=== PATIENT | male | born 1960 | race Caucasian/White ===

== ENCOUNTER 2018-05-29 14:36 | Emergency (ER) | payer OTHER, SELFPAY ==
[2018-05-29 14:37] VITALS: BP 138/87; PULSE 73; RESP 16; TEMP 36.9; O2SAT 95; BMI 26.6
--- NOTE | 2018-05-29 14:58 | CT_ITS ---
STUDY: CT BRAIN WITHOUT CONTRAST REASON FOR EXAM: Male, 57 years old. History of fall. RADIATION DOSAGE (If Supplied By Facility): CTDIvol = ( 60.81 ) mGy, DLP = ( 1089.89 ) mGycm TECHNIQUE: Transaxial CT imaging of the brain was performed without administration of intravenous contrast material. Individualized dose optimization techniques were used for this CT. COMPARISON: No relevant priors. FINDINGS: Normal soft tissue structures. Normal calvarium. Normal size ventricles and extra-axial spaces for the patient's age. Normal white matter tracts of the cerebral hemispheres. Normal basal ganglia and thalami. Normal brainstem. Normal cerebellum. There is no intracranial hemorrhage. There are no findings of an acute ischemic infarction. Mucosal thickening of the ethmoid sinuses and maxillary sinuses bilaterally. CT/Brain/Head without Contrast IMPRESSION: Mucosal thickening of the ethmoid sinuses and maxillary sinuses. Electronically Signed: Ari English, at 15:52 EDT , Service support ,
--- NOTE | 2018-05-29 14:59 | CT_ITS ---
STUDY: CT CERVICAL SPINE WITHOUT CONTRAST REASON FOR EXAM: Male, 57 years old. Fall down the steps. RADIATION DOSAGE (If Supplied By Facility): CTDIvol = ( 28.36 ) mGy, DLP = ( 1460.6 ) mGycm TECHNIQUE: High resolution transaxial imaging was performed without contrast material. Sagittal and coronal images were reconstructed. Individualized dose optimization techniques were used for this CT. COMPARISON: None FINDINGS: Normal craniovertebral junction. Normal anterior atlantoaxial articulation. Normal odontoid process. There is straightening of the normal cervical lordosis. Normal vertebral bodies and posterior osseous elements. C2-3: Normal endplates. Normal disc height and morphology. Normal central canal and intervertebral neuroforamina. C3-4: Normal endplates. Normal disc height and morphology. Normal central canal and intervertebral neuroforamina. C4-5: Normal endplates. Normal disc height and morphology. Normal central canal and intervertebral neuroforamina. C5-6: Mild degree of disc space narrowing. C6-7: Normal endplates. Normal disc height and morphology. Normal central canal and intervertebral neuroforamina. C7-T1: Normal endplates. Normal disc height and morphology. Normal central canal and intervertebral neuroforamina. Normal visualized soft tissue structures. CT/Spine Cervical without Contras IMPRESSION: Degenerative changes, as described above. Electronically Signed: Ari English, at 15:53 EDT , Service support ,
--- NOTE | 2018-05-29 15:01 | ED.VIS.INJ ---
History of Present Illness Chief Complaint: Upper Extremity Injury Informant: Patient, Significant Other Onset: Today Mechanism/Context: Fall - Reportedly patient fell down 12 steps. Quality of Pain: Dull, Aching, - - Right frontal headache Current Severity: Mild Maximum Severity: Moderate Worsened by: Unknown Relieved by: Nothing Associated Symptoms: Loss of consciousness Length of loss of consciousness: Unknown Narrative: Patient is a middle-aged male who drinks minimum pint a day presents after a fall down 12 steps. He complains of head pain. Loss of conscious. He is not a good informant. He is a smoker. He complains of right-sided headache, photophobia. Denies neck pain. Denies paresthesia, anesthesia motors. Denies chest pain or shortness of breath. Does report nausea without vomiting diarrhea. He denies bruising easily. Past Medical History - Allergies and Home Meds Allergies/Adverse Reactions: Allergies No Known Allergies Allergy (Verified 05/29/18 14:41) Primary Care Physician: Care Physician,No Primary [Primary Care Provider] - Prior records reviewed: Yes Surgical History: noncontributory Lives: Spouse/ Significant Other Smoking Status: Current every day smoker Alcohol: Heavy Drugs: None Review of Systems General: Denies: Chills, Fever, Sweats Eyes: Reports: Visual changes - bilaterally. Denies: Visual changes - left, Visual changes - right, Blurred vision - left, Blurred vision - right, Blurred Vision - bilaterally, Diplopia, -, - ENT: Denies: Rhinorrhea, Sore throat Cardiovascular: Denies: Chest pain, Palpitations Respiratory: Denies: Dyspnea, Cough, Dyspnea on exertion Gastrointestinal: Reports: Nausea. Denies: Abdominal pain, Vomiting, Diarrhea, Constipation, Melena, Hematochezia, -, - Genitourinary: Denies: Dysuria, Hematuria, Frequency Musculoskeletal: Denies: Myalgias, Arthralgias, Neck pain, Back pain, Swelling, Extremity Pain, -, - Skin: Denies: Rash, Wounds Neurological: Reports: Headache. Denies: Weakness, Parasthesia, Numbness, -, - Hematologic: Denies: Easy bruising, Easy bleeding Allergy: Denies: Uticaria Physical Exam Vital Signs/Narrative: Vital Signs Temp Pulse Resp BP Pulse Ox 05/29/18 14:37 98.5 F 73 16 138/87 H 95 Inital Vital Signs reviewed: Yes General: Well nourished, Well developed Head: Normocephalic, Trauma, Tenderness, - - Abrasion and tenderness right forehead. Eyes: Perrl, EOMI, - - There is no subconjunctival hemorrhage noted.. Negative for: Pale conjunctiva, Scleral icterus ENT: TM's clear, No hemotympanum or drainage. Negative for: No trauma, Hemotympanum, Otorrhea, Nasal trauma, Nasal septal hematoma, - - No clinical findings of basilar skull fracture Neck: Nontender, - - Patient was placed in a collar.. Negative for: Spinal Tenderness, Paraspinal Tenderness Cardiovascular: Regular rate, Regular rhythm, No murmurs, Normal S1, Normal S2 Respiratory: No distress, CTA bilaterally, Chest nontender Abdomen: Soft, Nontender, Nondistended, Normal bowel sounds, No masses. Negative for: Hepatomegaly, Splenomegaly, Mass, Pulsatile mass Back: Nontender. Negative for: CVA Tenderness - Right, CVA Tenderness - Left, Spinal Tenderness, Paraspinal Tenderness Extremeties: There is pain to palpation and abrasion over the right shoulder. The pain abrasion over the clavicle. There appears to be deformity. Skin: Normal color, Trauma. Negative for: Cyanosis, Jaundice Neurological: Alert, Oriented x3, Cranial nerves II-XII grossly intact, Normal Strength, Normal Sensation, Normal DTR - There is no clonus or Babinski sign noted. Diagnostic/Tx/Re-eval Chest X-Ray - ED: Read by ED Physician 2 view x-ray of the right clavicle 1/3 degree AC separation and mid third displaced clavicle fracture. CT of the head and neck were reviewed by me and interpreted radiologist as negative for acute pathology. The time of this addendum/note blood has not been drawn and awaiting blood draw. Impressions Brain CT 05/29/18 14:58 IMPRESSION: Mucosal thickening of the ethmoid sinuses and maxillary sinuses. Electronically Signed: Ari English, at 15:52 EDT , Service support , Cervical Spine CT 05/29/18 14:59 IMPRESSION: Degenerative changes, as described above. Electronically Signed: Ari English, at 15:53 EDT , Service support , 05/29/18 14:58 Brain/Head without Contrast [CT] Stat 05/29/18 14:59 Spine Cervical without Contras [CT] Stat 05/29/18 15:30 Xray Clavicle [Clavicle] [RAD] Stat Laboratory Results 05/29/18 05/29/18 05/29/18 16:02 16:02 16:02 WBC 6.9 RBC 4.82 Hgb 15.7 Hct 46.9 MCV 97.3 H MCH 32.6 H MCHC 33.5 RDW 12.9 RDW Differential 45.5 H Plt Count 120 L MPV 9.8 PT 12.7 INR 1.0 Sodium 143 Potassium 3.7 Chloride 108 H Carbon Dioxide 25.0 Anion Gap 10 BUN 14 Creatinine 0.76 Estim Creat Clear Calc 109.82 Est GFR (MDRD) Af Amer 136 Est GFR (MDRD) Non-Af 113 BUN/Creatinine Ratio 18.4 Glucose 57 L Calcium 8.2 L - Medical Decision Making Clinically patient is intoxicated. He admits to drinking. Will obtain alcohol level. As there was a fall with head trauma loss of conscious will obtain CT of the head. Per Nexus criteria C-spine cannot be cleared and reason for CT of the neck. PT/INR was obtained to assess for liver function and coagulopathy. CBC was obtained to assess platelet count since he drinks daily. CBC to rule out hypoglycemia electrode abnormality etc. If blood work is unremarkable he can be discharged with his fianc?e. He will be placed in a sling and swath and referred to orthopedics for follow-up Dr. Gonzales Patient was reassessed at 1640. His only complaint is shoulder pain. He was informed of his CAT scan results. He was informed awaiting alcohol level. Disposition: Home ED Disposition - Plan for ED Patient: Disposition: Home or Assisted Living Diagnosis: Concussion with loss of consciousness, Displaced fracture of shaft of right clavicle, initial encounter for closed fracture, Grade 3 separation of right shoulder, Alcohol intoxication Instructions: ED Concussion, ED Fx Clavicle, ED Sprain AC Joint, ED Alcohol Intoxication Prescriptions: Hydrocodone Bitart/Apap 5-325 [[place] 5MG-325MG] 1 tab PO Q6H PRN PRN 3 Days #10 tab PRN Reason: Pain Referrals: Care Physician,No Primary [Primary Care Provider] - Dillan Gonzales DO [STAFF PHYSICIAN] - 3-5 Days
--- NOTE | 2018-05-29 15:05 | ED.DCSUM_ITS ---
History of Present Illness Chief Complaint: Upper Extremity Injury Informant: Patient, Significant Other Onset: Today Mechanism/Context: Fall - Reportedly patient fell down 12 steps. Quality of Pain: Dull, Aching, - - Right frontal headache Current Severity: Mild Maximum Severity: Moderate Worsened by: Unknown Relieved by: Nothing Associated Symptoms: Loss of consciousness Length of loss of consciousness: Unknown Narrative: Patient is a middle-aged male who drinks minimum pint a day presents after a fall down 12 steps. He complains of head pain. Loss of conscious. He is not a good informant. He is a smoker. He complains of right-sided headache, photophobia. Denies neck pain. Denies paresthesia, anesthesia motors. Denies chest pain or shortness of breath. Does report nausea without vomiting diarrhea. He denies bruising easily. Past Medical History - Allergies and Home Meds Allergies/Adverse Reactions: Allergies No Known Allergies Allergy (Verified 05/29/18 14:41) Primary Care Physician: Care Physician,No Primary [Primary Care Provider] - Prior records reviewed: Yes Surgical History: noncontributory Lives: Spouse/ Significant Other Smoking Status: Current every day smoker Alcohol: Heavy Drugs: None Review of Systems General: Denies: Chills, Fever, Sweats Eyes: Reports: Visual changes - bilaterally. Denies: Visual changes - left, Visual changes - right, Blurred vision - left, Blurred vision - right, Blurred Vision - bilaterally, Diplopia, -, - ENT: Denies: Rhinorrhea, Sore throat Cardiovascular: Denies: Chest pain, Palpitations Respiratory: Denies: Dyspnea, Cough, Dyspnea on exertion Gastrointestinal: Reports: Nausea. Denies: Abdominal pain, Vomiting, Diarrhea, Constipation, Melena, Hematochezia, -, - Genitourinary: Denies: Dysuria, Hematuria, Frequency Musculoskeletal: Denies: Myalgias, Arthralgias, Neck pain, Back pain, Swelling, Extremity Pain, -, - Skin: Denies: Rash, Wounds Neurological: Reports: Headache. Denies: Weakness, Parasthesia, Numbness, -, - Hematologic: Denies: Easy bruising, Easy bleeding Allergy: Denies: Uticaria Physical Exam Vital Signs/Narrative: Vital Signs Temp Pulse Resp BP Pulse Ox 05/29/18 14:37 98.5 F 73 16 138/87 H 95 Inital Vital Signs reviewed: Yes General: Well nourished, Well developed Head: Normocephalic, Trauma, Tenderness, - - Abrasion and tenderness right forehead. Eyes: Perrl, EOMI, - - There is no subconjunctival hemorrhage noted.. Negative for: Pale conjunctiva, Scleral icterus ENT: TM's clear, No hemotympanum or drainage. Negative for: No trauma, Hemotympanum, Otorrhea, Nasal trauma, Nasal septal hematoma, - - No clinical findings of basilar skull fracture Neck: Nontender, - - Patient was placed in a collar.. Negative for: Spinal Tenderness, Paraspinal Tenderness Cardiovascular: Regular rate, Regular rhythm, No murmurs, Normal S1, Normal S2 Respiratory: No distress, CTA bilaterally, Chest nontender Abdomen: Soft, Nontender, Nondistended, Normal bowel sounds, No masses. Negative for: Hepatomegaly, Splenomegaly, Mass, Pulsatile mass Back: Nontender. Negative for: CVA Tenderness - Right, CVA Tenderness - Left, Spinal Tenderness, Paraspinal Tenderness Extremeties: There is pain to palpation and abrasion over the right shoulder. The pain abrasion over the clavicle. There appears to be deformity. Skin: Normal color, Trauma. Negative for: Cyanosis, Jaundice Neurological: Alert, Oriented x3, Cranial nerves II-XII grossly intact, Normal Strength, Normal Sensation, Normal DTR - There is no clonus or Babinski sign noted. Diagnostic/Tx/Re-eval Chest X-Ray - ED: Read by ED Physician 2 view x-ray of the right clavicle 1/3 degree AC separation and mid third d isplaced clavicle fracture. CT of the head and neck were reviewed by me and interpreted radiologist as negative for acute pathology. The time of this addendum/note blood has not been drawn and awaiting blood draw. Impressions Brain CT 05/29/18 14:58 IMPRESSION: Mucosal thickening of the ethmoid sinuses and maxillary sinuses. Electronically Signed: Ari English, at 15:52 EDT , Service support , Cervical Spine CT 05/29/18 14:59 IMPRESSION: Degenerative changes, as described above. Electronically Signed: Ari English, at 15:53 EDT , Service support , 05/29/18 14:58 Brain/Head without Contrast [CT] Stat 05/29/18 14:59 Spine Cervical without Contras [CT] Stat 05/29/18 15:30 Xray Clavicle [Clavicle] [RAD] Stat Laboratory Results 05/29/18 05/29/18 05/29/18 16:02 16:02 16:02 WBC 6.9 RBC 4.82 Hgb 15.7 Hct 46.9 MCV 97.3 H MCH 32.6 H MCHC 33.5 RDW 12.9 RDW Differential 45.5 H Plt Count 120 L MPV 9.8 PT 12.7 INR 1.0 Sodium 143 Potassium 3.7 Chloride 108 H Carbon Dioxide 25.0 Anion Gap 10 BUN 14 Creatinine 0.76 Estim Creat Clear Calc 109.82 Est GFR (MDRD) Af Amer 136 Est GFR (MDRD) Non-Af 113 BUN/Creatinine Ratio 18.4 Glucose 57 L Calcium 8.2 L - Medical Decision Making Clinically patient is intoxicated. He admits to drinking. Will obtain alcohol level. As there was a fall with head trauma loss of conscious will obtain CT of the head. Per Nexus criteria C-spine cannot be cleared and reason for CT of the neck. PT/INR was obtained to assess for liver function and coagulopathy. CBC was obtained to assess platelet count since he drinks daily. CBC to rule out hypoglycemia electrode abnormality etc. If blood work is unremarkable he can be discharged with his fianc?e. He will be placed in a sling and swath and referred to orthopedics for follow-up Dr. Gonzales Patient was reassessed at 1640. His only complaint is shoulder pain. He was informed of his CAT scan results. He was informed awaiting alcohol level. Disposition: Home ED Disposition - Plan for ED Patient: Disposition: Home or Assisted Living Diagnosis: Concussion with loss of consciousness, Displaced fracture of shaft of right clavicle, initial encounter for closed fracture, Grade 3 separation of right shoulder, Alcohol intoxication Instructions: ED Concussion, ED Fx Clavicle, ED Sprain AC Joint, ED Alcohol Intoxication Prescriptions: Hydrocodone Bitart/Apap 5-325 [[place] 5MG-325MG] 1 tab PO Q6H PRN PRN 3 Days #10 tab PRN Reason: Pain Referrals: Care Physician,No Primary [Primary Care Provider] - Dillan Gonzales DO [STAFF PHYSICIAN] - 3-5 Days
--- NOTE | 2018-05-29 15:30 | RAD_ITS ---
STUDY: X-RAY - RIGHT CLAVICLE REASON FOR EXAM: Male, 57 years old. Pain following a fall. TECHNIQUE: 2 view(s) of the clavicle. COMPARISON: None. FINDINGS: Fracture involving the mid portion of the right clavicle with overriding of the fracture fragments. There is evidence of a resection of the distal aspect of the clavicle. Normal visualized sternoclavicular articulation. Normal visualized pulmonary apex. RAD/Clavicle IMPRESSION: Fracture through the midshaft portion of the right clavicle with overriding of the fracture fragments. There has been partial resection of the distal portion of the clavicle. Electronically Signed: Ari English, at 15:50 EDT , Service support ,
[2018-05-29 16:22] LABS: Hematocrit 46.9 % (40-54); Hemoglobin 15.7 g/dl (13.0-16.5); Mean Corp Hgb Conc 33.5 g/gl (32-36); Mean Corpuscular Hgb 32.6 pg (27.0-32.0); Mean Corpuscular Volume 97.3 fL (80-94); Mean Platelet Vol. 9.8 fl (6.2-12.0); Platelet Count 120 K/mm3 (150-450); RBC Distribution Width CV 12.9 % (11.6-14.6); RBC Distribution Width SD 45.5 fl (35.1-43.9); Red Blood Count 4.82 M/mm3 (4.6-6.2); Scan Indicated on CBC? Y/N NO; White Blood Count 6.9 K/mm3 (4.4-11.0)
[2018-05-29 16:28] LABS: Anion Gap 10 (5-15); BUN 14 mg/dL (7-18); BUN/Creat Ratio 18.4 RATIO (10-20); Calcium,Total 8.2 mg/dL (8.5-10.1); Chloride 108 mmol/L (98-107); Creatinine, Serum 0.76 mg/dL (0.70-1.30); EST Glomerular Filtration Rate 113 mL/min (>60); Est Glom Filt Rate - Afr Amer 136 mL/min (>60); Estimated Creatinine Clearance 109.82 ml/min; Glucose 57 mg/dL (74-106); Potassium 3.7 mmol/L (3.5-5.1); Sodium Level 143 mmol/L (136-145)
[2018-05-29 16:44] VITALS: BP 142/97; PULSE 79; RESP 16; O2SAT 98
[2018-05-29 16:45] LABS: Prothrombin Time (Protime)PT. 12.7 SECONDS (11.7-14.9)
[2018-05-29 18:13] VITALS: BP 144/92; PULSE 87; RESP 18; O2SAT 97
--- NOTE | 2018-05-29 19:55 | ED.RN ---
PT REQUESTING TO GO HOME. ANDI WITH THE PT. PT AND ANDI INFORMED THAT THE PT WILL BE LEAVING AMA AND THE [facility] MUST TAKE RESPONSIBILITY TO THE PT SINCE HE IS CURRENTLY INTOXICATED. PT AND ANDI DISCUSSED THIS INFORMATION. ANDI SIGNED THE AMA PAPERWORK. DR JOLLEY AWARE. IV D/C BY CARLITOS DAMON. PT LEFT WITHOUT PRESCRIPTIONS OR D/C PAPERWORK. PT DECLINED COPY OF AMA PAPERWORK
== END 2018-05-29 19:56 | disposition left against medical advice (07) ==
PROVIDERS: Emergency Provider Emergency Medicine
DX: S06.0X9A Concussion with loss of consciousness of unspecified duration, initial encounter (principal); S42.021A Displaced fracture of shaft of right clavicle, initial encounter for closed fracture; S43.004A Unspecified dislocation of right shoulder joint, initial encounter; F10.129 Alcohol abuse with intoxication, unspecified; Y90.8 Blood alcohol level of 240 mg/100 ml or more; F17.200 Nicotine dependence, unspecified, uncomplicated; W10.9XXA Fall (on) (from) unspecified stairs and steps, initial encounter; Y93.89 Activity, other specified; Y92.89 Other specified places as the place of occurrence of the external cause; Y99.8 Other external cause status
CPT/HCPCS: 70450; 72125; 73000; 80048; 80320; 85027; 85610; 99285; G0480

== ENCOUNTER 2018-07-13 10:00 | Emergency (ER) | payer OTHER, SELFPAY ==
[2018-07-13 10:01] VITALS: BP 175/107; PULSE 89; RESP 18; TEMP 36.4; O2SAT 95; BMI 25.0
--- NOTE | 2018-07-13 10:32 | ED.DCSUM_ITS ---
History of Present Illness Chief Complaint: Suicidal Detail of Chief Complaint: Need detox not suicidal Informant: Patient Onset: Month(s) Timing: Continuous Quality: Feels uneasiness Location: Inside Current Severity: - - Not able to quantitate Maximum Severity: Severe Worsened by: Abstinence Relieved by: Resume drinking Associated Symptoms: Quivery sensation Narrative: Patient is a middle-age male with history of alcoholism. He was sober for 3 years. He resumed drinking 1 year ago. He stated reason he began to drink was because of pressure at work. He does smoke. He denies illicit drug use. He is . He denies future intent or intent to harm himself. He stated the question asked in triage was have you ever thought of harming yourself. He acknowledges that he has. Presently he has no intent to harm himself. He has no history of depression. He is never been hospitalized. More importantly, he acknowledges no future intent. When asked if he were allowed to go home what he would do he replied I would begin drinking again. Patient complains of vague head discomfort. He also reports blurred vision yesterday. He denies double vision or loss of vision. No trouble with speech or swallowing. Denies paresthesia, anesthesia motor weakness upper lower extremity. He denies GI symptoms. He denies urologic symptoms. Denies bruising easily. Patient reports consuming 1/5 of tequila a day x1 year. Last drink 1900 last evening. Patient states he has an appointment with [facility] this coming Sunday, July 17. Prior similar symptoms: Yes Recent Illness/Hospitalization: No - Past Medical History (1) History of pancreatitis Status: Acute Past Medical History - Allergies and Home Meds Allergies/Adverse Reactions: Allergies No Known Allergies Allergy (Verified 07/13/18 10:04) Primary Care Physician: Care Physician,No Primary [Primary Care Provider] - Prior records reviewed: Yes Surgical History: noncontributory Lives: Spouse/ Significant Other Smoking Status: Current every day smoker Alcohol: Heavy Drugs: None Review of Systems General: Denies: Chills, Fever, Sweats Eyes: Reports: Blurred Vision - bilaterally ENT: Denies: Bilateral ear pain, Rhinorrhea, Sore throat Cardiovascular: Denies: Chest pain, Palpitations Respiratory: Denies: Dyspnea, Cough, Dyspnea on exertion Gastrointestinal: Denies: Abdominal pain, Nausea, Vomiting, Diarrhea, Melena, Hematochezia Genitourinary: Denies: Dysuria, Hematuria, Frequency Musculoskeletal: Denies: Back pain, Extremity Pain Skin: Denies: Rash, Wounds Neurological: Denies: Headache, Weakness, Numbness Psych: Reports: Depression - Patient states he does feel sad. Reports he had suicidal thoughts. Presently he does not., Anxiety. Denies: Suicidal ideations Hematologic: Denies: Easy bruising Allergy: Denies: Uticaria Physical Exam Vital Signs/Narrative: Vital Signs Temp Pulse Resp BP Pulse Ox 07/13/18 10:01 97.6 F L 89 18 175/107 H 95 Inital Vital Signs reviewed: Yes General: Well nourished, Well developed, No Acute Distress Head: Normocephalic, Atraumatic Eyes: Perrl, EOMI ENT: Moist mucous membranes, No rhinorrhea Neck: Supple, Nontender Cardiovascular: Regular rate, Regular rhythm, No murmurs, Normal S1, Normal S2 Respiratory: No distress, CTA bilaterally, Chest nontender Abdomen: Soft, Nontender, Nondistended, Normal bowel sounds, No masses Back: Nontender, Normal Inspection Extremities: Nontender, No edema Skin: Normal color, No rash. Negative for: Cyanosis, Jaundice Neurological: Alert, Oriented x3, Cranial nerves II-XII grossly intact, Normal S trength, Normal Sensation, Normal DTR, Normal Gait, - - There is no clonus or Babinski sign. Psychological: Normal Mood, Depressed Diagnostic/Tx/Re-eval Laboratory Results 07/13/18 10:35 Ethyl Alcohol 377.0 H* - Medical Decision Making Presently patient does not have symptoms of withdrawal. Presently in my professional medical opinion patient is not at risk to harm himself. Modified sad person score is 3. Will obtain alcohol level. Patient stated there is alcohol in my system. I feel it. Patient was informed of his alcohol level. He and his significant other apparently were talking prior to me informing him of his alcohol level. He probably has had more to drink that he admits to. He apparently has been diluting the tequila. Since patient has no symptoms of withdrawal is functioning well with an alcohol at 377, he will be discharged to home with significant other. ED Disposition - Plan for ED Patient: Disposition: Home or Assisted Living Diagnosis: Alcohol intoxication in active alcoholic, Alcohol intoxication in alcoholism with blood level over 0.3 Instructions: ED Alcohol Intoxication, ED Overdose Alcohol Referrals: Care Physician,No Primary [Primary Care Provider] - Additional Instructions: If you develop symptoms of withdrawal return to the emergency department, Otherwise, keep appointment at [facility] this coming July 17
[2018-07-13 12:03] VITALS: BP 161/108; PULSE 91; RESP 20
== END 2018-07-13 12:04 | disposition home or self-care (01) ==
PROVIDERS: Emergency Provider Emergency Medicine
DX: F10.229 Alcohol dependence with intoxication, unspecified (principal); Y90.9 Presence of alcohol in blood, level not specified; F32.9 Major depressive disorder, single episode, unspecified; Z87.19 Personal history of other diseases of the digestive system; F17.200 Nicotine dependence, unspecified, uncomplicated
CPT/HCPCS: 80320; 99284; A4216; G0480

== ENCOUNTER 2018-07-30 16:35 | Emergency (ER) | payer OTHER, SELFPAY ==
[2018-07-30 16:35] VITALS: BP 181/110; PULSE 74; RESP 16; TEMP 37.1; O2SAT 98; BMI 22.1
[2018-07-30 16:41] VITALS: BP 181/110; PULSE 72; RESP 16; TEMP 37.1; O2SAT 98; BMI 22.1
--- NOTE | 2018-07-30 16:54 | ED.VISSUMM ---
- ER Visit Summary Date of Service: 07/30/18 Chief Complaint: Alcohol intoxication found between the screen door in the home door. History of Present Illness: The patient is a 57 M no history of alcoholism. Has gone to detox for more than a year. Currently has no local physician he moved here from [place]. Patient was try to get in his home is believe that he was intoxicated and he fell between the screen door and home door and paramedics were called. He denies any injuries. He denies any headache, chest pain, neck pain or other acute injuries. Physical Examination: Well-appearing middle-age male. Vital signs are stable. Initial blood pressure is 181/110. He does not look septic or toxic. He is in no acute distress. H EENT exam atraumatic. Pupils round react light. Neck nontender. Trachea midline. No lymphadenopathy. Lungs clear to auscultation bilaterally. Heart regular rate and rhythm no murmur. Chest wall nontender. Abdomen is soft and nontender normal bowel sounds no peritoneal signs. Patient moving all 4 extremities. Neurovascular intact. The nontender. Normal corporate specialist strength. Normal dorsi plantar flexion. Fingertip to nose within normal limits. Neurologically he is awake alert with no focal motor deficits while sitting in bed. Test Results: CBC normal white count of 6 hemoglobin 15. Chemistries normal normal creatinine gap. Alcohol level 469. This patient is a chronic alcoholic is actually tolerating that level quite well. He is awake alert. He is acting appropriately. Emergency Department Course and Treatment: Intoxicated patient found down. Exam is basically unremarkable. He is debating if he wants to be brought in for detox. Treatment Plan: Due to the patient not being in withdrawal I am unable to get him into detox today. I told him if he can go home and not drink for a day he could come back in withdrawal and we will try to get him admitted. Disposition: Discharge Impression: Acute alcohol intoxication History of alcohol abuse This note was generated with [employer] dictation software. It may contain incorrect words, spelling, and punctuation that were not noted in review of the chart prior to signing ED Disposition - Plan for ED Patient: Referrals: Care Physician,No Primary [Primary Care Provider] -
--- NOTE | 2018-07-30 16:57 | ED.DCSUM_ITS ---
- ER Visit Summary Date of Service: 07/30/18 Chief Complaint: Alcohol intoxication found between the screen door in the home door. History of Present Illness: The patient is a 57 M no history of alcoholism. Has gone to detox for more than a year. Currently has no local physician he moved here from [place]. Patient was try to get in his home is believe that he was intoxicated and he fell between the screen door and home door and paramedics were called. He denies any injuries. He denies any headache, chest pain, neck pain or other acute injuries. Physical Examination: Well-appearing middle-age male. Vital signs are stable. Initial blood pressure is 181/110. He does not look septic or toxic. He is in no acute distress. H EENT exam atraumatic. Pupils round react light. Neck nontender. Trachea midline. No lymphadenopathy. Lungs clear to auscultation bilaterally. Heart regular rate and rhythm no murmur. Chest wall nontender. Abdomen is soft and nontender normal bowel sounds no peritoneal signs. Patient moving all 4 extremities. Neurovascular intact. The nontender. 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 Normal dorsi plantar flexion. Fingertip to nose within normal limits. Neurologically he is awake alert with no focal motor deficits while sitting in bed. Test Results: CBC normal white count of 6 hemoglobin 15. Chemistries normal normal creatinine gap. Alcohol level 469. This patient is a chronic alcoholic is actually tolerating that level quite well. He is awake alert. He is acting appropriately. Emergency Department Course and Treatment: Intoxicated patient found down. Exam is basically unremarkable. He is debating if he wants to be brought in for detox. Treatment Plan: Due to the patient not being in withdrawal I am unable to get him into detox today. I told him if he can go home and not drink for a day he could come back in withdrawal and we will try to get him admitted. Disposition: Discharge Impression: Acute alcohol intoxication History of alcohol abuse This note was generated with [employer] dictation software. It may contain incorrect words, spelling, and punctuation that were not noted in review of the chart prior to signing ED Disposition - Plan for ED Patient: Referrals: Care Physician,No Primary [Primary Care Provider] -
[2018-07-30 17:25] LABS: Absolute Lymphocyte Count 2.13 X10^3/ul (0.83-4.51); Absolute Neutrophil Count 3.6 X10^3/uL (2.0-7.7); Basophil# 0.09 X10^3/uL; Basophil% 1.4 % (0-1); Eosinophil# 0.13 X10^3/uL; Hematocrit 44.6 % (40-54); Hemoglobin 15.6 g/dl (13.0-16.5); Lymphocyte # 2.13 X10^3/ul (4.0); Lymphocyte % 32.1 % (19-41); Mean Corpuscular Hgb 32.4 pg (27.0-32.0); Mean Corpuscular Volume 92.5 fL (80-94); Mean Platelet Vol. 9.5 fl (6.2-12.0); Monocyte# 0.64 X10^3/uL; Monocyte% 9.6 % (0-10); Neutrophil # 3.64 X10^3/uL (2.7-7.7); Neutrophil % 54.7 % (47-70); Platelet Count 200 K/mm3 (150-450); RBC Distribution Width CV 12.6 % (11.6-14.6); RBC Distribution Width SD 42.2 fl (35.1-43.9); Red Blood Count 4.82 M/mm3 (4.6-6.2); White Blood Count 6.6 K/mm3 (4.4-11.0)
[2018-07-30 17:30] LABS: POSITIVE COUNT NO; POSITIVE DIFFERENTIAL NO; POSITIVE MORPHOLOGY NO
[2018-07-30 17:45] LABS: Anion Gap 9 (5-15); BUN 18 mg/dL (7-18); BUN/Creat Ratio 22.1 RATIO (10-20); Chloride 107 mmol/L (98-107); Creatinine, Serum 0.82 mg/dL (0.70-1.30); EST Glomerular Filtration Rate 104 mL/min (>60); Est Glom Filt Rate - Afr Amer 126 mL/min (>60); Estimated Creatinine Clearance 97.76 ml/min; Glucose 95 mg/dL (74-106); Potassium 3.6 mmol/L (3.5-5.1); Sodium Level 140 mmol/L (136-145)
[2018-07-30 18:51] VITALS: BP 155/95; PULSE 69; RESP 14; O2SAT 97
--- NOTE | 2018-07-30 18:59 | ED.DEP ---
ED Disposition - Plan for ED Patient: Disposition: Home or Assisted Living Instructions: ED Alcohol Intoxication Referrals: Ricci Balderas [[facility]] - As Needed Additional Instructions: Stop drinking for a day and if you are in early withdrawal we can get you admitted for detox.
[2018-07-30 19:49] VITALS: BP 160/70; PULSE 75; RESP 14; TEMP 36.1; O2SAT 98
[2018-07-30 20:33] VITALS: BP 152/80; PULSE 70; RESP 14; O2SAT 98
== END 2018-07-30 21:01 | disposition home or self-care (01) ==
PROVIDERS: Emergency Provider Emergency Medicine
DX: F10.129 Alcohol abuse with intoxication, unspecified (principal); Y90.8 Blood alcohol level of 240 mg/100 ml or more; E11.9 Type 2 diabetes mellitus without complications; Z72.0 Tobacco use
CPT/HCPCS: 80048; 80320; 85025; 99285; G0480

== ENCOUNTER 2018-11-14 12:13 | Emergency (ER) | payer OTHER, SELFPAY ==
[2018-11-14 12:14] VITALS: BP 162/102; PULSE 109; RESP 18; TEMP 36.9; O2SAT 93; BMI 25.1
--- NOTE | 2018-11-14 12:49 | ED.DCSUM_ITS ---
History of Present Illness Chief Complaint: Eye Problem Informant: Patient Onset: Weeks - 1 Narrative: Worsening eye redness and crusting for the past week. Foreign body sensation. Blurry vision left eye. Last eye exam a year ago does not wear glasses or contacts. 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 Denies any daily medications. No allergies. Prior similar symptoms: No Past Medical History - Allergies and Home Meds Allergies/Adverse Reactions: Allergies No Known Allergies Allergy (Verified 11/14/18 12:14) Primary Care Physician: Care Physician,No Primary [Primary Care Provider] - Surgical History: noncontributory Smoking Status: Current every day smoker Review of Systems General: Denies: Chills, Fever, Sweats Eyes: Reports: Blurred vision - left. Denies: Visual changes - bilaterally, Diplopia ENT: Denies: Rhinorrhea, Sore throat Cardiovascular: Denies: Chest pain, Palpitations Respiratory: Denies: Dyspnea, Cough, Dyspnea on exertion Gastrointestinal: Denies: Abdominal pain, Nausea, Vomiting, Diarrhea, Melena, Hematochezia Genitourinary: Denies: Dysuria, Hematuria, Frequency Musculoskeletal: Denies: Back pain, Extremity Pain Skin: Denies: Rash, Wounds Neurological: Denies: Headache, Weakness, Numbness Physical Exam Vital Signs/Narrative: Vital Signs Temp Pulse Resp BP Pulse Ox 11/14/18 12:14 98.4 F 109 H 18 162/102 H 93 Inital Vital Signs reviewed: Yes General: Well nourished, Well developed, No Acute Distress Head: Normocephalic, Atraumatic Eyes: Perrl, EOMI, - - Left eye: Erythema of the whole sclera, there is crusting and slight swelling of the eyelid. There is no pain with eye movement. ENT: Moist mucous membranes, No rhinorrhea Neck: Supple, Nontender Cardiovascular: Regular rate, Regular rhythm, No murmurs Respiratory: No distress, CTA bilaterally, Chest nontender Abdomen: Soft, Nontender, Nondistended, Normal bowel sounds Back: Nontender, Normal Inspection Extremities: Nontender, No edema Skin: Normal color, No rash Neurological: Alert, Oriented x3, Cranial nerves II-XII grossly intact, Normal Strength, Normal Sensation Psychological: Normal affect, Normal Mood Diagnostic/Tx/Re-eval - Medical Decision Making Patient with noted conjunctivitis on exam. However he had foreign body sensations. Is waiting for visual acuity and fluorescein strip for further evaluation. With busy visit department, there is delay, reported to me patient left without full evaluation and final disposition. ED Disposition - Plan for ED Patient: Disposition: Home or Assisted Living Diagnosis: Conjunctivitis, left eye Referrals: Care Physician,No Primary [Primary Care Provider] -
--- NOTE | 2018-11-14 13:46 | ED.RN ---
PT LT WITHOUT BEING SEEN. IT WAS EXPLAINED TO THE PT THAT THE ER WAS BUSY.
== END 2018-11-14 14:01 | disposition left against medical advice (07) ==
PROVIDERS: Emergency Provider Emergency Medicine
DX: H10.9 Unspecified conjunctivitis (principal); F17.200 Nicotine dependence, unspecified, uncomplicated
CPT/HCPCS: 99281

== ENCOUNTER 2018-11-22 05:48 | Inpatient (IN) | payer OTHER, SELFPAY ==
[2018-11-22] VITALS (11 sets, daily range): BP systolic 110–152; BP diastolic 62–112; PULSE 77–107; RESP 16–18; TEMP 36.8–37.4; O2SAT 92–96; BMI 24.2; BMI 22.8
--- NOTE | 2018-11-22 05:53 | ED.RN ---
NO OLD EKGS IN MUSE
--- NOTE | 2018-11-22 06:23 | EKG12_ITS ---
Test Reason : CHEST PAIN Blood Pressure : / mmHG Vent. Rate : 094 BPM Atrial Rate : 094 BPM P-R Int : 160 ms QRS Dur : 092 ms QT Int : 370 ms P-R-T Axes : 061 065 068 degrees QTc Int : 462 ms Normal sinus rhythm Normal ECG Confirmed by ODILON BARNES, CASPER ([id number]), editor magazine ELIEL DEGROOT ([id number]) on 11/25/2018 8:55:48 AM Referred By: Vania Rojas Confirmed By:CASPER DONALD MD
--- NOTE | 2018-11-22 06:23 | RAD_ITS ---
STUDY: X-RAY CHEST REASON FOR EXAM: Male, 58 years old. Chest pain TECHNIQUE: Single frontal view of the chest. COMPARISON: None. FINDINGS: The lungs are clear and expanded. There is no demonstrated pleural abnormality. Normal size heart. Normal mediastinum and elizabeth. Normal visualized pulmonary arteries. Normal visualized aortic arch and descending thoracic aorta. Normal visualized thoracic spine. Remote right clavicle deformity. There is no demonstrated abnormality of the visualized soft tissue structures of the upper abdomen. RAD/Chest 1 View (Portable) IMPRESSION: No acute pulmonary findings. Electronically Signed: Ricci Pelayo MD at 6:40 EDT Tel , Service support ,
--- NOTE | 2018-11-22 06:25 | ED.VISSUMM ---
- ER Visit Summary Date of Service: 11/22/18 Chief Complaint: Chest pain History of Present Illness: The patient is a 58 M presenting with chest pain. Patient states this started around 2:30 AM. He complains of mid sternal and left-sided chest pain that radiates to the right side of his chest. He states it is 6 out of 10. He denies shortness of breath. He has had nausea and vomiting. He is also concerned that he is going into alcohol withdrawal. He states he quit drinking 4 months ago and started drinking again heavily on Sunday. He states he weaned his alcohol down yesterday and his last drink was at 12:30 AM. He states he has history of alcohol withdrawal in the past and feels similar. No history of alcohol withdrawal seizures. No PE/DVT risk factors. He has a history of hypertension, smoking, family history of early heart disease. Physical Examination: Vitals are stable. Patient is afebrile. Alert no acute distress. HEENT exam is unremarkable. Neck is supple. Lungs are clear and equal bilaterally. Heart is regular and tachycardic Abdomen is soft nontender nondistended. Extremities are unremarkable. Skin is warm and dry. No focal neurologic deficit. Remainder of exam is unremarkable. Emergency Department Course and Treatment: EKG is sinus rhythm rate of 94 with no acute ischemic changes. Patient was given aspirin, IV fluids, Zofran. CBC shows platelet 107. Chemistries normal except for sodium 133, creatinine 0.59. Troponin is negative. Chest x-ray shows no acute process. CIWA score 20. Alcohol 338. On reevaluation, patient is chest pain-free. Discussed with the hospitalist for admission. Disposition: Observation Impression: Chest pain, alcohol intoxication This note was generated with [employer] dictation software. It may contain incorrect words, spelling, and punctuation that were not noted in review of the chart prior to signing ED Disposition - Plan for ED Patient:
[2018-11-22] MEDS: Ondansetron 4 MG/2 ML Vial IV (06:36)
[2018-11-22] MEDS: 0.9% Normal Saline 1,000 ML 999 ML IV (06:36)
--- NOTE | 2018-11-22 06:38 | ED.RN ---
4 BABY ASPIRIN GIVEN PER EMS
[2018-11-22 06:47] LABS: Absolute Lymphocyte Count 1.48 X10^3/uL (0.83-4.51); Absolute Neutrophil Count 6.7 X10^3/uL (2.0-7.7); Basophil# 0.03 X10^3/uL; Basophil% 0.3 % (0-1); Eosinophil# 0.14 X10^3/uL; Eosinophils% 1.5 % (0-5); Hematocrit 37.2 % (40-54); Lymphocyte # 1.48 X10^3/ul (4.0); Lymphocyte % 16.3 % (19-41); Mean Corp Hgb Conc 34.9 g/dL (32-36); Mean Corpuscular Hgb 30.4 pg (27.0-32.0); Mean Corpuscular Volume 86.9 fL (80-94); Mean Platelet Vol. 10.2 fl (6.2-12.0); Monocyte% 7.7 % (0-10); NRBC Flagged by Analyzer 0 % (0-5); Neutrophil % 73.9 % (47-70); Platelet Count 107 K/mm3 (150-450); RBC Distribution Width CV 11.7 % (11.6-14.6); RBC Distribution Width SD 37.3 fl (35.1-43.9); Red Blood Count 4.28 M/mm3 (4.6-6.2); White Blood Count 9.1 K/mm3 (4.4-11.0)
[2018-11-22 07:10] LABS: Anion Gap 11 (5-15); BUN 12 mg/dL (7-18); BUN/Creat Ratio 20.2 RATIO (10-20); Calcium,Total 8.4 mg/dL (8.5-10.1); Chloride 95 mmol/L (98-107); Creatinine, Serum 0.59 mg/dL (0.70-1.30); EST Glomerular Filtration Rate 150 mL/min (>60); Est Glom Filt Rate - Afr Amer 181 mL/min (>60); Estimated Creatinine Clearance 135.25 ml/min; Glucose 80 mg/dL (74-106); Potassium 3.8 mmol/L (3.5-5.1); Sodium Level 133 mmol/L (136-145)
[2018-11-22 07:50] LABS: Amphetamine Urine VISTA NEGATIVE (<1000 ng/mL); Barbiturate Urine VISTA NEGATIVE (< 200 ng/mL); Benzodiazepine Urine VISTA NEGATIVE (< 200 ng/mL); Cocaine Urine VISTA NEGATIVE (< 300 ng/mL); Ecstacy Urine VISTA NEGATIVE (< 500 ng/mL); Methadone Urine VISTA NEGATIVE (< 300 ng/mL); PCP Urine VISTA NEGATIVE (< 25 ng/mL); THC Urine VISTA NEGATIVE (< 50 ng/mL)
[2018-11-22 08:07] LABS: Vista UDS pH Range 6
--- NOTE | 2018-11-22 08:34 | EKG12_ITS ---
Test Reason : AM EKG Blood Pressure : / mmHG Vent. Rate : 067 BPM Atrial Rate : 067 BPM P-R Int : 144 ms QRS Dur : 092 ms QT Int : 414 ms P-R-T Axes : 047 062 064 degrees QTc Int : 437 ms Normal sinus rhythm Normal ECG Confirmed by VERONIKA BARNES, MARIVEL ([id number]), graphic editor ELIEL DEGROOT ([id number]) on 11/27/2018 11:00:58 AM Referred By: Vania Rojas Confirmed By:MARIVEL BANDA MD
[2018-11-22 08:56] LABS: AST(SGOT) 132 U/L (15-37); Alanine Aminotransfer ALT/SGPT 100 U/L (16-61); Albumin, Serum 3.4 g/dL (3.2-5.0); Alkaline Phosphatase 56 U/L (45-117); Bilirubin, Direct < 0.05 mg/dL (0.00-0.30); Globulin 3.7 g/dL (2.2-4.2); Protein, Total 7.1 g/dL (6.4-8.2)
[2018-11-22] MEDS: Dextrose 5%/0.9% NaCl 1,000 ML 75 ML IV (09:03)
--- NOTE | 2018-11-22 09:13 | HP.PCM_ITS ---
Problem List (1) Acute alcohol withdrawal Status: Acute (2) Chest pain Status: Acute (3) Alcohol abuse Status: Chronic History of Present Illness Date of Admission: 11/22/18 Chief Complaint: Chest pain, trying to quit drinking alcohol. The patient is a 58 year old M with past medical history as mentioned above presented to the emergency room because of chest pain and also requested admission for alcohol detoxification. His main presenting complaint was chest pain that started around 2 AM this morning, woke him up from sleep, left-sided chest pain, dull aching pain, 6 constant severity, radiates to the right side of his chest, constant pain, associated with mild dizziness and nausea without aggravating or relieving factors. He denied shortness of breath, palpitation, sweating, vomiting. He did mention that his pain improved after he received aspirin in the ED. Patient requested to be admitted for alcohol withdrawal for medical stabilization and he has been trying to quit drinking. He does have a history of alcohol abuse, was sober for several months but he relapsed this past Sunday when he start drinking again he has been continuous drinking since until yesterday. He reported anxiety, restlessness and shakiness because of withdrawal. He denied abdominal pain, vomiting, constipation or diarrhea. Initially in the emergency department, patient was tachycardic, blood pressure slightly elevated. In the floor, heart rate stabilized, blood pressure improved, other vital signs are stable. Routine blood work was remarkable for platelet count of 107,000, sodium of 133, otherwise normal. LFT revealed slightly elevated liver transaminases. Blood alcohol level was 338. Urine drug screen was negative. EKG revealed normal sinus rhythm, normal ME interval, normal QRS, no acute ischemic changes. Troponin was negative. Chest x-ray showed no acute findings. He is being admitted for chest pain for evaluation as well as acute alcohol intoxication/withdrawal for medical stabilization. Past Medical History Past Medical History (Chronic Problems): Chronic Problems Alcohol abuse (Chronic) Allergies No Known Allergies Allergy (Verified 11/14/18 12:14) Home Medications: Ambulatory Orders Medication Instructions Recorded Multivitamin with Minerals 1 tab PO DAILY 11/22/18 [Multiple Vitamin] Surgical History: appendectomy, herniorrhaphy Psychiatric History: No pertinent psych hx Lives: Spouse/ Significant Other Smoking Status: Current every day smoker Tobacco Use: Cigarettes Alcohol: Heavy Drugs: None - *Family History Maternal History Items: Hypertension Paternal History Items: Heart Disease - Father because of heart attack at age of 50. Sibling History Items: Heart Disease, - - He has 3 brothers who had heart attacks at younger age. One brother had a heart attack at 39 years old, second brother had heart attack at age of 41 and another brother who had heart attack at age 46. Review of Systems Constitutional: Denies: Anorexia, Chills, Fever, Weakness Eyes: Denies: Blurred vision, Double vision, Drainage, Redness HEENT: Denies: Difficulty Hearing, Ear Pain, Eye Pain, Nasal Congestion, Sore Throat Cardiovascular: Reports: Chest Pain, Light Headedness. Denies: Edema, Heaviness, Orthopnea, Paroxysmal Noc. Dyspnea, Syncope Respiratory: Denies: Cough, Hemoptysis, Pleuritic Pain, Shortness of Breath, Sputum production, Wheezing Gastrointestinal: Reports: Nausea. Denies: Abdominal Pain, Constipation, Diarrhea, Vomiting Genitourinary: Denies: Dysuria, Frequency, Hematuria Musculoskeletal: Denies: Arm Pain, Back Pain, Foot Pain Skin: Denies: Dryness, Rash Neurological: Denies: Balance problems, Double vision, Change in Speech, Confu marino, Headaches, Incoordination, Numbness, Tingling Psychiatric: Denies: Anxiety, Depression Endocrine: Denies: Change in Body Habitus, Polydipsia, Polyuria VTE Information - Inpt Only VTE Present on Admission: No VTE Mechan Device Prophylaxis: SCD's VTE Pharm Prophylaxis ordered?: No Patient Problems: Active and Suspected Problems Acute alcohol withdrawal (Acute) Chest pain (Acute) - Physical Exam General: Alert, Oriented x3, Cooperative, No apparent distress HEENT: Atraumatic, PERRLA, EOMI, Normocephalic Oral: Moist Mucosa, No Gingival or Mucosal Lesions/ Ulcerations Neck: Supple, No JVD, Negative Carotid Bruits, Trachea Midline, Thyroid Normal Size and Texture Lungs: Clear to auscultation, Normal air movement, No rhonchi, No wheeze, No rales Cardiovascular: Regular rate, Regular Rhythm, Normal S1, Normal S2, No murmurs, Tachycardic Abdomen: Bowel Sounds Present, Soft, Non Tender, Non-Distended, No Hepato- splenomegaly Extremities: No clubbing, No cyanosis, No edema Skin: No rashes, No breakdown Lymphatic: No Cervical, Supraclavicular, or Inguinal Adenopathy Neurological: Cranial nerves II-XII grossly intact, Motor Exam 5/5 strength throughout Psych/Mental Status: Normal Affect, Appropriate, Restless, Alert and oriented to time, place, person, mood and affect Vital Signs Temp Pulse Resp BP Pulse Ox 98.2 F 79 16 143/82 H 94 11/22/18 08:38 11/22/18 08:38 11/22/18 08:38 11/22/18 08:38 11/22/18 08:45 Oxygen Delivery Method Room Air Weight: 150 lb 2.157 oz Body Mass Index (BMI) 22.8 Intake and Output for Last 24 Hours 11/20/18 11/21/18 11/22/18 23:59 23:59 23:59 Intake Total 1000 / 1000 Balance 1000 / 1000 Laboratory Tests Past 24 Hrs 11/22/18 11/22/18 11/22/18 06:20 06:20 06:20 WBC 9.1 RBC 4.28 L Hgb 13.0 Hct 37.2 L MCV 86.9 MCH 30.4 MCHC 34.9 RDW Std Deviation 37.3 RDW Coeff of Reece 11.7 Plt Count 107 L MPV 10.2 Immature Gran % (Auto) 0.300 Neut % (Auto) 73.9 H Lymph % (Auto) 16.3 L [place] % (Auto) 7.7 Eos % (Auto) 1.5 Baso % (Auto) 0.3 Absolute Neuts (auto) 6.7 Absolute Lymphs (auto) 1.48 Nucleated RBC % 0 PT INR Sodium 133 L Potassium 3.8 Chloride 95 L Carbon Dioxide 27.0 Anion Gap 11 BUN 12 Creatinine 0.59 L Estim Creat Clear Calc 135.25 Est GFR (MDRD) Af Amer 181 Est GFR (MDRD) Non-Af 150 BUN/Creatinine Ratio 20.2 H Glucose 80 Calcium 8.4 L Total Bilirubin Direct Bilirubin AST ALT Alkaline Phosphatase Troponin I < 0.015 Total Protein Albumin Globulin Urine Opiates Screen Urine Methadone Screen Ur Barbiturates Screen Ur Phencyclidine Scrn Ur Amphetamines Screen U Methamphetamin-MDMA U Benzodiazepines Scrn Urine Cocaine Screen U Cannabinoids Screen Ur Drug Screen Comment Ethyl Alcohol 338.0 H* 11/22/18 11/22/18 11/22/18 06:20 07:30 08:52 WBC RBC Hgb Hct MCV MCH MCHC RDW Std Deviation RDW Coeff of Reece Plt Count MPV Immature Gran % (Auto) Neut % (Auto) Lymph % (Auto) [place] % (Auto) Eos % (Auto) Baso % (Auto) Absolute Neuts (auto) Absolute Lymphs (auto) Nucleated RBC % PT Pending INR Pending Sodium Potassium Chloride Carbon Dioxide Anion Gap BUN Creatinine Estim Creat Clear Calc Est GFR (MDRD) Af Amer Est GFR (MDRD) Non-Af BUN/Creatinine Ratio Glucose Calcium Total Bilirubin 0.30 Direct Bilirubin < 0.05 AST 132 H ALT 100 H Alkaline Phosphatase 56 Troponin I Total Protein 7.1 Albumin 3.4 Globulin 3.7 Urine Opiates Screen NEGATIVE Urine Methadone Screen NEGATIVE Ur Barbiturates Screen NEGATIVE Ur Phencyclidine Scrn NEGATIVE Ur Amphetamines Screen NEGATIVE U Methamphetamin-MDMA NEGATIVE U Benzodiazepines Scrn NEGATIVE Urine Cocaine Screen NEGATIVE U Cannabinoids Screen NEGATIVE Ur Drug Screen Comment Ethyl Alcohol Clinical Impression(s) from Imaging Studies Chest X-Ray 11/22/18 06:23 IMPRESSION: No acute pulmonary findings. Electronically Signed: Ricci Pelayo MD at 6:40 EDT Tel , Service support , Assessment/Plan All Active Problems Acute alcohol withdrawal (Acute) Chest pain (Acute) This is a 58 years old male patient presented to the emergency room because of chest pain and he is being admitted for evaluation and also requested admission for acute alcohol withdrawal for medical stabilization. #1 chest pain: Risk factors are age, smoking, alcohol abuse and significant family history of premature CAD. Patient's father as well as 3 brothers had heart attacks at younger age. Father at age of 50 because of heart attack. A brother who had heart attack at 39, another brother who had heart attack at 41 and another brother who had heart attack at 46. EKG revealed no acute ischemic changes. Troponin is negative. Chest x-ray showed no acute findings. Plan: Admit to PCU, cardiac monitoring, serial cardiac enzymes, repeat EKG tomorrow morning, nuclear stress test tomorrow morning if cardiac enzymes are negative, start baby aspirin, fasting lipid profile, sublingual recognition PRN, IV fluids, Tylenol PRN. #2 acute alcohol intoxication/withdrawal: Blood alcohol level is 338. Urine drug screen was negative. Patient was sober for several months but he relapsed. At this time, patient is restless, was tachycardic in the ED but improved. Plan: LFT, initiate alcohol detox program with tapering course of Ativan, start multivitamins, folic acid, thiamine, CIWA every 4 hours, PRN Bentyl, Vistaril, methocarbamol. #3 thrombocytopenia/mild hyponatremia/elevated liver transaminases: All these findings can be explained by alcohol abuse. Platelet count is 107,000. Time and INR is pending. No active bleeding. Sodium was 133, will start IV fluids with D5 normal saline. #4 alcohol abuse: Patient was sober for several months but relapsed. Plan as above. #5 DVT prophylaxis: SCDs. This note was generated with [employer] dictation software. It may contain incorrect words, spelling, and punctuation that were not noted in checking the note before signing. Code Visit Inpatient E&M: 82723 Init Hosp L3
[2018-11-22] MEDS: Folic Acid 1 MG Tablet PO (09:16)
[2018-11-22] MEDS: Thiamine Hydrochloride 100 MG Tablet PO (09:16)
[2018-11-22] MEDS: Acetaminophen 325 MG Tablet 650 MG PO ×2 (09:16→21:17)
[2018-11-22] MEDS: Multivitamins,Therapeutic Tablet 1 TABLET PO (09:16)
[2018-11-22] MEDS: Aspirin E.C. 81 MG Tablet PO (09:16)
[2018-11-22 09:18] LABS: Prothrombin Time (Protime)PT. 13.2 SECONDS (11.7-14.9)
[2018-11-22 09:59] LABS: Cholesterol 153 mg/dL (200); High Density Lipoprotein 96 mg/dL; Triglycerides 32 mg/dL; Very Low Density Lipoprotein 6 mg/dL (5-40)
[2018-11-22] MEDS: Nitroglycerin (INPATIENT USE) 0.4 MG TAB.SUBL SUBLINGUAL (11:40)
[2018-11-22] MEDS: LORazepam 1 MG Tablet PO ×3 (11:42→21:11)
[2018-11-22] MEDS: Methocarbamol 750 MG Tablet PO (12:22)
--- NOTE | 2018-11-22 15:01 | CHAPLAIN ---
Type of Pastoral Visit _x__ Initial Visit ___ Follow-up Visit ___ On-call Visit ___ General Patient Visit ___ Spiritual Assessment ___ Family Conference ___ Bereavement ___ Rapid Response ___ Code Blue ___ Other (describe below) Pastoral Care Referral From _x__ Patient ___ Family ___ Nurse ___ Physician ___ Logistic Manager ___ Preformer [employer] ___ Other (describe below) Sacrament/Intervention ___ Active listening ___ Anointing ___ Baptist ___ Bereavement ___ Communion ___ April exploration ___ ___ Life review ___ Prayer ___ Reconciliation ___ Sacrament of Sick _x__ Supportive presence ___ Wedding ___ Other (describe below) Pastoral Comments
--- NOTE | 2018-11-22 15:40 | CASEMGMT ---
Social Work Met with patient for alcohol withdrawal. Discussed with pt his stressors - working long hours and ending a relationship. Pt stated he was 50 days sober prior, but had a bad night and drank 2 gallons of tequila. Pts AA sponsor was present and just had a prior conversation about staying sober and moving on from the relationship. Pt receives services from [facility] and gave SW permission to contact [facility]. Pt did not have any other needs. Contacted [facility] to confirm appts. Standing appts start 11/26 at 3 pm through with independent counselor. Pt will follow up upon DC. CINDY AndersenW
[2018-11-22] MEDS: 0.9% NaCl Peripheral Flush Adult/Peds IV (22:35)
[2018-11-23 01:00] VITALS: BP 146/79; PULSE 78; RESP 16; TEMP 36.6; O2SAT 94
[2018-11-23] MEDS: LORazepam 1 MG Tablet PO ×2 (01:08→05:46)
[2018-11-23 03:00] VITALS: PULSE 71
[2018-11-23 05:30] VITALS: BP 160/97; PULSE 68; RESP 16; TEMP 37.1; O2SAT 96
[2018-11-23] MEDS: Aspirin E.C. 81 MG Tablet PO (05:47)
--- NOTE | 2018-11-23 05:55 | EKG12_ITS ---
Test Reason : CP ADMISSION Blood Pressure : / mmHG Vent. Rate : 073 BPM Atrial Rate : 073 BPM P-R Int : 166 ms QRS Dur : 098 ms QT Int : 414 ms P-R-T Axes : 071 072 070 degrees QTc Int : 456 ms Normal sinus rhythm Normal ECG Confirmed by VERONIKA BARNES, MARIVEL ([id number]), editor [employer] ELIEL DEGROOT ([id number]) on 11/27/2018 11:01:55 AM Referred By: Vania Rojas Confirmed By:MARIVEL BANDA MD
[2018-11-23 07:00] VITALS: PULSE 69
--- NOTE | 2018-11-23 08:24 | PCM.PROGNOTE ---
Patient Problems: Active and Suspected Problems Acute alcohol withdrawal (Acute) Chest pain (Acute) Subjective: Chief complaint: Follow-up after admission for chest pain and acute alcohol intoxication/withdrawal. Patient seen and examined. No acute events overnight. He mentioned that last night he could not sleep because of withdrawal symptoms. Is having significant anxiety and restlessness. Chest pain improved, but is down to 2 out of 10 in severity. Blood pressure slightly elevated, other vital signs are stable, not tachycardic.. - Physical Exam General: Alert, Oriented x3, Cooperative, No apparent distress HEENT: Atraumatic, PERRLA, EOMI, Normocephalic Oral: Moist Mucosa, No Gingival or Mucosal Lesions/ Ulcerations Neck: Supple, No JVD, Negative Carotid Bruits, Trachea Midline, Thyroid Normal Size and Texture Lungs: Clear to auscultation, Normal air movement, No rhonchi, No wheeze, No rales Cardiovascular: Regular rate, Regular Rhythm, Normal S1, Normal S2 Abdomen: Bowel Sounds Present, Soft, Non Tender, Non-Distended, No Hepato-splenomegaly Extremities: No clubbing, No cyanosis, No edema Skin: No rashes, No breakdown Lymphatic: No Cervical, Supraclavicular, or Inguinal Adenopathy Neurological: Cranial nerves II-XII grossly intact, Motor Exam 5/5 strength throughout Psych/Mental Status: Normal Affect, Appropriate, Restless, Alert and oriented to time, place, person, mood and affect Vital Signs Temp Pulse Resp BP Pulse Ox 98.7 F 69 16 160/97 H 96 11/23/18 05:30 11/23/18 07:00 11/23/18 05:30 11/23/18 05:30 11/23/18 05:30 Oxygen Delivery Method Room Air Weight: 150 lb 2.157 oz Body Mass Index (BMI) 22.8 Intake and Output for Last 24 Hours 11/21/18 11/22/18 11/23/18 23:59 23:59 23:59 Intake Total 3060 / 3180 120 / 120 Balance 3060 / 3180 120 / 120 Laboratory Tests Past 24 Hrs 11/22/18 11/22/18 11/22/18 06:20 08:52 09:20 PT 13.2 INR 1.0 Total Bilirubin 0.30 Direct Bilirubin < 0.05 AST 132 H ALT 100 H Alkaline Phosphatase 56 Troponin I < 0.015 Total Protein 7.1 Albumin 3.4 Globulin 3.7 Triglycerides 32 Cholesterol 153 LDL Cholesterol 51 VLDL Cholesterol 6 HDL Cholesterol 96 11/22/18 12:31 PT INR Total Bilirubin Direct Bilirubin AST ALT Alkaline Phosphatase Troponin I < 0.015 Total Protein Albumin Globulin Triglycerides Cholesterol LDL Cholesterol VLDL Cholesterol HDL Cholesterol Medical Necessity - Tobacco Use Smoking Status: Current every day smoker Tobacco Use: Cigarettes Assessment/Plan All Active Problems Acute alcohol withdrawal (Acute) Chest pain (Acute) This is a 58 years old male patient presented to the emergency room because of chest pain and he is being admitted for evaluation and also requested admission for acute alcohol withdrawal for medical stabilization. #1 chest pain: He is still having chest pain with localized tenderness but improved. Troponin is negative x3. Repeat EKG showed no acute ischemic changes. Risk factors are age, smoking, alcohol abuse and significant family history of premature CAD. Plan for nuclear stress test this morning. #2 acute alcohol intoxication/withdrawal: He is on Ativan taper, multivitamins, folic acid, thiamine, methocarbamol, Bentyl and Vistaril. He did mention that he has significant withdrawal symptoms last night and he was able to sleep only for couple of hours. Blood pressure slightly elevated, other vital signs are stable. Blood alcohol level is 338. Urine drug screen was negative. Plan to continue same treatment. #3 thrombocytopenia/mild hyponatremia/elevated liver transaminases: All these findings can be explained by alcohol abuse. Platelet count is 107,000. Pro time and INR were normal. #4 alcohol abuse: Patient was sober for several months but relapsed. Plan as above. #5 DVT prophylaxis: SCDs. This note was generated with [employer] dictation software. It may contain incorrect words, spelling, and punctuation that were not noted in checking the note before signing. Code Visit Inpatient E&M: 57956 Subs Hosp L2
[2018-11-23 09:00] VITALS: BP 156/88; PULSE 68; RESP 16; TEMP 36.6; TEMP 36.7; O2SAT 94
[2018-11-23 11:00] VITALS: PULSE 71
--- NOTE | 2018-11-23 12:15 | STRESSREP ---
Stress Test Report Pharmacologic myocardial perfusion stress test. 58-year-old man with a history of chest pain and alcohol abuse. Stress protocol: Resting EKG demonstrates normal sinus rhythm with a rate of 71 bpm normal intervals are noted resting blood pressure 144/84 mmHg. 0.4 mg of regadenoson was infused per usual protocol followed by rapid intravenous and flush injection continuous environmental monitoring technician was performed. The maximum heart rate attained was 108 bpm which was 65% of maximum predicted heart rate and maximum workload was 1 metabolic equivalent. At rest there were no ST or T wave changes noted suggest abnormal flow reserve at peak infusion nonspecific ST-T wave changes were noted. The resting blood pressure was 144/84 with a final blood pressure 144/78. Myocardial perfusion protocol. 12.0 mCi of technetium 99m sestamibi was injected at rest. 0.4 mg of regadenoson was infused per usual protocol peak infusion 36.0 mCi of technetium 99m sestamibi was injected stress images were obtained stress and rest images were reconstructed and compared in the short axis vertical long horizontal long axis. Gated images were also obtained Perfusion SPECT analysis: Perfusion SPECT analysis demonstrated perfusion in all areas of the myocardium on the stress and rest images to a similar extent no evidence of redistribution is noted to suggest ischemia. Gated SPECT analysis: The gated ejection fraction is 54%. Conclusion: Normal myocardial perfusion stress test. Preserved ejection fraction.
[2018-11-23] MEDS: Folic Acid 1 MG Tablet PO (12:20)
[2018-11-23] MEDS: Multivitamins,Therapeutic Tablet 1 TABLET PO (12:20)
[2018-11-23] MEDS: Thiamine Hydrochloride 100 MG Tablet PO (12:20)
--- NOTE | 2018-11-23 13:19 | NURSING ---
Patient returned from stress asking if and when he could leave due to the fact that when patient was done with stress, they had informed him that his test was negative and he was likely going home. Explained to patient in detail that he was required to stay still, because he was admitted for detox as well. Patient had declined his AM dose of ativan. Stated he felt calm and appeared calm. CIWA was a 0. Patient refused to let me do vitals. Patient was allowed to be Independent in the room. Patient was walking the halls. Patient attempted to leave the unit to go smoke a cigarette. Expressed to patient he was not allowed to go off of the unit. Patient stated he would leave AMA at this time at 1300. Paged [place] and informed of negative stress test. stated patient still would not be discharged at this time due to detox and that he would come talk to the patient. Patient began taking off heart monitor and began pulling off tape for his IV. This nurse removed the IV and again explained the need for the patient to try and stay. Patient wanted AMA papers. AMA papers discussed and patient declined his copy of the paperwork and all papers given on this admission. Patient then left despite asking him to wait and speak with MD. MD did arrive to floor as patient left.
--- NOTE | 2018-11-23 13:26 | PCM.DC.SUM ---
Discharge Date and Diagnosis Date of Admission: 11/22/18 Date of Discharge: 11/23/18 - Primary Discharge Diagnosis #1 chest pain, ACS ruled out, attributed to musculoskeletal pain. #2 acute alcohol intoxication/withdrawal, patient requested admission for medical stabilization. #3 thrombocytopenia/mild hyponatremia/elevated liver transaminases, attributed to chronic alcohol abuse. - Secondary Discharge Diagnosis Chronic Problems Alcohol abuse (Chronic) Hospital Course and Treatment Imaging Results: 11/23/18 05:55 Nuclear Stress Test - Chemical [NM] AM (NON MEDS) Clinical Impression(s) from Imaging Studies Chest X-Ray 11/22/18 06:23 IMPRESSION: No acute pulmonary findings. Electronically Signed: Ricci Pelayo MD at 6:40 EDT Tel , Service support , Operations: None Procedures: EKG, Stress test Summary of Care Provided: The patient is a 58 year old M presented to the emergency room because of chest pain and also requested admission for acute alcohol withdrawal for medical stabilization. Patient was admitted and he was informed that he will go under stress test for evaluation for CAD and he will be treated for acute alcohol intoxication/withdrawal according to the medical stabilization protocol. His EKG revealed no acute ischemic changes. Troponin was negative x3. His routine blood work was remarkable for thrombocytopenia, mild hyponatremia which are probably due to chronic alcohol abuse. His liver transaminases were slightly elevated and also attributed to chronic liver disease secondary to alcohol abuse. Bilirubin and alkaline phosphatase were normal. On admission, his blood alcohol level was 338. Urine drug screen was negative. During this hospital stay, blood pressure was slightly elevated, other vital signs were stable. Patient underwent nuclear stress test that was normal without evidence of stress-induced myocardial ischemia and with preserved ejection fraction. ACS ruled out. Patient was treated with tapering course of Ativan, folic acid, thiamine, multivitamins as well as PRN methocarbamol, Vistaril and Bentyl. After patient had the stress test done and he was informed that it was negative, he requested to be discharged home. The nurse spoke with the patient and informed him that he is here for acute alcohol withdrawal as well which he has been ongoing treatment for it. I went to the floor to speak with the patient and he was already signed the AMA paper and he left the hospital. Patient left the hospital AGAINST MEDICAL ADVICE. - Physical Exam Vital Signs Temp Pulse Resp BP Pulse Ox 98.0 F 71 16 156/88 H 94 11/23/18 09:00 11/23/18 11:00 11/23/18 09:00 11/23/18 09:00 11/23/18 09:00 Oxygen Delivery Method Room Air Weight: 150 lb 2.157 oz Body Mass Index (BMI) 22.8 Intake and Output for Last 24 Hours 11/21/18 11/22/18 11/23/18 23:59 23:59 23:59 Intake Total 3060 / 3180 220 / 220 Output Total 300 / 300 Balance 3060 / 3180 -80 / -80 Laboratory Tests Past 24 Hrs 11/22/18 12:31 Troponin I < 0.015 Home Medications: Medications to take at Discharge Multivitamin with Minerals [Multiple Vitamin] 1 tab PO DAILY 11/22/18 Primary Care Physician: Care Physician,No Primary [Primary Care Provider] - Disposition: Against Medical Advice Minutes spent on discharge:: 26 Patient Condition:: Stable Medical Necessity - Tobacco Use Smoking Status: Current every day smoker Tobacco Use: Cigarettes Meaningful Use Info Meaningful Use Diagnoses (Choose all that apply): None applicable Code Visit Inpatient E&M: 37815 Disch Hosp
== END 2018-11-23 13:13 | disposition left against medical advice (07) | DRG 313 ==
LOC: ED 06:25 → PCU 09:56
PROVIDERS: Admitting Provider Hospitalist; Emergency Provider Emergency Medicine; Referring Provider Hospitalist; Visit Provider Hospitalist
DX: R07.89 Other chest pain (principal); F10.239 Alcohol dependence with withdrawal, unspecified; E87.1 Hypo-osmolality and hyponatremia; F10.229 Alcohol dependence with intoxication, unspecified; K70.9 Alcoholic liver disease, unspecified; D69.6 Thrombocytopenia, unspecified; I10 Essential (primary) hypertension; Y90.8 Blood alcohol level of 240 mg/100 ml or more; F17.210 Nicotine dependence, cigarettes, uncomplicated; Z82.49 Family history of ischemic heart disease and other diseases of the circulatory system
CPT/HCPCS: 36415; 71045; 78452; 80048; 80061; 80076; 80307; 80320; 84484; 85025; 85610; 93005; 93017; 97802; 99285; 99406; A9500; J7030; A4216; G0480; J2405; J2785

== ENCOUNTER 2018-12-01 01:41 | Inpatient (IN) | payer OTHER, SELFPAY ==
[2018-11-22 08:41] VITALS: BMI 22.8
[2018-12-01] VITALS (9 sets, daily range): BP systolic 135–170; BP diastolic 81–117; PULSE 84–115; RESP 15–20; TEMP 36.6–36.9; O2SAT 92–99; BMI 24.3; BMI 21.6
--- NOTE | 2018-12-01 02:20 | EKG12_ITS ---
Test Reason : CP Blood Pressure : / mmHG Vent. Rate : 089 BPM Atrial Rate : 089 BPM P-R Int : 168 ms QRS Dur : 098 ms QT Int : 382 ms P-R-T Axes : 072 076 072 degrees QTc Int : 464 ms Normal sinus rhythm Normal ECG Confirmed by VERONIKA BARNES, MARIVEL ([id number]), greeting card editor MANDY FERREIRA ([id number]) on 12/04/2018 12:12:10 PM Referred By: HENRIQUE Confirmed By:MARIVEL BANDA MD
--- NOTE | 2018-12-01 02:20 | RAD_ITS ---
STUDY: X-RAY CHEST REASON FOR EXAM: Male, 58 years old. Chest pain TECHNIQUE: AP portable COMPARISON: 11/22/2018 FINDINGS: The lungs are clear and expanded. There is no demonstrated pleural abnormality. Normal size heart. Normal mediastinum and elizabeth. Normal visualized pulmonary arteries. Normal visualized aortic arch and descending thoracic aorta. Normal visualized thoracic spine. There is old right clavicle deformity. There is no demonstrated abnormality of the visualized soft tissue structures of the upper abdomen. RAD/Chest 1 View (Portable) IMPRESSION: Negative x-ray examination of the chest. No significant radiographic change. Electronically Signed: Gaetano Barrera, at 2:39 EDT Tel , Service support ,
[2018-12-01 03:30] LABS: Absolute Lymphocyte Count 1.21 X10^3/uL (0.83-4.51); Absolute Neutrophil Count 2.2 X10^3/uL (2.0-7.7); Basophil# 0.03 X10^3/uL; Basophil% 0.8 % (0-1); Eosinophil# 0.02 X10^3/uL; Eosinophils% 0.5 % (0-5); Hematocrit 44.2 % (40-54); Hemoglobin 15.2 g/dL (13.0-16.5); Lymphocyte # 1.21 X10^3/ul (4.0); Lymphocyte % 32.4 % (19-41); Mean Corp Hgb Conc 34.4 g/dL (32-36); Mean Corpuscular Hgb 30.4 pg (27.0-32.0); Mean Corpuscular Volume 88.4 fL (80-94); Mean Platelet Vol. 10.4 fl (6.2-12.0); Monocyte# 0.27 X10^3/uL; Monocyte% 7.2 % (0-10); NRBC Flagged by Analyzer 0 % (0-5); Neutrophil # 2.17 X10^3/uL (2.7-7.7); Platelet Count 88 K/mm3 (150-450); RBC Distribution Width CV 12.2 % (11.6-14.6); RBC Distribution Width SD 39.4 fl (35.1-43.9); White Blood Count 3.7 K/mm3 (4.4-11.0)
[2018-12-01] MEDS: LORazepam 2 MG/ML Syringe 1 MG IV (03:32)
[2018-12-01] MEDS: 0.9% Normal Saline 1,000 ML 150 ML IV ×3 (03:37→18:08)
[2018-12-01 03:43] LABS: AST(SGOT) 281 U/L (15-37); Alanine Aminotransfer ALT/SGPT 204 U/L (16-61); Albumin, Serum 3.7 g/dL (3.2-5.0); Alkaline Phosphatase 70 U/L (45-117); Anion Gap 19 (5-15); BUN 17 mg/dL (7-18); BUN/Creat Ratio 20.4 RATIO (10-20); Bilirubin, Direct 0.22 mg/dL (0.00-0.30); Calcium,Total 8.4 mg/dL (8.5-10.1); Chloride 95 mmol/L (98-107); Creatinine, Serum 0.84 mg/dL (0.70-1.30); EST Glomerular Filtration Rate 101 mL/min (>60); Est Glom Filt Rate - Afr Amer 122 mL/min (>60); Globulin 4.5 g/dL (2.2-4.2); Glucose 134 mg/dL (74-106); Lipase 156 U/L (73-393); Potassium 3.8 mmol/L (3.5-5.1); Protein, Total 8.2 g/dL (6.4-8.2); Sodium Level 136 mmol/L (136-145)
--- NOTE | 2018-12-01 04:05 | ED.VIS.GEN ---
History of Present Illness Chief Complaint: ETOH Intox Detail of Chief Complaint: Chest pain and requesting alcohol detox Informant: Patient Onset: Yesterday Current Severity: Mild Maximum Severity: Mild Narrative: Patient has history of alcoholism. He presents stating that he feels like he is going through withdrawal and needs help with detox. Dates he typically drinks a liter of tequila a day. His last drink was at 8 PM, approximately 6 hours prior to my evaluation. He states that he feels very weak and has difficulty walking. He feels shaky. He had some nausea and vomited yesterday. Patient is also complaining of left upper chest pain. It is been present for some time. Patient was admitted to this hospital November 22- for alcohol withdrawal and detox as well as chest pain. He had a negative stress test at that time and he was diagnosed with musculoskeletal chest wall pain. He signed out AGAINST MEDICAL ADVICE on the from his detox program. Patient states he began drinking as soon as he left here. Past Medical History - Allergies and Home Meds Allergies/Adverse Reactions: Allergies No Known Allergies Allergy (Verified 12/01/18 01:48) Primary Care Physician: Care Physician,No Primary [Primary Care Provider] - Prior records reviewed: Yes Past Medical History: - - Reviewed Surgical History: appendectomy, herniorrhaphy Smoking Status: Current every day smoker Alcohol: Heavy - Family History Maternal Family History: Reports: Hypertension Paternal Family History: Reports: Heart Disease - Father because of heart attack at age of 50. Sibling Family History: Reports: Heart Disease, - - He has 3 brothers who had heart attacks at younger age. One brother had a heart attack at 39 years old, second brother had heart attack at age of 41 and another brother who had heart attack at age 46. Review of Systems General: Denies: Chills, Fever Eyes: Denies: Visual changes - bilaterally ENT: Denies: Bilateral ear pain Cardiovascular: Reports: Chest pain Respiratory: Denies: Dyspnea, Cough Gastrointestinal: Reports: Nausea, Vomiting. Denies: Abdominal pain Genitourinary: Denies: Dysuria Musculoskeletal: Denies: Neck pain, Back pain Skin: Denies: Rash Neurological: Denies: Headache Hematologic: Denies: Easy bruising Allergy: Denies: Uticaria Physical Exam Vital Signs/Narrative: Vital Signs Temp Pulse Resp BP Pulse Ox 12/01/18 01:42 98.0 F 104 H 18 137/117 H 99 Inital Vital Signs reviewed: Yes General: Well nourished, Well developed Head: Normocephalic ENT: Moist mucous membranes Neck: Supple Cardiovascular: Regular rhythm, Tachycardia - Mildly tachycardic Respiratory: No distress, CTA bilaterally, Chest tenderness - Reproducible tenderness to the left upper chest wall. Abdomen: Soft, Nontender Back: Nontender Extremities: Nontender, No edema Skin: Normal color, No rash Neurological: Alert, Oriented x3 Psychological: Normal affect Diagnostic/Tx/Re-eval Impressions Chest X-Ray 12/01/18 02:20 IMPRESSION: Negative x-ray examination of the chest. No significant radiographic change. Electronically Signed: Gaetano Reaassen, at 2:39 EDT Tel , Service support , 12/01/18 02:20 Chest 1 View (Portable) [RAD] Stat Laboratory Results 12/01/18 12/01/18 12/01/18 03:15 03:15 03:15 WBC 3.7 L RBC 5.00 Hgb 15.2 Hct 44.2 MCV 88.4 MCH 30.4 MCHC 34.4 RDW Std Deviation 39.4 RDW Coeff of Reece 12.2 Plt Count 88 L MPV 10.4 Immature Gran % (Auto) 1.100 H Neut % (Auto) 58.0 Lymph % (Auto) 32.4 [place] % (Auto) 7.2 Eos % (Auto) 0.5 Baso % (Auto) 0.8 Absolute Neuts (auto) 2.2 Absolute Lymphs (auto) 1.21 Nucleated RBC % 0 Sodium 136 Potassium 3.8 Chloride 95 L Carbon Dioxide 22.0 Anion Gap 19 H BUN 17 Creatinine 0.84 Estim Creat Clear Calc 95.00 Est GFR (MDRD) Af Amer 122 Est GFR (MDRD) Non-Af 101 BUN/Creatinine Ratio 20.4 H Glucose 134 H Calcium 8.4 L Total Bilirubin 0.50 Direct Bilirubin 0.22 AST 281 H ALT 204 H Alkaline Phosphatase 70 Troponin I < 0.015 Total Protein 8.2 Albumin 3.7 Globulin 4.5 H Lipase 156 Ethyl Alcohol 333.0 H* - EKG Initial EKG Interpretation: Sinus Rhythm - Sinus 89 with no acute ischemia. - Medical Decision Making CIWA score on arrival was 19. Patient was given 1 mg of IV Ativan. Lab work was obtained. LFTs do appear to be climbing when compared to his prior admission. EtOH level is elevated at 333. Patient is asking for help with detox. I will speak with hospitalist to see if they are amenable to admission and treatment. ED Disposition - Plan for ED Patient: Disposition: Acute Care Hospital [facility] Diagnosis: Alcohol withdrawal Referrals: Care Physician,No Primary [Primary Care Provider] -
--- NOTE | 2018-12-01 04:43 | ED.RN ---
LAD CALLS W/SERUM ETOH OF 333. DR CRENSHAW AWARE.
--- NOTE | 2018-12-01 05:11 | PCM.HP.STD ---
Problem List (1) Alcohol abuse Status: Chronic (2) Alcohol withdrawal Status: Acute History of Present Illness Date of Admission: 12/01/18 Chief Complaint: requesting alcohol withdrawal support The patient is a 58 year old male patient with a past medical history of alcoholism for the last 30 years presents to the emergency room requesting alcohol withdrawal support. Patient's last known alcohol intake was 8:00 PM yesterday. For the past 2 weeks she has been binging for more than a liter of hard alcohol daily and he is a routine of drinking for over 30 years. The patient denies chest pain shortness of breath nausea vomiting or diarrhea at this present time he did have the opportunity to go through withdrawal over a week ago and failed to comply with the program by leaving early. 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 He will be admitted to medical surgical floor for alcohol withdrawal program and protocol, compliance with the program was emphasized strongly. Past Medical History Past Medical History (Chronic Problems): Chronic Problems Alcohol abuse (Chronic) Allergies No Known Allergies Allergy (Verified 12/01/18 01:48) Home Medications: Ambulatory Orders Medication Instructions Recorded NK 12/01/18 Surgical History: appendectomy, herniorrhaphy Psychiatric History: No pertinent psych hx Smoking Status: Current every day smoker Alcohol: Heavy - *Family History Maternal History Items: Hypertension Paternal History Items: Heart Disease - Father because of heart attack at age of 50. Sibling History Items: Heart Disease, - - He has 3 brothers who had heart attacks at younger age. One brother had a heart attack at 39 years old, second brother had heart attack at age of 41 and another brother who had heart attack at age 46. Review of Systems Constitutional: Denies: Chills, Fever, Weight Change HEENT: Denies: Head Aches, Sinus Congestion, Sinus Drainage Cardiovascular: Denies: Chest Pain, Palpitations Respiratory: Denies: Cough, Shortness of breath at rest, Sputum production Gastrointestinal: Denies: Abdominal Pain, Nausea, Vomiting Genitourinary: Denies: Dysuria Musculoskeletal: Denies: Joint Pain, Joint Tenderness Skin: Denies: Rash, Wounds Neurological: Denies: Numbness, Tingling, Focal weakness Psychiatric: Reports: Anxiety. Denies: Depression, Homicidal Ideations, Suicidal Ideations Hematologic/ Lymphatic: Denies: Easy Bruising, Easy Bleeding VTE Information - Inpt Only VTE Present on Admission: No VTE Mechan Device Prophylaxis: None VTE Pharm Prophylaxis ordered?: Yes Patient Problems: Active and Suspected Problems Alcohol withdrawal (Acute) - Physical Exam General: Alert, Oriented x3, Cooperative HEENT: Atraumatic, Normocephalic Neck: Supple, Negative Carotid Bruits Lungs: Clear to auscultation, Normal air movement Cardiovascular: Regular rate, No murmurs Abdomen: Bowel Sounds Present, Soft, Non Tender Extremities: No edema Skin: No rashes Musculoskeletal: No Tenderness to Palpation of Joints or Extremities Neurological: Neuro grossly intact Psych/Mental Status: Normal Affect, Appropriate Vital Signs Temp Pulse Resp BP Pulse Ox 98.0 F 101 H 15 135/90 H 96 12/01/18 01:42 12/01/18 03:41 12/01/18 03:41 12/01/18 03:41 12/01/18 03:41 Oxygen Delivery Method Room Air Weight: 160 lb Body Mass Index (BMI) 24.3 Laboratory Tests Past 24 Hrs 12/01/18 12/01/18 12/01/18 03:15 03:15 03:15 WBC 3.7 L RBC 5.00 Hgb 15.2 Hct 44.2 MCV 88.4 MCH 30.4 MCHC 34.4 RDW Std Deviation 39.4 RDW Coeff of Reece 12.2 Plt Count 88 L MPV 10.4 Immature Gran % (Auto) 1.100 H Neut % (Auto) 58.0 Lymph % (Auto) 32.4 Person % (Auto) 7.2 Eos % (Auto) 0.5 Baso % (Auto) 0.8 Absolute Neuts (auto) 2.2 Absolute Lymphs (auto) 1.21 Nucleated RBC % 0 Sodium 136 Potassium 3.8 Chloride 95 L Carbon Dioxide 22.0 Anion Gap 19 H BUN 17 Creatinine 0.84 Estim Creat Clear Calc 95.00 Est GFR (MDRD) Af Amer 122 Est GFR (MDRD) Non-Af 101 BUN/Creatinine Ratio 20.4 H Glucose 134 H Calcium 8.4 L Total Bilirubin 0.50 Direct Bilirubin 0.22 AST 281 H ALT 204 H Alkaline Phosphatase 70 Troponin I < 0.015 Total Protein 8.2 Albumin 3.7 Globulin 4.5 H Lipase 156 Ethyl Alcohol 333.0 H* Assessment/Plan All Active Problems Alcohol withdrawal (Acute) Acute alcohol withdrawal (Acute) Chest pain (Acute) Chronic Problems Alcohol abuse (Chronic) Andi 1. Alcohol abuse\chronic?requesting support for withdrawal symptoms detoxification?Place patient on medical surgical floor, initiate CIWA protocol. Consult case management for support resources following discharge 2. Smoking?cessation encouraged does not want a patch at this time Code Visit Inpatient E&M: 99577 Init Hosp L3
[2018-12-01] MEDS: LORazepam 1 MG Tablet 2 MG PO ×4 (07:29→21:12)
[2018-12-01] MEDS: Folic Acid 1 MG Tablet PO (07:29)
[2018-12-01] MEDS: Thiamine Hydrochloride 100 MG Tablet PO (07:29)
[2018-12-01] MEDS: Multivitamins,Therapeutic Tablet 1 TABLET PO (07:29)
[2018-12-01] MEDS: Ondansetron 8 MG Tablet PO (08:28)
[2018-12-02] VITALS (7 sets, daily range): BP systolic 130–155; BP diastolic 91–102; PULSE 68–103; RESP 16–22; TEMP 36.7–37.3; O2SAT 96–99
[2018-12-02] MEDS: 0.9% Normal Saline 1,000 ML 150 ML IV ×2 (00:36→07:41)
[2018-12-02 02:36] LABS: Alcohol, Blood (Medical)-Serum < 3.0 mg/dL
[2018-12-02] MEDS: LORazepam 1 MG Tablet 2 MG PO (04:55)
[2018-12-02] MEDS: Acetaminophen 325 MG Tablet 650 MG PO (07:41)
[2018-12-02] MEDS: Thiamine Hydrochloride 100 MG Tablet PO (07:42)
[2018-12-02] MEDS: Multivitamins,Therapeutic Tablet 1 TABLET PO (07:42)
[2018-12-02] MEDS: Folic Acid 1 MG Tablet PO (07:42)
--- NOTE | 2018-12-02 08:11 | PN_ITS ---
Patient Problems: Active and Suspected Problems Alcohol withdrawal (Acute) Subjective: Doing well, denies any anxiety or tremors at the moment. No issues overnight Vitals/I&O's: Vital Signs Temp Pulse Resp BP Pulse Ox 98.1 F 68 18 137/97 H 97 12/02/18 07:46 12/02/18 07:46 12/02/18 07:46 12/02/18 07:46 12/02/18 07:46 Oxygen Delivery Method Room Air Weight: 141 lb 15.643 oz Body Mass Index (BMI) 21.6 Intake and Output for Last 24 Hours 11/30/18 12/01/18 12/02/18 23:59 23:59 23:59 Intake Total 2750.0 / 2850.0 227 / 2270 Balance 2750.0 / 2850.0 2269 / 2270 General: Alert, Oriented x3, Cooperative, No apparent distress HEENT: Atraumatic, PERRLA, EOMI, Normocephalic Oral: Moist Mucosa Neck: Supple, No JVD Lungs: Clear to auscultation, Normal air movement, No rhonchi, No wheeze, No rales Cardiovascular: Regular rate, Regular Rhythm, Normal S1, Normal S2, No murmurs Abdomen: Soft, Non Tender, Non-Distended, No Hepato-splenomegaly Extremities: No edema, Capillary Refill Less than 3 Seconds Skin: No rashes, No breakdown Neurological: Neuro grossly intact, Sensory exam intact to light touch and pain Psych/Mental Status: Normal Affect, Appropriate Laboratory Results 12/02/18 01:34: Ethyl Alcohol < 3.0 Current Medications Acetaminophen (Tylenol) 650 mg PO Q6H PRN PRN PRN Reason: Non-cardiac pain (mod-severe) Last Admin: 12/02/18 07:41 Dose: 650 mg Documented by: Dicyclomine HCl (Bentyl) 20 mg PO Q6H PRN PRN PRN Reason: abdominal discomfort Folic Acid (Folic Acid) 1 mg PO DAILYCM [facility] Stop: 12/03/18 08:01 Last Admin: 12/02/18 07:42 Dose: 1 mg Documented by: Hydroxyzine Pamoate (Vistaril Pamoate Capsule) 50 mg PO Q6H PRN PRN PRN Reason: Mild Anxiety (score 1/3) Sodium Chloride () 1,000 mls @ 150 mls/hr IV .Q6H40M [facility] Last Admin: 12/02/18 07:41 Dose: 150 mls/hr Documented by: Lorazepam (Ativan) 2 mg PO Q2H PRN PRN; Protocol PRN Reason: CIWA score > 8 but <15 Last Admin: 12/02/18 04:55 Dose: 2 mg Documented by: Lorazepam (Ativan) 2 mg PO UD PRN; Protocol PRN Reason: CIWA score >/=15. Lorazepam (Ativan) 2 mg IV Q2H PRN PRN; Protocol PRN Reason: CIWA score > 8 but <15 Lorazepam (Ativan) 2 mg IV UD PRN; Protocol PRN Reason: CIWA score >/=15. [facility]it[facility] ([facility]) [facility] Last Admin: 12/02/18 07:42 Dose: 1 tablet Documented by: Ondansetron HCl (Zofran) 8 mg PO Q8H PRN PRN PRN Reason: NAUSEA/VOMITING Last Admin: 12/01/18 08:28 Dose: 8 mg Documented by: Sodium Chloride () 10 - 40 ml IV UD PRN PRN Reason: SALINE FLUSH Thiamine HCl (Vitamin B1) [facility] Stop: 12/03/18 08:01 Last Admin: 12/02/18 07:42 Dose: 100 mg Documented by: Medical Necessity - Tobacco Use Smoking Status: Current every day smoker Tobacco Use: Cigarettes, Chew Assessment/Plan All Active Problems Alcohol withdrawal (Acute) Acute alcohol withdrawal (Acute) Chest pain (Acute) 1. Alcohol withdrawal -Continue with alcohol withdrawal protocol -Monitor CIWA -Discussed with social work outpatient rehab options 2. Tobacco abuse -Discussed smoking cessation DVT: Ambulation Code Visit Inpatient E&M: 20033 Subs Hosp L2
--- NOTE | 2018-12-02 10:34 | CASEMGMT ---
Social Work Note KIKO met with pt to discuss discharge plans as pt is at [facility] for alcohol detox. SW introduced self and role at [facility]. Pt is alert and orientated x3. Pt states that he is active with [facility] and his counselor's name is Durga. Pt states that he has been going to [facility] since May 2018. Pt states that he see's Durga once a week and states his schedule his at home and will look at his schedule once he gets home to confirm next appointment. Pt states that going to counseling as been helpful. Pt states that he also attends AA meetings and he was going to AA meetings about 4x a week. Pt states that he has a sponsor. Pt states that he has supportive friends and family. Pt states that he plans on resuming his counseling at [facility] and resume going to AA meetings at discharge. Pt did ask about other outpatient options. SW provided pt with lists of outpatient and inpatient detox/counseling resources. KIKO also provided pt with list of PCP as no PCP is listed for pt. Pt denied additional needs or concerns at this time. Plan: Pt plans on resuming his counseling services at [facility] and continue attending AA meetings Kathryn Holland MSW, KNURLING MACHINE OPERATOR
--- NOTE | 2018-12-02 13:57 | CHAPLAIN ---
Type of Pastoral Visit _x__ Initial Visit ___ Follow-up Visit ___ On-call Visit ___ General Patient Visit ___ Spiritual Assessment ___ Family Conference ___ Bereavement ___ Rapid Response ___ Code Blue ___ Other (describe below) Pastoral Care Referral From _x__ Patient ___ Family ___ Nurse ___ Physician ___ Loans Consultant ___ Chief Meteorologist ___ Other (describe below) Sacrament/Intervention _x__ Active listening ___ Anointing ___ Confucianism ___ Bereavement ___ Communion _x__ April exploration ___ _x__ Life review _x__ Prayer ___ Reconciliation ___ Sacrament of Sick _x__ Supportive presence ___ Wedding ___ Other (describe below) Pastoral Comments patient is looking through a hand full of papers that have options for treatment and states I don't know what to do
[2018-12-03 02:20] VITALS: BP 152/95; PULSE 99; RESP 18; TEMP 36.9; O2SAT 99
--- NOTE | 2018-12-03 08:02 | DCINST_ITS ---
- Discharge Diagnoses Current Active Problems: Current Active and Chronic Problems Alcohol withdrawal (Acute) You will use the following diet at home:: Regular Your food should be the consistency of: Regular Your liquids should be the consistency of: Regular/Thin Discharge Activity: Return to Normal Activity Call your doctor if you observe: Fever of 101 or Higher, Shortness of breath, Dizziness, Fainting spells, Swelling in the ankles, Chest pain, Increased palpitations (irregular heartbeat) Allergies/Adverse Reactions: Allergies No Known Allergies Allergy (Verified 12/01/18 01:48) Medications to take at Discharge Multivitamin with Minerals [Multiple Vitamin] 1 tab PO DAILY 12/01/18 Primary Care Physician: Care Physician,No Primary [Primary Care Provider] - Please follow up with your Primary Care Physician in: 3-5 days Test Results: Test results from this visit will be discussed in further detail at your follow- up appointment, if applicable. Please Follow Up With: 180 When: Today
[2018-12-03 08:15] VITALS: BP 157/102; PULSE 105; RESP 18; TEMP 37; O2SAT 99
--- NOTE | 2018-12-03 08:36 | DS.PCM_ITS ---
Discharge Date and Diagnosis Date of Admission: 12/01/18 Date of Discharge: 12/03/18 - Secondary Discharge Diagnosis Chronic Problems Alcohol abuse (Chronic) Hospital Course and Treatment Imaging Results: CXR: IMPRESSION: Negative x-ray examination of the chest. No significant radiographic change. Consults: None Operations: None Procedures: None Summary of Care Provided: Per HPI: The patient is a 58 year old male patient with a past medical history of alcoholism for the last 30 years presents to the emergency room requesting alcohol withdrawal support. Patient's last known alcohol intake was 8:00 PM yesterday. For the past 2 weeks she has been binging for more than a liter of hard alcohol daily and he is a routine of drinking for over 30 years. The patient denies chest pain shortness of breath nausea vomiting or diarrhea at this present time he did have the opportunity to go through withdrawal over a week ago and failed to comply with the program by leaving early. 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 He will be admitted to medical surgical floor for alcohol withdrawal program and protocol, compliance with the program was emphasized strongly. Hospital Course: 1. Alcohol withdrawal -Last dose of ativan was at 4 am yesterday -Has an appointment with 180 today for outpatient rehab and would like to to be discharged today so he can make that meeting since they can be backed up for a while - I discussed with him the risks of going home and that he would benefit from being monitored 1 more day which he refused. Will discharge with the understanding that he will go to 180 today and if he has worsening withdrawal symptoms, he is to return to the hospital 2. Tobacco abuse -Discussed smoking cessation Objective: General: Alert, Oriented x3, Cooperative, No apparent distress HEENT: Atraumatic, PERRLA, EOMI, Normocephalic Oral: Moist Mucosa Neck: Supple, No JVD Lungs: Clear to auscultation, Normal air movement, No rhonchi, No wheeze, No rales Cardiovascular: Regular rate, Regular Rhythm, Normal S1, Normal S2, No murmurs Abdomen: Soft, Non Tender, Non-Distended, No Hepato-splenomegaly Extremities: No edema, Capillary Refill Less than 3 Seconds Skin: No rashes, No breakdown Neurological: Neuro grossly intact, Sensory exam intact to light touch and pain Psych/Mental Status: Normal Affect, Appropriate - Physical Exam Vital Signs Temp Pulse Resp BP Pulse Ox 98.6 F 105 H 18 157/102 H 99 12/03/18 08:15 12/03/18 08:15 12/03/18 08:15 12/03/18 08:15 12/03/18 08:15 Oxygen Delivery Method Room Air Weight: 141 lb 15.643 oz Body Mass Index (BMI) 21.6 Intake and Output for Last 24 Hours 12/01/18 12/02/18 12/03/18 23:59 23:59 23:59 Intake Total 2750.0 / 2850.0 3160 / 3160 1500 / 1500 Balance 2750.0 / 2850.0 3160 / 3160 1500 / 1500 Discharge Activity: Return to Normal Activity Call your doctor if you observe: Fever of 101 or Higher, Shortness of breath, Dizziness, Fainting spells, Swelling in the ankles, Chest pain, Increased palpitations (irregular heartbeat) Home Medications: Medications to take at Discharge Multivitamin with Minerals [Multiple Vitamin] 1 tab PO DAILY 12/01/18 Primary Care Physician: Care Physician,No Primary [Primary Care Provider] - Please follow up with your Primary Care Physician in: 3-5 days Please Follow Up With: 180 When: Today Disposition: Home Minutes spent on discharge:: 20 Patient Condition:: Good Medical Necessity - Tobacco Use Smoking Status: Current every day smoker Tobacco Use: Cigarettes, Chew Meaningful Use Info Meaningful Use Diagnoses (Choose all that apply): None applicable Code Visit Inpatient E&M: 96742 Disch Hosp
== END 2018-12-03 08:15 | disposition home or self-care (01) | DRG 897 ==
LOC: ED 05:02 → MS3 06:03
PROVIDERS: Admitting Provider Family Medicine; Emergency Provider Emergency Medicine; Visit Provider Family Medicine
DX: F10.239 Alcohol dependence with withdrawal, unspecified (principal); Y90.8 Blood alcohol level of 240 mg/100 ml or more; F17.210 Nicotine dependence, cigarettes, uncomplicated
CPT/HCPCS: 36415; 71045; 80048; 80076; 80320; 83690; 84484; 85025; 93005; 97161; 97166; 97802; 99285; 99406; J7030; A4216; G0480

== ENCOUNTER 2019-01-19 19:26 | Inpatient (IN) | payer MEDICAID, SELFPAY ==
[2018-12-01 06:09] VITALS: BMI 21.6
[2019-01-19 19:29] VITALS: BP 141/99; PULSE 110; PULSE 116; RESP 30; RESP 32; TEMP 36.4; O2SAT 97; O2SAT 99; BMI 21.2
--- NOTE | 2019-01-19 21:06 | EKG12_ITS ---
Test Reason : SUBSTANCE ABUSE Blood Pressure : / mmHG Vent. Rate : 100 BPM Atrial Rate : 100 BPM P-R Int : 134 ms QRS Dur : 086 ms QT Int : 352 ms P-R-T Axes : 013 060 079 degrees QTc Int : 454 ms Normal sinus rhythm Normal ECG Confirmed by CASPER DONALD MD ([id number]), editorial assistant SIMIN CALDERÓN ([id number]) on 01/21/2019 11:46:00 AM Referred By: BB Confirmed By:CASPER DONALD MD
--- NOTE | 2019-01-19 21:06 | RAD_ITS ---
STUDY: X-RAY CHEST REASON FOR EXAM: Male, 58 years old. Weakness, hallucinations TECHNIQUE: PA and 2 lateral views of the chest. COMPARISON: 12/01/2018 FINDINGS: EKG leads overlie the chest The lungs are hyperexpanded with chronic interstitial changes, particularly in the lung bases. No organized infiltrate or effusion. There is no demonstrated pleural abnormality. Normal size heart. Normal mediastinum and elizabeth. Normal visualized pulmonary arteries. Normal visualized aortic arch and descending thoracic aorta. There are diffuse degenerative changes of the visualized thoracic spine. Normal visualized ribs, clavicles, and shoulders. There is no demonstrated abnormality of the visualized soft tissue structures of the upper abdomen. RAD/Chest PA and Lateral IMPRESSION: Hyperexpanded lungs with chronic interstitial changes, no superimposed acute pulmonary process Electronically Signed: Edgar Pena MD at 22:34 EST , Service support ,
[2019-01-19 21:07] VITALS: O2SAT 100
--- NOTE | 2019-01-19 21:07 | CT_ITS ---
STUDY: CT BRAIN WITHOUT CONTRAST REASON FOR EXAM: Male, 58 years old. Hallucinations, possible withdrawal RADIATION DOSAGE (If Supplied By Facility): CTDIvol = ( 44.99 ) mGy, DLP = ( 812.98 ) mGycm TECHNIQUE: Transaxial CT imaging of the brain was performed without administration of intravenous contrast material. Individualized dose optimization techniques were used for this CT. COMPARISON: 05/29/2018 FINDINGS: Normal soft tissue structures. Normal calvarium. Normal size ventricles and extra-axial spaces for the patient's age. Normal white matter tracts of the cerebral hemispheres. Normal basal ganglia and thalami. Normal brainstem. Normal cerebellum. There is no intracranial hemorrhage. There are no findings of an acute ischemic infarction. Normal visualized paranasal sinuses. CT/Brain/Head without Contrast IMPRESSION: Chronic involutional changes of the brain. No acute hemorrhage Electronically Signed: Edgar Pena MD at 22:28 EST , Service support ,
--- NOTE | 2019-01-19 21:08 | ED.DCSUM_ITS ---
History of Present Illness Chief Complaint: Substance Abuse Detail of Chief Complaint: Hallucinations Onset: Weeks - Several Context: Gradual Onset Timing: Intermittent Quality: See below Current Severity: Severe Maximum Severity: Severe Associated Symptoms: Fatigue Narrative: Patient states he has been having hallucinations for weeks. He is an alcoholic and stopped drinking the hard stuff 4 or 5 weeks ago. He immediately had withdrawal symptoms, that lasted for days to a week, he states he stopped cold turkey and got through the withdrawal symptoms by himself. He did go to a detox unit at one point during this, and was referred to a different hospital than this 1 because of very low potassium and magnesium levels, he was admitted and those were replaced. States he has been seeing things on occasion. Today, he states he had a particularly bad hallucination; he then describes them as dreams. His neighbor brought him out of concern for him, and he states he sold his neighbor a car recently. He recently saw the car leaving his driveway although it was at his neighbors house. He states then he went to bed and states that he had a dream about the police coming and looking for him, but states that was a dream and not a hallucination or necessarily a paranoia. Neighbor states that he has not been himself lately, and has been sleeping a significant amount in the last 2 days. The patient appears very jittery but he denies feeling jittery. He states he had a single can of an alcoholic beverage today that is low in alcohol, less than a beer. Every other day he has been doing this thinking he is having withdrawal symptoms and that it would help but it has not had a major affect. He has had no hard liquor since he stopped 4 or 5 weeks ago. He states last week, he had the flu when he had vomiting, diarrhea, cough, shortness of breath but that is all resolved now. - Past Medical History (1) Alcoholism Status: Chronic (2) Hypomagnesemia Status: Chronic (3) Hypokalemia Status: Chronic Past Medical History - Allergies and Home Meds Allergies/Adverse Reactions: Allergies No Known Allergies Allergy (Verified 01/19/19 19:28) Primary Care Physician: Care Physician,No Primary [Primary Care Provider] - Surgical History: appendectomy, herniorrhaphy Lives: Alone Smoking Status: Current every day smoker Alcohol: Heavy, Sober Drugs: None - Family History Maternal Family History: Reports: Hypertension Paternal Family History: Reports: Heart Disease - Father because of heart attack at age of 50. Sibling Family History: Reports: Heart Disease, - - He has 3 brothers who had heart at tacks at younger age. One brother had a heart attack at 39 years old, second brother had heart attack at age of 41 and another brother who had heart attack at age 46. Review of Systems General: Reports: Malaise. Denies: Chills, Fever, Sweats Eyes: Denies: Visual changes - bilaterally, Diplopia ENT: Denies: Rhinorrhea, Sore throat Cardiovascular: Denies: Chest pain, Palpitations Respiratory: Denies: Dyspnea, Cough, Dyspnea on exertion Gastrointestinal: Denies: Abdominal pain, Nausea, Vomiting, Diarrhea, Melena, Hematochezia Genitourinary: Denies: Dysuria, Hematuria, Frequency Musculoskeletal: Denies: Back pain, Swelling, Extremity Pain Skin: Denies: Rash, Wounds Neurological: Denies: Headache, Weakness, Numbness Psych: Reports: Anxiety - Little today, - - Visual hallucinations. No auditory hallucinations or delusions. See HPI.. Denies: Depression, Suicidal thoughts, Suicidal ideations Endocrine: Denies: Polyuria, Polydipsia, Heat intolerance, Cold intolerance Hematologic: Denies: Easy bruising, Easy bleeding Physical Exam Vital Signs/Narrative: Vital Signs Temp Pulse Resp BP Pulse Ox 01/19/19 19:29 97.5 F L 110 H 32 H 141/99 H 99 Inital Vital Signs reviewed: Yes General: Well nourished, Well developed, No Acute Distress, - - Diffusely tremulous; no worse with rest versus intention Head: Normocephalic, Atraumatic Eyes: Perrl, EOMI ENT: Moist mucous membranes, No rhinorrhea, TM's clear, - - Posterior oropharynx clear. Negative for: Nasal congestion, Sinus tenderness Neck: Supple, Nontender, No lymphadenopathy Cardiovascular: Regular rate, Regular rhythm, No murmurs, Tachycardia Respiratory: No distress, CTA bilaterally, Chest nontender Abdomen: Soft, Nontender, Nondistended, Normal bowel sounds. Negative for: Pulsatile mass Back: Nontender, Normal Inspection. Negative for: CVA tenderness Extremities: Nontender, No edema. Negative for: Calf Tenderness Skin: Normal color, No rash, No Trauma Neurological: Alert, Oriented x3, Cranial nerves II-XII grossly intact, Normal Strength, Normal Sensation, - - Normal [id number] and gnby-cu-ojrs bilaterally. Very tremulous bilateral lower and upper extremities but can perform the motions normally. Psychological: Normal affect, Normal Mood Diagnostic/Tx/Re-eval Impressions Chest X-Ray 01/19/19 21:06 IMPRESSION: Hyperexpanded lungs with chronic interstitial changes, no superimposed acute pulmonary process Electronically Signed: Edgar Pena MD at 22:34 EST , Service support , Brain CT 01/19/19 21:07 IMPRESSION: Chronic involutional changes of the brain. No acute hemorrhage Electronically Signed: Edgar Pena MD at 22:28 EST , Service support , 01/19/19 21:06 Chest PA and Lateral [RAD] Stat 01/19/19 21:07 CT Brain [Brain/Head without Contrast] [CT] Stat Laboratory Tests 01/20/19 01/19/19 01/19/19 Range/Units 00:40 21:55 21:25 WBC (4.4-11.0) K/mm3 RBC (4.6-6.2) M/mm3 Hgb (13.0-16.5) g/dL Hct (40-54) % MCV (80-94) fL MCH (27.0-32.0) pg MCHC (32-36) g/dL RDW Std Deviation (35.1-43.9) fl RDW Coeff of Reece (11.6-14.6) % Plt Count (150-450) K/mm3 MPV (6.2-12.0) fl Immature Gran % (Auto) (0.0-0.9) % Neut % (Auto) (47-70) % Lymph % (Auto) (19-41) % [place] % (Auto) (0-10) % Eos % (Auto) (0-5) % Baso % (Auto) (0-1) % Absolute Neuts (auto) (2.0-7.7) X10^3/uL Absolute Lymphs (auto) (0.83-4.51) X10^3/uL Nucleated RBC % (0-5) % Differential Comment Diff Path Review Platelet Estimate (ADEQ) Anisocytosis PT (11.7-14.9) SECONDS INR APTT (24.1-36.2) Seconds Sodium (136-145) mmol/L Potassium (3.5-5.1) mmol/L Chloride (98-107) mmol/L Carbon Dioxide (21.0-32.0) mmol/L Anion Gap (5-15) BUN (7-18) mg/dL Creatinine (0.70-1.30) mg/dL Estim Creat Clear Calc ml/min Est GFR (MDRD) Af Amer (>60) mL/min Est GFR (MDRD) Non-Af (>60) mL/min BUN/Creatinine Ratio (10-20) RATIO Glucose (74-106) mg/dL Lactic Acid 1.3 (0.4-2.0) mmol/L Calcium (8.5-10.1) mg/dL Magnesium (1.6-2.6) mg/dL Total Bilirubin (0.20-1.00) mg/dL AST (15-37) U/L ALT (16-61) U/L Alkaline Phosphatase (45-117) U/L Ammonia 28.0 (11-32) umol/L Troponin I (<0.045) ng/mL Total Protein (6.4-8.2) g/dL Albumin (3.2-5.0) g/dL Globulin (2.2-4.2) g/dL Albumin/Globulin Ratio (0.9-2.4) RATIO Urine Color Yellow (Yellow) Urine Clarity Sl. Cloudy (Clear) Urine pH 6.0 (5.0 - 8.0) Ur Specific [place] 1.020 (1.002-1.030) Urine Protein 30 H (Negative) mg/dl Urine Glucose (UA) Normal (Normal) mg/dl Urine Ketones 150 H (Negative) mg/dl Urine Occult Blood 25 H (Negative) /ul Urine Nitrite Negative (Negative) Urine Bilirubin 1 H (Negative) mg/dL Urine Urobilinogen 1 H (Normal) mg/dl Ur Leukocyte Esterase Negative (Negative) /ul Urine RBC 0 SEEN (0-5) /hpf Urine WBC 0-5 SEEN (0-5) /hpf Ur Squamous Epith Cells 0-5 SEEN (0-5) /hpf Amorphous Sediment 1+ URATE Urine Bacteria 0 SEEN (None Seen) /hpf Urine Mucus 0 SEEN (<or=2+) /hpf 01/19/19 01/19/19 01/19/19 Range/Units 21:25 21:25 21:25 WBC 6.0 (4.4-11.0) K/mm3 RBC 4.30 L (4.6-6.2) M/mm3 Hgb 13.1 (13.0-16.5) g/dL Hct 38.7 L (40-54) % MCV 90.0 (80-94) fL MCH 30.5 (27.0-32.0) pg MCHC 33.9 (32-36) g/dL RDW Std Deviation 56.6 H (35.1-43.9) fl RDW Coeff of Reece 17.2 H (11.6-14.6) % Plt Count 35 L* (150-450) K/mm3 MPV 11.2 (6.2-12.0) fl Immature Gran % (Auto) 0.800 (0.0-0.9) % Neut % (Auto) 84.3 H (47-70) % Lymph % (Auto) 7.8 L (19-41) % [place] % (Auto) 4.3 (0-10) % Eos % (Auto) 2.5 (0-5) % Baso % (Auto) 0.3 (0-1) % Absolute Neuts (auto) 5.1 (2.0-7.7) X10^3/uL Absolute Lymphs (auto) 0.47 L (0.83-4.51) X10^3/uL Nucleated RBC % 0.3 (0-5) % Differential Comment SCANNED Diff Path Review May foll Platelet Estimate MKD DEC (ADEQ) Anisocytosis 1+ PT 21.6 H (11.7-14.9) SECONDS INR 1.9 APTT 38.8 H (24.1-36.2) Seconds Sodium 133 L (136-145) mmol/L Potassium 3.8 (3.5-5.1) mmol/L Chloride 102 (98-107) mmol/L Carbon Dioxide 12.0 L (21.0-32.0) mmol/L Anion Gap 19 H (5-15) BUN 31 H (7-18) mg/dL Creatinine 1.10 (0.70-1.30) mg/dL Estim Creat Clear Calc 67.35 ml/min Est GFR (MDRD) Af Amer 89 (>60) mL/min Est GFR (MDRD) Non-Af 74 (>60) mL/min BUN/Creatinine Ratio 28.2 H (10-20) RATIO Glucose 79 (74-106) mg/dL Lactic Acid (0.4-2.0) mmol/L Calcium 7.7 L (8.5-10.1) mg/dL Magnesium 1.0 L (1.6-2.6) mg/dL Total Bilirubin 0.60 (0.20-1.00) mg/dL AST 131 H (15-37) U/L ALT 65 H (16-61) U/L Alkaline Phosphatase 62 (45-117) U/L Ammonia (11-32) umol/L Troponin I 0.027 (<0.045) ng/mL Total Protein 7.8 (6.4-8.2) g/dL Albumin 3.6 (3.2-5.0) g/dL Globulin 4.2 (2.2-4.2) g/dL Albumin/Globulin Ratio 0.9 (0.9-2.4) RATIO Urine Color (Yellow) Urine Clarity (Clear) Urine pH (5.0 - 8.0) Ur Specific [place] (1.002-1.030) Urine Protein (Negative) mg/dl Urine Glucose (UA) (Normal) mg/dl Urine Ketones (Negative) mg/dl Urine Occult Blood (Negative) /ul Urine Nitrite (Negative) Urine Bilirubin (Negative) mg/dL Urine Urobilinogen (Normal) mg/dl Ur Leukocyte Esterase (Negative) /ul Urine RBC (0-5) /hpf Urine WBC (0-5) /hpf Ur Squamous Epith Cells (0-5) /hpf Amorphous Sediment Urine Bacteria (None Seen) /hpf Urine Mucus (<or=2+) /hpf - Rhythm Strip Rhythm Strip: Sinus Tach Rate: 100 Ectopy: None - EKG Initial EKG Interpretation: No Acute Injury Pattern, Sinus Tachycardia Prior: No Prior - Medical Decision Making Patient was treated with IV fluids and magnesium, his work-up was fairly unremarkable with the exception of thrombocytopenia and significant hypomagnesemia. His potassium is within normal limits. Imaging as above is unremarkable. However, he has a metabolic acidosis with a bicarb of 12, anion gap of 19. I questioned the patient further. He has had no methanol or ethylene glycol recently, he does have ketones in his urine. He is also been taking quite a bit of aspirin for a variety of symptoms that are no longer there; his last dose was less than 24 hours ago, this past morning. He has been taking for tablets per day of 325 mg aspirin for the last 4 weeks or so. He has not been feeling short of breath but he has had other people tell him that he looks like he is having labored breathing. However, more likely here is alcoholic ketoacidosis. I ran an ammonia to make sure he was not encephalopathic although he really is not disoriented for me, and it was within normal limits. His INR is elevated signifying that he could have early cirrhosis, he states he had a CAT scan within the past year showing fatty liver no obvious signs of cirrhosis radiographically. He has never had a liver biopsy. With IV fluids and magnesium infusion here, the patient is feeling better but he still looks to be tachypnea. I suspect he is compensating from his metabolic acidosis. We will add a blood gas as well to measure his pH. Pending at this time are ketones in the serum, which were positive in the urine, as well as a salicylate level which will probably not be helpful at this point. However if his ketones are negative, I would be more apt to treat him for subacute/chronic salicylate toxicity, which is a different treatment than AKA. Plan is for admission. Ketones returned positive, and salicylate level is actually abnormally elevated. Discussed with hospitalist will admit to telemetry and give him thiamine, followed by D5 half-normal drip. Given the abnormal salicylate level, will add bicarb to the D5 half-normal drip. ED Disposition - Plan for ED Patient: Disposition: Acute Care Hospital [facility] Diagnosis: Visual hallucinations, Hypomagnesemia, Alcoholic ketoacidosis, Unintentional poisoning by salicylate Referrals: Care Physician,No Primary [Primary Care Provider] -
[2019-01-19 21:37] VITALS: BP 120/83; PULSE 108; RESP 26; O2SAT 100
[2019-01-19 21:44] LABS: Absolute Lymphocyte Count 0.47 X10^3/uL (0.83-4.51); Absolute Neutrophil Count 5.1 X10^3/uL (2.0-7.7); Basophil# 0.02 X10^3/uL; Basophil% 0.3 % (0-1); Eosinophil# 0.15 X10^3/uL; Eosinophils% 2.5 % (0-5); Hematocrit 38.7 % (40-54); Hemoglobin 13.1 g/dL (13.0-16.5); Lymphocyte # 0.47 X10^3/ul (4.0); Lymphocyte % 7.8 % (19-41); Mean Corp Hgb Conc 33.9 g/dL (32-36); Mean Corpuscular Hgb 30.5 pg (27.0-32.0); Mean Platelet Vol. 11.2 fl (6.2-12.0); Monocyte# 0.26 X10^3/uL; Monocyte% 4.3 % (0-10); NRBC Flagged by Analyzer 0.3 % (0-5); Neutrophil # 5.07 X10^3/uL (2.7-7.7); Neutrophil % 84.3 % (47-70); POSITIVE COUNT YES; POSITIVE DIFFERENTIAL YES; POSITIVE MORPHOLOGY YES; RBC Distribution Width CV 17.2 % (11.6-14.6); RBC Distribution Width SD 56.6 fl (35.1-43.9)
[2019-01-19] MEDS: 0.9% Normal Saline 1,000 ML 999 ML IV ×2 (21:50→21:52)
[2019-01-19 21:52] VITALS: TEMP 37
[2019-01-19 21:57] LABS: Differential Indicated SCAN CRITERIA MET; International Normalized Ratio 1.9; Platelet Count 35 K/mm3 (150-450); Prothrombin Time (Protime)PT. 21.6 SECONDS (11.7-14.9)
[2019-01-19 21:58] LABS: Partial Thromboplast Time 38.8 Seconds (24.1-36.2)
[2019-01-19 22:03] LABS: Lactic Acid 1.3 mmol/L (0.4-2.0)
[2019-01-19 22:08] LABS: ALB/GLOB Ratio 0.9 RATIO (0.9-2.4); AST(SGOT) 131 U/L (15-37); Alanine Aminotransfer ALT/SGPT 65 U/L (16-61); Albumin, Serum 3.6 g/dL (3.2-5.0); Alkaline Phosphatase 62 U/L (45-117); Anion Gap 19 (5-15); BUN 31 mg/dL (7-18); BUN/Creat Ratio 28.2 RATIO (10-20); Calcium,Total 7.7 mg/dL (8.5-10.1); Chloride 102 mmol/L (98-107); EST Glomerular Filtration Rate 74 mL/min (>60); Est Glom Filt Rate - Afr Amer 89 mL/min (>60); Estimated Creatinine Clearance 67.35 ml/min; Globulin 4.2 g/dL (2.2-4.2); Glucose 79 mg/dL (74-106); Potassium 3.8 mmol/L (3.5-5.1); Protein, Total 7.8 g/dL (6.4-8.2); Sodium Level 133 mmol/L (136-145)
[2019-01-19 22:12] LABS: Bacteria 0 SEEN /hpf (None Seen); Mucous, Urine 0 SEEN /hpf (<or=2+); Red Blood Cells-Urine 0 SEEN /hpf (0-5)
[2019-01-19 22:27] LABS: Color, Urine Yellow (Yellow); Glucose, Dipstick Normal (Normal); Leukocyte Esterase-Dipstick Negative /ul (Negative); Nitrite-Dipstick Negative (Negative); Occult Blood-Urine 25 /ul (Negative); Protein-Dipstick 30 mg/dl (Negative); Urine Clarity Sl. Cloudy (Clear); Urine Urobilinogen 1 mg/dl (Normal)
[2019-01-19 22:30] VITALS: BP 135/86; PULSE 101; RESP 16; O2SAT 97
[2019-01-19 22:34] LABS: Urine Bilirubin Dipstick 1 mg/dL (Negative)
[2019-01-19 22:37] LABS: Ketone-Dipstick 150 mg/dl (Negative)
[2019-01-19 22:47] LABS: Amorphous Sediment 1+ URATE; Squamous Epithelial Cells - UA 0-5 SEEN /hpf (0-5); White Blood Cells 0-5 SEEN /hpf (0-5)
[2019-01-19 22:48] LABS: Anisocytosis 1+; Differential Comment SCANNED; Platelet Estimate MKD DEC (ADEQ)
[2019-01-19 23:04] VITALS: BP 138/88; PULSE 109; RESP 22; TEMP 37.2; O2SAT 99
[2019-01-20] VITALS (22 sets, daily range): BP systolic 119–156; BP diastolic 63–103; PULSE 74–97; RESP 16–26; TEMP 36.8–37.5; O2SAT 94–99; BMI 20.9; BMI 21.3
[2019-01-20 01:48] LABS: Salicylate 48.7 mg/dL (2.8-20.0)
--- NOTE | 2019-01-20 01:49 | ED.RN ---
salicylate level of 48 reported to
[2019-01-20 02:16] LABS: Blood Gas Specimen Type VEN; O2 Delivery Device Room Air; SITE OTHER; VBG BASE EXCESS -12 mmol/L (-1.0-3.5); VBG Bicarbonate 13 mmol/L (22-26); VBG Oxygen Content 14 mmol/L (23-33); VBG PO2 30 mmHg (25-40); VBG SO2 59 % (50-70); VBG pCO2 21.5 mmHg (41-51)
[2019-01-20] MEDS: Sodium Bicarbonate 8.4% 50 ML Syringe 50 MEQ IV (02:20)
--- NOTE | 2019-01-20 02:23 | HP.PCM_ITS ---
Problem List (1) Salicylate intoxication Status: Acute Qualifiers: Encounter type: initial encounter Injury intent: accidental or unintentional Qualified Code(s): T39.091A - Poisoning by salicylates, accidental (unintentional), initial encounter History of Present Illness Date of Admission: 01/20/19 Chief Complaint: agitation. vivid dreams The patient is a 58 year old M resents with just increase agitation and having very vivid dreams. Denies any overt hallucinations though. Approximately week ago, patient was sick for 5days with diarrhea. Was just having myalgias and was taking large quantities of aspirin during this time. Patient is an alcoholic and was a heavy drinker up until several weeks ago where he quit cold turkey. Was enrolled in an alcohol withdrawal program after he went through cold turkey at home. States that he had hospitalization when he was transferred from the alcohol facility to hospital because of low electrolytes with his magnesium. Patient is states that he is drinking a hard cider 1 every day or so. Patient just has these vivid dreams, such that he recently saw his car to his neighbor and then was having a very vivid conversation with his neighbor most recently but that did not occur. Patient recognize that that did not occur but stated that this occurred while he was sleeping. Patient is never had anything like th is occur before. Patient presented to the emergency room and was noted to be acidotic with positive anion gap. Is unclear what was going on concern was for alcoholic ketoacidosis but salicylate level was checked and it was noted to be elevated. Patient was prescribed a bicarb drip by the emergency room physician. I advised patient given amp of bicarb prior to going up to the floor which she has received. [] Past Medical History Past Medical History (Chronic Problems): Chronic Problems Alcoholism (Chronic) Hypomagnesemia (Chronic) Hypokalemia (Chronic) Alcohol abuse (Chronic) Allergies No Known Allergies Allergy (Verified 01/19/19 19:28) Home Medications: Ambulatory Orders Medication Instructions Recorded Clonidine HCl [Catapres] 0.1 mg PO DAILY 01/19/19 Surgical History: appendectomy, herniorrhaphy Psychiatric History: No pertinent psych hx Lives: Alone Smoking Status: Current every day smoker Alcohol: Heavy, Sober Drugs: None - *Family History Maternal History Items: Hypertension Paternal History Items: Heart Disease - Father because of heart attack at age of 50. Sibling History Items: Heart Disease, - - He has 3 brothers who had heart attacks at younger age. One brother had a heart attack at 39 years old, second brother had heart attack at age of 41 and another brother who had heart attack at age 46. Review of Systems Constitutional: Reports: Malaise. Denies: Anorexia, Chills, Fever Eyes: Denies: Blurred vision, Double vision HEENT: Denies: Head Aches, Sinus Congestion, Sinus Drainage Cardiovascular: Denies: Chest Pain, Palpitations Respiratory: Denies: Cough, Shortness of breath at rest, Sputum production Gastrointestinal: Reports: Diarrhea. Denies: Nausea, Vomiting Genitourinary: Denies: Dysuria Musculoskeletal: Denies: Joint Pain, Joint Tenderness Skin: Denies: Dryness, Jaundice Neurological: Denies: Numbness, Tingling, Focal weakness Psychiatric: Denies: Anxiety, Depression Endocrine: Denies: Change in Body Habitus, Heat/ Cold Intolerance Hematologic/ Lymphatic: Reports: Easy Bruising. Denies: Easy Bleeding, Hx of blood clot Comment: Agitation, tremulousness. Otherwise all review of systems are otherwise negative except for as mentioned above and in HPI. VTE Information - Inpt Only VTE Present on Admission: No VTE Mechan Device Prophylaxis: SCD's VTE Pharm Prophylaxis ordered?: No Reason prophylaxis not ordered:: Medical Contraindication Patient Problems: Active and Suspected Problems Visual hallucinations (Acute) Alcoholic ketoacidosis (Acute) Unintentional poisoning by salicylate (Acute) Salicylate intoxication (Acute) - Physical Exam Vitals/I&O's: Vital Signs Temp Pulse Resp BP Pulse Ox 37.1 C 97 20 H 138/88 H 96 01/20/19 01:25 01/20/19 02:12 01/20/19 02:12 01/20/19 02:12 01/20/19 02:12 Oxygen Delivery Method Room Air Weight: 63.503 kg Body Mass Index (BMI) 21.2 Intake and Output for Last 24 Hours 01/18/19 01/19/19 01/20/19 23:59 23:59 23:59 Intake Total 33.3 / 33.3 104 / 104 Balance 33.3 / 33.3 104 / 104 General: Alert, Oriented x3, Cooperative, - - Tachypneic HEENT: Atraumatic, Normocephalic, - - No icterus Oral: Moist Mucosa, No Gingival or Mucosal Lesions/ Ulcerations Neck: No Nodes, Trachea Midline Lungs: Clear to auscultation, Normal air movement, No rhonchi, No wheeze, No rales Cardiovascular: Regular rate, Regular Rhythm, Normal S1, Normal S2 Abdomen: Bowel Sounds Present, Soft, Non Tender, Non-Distended, No Hepato- splenomegaly Extremities: No edema, No Calf Tenderness Skin: No rashes, No breakdown Musculoskeletal: No Tenderness to Palpation of Joints or Extremities, No Muscle Wasting Neurological: Muscle tone normal, - - Tremulousness Psych/Mental Status: Normal Affect, Appropriate Laboratory Results 01/19/19 21:25: WBC 6.0, RBC 4.30 L, Hgb 13.1, Hct 38.7 L, MCV 90.0, MCH 30.5, MCHC 33.9, RDW Std Deviation 56.6 H, RDW Coeff of Reece 17.2 H, Plt Count 35 L*, MPV 11.2, Immature Gran % (Auto) 0.800, Neut % (Auto) 84.3 H, Lymph % (Auto) 7.8 L, Yates % (Auto) 4.3, Eos % (Auto) 2.5, Baso % (Auto) 0.3, Absolute Neuts (auto) 5.1, Absolute Lymphs (auto) 0.47 L, Nucleated RBC % 0.3, Differential Comment SCANNED, Diff Path Review July, Platelet Estimate MKD DEC, Anisocytosis 1+ 01/19/19 21:25: PT 21.6 H, INR 1.9, APTT 38.8 H 01/19/19 21:25: Sodium 133 L, Potassium 3.8, Chloride 102, Carbon Dioxide 12.0 L , Anion Gap 19 H, BUN 31 H, Creatinine 1.10, Estim Creat Clear Calc 67.35, Est GFR (MDRD) Af Amer 89, Est GFR (MDRD) Non-Af 74, BUN/Creatinine Ratio 28.2 H, Glucose 79, Calcium 7.7 L, Magnesium 1.0 L, Total Bilirubin 0.60, AST 131 H, ALT 65 H, Alkaline Phosphatase 62, Troponin I 0.027, Total Protein 7.8, Albumin 3.6, Globulin 4.2, Albumin/Globulin Ratio 0.9 01/19/19 21:25: Lactic Acid 1.3 11/17/19 21:25: Salicylates 48.7 H* 01/19/19 21:25: Acetone Level SMALL H 01/19/19 21:55: Urine Color Yellow, Urine Clarity Sl. Cloudy, Urine pH 6.0, Ur Specific [place] 1.020, Urine Protein 30 H, Urine Glucose (UA) Normal, Urine Ketones 150 H, Urine Occult Blood 25 H, Urine Nitrite Negative, Urine Bilirubin 1 H, Urine Urobilinogen 1 H, Ur Leukocyte Esterase Negative, Urine RBC 0 SEEN, U rine WBC 0-5 SEEN, Ur Squamous Epith Cells 0-5 SEEN, Amorphous Sediment 1+ URATE, Urine Bacteria 0 SEEN, Urine Mucus 0 SEEN 01/20/19 00:40: Ammonia 28.0 01/20/19 02:04: Specimen Type LATOYA, Sample Site OTHER, VBG pH 7.40, VBG pO2 30, VBG O2 Sat (Calc) 59, VBG O2 Content 14 L, VBG Base Excess -12 L, POC Mix VBG pCO2 Pt Tmp 21.5 L, O2 Delivery Device Room Air, Blood Gas Notified Whom ED MD Current Medications Sodium Bicarbonate 150 meq/ (Dextrose) 1,150 mls @ 200 mls/hr IV [id number] [facility] Last Admin: 01/20/19 02:15 Dose: 200 mls/hr Documented by: Assessment/Plan All Active Problems Alcohol withdrawal (Acute) Visual hallucinations (Acute) Alcoholic ketoacidosis (Acute) Unintentional poisoning by salicylate (Acute) Salicylate intoxication (Acute) Acute alcohol withdrawal (Acute) Chest pain (Acute) 1. Acute salicylate toxicity * Patient states that he was taking large quantities of aspirin at home given his recent illness. * Patient received sodium bicarb bolus in the emergency room and will be started on a bicarbonate drip. * We will monitor the patient in the progressive care unit * Had venous blood gas that showed a pH of 7.4. Patient is anion gap was elevated at 19. Patient is currently compensated due to his concomitant respiratory alkalosis given his tachypnea. * This was an unintentional toxicity of salicylates. 2. Hypomagnesemia * Patient received 2 g of magnesium sulfate in the emergency room. Patient's magnesium level is 1 so I will give him an additional 2 g * Monitor 3. Thrombocytopenia * This is lower than it has been in the past. * Could be exacerbated due to the salicylate toxicity * But given the patient's extensive alcohol history is be concerned about cirrhosis. Patient states that he has had a CT of his abdomen pelvis elsewhere that did not show cirrhosis * We will check an ultrasound here 4. History of alcohol abuse * Patient is completely or alert and oriented x3. He is tachypneic but as mentioned above, I feel that the respiratory compensation for the metabolic acidosis * Patient will be on thiamine and folate and patient was to receive thiamine before he received the D5 bicarbonate drip * Patient will be on lorazepam but not for alcohol withdrawal, as I feel that he is not going through alcohol withdrawal but forward agitation if necessary. 5. VTE prophylaxis: Moderate risk. SCDs as chemical prophylaxis contraindicated with the thrombocytopenia 6. Advanced care planning: Discussed with the patient. Patient wishes to be full CODE STATUS at this time. Code Visit Inpatient E&M: 67471 Init Hosp L3
[2019-01-20] MEDS: 0.9% Saline Lock 10 ML Syringe IV ×5 (03:00→23:00)
--- NOTE | 2019-01-20 03:11 | US_ITS ---
STUDY: ABDOMINAL ULTRASOUND - RIGHT UPPER QUADRANT REASON FOR VISIT: Male, 58 years old thrombocytopenia. TECHNIQUE: Ultrasound evaluation of the right upper quadrant was performed with real-time and static becerra-scale imaging. TECHNICAL QUALITY: Limited. Examination limited due to the patient?s condition. COMPARISON: None. FINDINGS: Liver: The liver is enlarged and measures 19.8 cm. There is increased echogenicity consistent with fatty infiltration. The bile ducts are within normal limits. There is hepatic color flow. The direction of portal flow is hepatopetal. There is no demonstrated mass lesion. Gallbladder: Normal distended gallbladder. The gallbladder wall measures 2.2 mm. There is a negative sonographic Esqueda's sign. There is no pericholecystic fluid. There are multiple echogenic structures within the gallbladder, consistent with multiple gallstones. Sludge is also seen within the gallbladder lumen. Common Bile Duct (C.B.D.): The common bile duct measures 4.1 mm. Pancreas: Normal size of the head, body and tail of the pancreas. There is normal echogenicity of the pancreas. There is no demonstrated pancreatic mass or cyst. Right Kidney: Normal size of the right kidney. The right kidney measures 11.2 cm x 6.4 cm x 4.9 cm. Normal renal cortex. The right cortex measures 1.5 cm. There is no demonstrated renal mass or cyst. There is no right hydronephrosis. US/Abdomen Limited IMPRESSION: Multiple gallstones. Sludge is seen in the gallbladder lumen. Mild hepatomegaly and fatty infiltration of the liver. Electronically Signed: Ari English, at 13:28 EST , Service support ,
[2019-01-20 05:01] LABS: Absolute Neutrophil Count 3.2 X10^3/uL (2.0-7.7); Basophil# 0.02 X10^3/uL; Basophil% 0.5 % (0-1); Eosinophil# 0.02 X10^3/uL; Eosinophils% 0.5 % (0-5); Hematocrit 31.2 % (40-54); Hemoglobin 10.8 g/dL (13.0-16.5); Lymphocyte % 14.5 % (19-41); Mean Corp Hgb Conc 34.6 g/dL (32-36); Mean Corpuscular Hgb 30.2 pg (27.0-32.0); Mean Corpuscular Volume 87.2 fL (80-94); Mean Platelet Vol. 11.4 fl (6.2-12.0); Monocyte# 0.26 X10^3/uL; Monocyte% 6.3 % (0-10); NRBC Flagged by Analyzer 0 % (0-5); Neutrophil # 3.22 X10^3/uL (2.7-7.7); Neutrophil % 77.7 % (47-70); POSITIVE COUNT YES; POSITIVE DIFFERENTIAL YES; RBC Distribution Width CV 16.7 % (11.6-14.6); RBC Distribution Width SD 53.1 fl (35.1-43.9); Red Blood Count 3.58 M/mm3 (4.6-6.2); White Blood Count 4.1 K/mm3 (4.4-11.0)
[2019-01-20 05:05] LABS: International Normalized Ratio 1.8; Prothrombin Time (Protime)PT. 20.4 SECONDS (11.7-14.9)
[2019-01-20 05:10] LABS: Differential Indicated SCAN CRITERIA MET; Platelet Count 25 K/mm3 (150-450)
[2019-01-20 05:26] LABS: Platelet Estimate MKD DEC (ADEQ)
[2019-01-20 05:47] LABS: ALB/GLOB Ratio 0.9 RATIO (0.9-2.4); AST(SGOT) 100 U/L (15-37); Alanine Aminotransfer ALT/SGPT 50 U/L (16-61); Alkaline Phosphatase 54 U/L (45-117); Anion Gap 16 (5-15); BUN 25 mg/dL (7-18); BUN/Creat Ratio 29.6 RATIO (10-20); Calcium,Total 6.8 mg/dL (8.5-10.1); Chloride 106 mmol/L (98-107); Creatinine, Serum 0.84 mg/dL (0.70-1.30); EST Glomerular Filtration Rate 100 mL/min (>60); Est Glom Filt Rate - Afr Amer 121 mL/min (>60); Estimated Creatinine Clearance 86.94 ml/min; Globulin 3.5 g/dL (2.2-4.2); Glucose 86 mg/dL (74-106); Magnesium 1.7 mg/dL (1.6-2.6); Potassium 3.1 mmol/L (3.5-5.1); Protein, Total 6.5 g/dL (6.4-8.2); Sodium Level 139 mmol/L (136-145)
--- NOTE | 2019-01-20 06:58 | NURSING ---
Pt states that his family is calling him bad things for moving to [place].
[2019-01-20 09:14] LABS: Salicylate 29.6 mg/dL (2.8-20.0)
[2019-01-20] MEDS: Na Biphos/Potassium Phosphate PACKET 1 PACKET PO ×4 (10:49→21:01)
[2019-01-20] MEDS: LORazepam 2 MG/ML Syringe IV ×5 (11:27→23:55)
--- NOTE | 2019-01-20 11:59 | PN_ITS ---
Patient Problems: Active and Suspected Problems Visual hallucinations (Acute) Alcoholic ketoacidosis (Acute) Unintentional poisoning by salicylate (Acute) Salicylate intoxication (Acute) Subjective: Patient seen and examined. He was admitted with complaint of agitation and having very vivid dreams and is being managed for salicylate toxicity. Patient admitted to taking a lot of aspirin also at home. Admission was found to be acidotic with positive anion gap and there was concern for alcoholic ketoacidosis. Salicylate level however was elevated at 48. He was started on bicarb drip. Patient complains of lethargy this morning at time of review. He denies any hallucinations or having the vivid dreams. Patient says he has not been drinking much of late and claims that his last drink was 7 weeks ago. He denies any tremors, headache or dizziness, blurred vision, chest pain, abdominal pain, diarrhea vomiting. Review of systems otherwise negative. Labs and vitals reviewed. Vitals/I&O's: Vital Signs Temp Pulse Resp BP Pulse Ox 98.3 F 85 24 H 131/79 H 97 01/20/19 10:42 01/20/19 10:42 01/20/19 10:42 01/20/19 10:42 01/20/19 10:42 Oxygen Delivery Method Room Air Weight: 138 lb 0.15 oz Body Mass Index (BMI) 20.9 Intake and Output for Last 24 Hours 01/18/19 01/19/19 01/20/19 23:59 23:59 23:59 Intake Total 33.3 / 33.3 2419 / 2419 Output Total 0 / 0 Balance 33.3 / 33.3 241 / 2419 General: Alert, Disoriented, Lethargic HEENT: Atraumatic, PERRLA, EOMI, Normocephalic Oral: Dry Mucosa Neck: Supple, No JVD, Negative Carotid Bruits Lungs: Clear to auscultation, Normal air movement, No rhonchi, No wheeze, No rales Cardiovascular: Regular rate, Regular Rhythm, Normal S1, Normal S2, No murmurs Abdomen: Bowel Sounds Present, Soft, Non Tender, Non-Distended, No Hepato- splenomegaly Extremities: No clubbing, No cyanosis, No edema, Capillary Refill Less than 3 Seconds Skin: No rashes, No breakdown Musculoskeletal: No Tenderness to Palpation of Joints or Extremities Lymphatic: No Cervical, Supraclavicular, or Inguinal Adenopathy Neurological: Cranial nerves II-XII grossly intact, - - tremors of UEs Psych/Mental Status: Agitated Laboratory Results 01/19/19 21:25: WBC 6.0, RBC 4.30 L, Hgb 13.1, Hct 38.7 L, MCV 90.0, MCH 30.5, MCHC 33.9, RDW Std Deviation 56.6 H, RDW Coeff of Reece 17.2 H, Plt Count 35 L*, MPV 11.2, Immature Gran % (Auto) 0.800, Neut % (Auto) 84.3 H, Lymph % (Auto) 7.8 L, [place] % (Auto) 4.3, Eos % (Auto) 2.5, Baso % (Auto) 0.3, Absolute Neuts (auto) 5.1, Absolute Lymphs (auto) 0.47 L, Nucleated RBC % 0.3, Differential Comment SCANNED, Diff Path Review July, Platelet Estimate MKD DEC, Anisocytosis 1+ 01/19/19 21:25: PT 21.6 H, INR 1.9, APTT 38.8 H 01/19/19 21:25: Sodium 133 L, Potassium 3.8, Chloride 102, Carbon Dioxide 12.0 L , Anion Gap 19 H, BUN 31 H, Creatinine 1.10, Estim Creat Clear Calc 67.35, Est GFR (MDRD) Af Amer 89, Est GFR (MDRD) Non-Af 74, BUN/Creatinine Ratio 28.2 H, Glucose 79, Calcium 7.7 L, Magnesium 1.0 L, Total Bilirubin 0.60, AST 131 H, ALT 65 H, Alkaline Phosphatase 62, Troponin I 0.027, Total Protein 7.8, Albumin 3.6, Globulin 4.2, Albumin/Globulin Ratio 0.9 01/19/19 21:25: Lactic Acid 1.3 01/19/19 21:25: Salicylates 48.7 H* 01/19/19 21:25: Acetone Level SMALL H 01/19/19 21:55: Urine Color Yellow, Urine Clarity Sl. Cloudy, Urine pH 6.0, Ur Specific [place] 1.020, Urine Protein 30 H, Urine Glucose (UA) Normal, Urine Ke tones 150 H, Urine Occult Blood 25 H, Urine Nitrite Negative, Urine Bilirubin 1 H, Urine Urobilinogen 1 H, Ur Leukocyte Esterase Negative, Urine RBC 0 SEEN, Urine WBC 0-5 SEEN, Ur Squamous Epith Cells 0-5 SEEN, Amorphous Sediment 1+ URATE, Urine Bacteria 0 SEEN, Urine Mucus 0 SEEN 01/20/19 00:40: Ammonia 28.0 01/20/19 02:04: Specimen Type LATOYA, Sample Site OTHER, VBG pH 7.40, VBG pO2 30, VBG O2 Sat (Calc) 59, VBG O2 Content 14 L, VBG Base Excess -12 L, POC Mix VBG pCO2 Pt Tmp 21.5 L, O2 Delivery Device Room Air, Blood Gas Notified Whom ED 01/20/19 04:38: WBC 4.1 L, RBC 3.58 L, Hgb 10.8 L, Hct 31.2 L, MCV 87.2, MCH 30.2, MCHC 34.6, RDW Std Deviation 53.1 H, RDW Coeff of Reece 16.7 H, Plt Count 25 L*, MPV 11.4, Immature Gran % (Auto) 0.500, Neut % (Auto) 77.7 H, Lymph % (Auto) 14.5 L, [place] % (Auto) 6.3, Eos % (Auto) 0.5, Baso % (Auto) 0.5, Absolute Neuts (auto) 3.2, Absolute Lymphs (auto) 0.60 L, Nucleated RBC % 0, Differential Comment , Diff Path Review July, Platelet Estimate MKD 01/20/19 04:38: Sodium 139, Potassium 3.1 L, Chloride 106, Carbon Dioxide 17.0 L , Anion Gap 16 H, BUN 25 H, Creatinine 0.84, Estim Creat Clear Calc 86.94, Est GFR (MDRD) Af Amer 121, Est GFR (MDRD) Non-Af 100, BUN/Creatinine Ratio 29.6 H, Glucose 86, Calcium 6.8 L, Phosphorus 1.0 L*, Magnesium 1.7, Total Bilirubin 0.50, AST 100 H, ALT 50, Alkaline Phosphatase 54, Total Protein 6.5, Albumin 3.0 L, Globulin 3.5, Albumin/Globulin Ratio 0.9 01/20/19 04:38: PT 20.4 H, INR 1.8 01/20/19 08:30: Salicylates 29.6 H Diagnostic Data Chest X-Ray 01/19/19 21:06 IMPRESSION: Hyperexpanded lungs with chronic interstitial changes, no superimposed acute pulmonary process Electronically Signed: Edgar Pena MD at 22:34 EST , Service support , Brain CT 01/19/19 21:07 IMPRESSION: Chronic involutional changes of the brain. No acute hemorrhage Electronically Signed: Edgar Pena MD at 22:28 EST , Service support , Current Medications Acetaminophen (Tylenol) 650 mg PO Q6H PRN PRN PRN Reason: Pain Score 1-10/Temp > 100.7 F Chlordiazepoxide (Librium) 50 mg PO UD [facility]; Taper Stop: 01/23/19 13:59 Dextrose (D50w Syringe) 0 gm IV X1 PRN; Protocol PRN Reason: Hypoglycemia Folic Acid (Folic Acid) 1 mg PO DAILY@0800 [facility] Stop: 01/23/19 08:01 Glucagon () 1 mg IM .X1 PRN PRN Reason: Hypoglycemia Sodium Bicarbonate 150 meq/ (Dextrose) 1,150 mls @ 200 mls/hr IV .[id number] [facility] Last Admin: 01/20/19 08:51 Dose: 200 mls/hr Documented by: Sodium Chloride () 250 mls @ 15 mls/hr IV .[id number] PRN PRN Reason: Saline Flush Lorazepam (Ativan) 2 mg PO Q2H PRN PRN; Protocol PRN Reason: CIWA score > 8 but <15 Lorazepam (Ativan) 2 mg PO UD PRN; Protocol PRN Reason: CIWA score >/=15. Lorazepam (Ativan) 2 mg IV Q2H PRN PRN; Protocol PRN Reason: CIWA score > 8 but <15 Last Admin: 01/20/19 11:27 Dose: 2 mg Documented by: Lorazepam (Ativan) 2 mg IV UD PRN; Protocol PRN Reason: CIWA score >/=15. Multivitamins/Minerals ([facility]ivitamin With Minerals) [facility] Nutritional Formula (Lactose Free) (Ensure Enlive) 120 ml PO 4X/DAY [facility] Last Admin: 01/20/19 10:52 Dose: 120 ml Documented by: Ondansetron HCl (Zofran) 4 mg IV Q8H PRN PRN PRN Reason: NAUSEA/VOMITING Potassium Phos/Sodium Phos (Neutra-Phos Packet) 1 packet PO 4X/DAY [facility] Stop: 01/20/19 22:01 Last Admin: 01/20/19 10:49 Dose: 1 packet Documented by: Sodium Chloride () 10 - 40 ml IV UD PRN PRN Reason: SALINE FLUSH Last Admin: 01/20/19 06:59 Dose: 10 ml Documented by: Thiamine HCl (Vitamin B1) 100 mg PO BIDCM [facility] Stop: 01/23/19 08:01 STROKE Vital Signs/Narrative: Vital Signs Temp Pulse Resp BP Pulse Ox 01/20/19 10:42 98.3 F 85 24 H 131/79 H 97 Medical Necessity - Tobacco Use Smoking Status: Current every day smoker Assessment/Plan All Active Problems Alcohol withdrawal (Acute) Visual hallucinations (Acute) Alcoholic ketoacidosis (Acute) Unintentional poisoning by salicylate (Acute) Salicylate intoxication (Acute) Acute alcohol withdrawal (Acute) Chest pain (Acute) 1. Acute salicylate toxicity * this was an accidental toxicity, as patient had been taking lots of aspirin at home o.a of pain * salicylate level was 48 on admission. Had elevated anion gap of 19 with bicarb of 12 on admission and venous blood gas done showed pH of 7.4. * Started on bicarb drip. Salicylate level has come down to 26.7. * Bicarb is now 17 and anion gap is down to 16. * We will therefore discontinue bicarb drip and monitor. 2. Hypomagnesemia: Magnesium was 1 on admission but is now 1.7 with replacement. 3. Hypokalemia: Potassium is 3.1. Replace and monitor. 4. Hypophosphatemia and hypocalcemia: Phosphorus is 1. Calcium is 6.8; corrected for albumin, it is 7.6. Will replace and monitor. 5. Thrombocytopenia: * Platelets were 35 on admission and is now down to 25. * Baseline is around 80. * Patient has a history of chronic alcohol abuse so he is at risk for cirrhosis. * Liver ultrasound pending. * 6. History of alcohol abuse * Patient has a history of severe alcohol abuse and states he has been through detox cold turkey. He claims that his last drink was several weeks ago. However patient is now appearing to go to withdrawal as he is having tremors and is agitated. He was having hallucinations at time of admission 2. * Well started on alcohol withdrawal protocol with Librium and monitor CIWA score. * On multivitamin, folic acid and thiamine. * * DVT prophylaxis: SCDs. *
[2019-01-20] MEDS: chlordiazePOXIDE 25 MG Capsule PO ×3 (12:01→23:00)
[2019-01-20 12:47] LABS: Pathologist Review Reviewed
[2019-01-20 12:48] LABS: Pathologist Review Reviewed
--- NOTE | 2019-01-20 14:29 | CHAPLAIN ---
patient has a sitter; pt is not coherent at this time and needing to be calm; visit will be attempted at another time
[2019-01-20] MEDS: Thiamine Hydrochloride 100 MG Tablet PO (18:09)
--- NOTE | 2019-01-20 21:52 | NURSING ---
pt remains restless and pulling off heart monitor and pulled iv out. new iv in lh 22 x1. sitter at bedside
[2019-01-21] VITALS (8 sets, daily range): BP systolic 128–152; BP diastolic 82–94; PULSE 66–87; RESP 18; TEMP 36.7–37.7; O2SAT 94–95
--- NOTE | 2019-01-21 | NURSING ---
Pt continues to be restless all over the bed. Confused hallucinating about being in [place]. pt reaching in air for things. ativan ivp given
[2019-01-21] MEDS: LORazepam 2 MG/ML Syringe IV ×2 (00:58→03:42)
[2019-01-21] MEDS: 0.9% Saline Lock 10 ML Syringe IV (03:51)
[2019-01-21 05:43] LABS: Absolute Lymphocyte Count 0.59 X10^3/uL (0.83-4.51); Basophil# 0.02 X10^3/uL; Basophil% 0.7 % (0-1); Eosinophil# 0.08 X10^3/uL; Eosinophils% 2.8 % (0-5); Hematocrit 28.2 % (40-54); Hemoglobin 9.7 g/dL (13.0-16.5); Lymphocyte # 0.59 X10^3/ul (4.0); Lymphocyte % 20.7 % (19-41); Mean Corp Hgb Conc 34.4 g/dL (32-36); Mean Corpuscular Hgb 29.8 pg (27.0-32.0); Mean Corpuscular Volume 86.8 fL (80-94); Mean Platelet Vol. 10.5 fl (6.2-12.0); Monocyte# 0.16 X10^3/uL; Monocyte% 5.6 % (0-10); NRBC Flagged by Analyzer 0 % (0-5); Neutrophil # 1.95 X10^3/uL (2.7-7.7); Neutrophil % 68.4 % (47-70); POSITIVE COUNT YES; POSITIVE DIFFERENTIAL YES; RBC Distribution Width CV 15.9 % (11.6-14.6); RBC Distribution Width SD 50.4 fl (35.1-43.9); Red Blood Count 3.25 M/mm3 (4.6-6.2); White Blood Count 2.9 K/mm3 (4.4-11.0)
[2019-01-21] MEDS: chlordiazePOXIDE 25 MG Capsule PO ×2 (05:53→21:54)
[2019-01-21 06:35] LABS: ALB/GLOB Ratio 0.9 RATIO (0.9-2.4); AST(SGOT) 72 U/L (15-37); Alanine Aminotransfer ALT/SGPT 36 U/L (16-61); Albumin, Serum 2.8 g/dL (3.2-5.0); Alkaline Phosphatase 50 U/L (45-117); Anion Gap 4 (5-15); BUN 8 mg/dL (7-18); BUN/Creat Ratio 15.7 RATIO (10-20); Chloride 97 mmol/L (98-107); Creatinine, Serum 0.51 mg/dL (0.70-1.30); EST Glomerular Filtration Rate 178 mL/min (>60); Est Glom Filt Rate - Afr Amer 215 mL/min (>60); Glucose 117 mg/dL (74-106); Phosphorus 1.2 mg/dL (2.5-4.9); Potassium 2.1 mmol/L (3.5-5.1); Protein, Total 5.8 g/dL (6.4-8.2); Sodium Level 135 mmol/L (136-145)
[2019-01-21 06:42] LABS: Differential Indicated SCAN CRITERIA MET
[2019-01-21 07:15] LABS: Platelet Count 20 K/mm3 (150-450); Platelet Estimate MKD DEC (ADEQ)
[2019-01-21] MEDS: Potassium Chloride 10mEq/100mL 10 MEQ/100 ML IV.SOLN. 100 MEQ IV BOLUS ×6 (08:31→23:19)
[2019-01-21 11:48] LABS: Pathologist Review Reviewed
--- NOTE | 2019-01-21 11:59 | PCM.PN.HOSP ---
Patient Problems: Active and Suspected Problems Visual hallucinations (Acute) Alcoholic ketoacidosis (Acute) Unintentional poisoning by salicylate (Acute) Salicylate intoxication (Acute) Subjective: Patient seen and examined. He required a sitter overnight due to agitation. He is more confused this morning and would not really answer questions. He just repeated whatever questions he was asked. Unable to do review of systems on account of patient's confusion. Labs and vitals reviewed. Platelets have dropped further to 20 today. Patient does appear to be pancytopenic. CIWA score this morning was 15. Vitals/I&O's: Vital Signs Temp Pulse Resp BP Pulse Ox 98.8 F 77 18 143/85 H 94 01/21/19 08:40 01/21/19 08:40 01/21/19 08:40 01/21/19 08:40 01/21/19 08:40 Oxygen Delivery Method Room Air Weight: 138 lb 0.15 oz Body Mass Index (BMI) 20.9 Intake and Output for Last 24 Hours 01/19/19 01/20/19 01/21/19 23:59 23:59 23:59 Intake Total 33.3 / 33.3 5098.1667 / 5098.1667 2966.6667 / 2966.6667 Output Total 400 / 400 675 / 675 Balance 33.3 / 33.3 4698.1667 / 4698.1667 2291.6667 / 2291.6667 General: Alert, Disoriented, agitated, required a sitter HEENT: Atraumatic, PERRLA, EOMI, Normocephalic Oral: Dry Mucosa Neck: Supple, No JVD, Negative Carotid Bruits Lungs: Clear to auscultation, Normal air movement, No rhonchi, No wheeze, No rales Cardiovascular: Regular rate, Regular Rhythm, Normal S1, Normal S2, No murmurs Abdomen: Bowel Sounds Present, Soft, Non Tender, Non-Distended, No Hepato-splenomegaly Extremities: No clubbing, No cyanosis, No edema, Capillary Refill Less than 3 Seconds Skin: No rashes, No breakdown Musculoskeletal: No Tenderness to Palpation of Joints or Extremities Lymphatic: No Cervical, Supraclavicular, or Inguinal Adenopathy Neurological: Cranial nerves II-XII grossly intact, - -confused and agitated Psych/Mental Status: Agitated Microbiology Past 72 Hours 11/17/19 21:55 Urine, Clean Catch Urine Culture - Final Culture exhibits no growth. Laboratory Results 01/19/19 21:25: Diff Path Review Reviewed 01/20/19 04:38: Diff Path Review Reviewed 01/20/19 12:30: Salicylates 25.0 H 01/21/19 05:12: WBC 2.9 L, RBC 3.25 L, Hgb 9.7 L, Hct 28.2 L, MCV 86.8, MCH 29.8, MCHC 34.4, RDW Std Deviation 50.4 H, RDW Coeff of Reece 15.9 H, Plt Count 20 L*, MPV 10.5, Immature Gran % (Auto) 1.800 H, Neut % (Auto) 68.4, Lymph % (Auto) 20.7, [place] % (Auto) 5.6, Eos % (Auto) 2.8, Baso % (Auto) 0.7, Absolute Neuts (auto) 2.0, Absolute Lymphs (auto) 0.59 L, Nucleated RBC % 0, Differential Comment , Diff Path Review Reviewed, Platelet Estimate MKD 01/21/19 05:12: Sodium 135 L, Potassium 2.1 L*, Chloride 97 L, Carbon Dioxide 34.0 H, Anion Gap 4 L, BUN 8, Creatinine 0.51 L, Estim Creat Clear Calc 143.20, Est GFR (MDRD) Af Amer 215, Est GFR (MDRD) Non-Af 178, BUN/Creatinine Ratio 15.7, Glucose 117 H, Calcium 7.0 L, Phosphorus 1.2 L, Total Bilirubin 0.60, AST 72 H, ALT 36, Alkaline Phosphatase 50, Total Protein 5.8 L, Albumin 2.8 L, Globulin 3.0, Albumin/Globulin Ratio 0.9 Current Medications Acetaminophen (Tylenol) 650 mg PO Q6H PRN PRN PRN Reason: Pain Score 1-10/Temp > 100.7 F Chlordiazepoxide (Librium) 50 mg PO Q8H [facility]; Taper Stop: 01/23/19 13:59 Last Admin: 01/21/19 05:53 Dose: 50 mg Documented by: Dextrose (D50w Syringe) 0 gm IV X1 PRN; Protocol PRN Reason: Hypoglycemia Folic Acid (Folic Acid) 1 mg PO DAILY@0800 [facility] Stop: 01/23/19 08:01 Last Admin: 01/21/19 08:48 Dose: Not Given Documented by: Glucagon () 1 mg IM .X1 PRN PRN Reason: Hypoglycemia Sodium Chloride () 250 mls @ 15 mls/hr IV .[id number] PRN PRN Reason: Saline Flush Last Infusion: 01/20/19 19:56 Dose: 0 mls/hr Documented by: Sodium Bicarbonate 150 meq/ (Dextrose) 1,150 mls @ 200 mls/hr IV .Q5H45M [facility] Last Admin: 01/21/19 10:46 Dose: 200 mls/hr Documented by: Potassium Chloride () 10 meq in 100 mls @ 100 mls/hr IV BOLUS Q1H [facility] Stop: 01/21/19 12:29 Last Admin: 01/21/19 11:35 Dose: 100 mls/hr Documented by: Lisinopril (Zestril) 5 mg PO DAILY [facility] Last Admin: 01/21/19 09:33 Dose: Not Given Documented by: Lorazepam (Ativan) 2 mg PO Q2H PRN PRN; Protocol PRN Reason: CIWA score > 8 but <15 Lorazepam (Ativan) 2 mg PO UD PRN; Protocol PRN Reason: CIWA score >/=15. Lorazepam (Ativan) 2 mg IV Q2H PRN PRN; Protocol PRN Reason: CIWA score > 8 but <15 Last Admin: 01/20/19 21:01 Dose: 2 mg Documented by: Lorazepam (Ativan) 2 mg IV UD PRN; Protocol PRN Reason: CIWA score >/=15. Last Admin: 01/21/19 03:42 Dose: 2 mg Documented by: Magnesium Oxide (Mag-Ox 400) 400 mg PO DAILY [facility] Last Admin: 01/21/19 09:33 Dose: Not Given Documented by: Multivitamins/Minerals (Multivitamin With Minerals) 1 tablet PO DAILYCM [facility] Last Admin: 01/21/19 08:48 Dose: Not Given Documented by: Nicotine (Nicoderm Cq (Pbkc)) 21 mg TRANSDERM. DAILY [facility] Last Admin: 01/21/19 09:33 Dose: 21 mg Documented by: Nutritional Formula (Lactose Free) (Ensure Enlive) 120 ml PO 4X/DAY [facility] Last Admin: 01/21/19 09:31 Dose: Not Given Documented by: Ondansetron HCl (Zofran) 4 mg IV Q8H PRN PRN PRN Reason: NAUSEA/VOMITING Potassium Phos/Sodium Phos (Neutra-Phos Packet) 1 packet PO 4X/DAYCM [facility] Last Admin: 01/21/19 11:42 Dose: Not Given Documented by: Sodium Chloride () 10 - 40 ml IV UD PRN PRN Reason: SALINE FLUSH Last Admin: 01/21/19 03:51 Dose: 10 ml Documented by: Thiamine HCl (Vitamin B1) 100 mg PO BIDCM [facility] Stop: 01/23/19 08:01 Last Admin: 01/21/19 08:49 Dose: Not Given Documented by: STROKE Vital Signs/Narrative: Vital Signs Temp Pulse Resp BP Pulse Ox 01/21/19 08:40 98.8 F 77 18 143/85 H 94 Medical Necessity - Tobacco Use Smoking Status: Current every day smoker Assessment/Plan All Active Problems Alcohol withdrawal (Acute) Visual hallucinations (Acute) Alcoholic ketoacidosis (Acute) Unintentional poisoning by salicylate (Acute) Salicylate intoxication (Acute) Acute alcohol withdrawal (Acute) Chest pain (Acute) 1. Acute salicylate toxicity resolved. salicylate level trended down to 26.7 anion gap closed. Will monitor 2.`Acute metabolic encephalopathy due to acute alcohol withdrawal patient became more agitated overnight, requiring a sitter currently on alcohol withdrawal protocol with librium CIWA score today is 15 continue alcohol withdrawal protocol, and monitor CIWA. will need behavioral therapy assessment when more stable on folic acid, thiamine and multivites 3. Hypokalemia, hypomagnesemia and hypophosphatemia: Potassium is 2.1 ; phosphorous is 1.2. Will replace aggressively and monitor 4. pancytopenia Platelets are down to 20 today. wbc is also 2.9, and Hemoglobin is 9.7; wbc and Hb wre WNL on admission this is all likely due to his alcohol abuse liver USG showed multiple gallstones and sludge in gallbladder lumen, as well as mild hepatomegaly and fatty infiltration of the liver- patient is however currently asymptomatic, and has no fever. to follow up with general surgery upon discharge. WIll consider consulting general surgery if he becomes symptomatic or liver enzymes trend up. DVT prophylaxis: SCDs. Code Visit Inpatient E&M: 52497 Subs Hosp L3
[2019-01-21 13:46] LABS: Magnesium 1.1 mg/dL (1.6-2.6)
[2019-01-21 14:02] LABS: Vitamin B12 674 pg/mL (211-911)
--- NOTE | 2019-01-21 14:45 | NURSING ---
Dr. Rosa at bedside. CTA ordered. BP recheck 163/65. Pt states pain has decreased to a 6 and that SOB is resolving.
--- NOTE | 2019-01-21 15:50 | ONC.CONS.INP ---
Subjective Date of Service:: 01/21/19 Chief Complaint: Thrombocytopenia History of Present Illness: Mr. Llanos is a 58 year old man with a PMH positive for ETOH abuse who presented to [facility] ED on 01/19/19 with acute complaints of hallucinations. Found to be acidotic with a positive anion gap and thrombocytopenic, platelets 35,000. The patient reported taking large quantities of ASA prior to this episode for chronic low back pain. He was subsequently admitted for medical management of salicylate overdose and electrolyte aberrancies associated with alcoholism and withdraw. Anion gap has since resolved with bicarb gttt and he has received supportive care with electrolyte supplementation during this admission. Underwent US liver on 01/20/19 which demonstrated mild hepatomegaly and fatty infiltration, as well as multiple gallstones and sludge in the gallbladder lumen. Upon entering the room, patient is sleeping supine. He is drowsy and only able to answer a limited number of directed questions. Past Medical History: Chronic Problems Alcoholism (Chronic) Hypomagnesemia (Chronic) Hypokalemia (Chronic) Alcohol abuse (Chronic) Past Medical/Surgical History: Past Medical History - Most Recent Inpatient Visit Past Medical History Start: 01/20/19 02:58 Text: Status: Complete Freq: ONCE Protocol: Document 01/20/19 02:58 HE (Rec: 01/20/19 03:06 HE [id number]) BMI Required to complete PMH What is Patient's BMI 21.3 Past Medical History Unable History Recalled Yes Query Text:Pt Unable/Family Not Present Neurologic Medical History Hx Stroke/TIA Yes: 2013 Hx Dementia/Alzheimer's No Hx Parkinson's Disease No Hx Seizures No Hx Multiple Sclerosis No Hx Migraines No Cardiac Medical History VTE Present on Admission No Hx of Deep Vein Thrombosis/VTE/PE No Hx Hypertension Yes Hx Chest Pain/Angina Yes Hx Heart Attack No Hx Cardiac Surgery/Stents/Etc. No Hx Heart Failure Yes: 2009 Hx Pacemaker/AICD No Hx Irregular Heartbeat and/or Afib No Hx Anticoagulant Therapy No Query Text:(Coumadin, Aspirin, Plavix, Xarelto, etc.) Hx Pain in Legs when Walking/Leg Cramps No Respiratory Medical History Hx COPD No Hx Emphysema No Hx Smoking Yes Smoking Status Current every day smoker Hx Tobacco Use in last 12 months Yes Sent to [facility] Yes Hx of Pipe Smoking No Hx of Cigar Smoking No Hx Sleep Apnea No Do you snore loudly (louder than talking No or can be heard through closed doors)? Do you often feel tired/ fatigued/ No sleepy during daytime? Has anyone observed you stop breathing No during sleep? STOP Results Negative GI Medical History Hx Ulcer Yes Hx Hepatitis No Hx Cirrhosis No Hx GI Bleed Yes Hx Unplanned Weight Loss Yes Genitourinary Medical History Indwelling Catheter in Place on Arrival/ No Admission Hx Renal Disease No Hx Dialysis No Musculoskeletal History Hx Arthritis No Hx Rheumatoid Arthritis No Endocrine Medical History Hx Diabetes No Hx Thyroid Disease No Hematologic Medical History Hx of Blood Transfusion No Hx of Transfusion in last 3 Months No Ever experience any problems with No transfusion(s)? Hx of Preganancy in last 3 Months N/A Nurse Filling Out Transfusion & HEVANS Questions: Date: 01/20/19 Time: 03:03 Psycho/Social Medical History Hx Depression Yes Hx Anxiety Yes Hx Behavior Disorder No Hx Alcohol Use Yes: 1/2 galon a day,quit drinking 2wks ago, tequila:0. 5ltr/daily Hx Substance Use No Other Medical History Hx Blood Disorders No Hx Anemia No Hx Cancer No Hx Drug Resistant Organism No Wound/Pressure Injury Present on Arrival No /Admission Query Text:If yes, chart assessment in Shift/Clinical Findings Central Line/PICC/VAD Present on Arrival No /Admission Antibiotics within last 7 days? No Methicillin Resistant Staphylococcus aureus Screening Active MRSA No Risk for Readmission Number of Risk Factors 6 At Risk for Readmission Patient is At Risk For Readmission Patient is eligible for Call Back Y Maternal Family History: Hypertension Paternal Family History: Heart Disease - Father because of heart attack at age of 50. Sibling Family History: Heart Disease, - - He has 3 brothers who had heart attacks at younger age. One brother had a heart attack at 39 years old, second brother had heart attack at age of 41 and another brother who had heart attack at age 46. - Social History Lives: Alone Smoking Status: Current every day smoker Alcohol: Heavy, Sober Drugs: None Allergies/Adverse Reactions: Allergy/AdvReac Type Severity Reaction Status Date / Time seasonal Allergy Other Uncoded 01/20/19 03:16 Review of Systems Respiratory: Denies: Hemoptysis Skin: Denies: Wounds Unable to obtain accurate/complete ROS d/t: X Comment: Answers to directed questions are difficult to discern, drowsy, eyes closed, patient not able to ennuciate. Vital Signs Height 5 ft 8 in Weight: 138 lb 0.15 oz Weight in Pounds 138.0 lbs Pulse Ox 95 Temperature 98.0 F Pulse Rate 66 Respiratory Rate 18 Blood Pressure [BP] 139/76 Blood Pressure 152/94 Blood Pressure Position [BP] Semi-Fowlers Blood Pressure Position Semi-Fowlers - Physical Exam General: No apparent distress. Negative for: Alert HEENT: Atraumatic, Normocephalic Oropharynx:: Negative for: Dry mucosa, Ulcerated lesions Neck:: Supple, Trachea midline. Negative for: JVD, bilateral Cardiac:: Regular rate, Regular rhythm, Normal S1, Normal S2. Negative for: Murmur Lungs: Clear to auscultation, Excusion symmetrical. Negative for: Rhonchi, Wheezes Abdomen:: Bowel sounds x 4, Soft, Non-tender, Non-distended. Negative for: Hepatosplenomegaly Extremities:: Clubbing. Negative for: Cyanosis, Edema Neurological: Neuro grossly intact Skin:: Ecchymosis - several small scattered BUE, large area of ecchymosis left upper arm. Negative for: Lesions, Rash, Petechiae Psychiatric:: Poor concentration Lymphatics:: Negative for: Cervical lymphadenopathy, Supraclavicular lymphadenopathy, Axillary lymphadenopathy Laboratory Data: Microbiology 01/19/19 21:55 Urine Culture - Final Urine, Clean Catch Culture exhibits no growth. Laboratory Tests 01/21/19 01/21/19 01/21/19 Range/Units 13:18 13:18 05:12 WBC (4.4-11.0) K/mm3 RBC (4.6-6.2) M/mm3 Hgb (13.0-16.5) g/dL Hct (40-54) % MCV (80-94) fL MCH (27.0-32.0) pg MCHC (32-36) g/dL RDW Std Deviation (35.1-43.9) fl RDW Coeff of Reece (11.6-14.6) % Plt Count (150-450) K/mm3 MPV (6.2-12.0) fl Immature Gran % (Auto) (0.0-0.9) % Neut % (Auto) (47-70) % Lymph % (Auto) (19-41) % Kenton % (Auto) (0-10) % Eos % (Auto) (0-5) % Baso % (Auto) (0-1) % Absolute Neuts (auto) (2.0-7.7) X10^3/uL Absolute Lymphs (auto) (0.83-4.51) X10^3/uL Nucleated RBC % (0-5) % Differential Comment Diff Path Review Platelet Estimate (ADEQ) Sodium 135 L (136-145) mmol/L Potassium 2.1 L* (3.5-5.1) mmol/L Chloride 97 L (98-107) mmol/L Carbon Dioxide 34.0 H (21.0-32.0) mmol/L Anion Gap 4 L (5-15) BUN 8 (7-18) mg/dL Creatinine 0.51 L (0.70-1.30) mg/dL Estim Creat Clear Calc 143.20 ml/min Est GFR (MDRD) Af Amer 215 (>60) mL/min Est GFR (MDRD) Non-Af 178 (>60) mL/min BUN/Creatinine Ratio 15.7 (10-20) RATIO Glucose 117 H (74-106) mg/dL Calcium 7.0 L (8.5-10.1) mg/dL Phosphorus 1.2 L (2.5-4.9) mg/dL Magnesium 1.1 L (1.6-2.6) mg/dL Total Bilirubin 0.60 (0.20-1.00) mg/dL AST 72 H (15-37) U/L ALT 36 (16-61) U/L Alkaline Phosphatase 50 (45-117) U/L Total Protein 5.8 L (6.4-8.2) g/dL Albumin 2.8 L (3.2-5.0) g/dL Globulin 3.0 (2.2-4.2) g/dL Albumin/Globulin Ratio 0.9 (0.9-2.4) RATIO Vitamin B12 674 (211-911) pg/mL 01/21/19 Range/Units 05:12 WBC 2.9 L (4.4-11.0) K/mm3 RBC 3.25 L (4.6-6.2) M/mm3 Hgb 9.7 L (13.0-16.5) g/dL Hct 28.2 L (40-54) % MCV 86.8 (80-94) fL MCH 29.8 (27.0-32.0) pg MCHC 34.4 (32-36) g/dL RDW Std Deviation 50.4 H (35.1-43.9) fl RDW Coeff of Reece 15.9 H (11.6-14.6) % Plt Count 20 L* (150-450) K/mm3 MPV 10.5 (6.2-12.0) fl Immature Gran % (Auto) 1.800 H (0.0-0.9) % Neut % (Auto) 68.4 (47-70) % Lymph % (Auto) 20.7 (19-41) % Kenton % (Auto) 5.6 (0-10) % Eos % (Auto) 2.8 (0-5) % Baso % (Auto) 0.7 (0-1) % Absolute Neuts (auto) 2.0 (2.0-7.7) X10^3/uL Absolute Lymphs (auto) 0.59 L (0.83-4.51) X10^3/uL Nucleated RBC % 0 (0-5) % Differential Comment Diff Path Review Reviewed Platelet Estimate MKD DEC (ADEQ) Sodium (136-145) mmol/L Potassium (3.5-5.1) mmol/L Chloride (98-107) mmol/L Carbon Dioxide (21.0-32.0) mmol/L Anion Gap (5-15) BUN (7-18) mg/dL Creatinine (0.70-1.30) mg/dL Estim Creat Clear Calc ml/min Est GFR (MDRD) Af Amer (>60) mL/min Est GFR (MDRD) Non-Af (>60) mL/min BUN/Creatinine Ratio (10-20) RATIO Glucose (74-106) mg/dL Calcium (8.5-10.1) mg/dL Phosphorus (2.5-4.9) mg/dL Magnesium (1.6-2.6) mg/dL Total Bilirubin (0.20-1.00) mg/dL AST (15-37) U/L ALT (16-61) U/L Alkaline Phosphatase (45-117) U/L Total Protein (6.4-8.2) g/dL Albumin (3.2-5.0) g/dL Globulin (2.2-4.2) g/dL Albumin/Globulin Ratio (0.9-2.4) RATIO Vitamin B12 (211-911) pg/mL Diagnostic Data: Diagnostic Data Chest X-Ray 01/19/19 21:06 IMPRESSION: Hyperexpanded lungs with chronic interstitial changes, no superimposed acute pulmonary process Electronically Signed: Edgar Pena MD at 22:34 EST , Service support , Brain CT 01/19/19 21:07 IMPRESSION: Chronic involutional changes of the brain. No acute hemorrhage Electronically Signed: Edgar Pena MD at 22:28 EST , Service support , Abdomen Ultrasound 01/20/19 03:11 IMPRESSION: Multiple gallstones. Sludge is seen in the gallbladder lumen. Mild hepatomegaly and fatty infiltration of the liver. Electronically Signed: rAi English, at 13:28 EST , Service support , Assessment and Plan 1. Pancytopenia- As evidenced by platelet count of 20,000 today, (35,000 upon admission on 01/19/19), WBC 2.9, (6 on admission) and Hgb 9.7 (13.1 on admission). Anemia normocytic. LFTs are WNL, with the exception of a mildly elevated AST. US liver obtained 01/20/19 demonstrates mild hepatomegaly and fatty infiltration of the liver with multiple gallstones/sludge. Pancytopenia presumed sequela of ETOH abuse, nutritional deficiencies. Primary treatment of ETOH induced cytopenias is cessation of alcohol intake. Will add orders for iron panel and copper level to B12 and folate already obtained. Patient has begun folic acid, thiamine and multivitamins. Advise platelet transfusion for value <20,000 or < 30,000 in the presence of bleeding. May anticipate rebound thrombocytosis if patient continues to abstain from alcohol consumption. Case discussed with Dr. Angulo is in agreement with the aforementioned plan. Thank you for allowing me to participate in the care of Mr. Llanos. [facility] will follow with more suggestions depending on CBC trend. Nathalia He, MSN, MECHANICAL INSULATOR-C, AOCNP Medications: Prescriptions This Visit Medication Instructions Recorded Clonidine HCl [Catapres] 0.1 mg PO DAILY PRN 01/19/19 Lisinopril 5 mg PO DAILY 01/20/19 Magnesium Oxide 400 mg PO DAILY 01/20/19 Medications Added to Medication List This Visit Category Date Time Status Folic Acid Med 01/21/19 08:00 Active 1 mg PO DAILY@0800 Lisinopril [Zestril] Med 01/21/19 10:00 Active 5 mg PO DAILY Magnesium Oxide [Mag-Ox 400] Med 01/21/19 10:00 Active 400 mg PO DAILY Magnesium Sulfate 4gm/100mL Med 01/21/19 15:15 Active 4 gm in 100 ml IV X1 Multivitamins,Ther W-Minerals [Multivitamin With Med 01/21/19 08:00 Active Minerals] 1 tablet PO DAILYCM Na Biphos/Potassium Phosphate [Neutra-Phos Packet] Med 01/21/19 08:00 Active 1 packet PO 4X/DAYCM Sodium Phosphate/Na Biphos [Sod. Phos] 40 mm Med 01/21/19 13:45 Active 0.9% Normal Saline 500 ml IV X1 Primary Care Provider: No Primary Care Phys Referring Provider: - Problem List (1) Pancytopenia Status: Acute
[2019-01-21] MEDS: Magnesium Sulfate 4gm/100mL 4 GM/100 ML IV.SOLN. IV (16:20)
[2019-01-21 18:49] LABS: Anion Gap 6 (5-15); BUN 6 mg/dL (7-18); BUN/Creat Ratio 12.8 RATIO (10-20); Calcium,Total 7.1 mg/dL (8.5-10.1); Chloride 94 mmol/L (98-107); Creatinine, Serum 0.47 mg/dL (0.70-1.30); EST Glomerular Filtration Rate 198 mL/min (>60); Est Glom Filt Rate - Afr Amer 239 mL/min (>60); Estimated Creatinine Clearance 155.39 ml/min; Glucose 110 mg/dL (74-106); Potassium 2.4 mmol/L (3.5-5.1); Sodium Level 135 mmol/L (136-145)
[2019-01-21] MEDS: Acetaminophen 325 MG Tablet 650 MG PO (21:51)
[2019-01-22] VITALS (10 sets, daily range): BP systolic 119–142; BP diastolic 76–94; PULSE 69–91; RESP 12–20; TEMP 36.7–37.4; O2SAT 92–96
[2019-01-22] MEDS: Potassium Chloride 10mEq/100mL 10 MEQ/100 ML IV.SOLN. 100 MEQ IV BOLUS ×6 (00:45→15:25)
[2019-01-22] MEDS: 0.9% Saline Lock 10 ML Syringe IV ×2 (03:33→12:09)
[2019-01-22] MEDS: chlordiazePOXIDE 25 MG Capsule PO ×2 (06:12→13:11)
[2019-01-22 06:46] LABS: Absolute Lymphocyte Count 0.62 X10^3/uL (0.83-4.51); Absolute Neutrophil Count 1.3 X10^3/uL (2.0-7.7); Basophil# 0.02 X10^3/uL; Basophil% 0.9 % (0-1); Eosinophils% 4.4 % (0-5); Hematocrit 29.3 % (40-54); Lymphocyte # 0.62 X10^3/ul (4.0); Lymphocyte % 27.1 % (19-41); Mean Corp Hgb Conc 34.1 g/dL (32-36); Mean Corpuscular Hgb 30.3 pg (27.0-32.0); Mean Corpuscular Volume 88.8 fL (80-94); Mean Platelet Vol. 11.4 fl (6.2-12.0); Monocyte# 0.21 X10^3/uL; Monocyte% 9.2 % (0-10); NRBC Flagged by Analyzer 0 % (0-5); Neutrophil # 1.32 X10^3/uL (2.7-7.7); Neutrophil % 57.5 % (47-70); POSITIVE COUNT YES; RBC Distribution Width CV 15.5 % (11.6-14.6); RBC Distribution Width SD 50.8 fl (35.1-43.9); White Blood Count 2.3 K/mm3 (4.4-11.0)
[2019-01-22 06:58] LABS: ALB/GLOB Ratio 0.8 RATIO (0.9-2.4); AST(SGOT) 51 U/L (15-37); Alanine Aminotransfer ALT/SGPT 31 U/L (16-61); Albumin, Serum 2.6 g/dL (3.2-5.0); Alkaline Phosphatase 55 U/L (45-117); Anion Gap 7 (5-15); BUN 6 mg/dL (7-18); BUN/Creat Ratio 10.9 RATIO (10-20); Calcium,Total 7.2 mg/dL (8.5-10.1); Chloride 99 mmol/L (98-107); Creatinine, Serum 0.55 mg/dL (0.70-1.30); EST Glomerular Filtration Rate 163 mL/min (>60); Est Glom Filt Rate - Afr Amer 198 mL/min (>60); Estimated Creatinine Clearance 132.79 ml/min; Globulin 3.2 g/dL (2.2-4.2); Glucose 95 mg/dL (74-106); Potassium 3.1 mmol/L (3.5-5.1); Protein, Total 5.8 g/dL (6.4-8.2); Sodium Level 137 mmol/L (136-145)
[2019-01-22 07:15] LABS: Differential Indicated SCAN CRITERIA MET; Platelet Count 31 K/mm3 (150-450)
[2019-01-22 07:42] LABS: Differential Comment SCANNED; Platelet Estimate MKD DEC (ADEQ)
[2019-01-22 08:01] LABS: Magnesium 2.1 mg/dL (1.6-2.6); Phosphorus 4.6 mg/dL (2.5-4.9)
[2019-01-22] MEDS: Magnesium Oxide 400 MG Tablet PO (08:24)
[2019-01-22] MEDS: Thiamine Hydrochloride 100 MG Tablet PO ×2 (08:24→15:25)
[2019-01-22] MEDS: Na Biphos/Potassium Phosphate PACKET 1 PACKET PO (08:24)
[2019-01-22] MEDS: Multivitamins,Ther W-Minerals Tablet 1 TABLET PO (08:24)
[2019-01-22] MEDS: Folic Acid 1 MG Tablet PO (08:24)
[2019-01-22] MEDS: Lisinopril 5 MG Tablet PO (08:25)
[2019-01-22 09:33] LABS: Ferritin 584 ng/mL (26-388); Iron 30 ug/dL (65-175); Iron Binding Capacity,Total 185 ug/dL (250-450); PERCENT IRON SATURATION 16.2 % (15.0-55.0)
--- NOTE | 2019-01-22 11:36 | PN_ITS ---
Patient Problems: Active and Suspected Problems Visual hallucinations (Acute) Alcoholic ketoacidosis (Acute) Unintentional poisoning by salicylate (Acute) Salicylate intoxication (Acute) Pancytopenia (Acute) Subjective: Patient seen and examined. He is much more alert and lucid today. He normally has a sitter. He has no complaints today though he remains lethargic. Review of systems otherwise negative. Labs and vitals reviewed. Platelets are up to 31 today. Vitals/I&O's: Vital Signs Temp Pulse Resp BP Pulse Ox 98.0 F 83 16 141/92 H 92 01/22/19 09:25 01/22/19 11:07 01/22/19 09:25 01/22/19 09:25 01/22/19 09:25 Oxygen Delivery Method Room Air Weight: 138 lb 0.15 oz Body Mass Index (BMI) 20.9 Intake and Output for Last 24 Hours 01/20/19 01/21/19 01/22/19 23:59 23:59 23:59 Intake Total 5098.1667 / 5098.1667 6072.5000 / 6072.5000 944.5833 / 944.5833 Output Total 400 / 400 2075 / 2075 Balance 4698.1667 / 4698.1667 3997.5000 / 3997.5000 944.5833 / 944.5833 General: Alert, oriented, lethargic HEENT: Atraumatic, PERRLA, EOMI, Normocephalic Oral: Dry Mucosa Neck: Supple, No JVD, Negative Carotid Bruits Lungs: Clear to auscultation, Normal air movement, No rhonchi, No wheeze, No rales Cardiovascular: Regular rate, Regular Rhythm, Normal S1, Normal S2, No murmurs Abdomen: Bowel Sounds Present, Soft, Non Tender, Non-Distended, No Hepato- splenomegaly Extremities: No clubbing, No cyanosis, No edema, Capillary Refill Less than 3 Seconds Skin: No rashes, No breakdown Musculoskeletal: No Tenderness to Palpation of Joints or Extremities Lymphatic: No Cervical, Supraclavicular, or Inguinal Adenopathy Neurological: Cranial nerves II-XII grossly intact, - Psych/Mental Status: normal affect Microbiology Past 72 Hours 01/19/19 21:30 Blood Culture (Wb) - Right Wrist Blood Culture - Preliminary No growth in 48 hours. 01/19/19 21:25 Blood Culture (Wb) - Right Wrist Blood Culture - Preliminary No growth in 48 hours. 01/19/19 21:55 Urine, Clean Catch Urine Culture - Final Culture exhibits no growth. Laboratory Results 01/21/19 05:12: Diff Path Review Reviewed 01/21/19 13:18: Magnesium 1.1 L 01/21/19 13:18: Vitamin B12 674 01/21/19 13:18: RBC Folate Hemolysate Pending, RBC Folate Pending, Hematocrit Pending 01/21/19 16:54: Sodium 135 L, Potassium 2.4 L*, Chloride 94 L, Carbon Dioxide 35.0 H, Anion Gap 6, BUN 6 L, Creatinine 0.47 L, Estim Creat Clear Calc 155.39, Est GFR (MDRD) Af Amer 239, Est GFR (MDRD) Non-Af 198, BUN/Creatinine Ratio 12.8, Glucose 110 H, Calcium 7.1 L 01/22/19 06:25: WBC 2.3 L, RBC 3.30 L, Hgb 10.0 L, Hct 29.3 L, MCV 88.8, MCH 30.3, MCHC 34.1, RDW Std Deviation 50.8 H, RDW Coeff of Reece 15.5 H, Plt Count 31 L*, MPV 11.4, Immature Gran % (Auto) 0.900, Neut % (Auto) 57.5, Lymph % (Auto) 27.1, Pike % (Auto) 9.2, Eos % (Auto) 4.4, Baso % (Auto) 0.9, Absolute Neuts (auto) 1.3 L, Absolute Lymphs (auto) 0.62 L, Nucleated RBC % 0, Differential Comment SCANNED, Diff Path Review May foll, Platelet Estimate MKD 01/22/19 06:25: Sodium 137, Potassium 3.1 L, Chloride 99, Carbon Dioxide 31.0, Anion Gap 7, BUN 6 L, Creatinine 0.55 L, Estim Creat Clear Calc 132.79, Est GFR (MDRD) Af Amer 198, Est GFR (MDRD) Non-Af 163, BUN/Creatinine Ratio 10.9, Glucose 95, Calcium 7.2 L, Total Bilirubin 0.50, AST 51 H, ALT 31, Alkaline Phosphatase 55, Total Protein 5.8 L, Albumin 2.6 L, Globulin 3.2, Albumin/Globulin Ratio 0.8 L 01/22/19 06:25: Phosphorus 4.6, Magnesium 2.1 01/22/19 06:25: Iron 30 L, TIBC 185 L, Iron Saturation 16.2, Ferritin 584 H 01/22/19 09:27: Serum Copper Pending Diagnostic Data Chest X-Ray 01/19/19 21:06 IMPRESSION: Hyperexpanded lungs with chronic interstitial changes, no superimposed acute pulmonary process Electronically Signed: Edgar Pena MD at 22:34 EST , Service support , Brain CT 01/19/19 21:07 IMPRESSION: Chronic involutional changes of the brain. No acute hemorrhage Electronically Signed: Edgar Pena MD at 22:28 EST , Service support , Abdomen Ultrasound 01/20/19 03:11 IMPRESSION: Multiple gallstones. Sludge is seen in the gallbladder lumen. Mild hepatomegaly and fatty infiltration of the liver. Electronically Signed: Ari English, at 13:28 EST , Service support , Current Medications Acetaminophen (Tylenol) 650 mg PO Q6H PRN PRN PRN Reason: Pain Score 1-10/Temp > 100.7 F Last Admin: 01/21/19 21:51 Dose: 650 mg Documented by: Chlordiazepoxide (Librium) 50 mg PO Q8H KATE; Taper Stop: 01/23/19 13:59 Last Admin: 01/22/19 06:12 Dose: 50 mg Documented by: Dextrose (D50w Syringe) 0 gm IV X1 PRN; Protocol PRN Reason: Hypoglycemia Folic Acid (Folic Acid) 1 mg PO DAILY@0800 KATE Stop: 01/23/19 08:01 Last Admin: 01/22/19 08:24 Dose: 1 mg Documented by: Glucagon () 1 mg IM .X1 PRN PRN Reason: Hypoglycemia Sodium Chloride () 250 mls @ 15 mls/hr IV .[id number] PRN PRN Reason: Saline Flush Last Infusion: 01/22/19 02:13 Dose: 0 mls/hr Documented by: Sodium Chloride () 500 mls @ 15 mls/hr IV PRN PRN PRN Reason: Blood Transfusion Last Infusion: 01/22/19 07:46 Dose: 15 mls/hr Documented by: Lisinopril (Zestril) 5 mg PO DAILY [facility] Last Admin: 01/22/19 08:25 Dose: 5 mg Documented by: Lorazepam (Ativan) 2 mg PO Q2H PRN PRN; Protocol PRN Reason: CIWA score > 8 but <15 Lorazepam (Ativan) 2 mg PO UD PRN; Protocol PRN Reason: CIWA score >/=15. Lorazepam (Ativan) 2 mg IV Q2H PRN PRN; Protocol PRN Reason: CIWA score > 8 but <15 Last Admin: 01/20/19 21:01 Dose: 2 mg Documented by: Lorazepam (Ativan) 2 mg IV UD PRN; Protocol PRN Reason: CIWA score >/=15. Last Admin: 01/21/19 03:42 Dose: 2 mg Documented by: Magnesium Oxide (Mag-Ox 400) 400 mg PO DAILY [facility] Last Admin: 01/22/19 08:24 Dose: 400 mg Documented by: Multivitamins/Minerals ([facility]amin [facility] Minerals) [facility] Last Admin: 01/22/19 08:24 Dose: 1 tablet Documented by: Nicotine (Nicoderm Cq (Pbkc)) 21 mg TRANSDERM. DAILY [facility] Last Admin: 01/22/19 08:24 Dose: 21 mg Documented by: Ondansetron HCl (Zofran) 4 mg IV Q8H PRN PRN PRN Reason: NAUSEA/VOMITING Sodium Chloride () 10 - 40 ml IV UD PRN PRN Reason: SALINE FLUSH Last Admin: 01/22/19 03:33 Dose: 10 ml Documented by: Thiamine HCl (Vitamin B1) [facility] Stop: 01/23/19 08:01 Last Admin: 01/22/19 08:24 Dose: 100 mg Documented by: STROKE Vital Signs/Narrative: Vital Signs Temp Pulse Resp BP Pulse Ox 01/22/19 11:07 83 01/22/19 09:25 98.0 F 88 16 141/92 H 92 Medical Necessity - Tobacco Use Smoking Status: Current every day smoker Assessment/Plan All Active Problems Alcohol withdrawal (Acute) Visual hallucinations (Acute) Alcoholic ketoacidosis (Acute) Unintentional poisoning by salicylate (Acute) Salicylate intoxication (Acute) Pancytopenia (Acute) Acute alcohol withdrawal (Acute) Chest pain (Acute) 1. Acute salicylate toxicity * resolved. 2.`Acute metabolic encephalopathy due to acute alcohol withdrawal * patient is calmer today, though still lethargic * not requiring a sitter * CIWA score this morning is 0 * on alcohol withdrawal protocol with librium * on folic acid, thiamine and multivites * 3. Hypokalemia, hypomagnesemia and hypophosphatemia: * Potassium is 3.1 today. phosphorous and magnesium are WNL. WIll replace potassium and monitor. 4. pancytopenia * Platelets up to 31 today; wbc is 2.3 and Hb is now 10. * hematology on board. * this is all likely due to his alcohol abuse * liver USG showed multiple gallstones and sludge in gallbladder lumen, as well as mild hepatomegaly and fatty infiltration of the liver- patient is however currently asymptomatic, and has no fever. to follow up with general surgery upon discharge. WIll consider consulting general surgery if he becomes symptomatic or liver enzymes trend up. * DVT prophylaxis: SCDs. * Code Visit Inpatient E&M: 84618 Subs Hosp L2
[2019-01-22 11:59] LABS: Pathologist Review Reviewed
--- NOTE | 2019-01-22 13:28 | CASEMGMT ---
SW went to patient's room to talk with him. He was holding the menu and dozing off to sleep. SW woke him up and he was ok to talk with SW. He plans on following up with [facility] as he is already active with them. He also has a sponsor. SW let him know therapy will see him to make sure he can get around okay as he has not been up out of bed for a few days. SW/RN will watch for therapy notes. Priya WOOD BUS OR TRUCK GARAGE MECHANIC
--- NOTE | 2019-01-22 15:15 | CHAPLAIN ---
Type of Pastoral Visit _x__ Initial Visit ___ Follow-up Visit ___ On-call Visit ___ General Patient Visit ___ Spiritual Assessment ___ Family Conference ___ Bereavement ___ Rapid Response ___ Code Blue ___ Other (describe below) Pastoral Care Referral From _x__ Patient ___ Family ___ Nurse ___ Physician ___ Mark Up Designer ___ Customer Relations Consultant ___ Other (describe below) Sacrament/Intervention _x__ Active listening ___ Anointing ___ Evangelical ___ Bereavement ___ Communion _x__ April exploration ___ ___ Life review _x__ Prayer ___ Reconciliation ___ Sacrament of Sick _x__ Supportive presence ___ Wedding ___ Other (describe below) Pastoral Comments patient reports good improvement but some anxiety about cause of illness and if anything more was found during the tests;
[2019-01-22] MEDS: Acetaminophen 325 MG Tablet 650 MG PO (15:25)
[2019-01-22 16:08] LABS: Folate, RBC (Hct) Test 28.7 % (37.5-51.0)
[2019-01-22 18:45] LABS: Folates, RBC Test 1125 ng/mL (>498)
[2019-01-23 03:00] VITALS: PULSE 74
[2019-01-23] MEDS: Acetaminophen 325 MG Tablet 650 MG PO ×2 (03:06→09:13)
[2019-01-23] MEDS: chlordiazePOXIDE 25 MG Capsule PO (03:06)
[2019-01-23 03:10] VITALS: BP 148/92; PULSE 82; RESP 16; TEMP 37.7; O2SAT 94
[2019-01-23 06:05] LABS: Absolute Lymphocyte Count 0.75 X10^3/uL (0.83-4.51); Absolute Neutrophil Count 1.7 X10^3/uL (2.0-7.7); Basophil# 0.02 X10^3/uL; Basophil% 0.7 % (0-1); Eosinophil# 0.14 X10^3/uL; Eosinophils% 4.6 % (0-5); Hematocrit 28.8 % (40-54); Hemoglobin 9.7 g/dL (13.0-16.5); Lymphocyte # 0.75 X10^3/ul (4.0); Lymphocyte % 24.4 % (19-41); Mean Corp Hgb Conc 33.7 g/dL (32-36); Mean Corpuscular Hgb 30.2 pg (27.0-32.0); Mean Corpuscular Volume 89.7 fL (80-94); Mean Platelet Vol. 11.6 fl (6.2-12.0); Monocyte# 0.48 X10^3/uL; Monocyte% 15.6 % (0-10); NRBC Flagged by Analyzer 0 % (0-5); Neutrophil # 1.67 X10^3/uL (2.7-7.7); Neutrophil % 54.4 % (47-70); POSITIVE COUNT YES; Platelet Count 51 K/mm3 (150-450); RBC Distribution Width CV 15.4 % (11.6-14.6); RBC Distribution Width SD 50.7 fl (35.1-43.9); Red Blood Count 3.21 M/mm3 (4.6-6.2); White Blood Count 3.1 K/mm3 (4.4-11.0)
[2019-01-23 06:30] LABS: ALB/GLOB Ratio 0.7 RATIO (0.9-2.4); AST(SGOT) 53 U/L (15-37); Alanine Aminotransfer ALT/SGPT 33 U/L (16-61); Albumin, Serum 2.6 g/dL (3.2-5.0); Alkaline Phosphatase 62 U/L (45-117); Anion Gap 7 (5-15); BUN 15 mg/dL (7-18); BUN/Creat Ratio 22.8 RATIO (10-20); Calcium,Total 8.6 mg/dL (8.5-10.1); Chloride 103 mmol/L (98-107); Creatinine, Serum 0.66 mg/dL (0.70-1.30); EST Glomerular Filtration Rate 133 mL/min (>60); Est Glom Filt Rate - Afr Amer 161 mL/min (>60); Estimated Creatinine Clearance 110.66 ml/min; Globulin 3.6 g/dL (2.2-4.2); Glucose 102 mg/dL (74-106); Potassium 3.4 mmol/L (3.5-5.1); Protein, Total 6.2 g/dL (6.4-8.2); Sodium Level 138 mmol/L (136-145)
[2019-01-23 07:00] VITALS: PULSE 66
[2019-01-23 09:00] VITALS: BP 129/89; PULSE 82; RESP 18; TEMP 36.9; O2SAT 94
[2019-01-23] MEDS: Lisinopril 5 MG Tablet PO (09:14)
[2019-01-23] MEDS: 0.9% Saline Lock 10 ML Syringe IV (09:14)
[2019-01-23] MEDS: Thiamine Hydrochloride 100 MG Tablet PO (09:14)
[2019-01-23] MEDS: Multivitamins,Ther W-Minerals Tablet 1 TABLET PO (09:14)
[2019-01-23] MEDS: Magnesium Oxide 400 MG Tablet PO (09:14)
[2019-01-23] MEDS: Folic Acid 1 MG Tablet PO (09:14)
--- NOTE | 2019-01-23 09:33 | CASEMGMT ---
SW spoke with patient again this am. He was more awake today. He told SW he has an appt at [facility] and will be starting outpatient therapy again. SW asked him about physical and occupational therapy if he felt he may need outpatient at discharge. He said he does not think he will need any PT/OT at discharge. KIKO/NELSON CM to follow for d/c planning. Priya WOOD MSW
[2019-01-23 11:00] VITALS: PULSE 67
--- NOTE | 2019-01-23 11:57 | DCINST_ITS ---
- Discharge Diagnoses Current Active Problems: Current Active and Chronic Problems Alcoholism (Chronic) Hypomagnesemia (Chronic) Hypokalemia (Chronic) Visual hallucinations (Acute) Alcoholic ketoacidosis (Acute) Unintentional poisoning by salicylate (Acute) Salicylate intoxication (Acute) Pancytopenia (Acute) You will use the following diet at home:: Cardiac Your food should be the consistency of: Regular Discharge Activity: Return to Normal Activity Weight Bearing Status: Weight bearing as tolerated Call your doctor if you observe: Shortness of breath, Dizziness, Fainting spells Instructions: Salicylate (Blood), Signs of Addiction: Becoming Addicted, Addiction: Getting Help, Addiction: Your Treatment Options, Thrombocytopenia Allergies/Adverse Reactions: Allergies seasonal Allergy (Uncoded 01/20/19 03:16) Other Medications to take at Discharge Clonidine HCl [Catapres] 0.1 mg PO DAILY PRN 01/19/19 Lisinopril 5 mg PO DAILY 01/20/19 Magnesium Oxide 400 mg PO DAILY 01/20/19 Potassium Chloride [K-Dur] 20 meq PO DAILY #30 tablet 01/23/19 The following prescriptions were given: Potassium Chloride [K-Dur] 20 meq PO DAILY #30 tablet Primary Care Physician: Care Physician,No Primary [Primary Care Provider] - Please follow up with your Primary Care Physician in: 1-2 weeks Test Results: Test results from this visit will be discussed in further detail at your follow- up appointment, if applicable. Please Follow Up With: Dillan Angulo MD When: 1-2 weeks for pancytopenia Please Follow Up With: Taylor Patel MD When: 1-2 weeks to establish PCP relationship Proposed Discharge Date: 01/23/19
--- NOTE | 2019-01-23 11:59 | PCM.DC.SUM ---
Discharge Date and Diagnosis Date of Admission: 01/20/19 Date of Discharge: 01/23/19 - Primary Discharge Diagnosis Active and Suspected Problems Visual hallucinations (Acute) Alcoholic ketoacidosis (Acute) Unintentional poisoning by salicylate (Acute) Salicylate intoxication (Acute) Pancytopenia (Acute) hypophosphatemia hypokalemia hypomagnesemia - Secondary Discharge Diagnosis Chronic Problems Alcoholism (Chronic) Hypomagnesemia (Chronic) Hypokalemia (Chronic) Alcohol abuse (Chronic) Hospital Course and Treatment Imaging Results: Diagnostic Data Chest X-Ray 01/19/19 21:06 IMPRESSION: Hyperexpanded lungs with chronic interstitial changes, no superimposed acute pulmonary process Electronically Signed: Edgar Pena MD at 22:34 EST , Service support , Brain CT 01/19/19 21:07 IMPRESSION: Chronic involutional changes of the brain. No acute hemorrhage Electronically Signed: Edgar Pena MD at 22:28 EST , Service support , Abdomen Ultrasound 01/20/19 03:11 IMPRESSION: Multiple gallstones. Sludge is seen in the gallbladder lumen. Mild hepatomegaly and fatty infiltration of the liver. Electronically Signed: Ari English, at 13:28 EST , Service support , Operations: None Procedures: None Summary of Care Provided: The patient is a 58 year old M with a past medical history which includes chronic alcohol abuse and hypertension. He was admitted through the ED on 01/20/2019 with a complaint of worsening agitation and very vivid dreams. Patient admitted to being sick about a week prior to admission with diarrhea and also had myalgias and had been taking a large quantity of aspirin during that time. He also had a history of chronic alcoholism and had been drinking very heavily until several weeks ago when he quit cold turkey. He had been hospitalized after being involved in an acute alcohol withdrawal program on account of doing electrolytes. With the vivid dreams he stated he remembered having a conversation with his neighbor which however did not do care. He was admitted into the ED on admission was found to be acidotic with a positive anion gap. Salicylate level was also checked and was elevated. He was admitted and managed for acute salicylate toxicity which is likely due to unintentional overdose from excessive use. He was started on bicarb for salicylate toxicity. Select level was 48. Was also managed for alcoholic ketoacidosis. Salicylate level decreased with administration of sodium bicarb. Of note, patient stay was further complicated by delirium which was thought to be due to acute alcohol withdrawal and was started on alcohol drawl protocol with Librium. Stay was also complicated by extensive electrolyte derangements such as hypomagnesemia, hypokalemia and hypophosphatemia which were corrected aggressively and gradually normalized. Patient's mentation gradually improved and he became lucid and well-oriented. Must be stated that on admission patient had thrombocytopenia with platelets of 35 with a baseline of around 88. This was also thought to be due to chronic alcohol abuse. Platelets further dropped to a layne of 20 at which point hematology was consulted. Was also noted to have pancytopenia which was all thought to be due to alcohol. Platelets gradually improved peaking at 51 as patient improved. Day of discharge hemoglobin was 9.7 and WBC was 3.1. He was discharged home on 01/23/2019 with a prescription for p.o. potassium supplementation. He is follow-up with his primary care doctor. Patient however said his primary care doctor was in [place] and so he was referred to Dr. Sarina Patel to establish PCP relationship. He is also to follow-up with hematology. Patient seen and examined prior to discharge. He felt much better and had no complaints. He was more alert well oriented. Review of systems otherwise negative. Labs and vitals reviewed. Home medication reviewed and reconciled. o/e: Vital Signs Height 5 ft 8 in Weight: 138 lb 0.15 oz Weight in Pounds 138.0 lbs Pulse Ox 94 Temperature 98.5 F Pulse Rate 67 Respiratory Rate 18 Blood Pressure [BP] 139/76 Blood Pressure 129/89 Blood Pressure Position [BP] Semi-Fowlers Blood Pressure Position Semi-Fowlers [] General: Alert, oriented HEENT: Atraumatic, PERRLA, EOMI, Normocephalic Oral: Dry Mucosa Neck: Supple, No JVD, Negative Carotid Bruits Lungs: Clear to auscultation, Normal air movement, No rhonchi, No wheeze, No rales Cardiovascular: Regular rate, Regular Rhythm, Normal S1, Normal S2, No murmurs Abdomen: Bowel Sounds Present, Soft, Non Tender, Non-Distended, No Hepato-splenomegaly Extremities: No clubbing, No cyanosis, No edema, Capillary Refill Less than 3 Seconds Skin: No rashes, No breakdown Musculoskeletal: No Tenderness to Palpation of Joints or Extremities Lymphatic: No Cervical, Supraclavicular, or Inguinal Adenopathy Neurological: Cranial nerves II-XII grossly intact, Psych/Mental Status: normal affect Plan as above. - Physical Exam Vitals/I&O's: Vital Signs Temp Pulse Resp BP Pulse Ox 98.5 F 67 18 129/89 H 94 01/23/19 09:00 01/23/19 11:00 01/23/19 09:00 01/23/19 09:00 01/23/19 09:00 Oxygen Delivery Method Room Air Weight: 138 lb 0.15 oz Body Mass Index (BMI) 20.9 Intake and Output for Last 24 Hours 01/21/19 01/22/19 01/23/19 23:59 23:59 23:59 Intake Total 6072.5000 / 6072.5000 2246.8333 / 2246.8333 400 / 400 Output Total 2075 / 2075 1275 / 1275 700 / 700 Balance 3997.5000 / 3997.5000 971.8333 / 971.8333 -300 / -300 Microbiology Past 72 Hours 01/19/19 21:30 Blood Culture (Wb) - Right Wrist Blood Culture - Preliminary No growth in 48 hours. 01/19/19 21:25 Blood Culture (Wb) - Right Wrist Blood Culture - Preliminary No growth in 48 hours. 01/19/19 21:55 Urine, Clean Catch Urine Culture - Final Culture exhibits no growth. Laboratory Results 01/21/19 13:18: RBC Folate Hemolysate 323.0, RBC Folate 1125, Hematocrit 28.7 L 01/22/19 06:25: Diff Path Review Reviewed 01/23/19 05:40: WBC 3.1 L, RBC 3.21 L, Hgb 9.7 L, Hct 28.8 L, MCV 89.7, MCH 30.2, MCHC 33.7, RDW Std Deviation 50.7 H, RDW Coeff of Reece 15.4 H, Plt Count 51 L, MPV 11.6, Immature Gran % (Auto) 0.300, Neut % (Auto) 54.4, Lymph % (Auto) 24.4, [place] % (Auto) 15.6 H, Eos % (Auto) 4.6, Baso % (Auto) 0.7, Absolute Neuts (auto) 1.7 L, Absolute Lymphs (auto) 0.75 L, Nucleated RBC % 0 01/23/19 05:40: Sodium 138, Potassium 3.4 L, Chloride 103, Carbon Dioxide 28.0, Anion Gap 7, BUN 15, Creatinine 0.66 L, Estim Creat Clear Calc 110.66, Est GFR (MDRD) Af Amer 161, Est GFR (MDRD) Non-Af 133, BUN/Creatinine Ratio 22.8 H, Glucose 102, Calcium 8.6, Total Bilirubin 0.40, AST 53 H, ALT 33, Alkaline Phosphatase 62, Total Protein 6.2 L, Albumin 2.6 L, Globulin 3.6, Albumin/Globulin Ratio 0.7 L Current Medications Acetaminophen (Tylenol) 650 mg PO Q6H PRN PRN PRN Reason: Pain Score 1-10/Temp > 100.7 F Last Admin: 01/23/19 09:13 Dose: 650 mg Documented by: Chlordiazepoxide (Librium) 25 mg PO Q12H [facility]; Taper Stop: 01/23/19 13:59 Last Admin: 01/23/19 03:06 Dose: 25 mg Documented by: Dextrose (D50w Syringe) 0 gm IV X1 PRN; Protocol PRN Reason: Hypoglycemia Glucagon () 1 mg IM .X1 PRN PRN Reason: Hypoglycemia Sodium Chloride () 250 mls @ 15 mls/hr IV .[id number] PRN PRN Reason: Saline Flush Last Infusion: 01/22/19 02:13 Dose: 0 mls/hr Documented by: Sodium Chloride () 500 mls @ 15 mls/hr IV PRN PRN PRN Reason: Blood Transfusion Last Infusion: 01/22/19 09:35 Dose: 0 mls/hr Documented by: Lisinopril (Zestril) 5 mg PO DAILY [facility] Last Admin: 01/23/19 09:14 Dose: 5 mg Documented by: Lorazepam (Ativan) 2 mg PO Q2H PRN PRN; Protocol PRN Reason: CIWA score > 8 but <15 Lorazepam (Ativan) 2 mg PO UD PRN; Protocol PRN Reason: CIWA score >/=15. Lorazepam (Ativan) 2 mg IV Q2H PRN PRN; Protocol PRN Reason: CIWA score > 8 but <15 Last Admin: 01/20/19 21:01 Dose: 2 mg Documented by: Lorazepam (Ativan) 2 mg IV UD PRN; Protocol PRN Reason: CIWA score >/=15. Last Admin: 01/21/19 03:42 Dose: 2 mg Documented by: Magnesium Oxide (Mag-Ox 400) 400 mg PO DAILY [facility] Last Admin: 01/23/19 09:14 Dose: 400 mg Documented by: Multivitamins/Minerals (Multivitamin With Minerals) 1 tablet PO DAILYCM [facility] Last Admin: 01/23/19 09:14 Dose: 1 tablet Documented by: Nicotine (Nicoderm Cq (Pbkc)) 21 mg TRANSDERM. DAILY [facility] Last Admin: 01/23/19 09:14 Dose: 21 mg Documented by: Ondansetron HCl (Zofran) 4 mg IV Q8H PRN PRN PRN Reason: NAUSEA/VOMITING Sodium Chloride () 10 - 40 ml IV UD PRN PRN Reason: SALINE FLUSH Last Admin: 01/23/19 09:14 Dose: 20 ml Documented by: Discharge Diet: Low fat/ Low Cholesterol Discharge Activity: Return to Normal Activity Weight Bearing Status: Weight bearing as tolerated Call your doctor if you observe: Shortness of breath, Dizziness, Fainting spells Home Medications: Medications to take at Discharge Clonidine HCl [Catapres] 0.1 mg PO DAILY PRN 01/19/19 Magnesium Oxide 400 mg PO DAILY 01/20/19 Lisinopril 5 mg PO DAILY #30 tab 01/23/19 Potassium Chloride [K-Dur] 20 meq PO DAILY #30 tab 01/23/19 Following Prescrptions Were Given to Patient: Potassium Chloride [K-Dur] 20 meq PO DAILY #30 tab Transmission Status: Received by ERNIE TRENT RD Lisinopril 5 mg PO DAILY #30 tab Transmission Status: Received by ERNIE TRENT RD Primary Care Physician: Care Physician,No Primary [Primary Care Provider] - Please follow up with your Primary Care Physician in: 1-2 weeks Please Follow Up With: Dillan Angulo MD When: 1-2 weeks for pancytopenia Please Follow Up With: Taylor Patel MD When: 1-2 weeks to establish PCP relationship Patient Instructions: Salicylate (Blood), Thrombocytopenia, Signs of Addiction: Becoming Addicted, Addiction: Getting Help, Addiction: Your Treatment Options Disposition: Home Minutes spent on discharge:: 50 Patient Condition:: Stable Medical Necessity - Tobacco Use Smoking Status: Current every day smoker Meaningful Use Info Meaningful Use Diagnoses (Choose all that apply): None applicable Code Visit Inpatient E&M: 87633 Disch Hosp
--- NOTE | 2019-01-23 15:25 | NURSING ---
ALL VITAL SIGNS AND ASSESSMENTS CHARTED BY STUDENT NURSES ON 01/23/19 WERE CHECKED AND VERIFIED BY Gutierrez GATICA, CLINICAL INSTRUCTOR.
[2019-01-24 11:42] LABS: Copper, Serum or Plasma 73 ug/dL (72-166)
== END 2019-01-23 13:55 | disposition home or self-care (01) | DRG 917 ==
LOC: ED 01-20 01:36 → PCU 01-20 02:13
PROVIDERS: Nurse Practitioner Family; Emergency Provider Emergency Medicine; Visit Provider Student in an Organized Health Care Education/Training Program
DX: T39.011A Poisoning by aspirin, accidental (unintentional), initial encounter (principal); G92 Toxic encephalopathy; G93.41 Metabolic encephalopathy; E87.2 Acidosis; D61.818 Other pancytopenia; F10.239 Alcohol dependence with withdrawal, unspecified; Z23 Encounter for immunization; E83.39 Other disorders of phosphorus metabolism; E87.6 Hypokalemia; E83.42 Hypomagnesemia; K80.20 Calculus of gallbladder without cholecystitis without obstruction
CPT/HCPCS: 36415; 70450; 71046; 76705; 80048; 80053; 80329; 81001; 82009; 82140; 82525; 82607; 82728; 82747; 82803; 83540; 83550; 83605; 83735; 84100; 84484; 85014; 85025; 85610; 85730; 87040; 87086; 93005; 97162; 97166; 97802; 99285; 99406; J7030; J7040; J7050; 90686; A4216; G0480; J3490; J7799

== ENCOUNTER 2019-02-11 10:03 | Inpatient (IN) | payer MEDICAID, SELFPAY ==
[2019-01-20 02:58] VITALS: BMI 20.9
[2019-02-11 10:03] VITALS: BP 134/97; PULSE 77; RESP 16; TEMP 36.6; O2SAT 97; BMI 21.2
--- NOTE | 2019-02-11 10:17 | ED.VISSUMM ---
- ER Visit Summary Date of Service: 02/11/19 Chief Complaint: Requesting detox History of Present Illness: The patient is a 58 M long history of alcoholism. Patient used to drink a liter a day of hard liquor. Now he drinks 5% beer. He states when he wakes up in the morning he needs 5-6 beers and success and just to prevent him from having tremors and going through withdrawal. He has been in detox about a month ago. Physical Examination: Middle-aged male vital signs are stable. He is afebrile he does not look septic or toxic. He is in no distress. H EENT exam unremarkable. Neck nontender. Lungs clear to auscultation bilaterally. Heart regular rhythm no murmur. Abdomen is soft and nontender. Normal bowel sounds no peritoneal signs. Patient moving all 4 extremities. Neurovascularly intact. Nontender no deformity. No edema. Neurologically is awake and alert with no focal motor deficits. Test Results: BC shows pancytopenia which is chronic white count of 2. Hemoglobin 11. Previously 9. Platelet count of 44,000 previously 50,000. Electrolytes show sodium 125 previously 138 otherwise BUN, creatinine and gap. Liver enzymes unremarkable. Emergency Department Course and Treatment: Screening labs. Repeat exam he is doing well. Patient started having anxiety and withdrawal symptoms and was given 1 p.o. Ativan. Currently is resting comfortably. I spoken to the hospitalist about admission. Treatment Plan: I will discuss with the hospitalist the possibility of inpatient detox Disposition: Admission Impression: Chronic history of alcoholism Requesting detox Acute hyponatremia Chronic pancytopenia This note was generated with [employer] dictation software. It may contain incorrect words, spelling, and punctuation that were not noted in review of the chart prior to signing ED Disposition - Plan for ED Patient: Referrals: Care Physician,No Primary [Primary Care Provider] -
[2019-02-11 10:45] LABS: Absolute Lymphocyte Count 0.85 X10^3/uL (0.83-4.51); Absolute Neutrophil Count 0.9 X10^3/uL (2.0-7.7); Basophil# 0.01 X10^3/uL; Basophil% 0.5 % (0-1); Eosinophil# 0.13 X10^3/uL; Eosinophils% 6.2 % (0-5); Hematocrit 31.9 % (40-54); Hemoglobin 11.2 g/dL (13.0-16.5); Lymphocyte # 0.85 X10^3/ul (4.0); Lymphocyte % 40.7 % (19-41); Mean Corp Hgb Conc 35.1 g/dL (32-36); Mean Corpuscular Hgb 31.4 pg (27.0-32.0); Mean Corpuscular Volume 89.4 fL (80-94); Mean Platelet Vol. 11.8 fl (6.2-12.0); Monocyte# 0.22 X10^3/uL; Monocyte% 10.5 % (0-10); NRBC Flagged by Analyzer 0 % (0-5); Neutrophil # 0.87 X10^3/uL (2.7-7.7); Neutrophil % 41.6 % (47-70); POSITIVE COUNT YES; POSITIVE DIFFERENTIAL YES; RBC Distribution Width CV 15.5 % (11.6-14.6); RBC Distribution Width SD 51.2 fl (35.1-43.9); Red Blood Count 3.57 M/mm3 (4.6-6.2); White Blood Count 2.1 K/mm3 (4.4-11.0)
[2019-02-11 10:49] LABS: Differential Indicated SCAN CRITERIA MET; Platelet Count 44 K/mm3 (150-450)
[2019-02-11 11:02] LABS: AST(SGOT) 88 U/L (15-37); Alanine Aminotransfer ALT/SGPT 48 U/L (16-61); Albumin, Serum 3.8 g/dL (3.2-5.0); Alkaline Phosphatase 62 U/L (45-117); Anion Gap 10 (5-15); BUN 4 mg/dL (7-18); BUN/Creat Ratio 5.7 RATIO (10-20); Bilirubin, Direct 0.12 mg/dL (0.00-0.30); Calcium,Total 8.3 mg/dL (8.5-10.1); Chloride 94 mmol/L (98-107); EST Glomerular Filtration Rate 124 mL/min (>60); Est Glom Filt Rate - Afr Amer 150 mL/min (>60); Estimated Creatinine Clearance 105.84 ml/min; Globulin 3.9 g/dL (2.2-4.2); Glucose 80 mg/dL (74-106); Potassium 4.3 mmol/L (3.5-5.1); Protein, Total 7.7 g/dL (6.4-8.2); Sodium Level 125 mmol/L (136-145)
[2019-02-11] MEDS: LORazepam 1 MG Tablet PO ×4 (12:16→22:22)
[2019-02-11 12:20] VITALS: BP 136/100; PULSE 74; RESP 16; O2SAT 96
[2019-02-11 12:40] VITALS: BMI 22.4; BMI 22.5
[2019-02-11 13:00] VITALS: BP 167/94; PULSE 57; RESP 18; TEMP 36.8; O2SAT 100
--- NOTE | 2019-02-11 13:40 | HP.PCM_ITS ---
Problem List (1) Alcohol withdrawal Status: Acute Qualifiers: Complication of substance-induced condition: with unspecified complication Qualified Code(s): F10.239 - Alcohol dependence with withdrawal, unspecified History of Present Illness Date of Admission: 02/11/19 Chief Complaint: tremulousness The patient is a 58 year old M presets with tremulousness. Last drink was 0930. Drinks 12 White Claws/day and had 6 today. Is tremulous, diaphoretic, N/V, headache. Presented to ED for detox. Received lorazepam. Quit drink hard liquor last month. Was hospitalized for salicylate tox and alcohol wd last month. Was sober for 1 week, then started drinking again. 1 week ago had hallucinations, none now.[] Past Medical History Past Medical History (Chronic Problems): Chronic Problems (Last Reviewed 02/04/19 @ 16:02 by Xochilt Pope) Alcoholism (Chronic) Hypomagnesemia (Chronic) Hypokalemia (Chronic) Alcohol abuse (Chronic) Medical History: Medical History (Last Reviewed 02/11/19 @ 13:45 by Pineda Albert DO) Pancreatitis K85.90 Vitamin deficiency E56.9 Back problem M53.9 High blood pressure I10 Allergies seasonal Allergy (Uncoded 02/11/19 10:03) Other Home Medications: Ambulatory Orders Medication Instructions Recorded Magnesium Oxide 400 mg PO DAILY 01/20/19 Folic Acid 1 mg PO DAILY@0800 02/11/19 Lisinopril [Zestril] 20 mg PO DAILY 02/11/19 Multivitamin [One-Daily 1 ea PO DAILY 02/11/19 Multi-Vitamin] Omeprazole 40 mg PO DAILY 02/11/19 Potassium Chloride [K-Dur] 20 meq PO DAILY 02/11/19 Thiamine Hydrochloride [Vitamin B1] 100 mg PO DAILY 02/11/19 Surgical History: Surgical History (Last Reviewed 02/11/19 @ 13:45 by Pineda Albert DO) History of appendectomy Z90.49 History of hernia surgery Z98.890, Z87.19 Surgical History: appendectomy, herniorrhaphy Psychiatric History: No pertinent psych hx Smoking Status: Current every day smoker - *Family History Maternal Family History: Family History (Last Reviewed 02/11/19 @ 13:45 by Pineda Albert DO) Other Alcoholism Anxiety Colon cancer Diabetes Hypertension Kidney disease Myocardial infarction Skin cancer ulcer disease History Items: Hypertension Paternal Family History: Family History (Last Reviewed 02/11/19 @ 13:45 by Pineda Albert DO) Other Alcoholism Anxiety Colon cancer Diabetes Hypertension Kidney disease Myocardial infarction Skin cancer ulcer disease History Items: Heart Disease - Father because of heart attack at age of 50. Sibling Family History: Family History (Last Reviewed 02/11/19 @ 13:45 by Pineda Albert DO) Other Alcoholism Anxiety Colon cancer Diabetes Hypertension Kidney disease Myocardial infarction Skin cancer ulcer disease History Items: Heart Disease, - - He has 3 brothers who had heart attacks at younger age. One brother had a heart attack at 39 years old, second brother had heart attack at age of 41 and another brother who had heart attack at age 46. Review of Systems Constitutional: Reports: Anorexia. Denies: Chills, Fever Eyes: Reports: Blurred vision. Denies: Double vision HEENT: Reports: - - left tooth pain. Denies: Head Aches, Sinus Congestion, Sinus Drainage Cardiovascular: Denies: Chest Pain, Palpitations Respiratory: Denies: Cough, Shortness of breath at rest, Sputum production Gastrointestinal: Reports: Nausea, Vomiting. Denies: Abdominal Pain Genitourinary: Denies: Dysuria Musculoskeletal: Denies: Joint Pain, Joint Tenderness Skin: Denies: Rash, Wounds Neurological: Reports: Balance problems Hematologic/ Lymphatic: Denies: Easy Bruising, Easy Bleeding, Hx of blood clot VTE Information - Inpt Only VTE Present on Admission: No VTE Mechan Device Prophylaxis: None VTE Pharm Prophylaxis ordered?: No Reason prophylaxis not ordered:: Procedure Not Indicated - Physical Exam Vitals/I&O's: Vital Signs Temp Pulse Resp BP Pulse Ox 36.6 C 74 16 136/100 H 96 02/11/19 10:03 02/11/19 12:20 02/11/19 12:20 02/11/19 12:20 02/11/19 12:20 Oxygen Delivery Method Room Air Weight: 67.041 kg Body Mass Index (BMI) 22.4 General: Alert, Cooperative, No apparent distress HEENT: Atraumatic, Normocephalic Oral: Moist Mucosa, No Gingival or Mucosal Lesions/ Ulcerations Neck: No Nodes, Trachea Midline Lungs: Clear to auscultation, Normal air movement, No rhonchi, No wheeze Cardiovascular: Regular rate, Regular Rhythm, Normal S1, Normal S2, No murmurs Abdomen: Bowel Sounds Present, Soft, Non Tender, Non-Distended, No Hepato- splenomegaly Extremities: No edema, No Calf Tenderness Skin: No rashes, No breakdown Psych/Mental Status: Appropriate, Flat Affect Laboratory Results 02/11/19 10:35: WBC 2.1 L, RBC 3.57 L, Hgb 11.2 L, Hct 31.9 L, MCV 89.4, MCH 31.4, MCHC 35.1, RDW Std Deviation 51.2 H, RDW Coeff of Reece 15.5 H, Plt Count 44 L*, MPV 11.8, Immature Gran % (Auto) 0.500, Neut % (Auto) 41.6 L, Lymph % (Auto) 40.7, [place] % (Auto) 10.5 H, Eos % (Auto) 6.2 H, Baso % (Auto) 0.5, Absolute Neuts (auto) 0.9 L, Absolute Lymphs (auto) 0.85, Nucleated RBC % 0, Differential Comment COMMENT, Diff Path Review May foll 02/11/19 10:35: Sodium 125 L, Potassium 4.3, Chloride 94 L, Carbon Dioxide 21.0, Anion Gap 10, BUN 4 L, Creatinine 0.70, Estim Creat Clear Calc 105.84, Est GFR (MDRD) Af Amer 150, Est GFR (MDRD) Non-Af 124, BUN/Creatinine Ratio 5.7 L, Glucose 80, Calcium 8.3 L, Total Bilirubin 0.40, Direct Bilirubin 0.12, AST 88 H , ALT 48, Alkaline Phosphatase 62, Total Protein 7.7, Albumin 3.8, Globulin 3.9 Current Medications Sodium Chloride () 250 mls @ 15 mls/hr IV .[id number] PRN PRN Reason: Saline Flush Influenza Virus Vaccine Quadrival (Flucelvax /Fluzone [id number]) 0.5 ml IM .ONCE ONE Stop: 02/12/19 10:01 Nutritional Formula (Lactose Free) (Ensure Enlive) 120 ml PO 4X/DAY [facility] Sodium Chloride () 10 - 40 ml IV UD PRN PRN Reason: SALINE FLUSH Assessment/Plan All Active Problems (Last Reviewed 02/04/19 @ 16:02 by Xochilt Pope) Alcohol withdrawal (Acute) Visual hallucinations (Acute) Alcoholic ketoacidosis (Acute) Unintentional poisoning by salicylate (Acute) Salicylate intoxication (Acute) Pancytopenia (Acute) Acute alcohol withdrawal (Acute) Chest pain (Acute) 1. acute alcohol wd * CIWA (after lorazepam) 13 * lorazepam taper * continue folic acid and thiamine * CM to assist with outpt programs. 2. Pancytopenia * stable * probably from alcohol * follow up with hematology 3. VTE proph: low risk and therefore not indicated. Code Visit Inpatient E&M: 51848 Init Hosp L2
[2019-02-11] MEDS: Ibuprofen 600 MG Tablet PO (14:29)
[2019-02-11 16:57] VITALS: BP 113/84; PULSE 86; RESP 18; TEMP 36.9; O2SAT 95
[2019-02-11 17:00] LABS: Bedside Glucose 101 mg/dL (70-110)
[2019-02-11] MEDS: LORazepam 2 MG/ML Syringe 1 MG IV (20:00)
[2019-02-11] MEDS: 0.9% Saline Lock 10 ML Syringe IV ×3 (20:11→22:29)
[2019-02-11 20:15] VITALS: BP 137/90; PULSE 82; RESP 18; TEMP 36.5; O2SAT 98
[2019-02-11] MEDS: traZODone 50 MG Tablet PO (22:22)
[2019-02-12 02:14] VITALS: BP 140/88; PULSE 90; RESP 18; TEMP 36.4; O2SAT 98
[2019-02-12] MEDS: LORazepam 1 MG Tablet PO ×5 (02:14→21:06)
[2019-02-12 06:50] VITALS: BP 136/96; PULSE 82; RESP 16; RESP 18; TEMP 36.6; O2SAT 97
--- NOTE | 2019-02-12 09:13 | PCM.PN.HOSP ---
Patient Problems: Active and Suspected Problems (Last Reviewed 02/11/19 @ 13:45 by Pineda Albert DO) Alcohol withdrawal (Acute) Reason for Visit: Increased tremulousness last night. Improved, but still ongoing today. +AWAN, Nausea, diaphoresis. No further vomiting. Vitals/I&O's: Vital Signs Temp Pulse Resp BP Pulse Ox 36.6 C 82 18 136/96 H 97 02/12/19 06:50 02/12/19 06:50 02/12/19 06:50 02/12/19 06:50 02/12/19 06:50 Oxygen Delivery Method Room Air Weight: 67.041 kg Body Mass Index (BMI) 22.4 Intake and Output for Last 24 Hours 02/10/19 02/11/19 02/12/19 23:59 23:59 23:59 Intake Total 360 / 360 Balance 360 / 360 General: Alert, No apparent distress HEENT: Atraumatic, Normocephalic Oral: Moist Mucosa, No Gingival or Mucosal Lesions/ Ulcerations Neck: No Nodes, Trachea Midline Lungs: Clear to auscultation, Normal air movement, No rhonchi, No wheeze, No rales Cardiovascular: Regular rate, Regular Rhythm, Normal S1, Normal S2, No murmurs Abdomen: Bowel Sounds Present, Soft, Non Tender, Non-Distended, No Hepato-splenomegaly Extremities: No edema, No Calf Tenderness Skin: No rashes, No breakdown Musculoskeletal: No Tenderness to Palpation of Joints or Extremities, No Muscle Wasting Psych/Mental Status: Normal Affect, Appropriate Laboratory Results 02/11/19 10:35: WBC 2.1 L, RBC 3.57 L, Hgb 11.2 L, Hct 31.9 L, MCV 89.4, MCH 31.4, MCHC 35.1, RDW Std Deviation 51.2 H, RDW Coeff of Reece 15.5 H, Plt Count 44 L*, MPV 11.8, Immature Gran % (Auto) 0.500, Neut % (Auto) 41.6 L, Lymph % (Auto) 40.7, [place] % (Auto) 10.5 H, Eos % (Auto) 6.2 H, Baso % (Auto) 0.5, Absolute Neuts (auto) 0.9 L, Absolute Lymphs (auto) 0.85, Nucleated RBC % 0, Differential Comment COMMENT, Diff Path Review May foll 02/11/19 10:35: Sodium 125 L, Potassium 4.3, Chloride 94 L, Carbon Dioxide 21.0, Anion Gap 10, BUN 4 L, Creatinine 0.70, Estim Creat Clear Calc 105.84, Est GFR (MDRD) Af Amer 150, Est GFR (MDRD) Non-Af 124, BUN/Creatinine Ratio 5.7 L, Glucose 80, Calcium 8.3 L, Total Bilirubin 0.40, Direct Bilirubin 0.12, AST 88 H, ALT 48, Alkaline Phosphatase 62, Total Protein 7.7, Albumin 3.8, Globulin 3.9 02/11/19 16:48: POC Glucose 101 Current Medications Acetaminophen (Tylenol) 500 mg PO Q4H PRN PRN PRN Reason: Temp > 100.4 F Folic Acid (Folic Acid) 1 mg PO DAILY@0800 [facility] Sodium Chloride () 250 mls @ 15 mls/hr IV .[id number] PRN PRN Reason: Saline Flush Ibuprofen (Motrin) 600 mg PO Q8H PRN PRN PRN Reason: Pain Score 1-5/10 Last Admin: 02/11/19 14:29 Dose: 600 mg Documented by: Influenza Virus Vaccine Quadrival (Flucelvax /Fluzone ) 0.5 ml IM .ONCE ONE Stop: 02/12/19 10:01 Lisinopril (Zestril) 20 mg PO DAILY [facility] Lorazepam (Ativan) 1 mg IV Q4H PRN PRN PRN Reason: Severe Anxiety Last Admin: 02/11/19 20:00 Dose: 1 mg Documented by: Lorazepam (Ativan) 2 mg IV X1 PRN PRN Reason: Seizure Lorazepam (Ativan) 1 mg PO Q4H [facility]; Taper Stop: 02/14/19 17:59 Last Admin: 02/12/19 06:45 Dose: 1 mg Documented by: [facility]Ox 400) [facility] Multivitamins (Multivitamin) 1 tablet PO DAILY@0800 [facility] Nicotine (Nicoderm Cq (Pbkc)) 21 mg TRANSDERM. DAILY [facility] Nutritional Formula (Lactose Free) (Ensure Enlive) 120 ml PO 4X/DAY [facility] Last Admin: 02/11/19 21:46 Dose: Not Given Documented by: Ondansetron HCl (Zofran Odt) 4 mg PO Q6H PRN PRN PRN Reason: NAUSEA Pantoprazole Sodium (Protonix) 40 mg PO DAILY [facility] Potassium Chloride (K-Dur) 20 meq PO DAILYCM [facility] Sodium Chloride () 10 - 40 ml IV UD PRN PRN Reason: SALINE FLUSH Last Admin: 02/11/19 22:29 Dose: 10 ml Documented by: Thiamine HCl (Vitamin B1) 100 mg PO DAILYCM [facility] Trazodone HCl (Desyrel) 50 mg PO QHS [facility] Last Admin: 02/11/19 22:22 Dose: 50 mg Documented by: STROKE Vital Signs/Narrative: Vital Signs Temp Pulse Resp BP Pulse Ox 02/12/19 06:50 36.6 C 82 18 136/96 H 97 Medical Necessity - Tobacco Use Smoking Status: Current every day smoker Assessment/Plan All Active Problems (Last Reviewed 02/11/19 @ 13:45 by Pineda Albert DO) Alcohol withdrawal (Acute) 1. acute alcohol wd CIWA 13 lorazepam taper continue folic acid and thiamine CM to assist with outpt programs. 2. Pancytopenia stable probably from alcohol follow up with hematology 3. VTE proph: low risk and therefore not indicated. Code Visit Inpatient E&M: 40741 Subs Hosp L2
[2019-02-12] MEDS: Pantoprazole Sodium 40 MG Tablet PO (10:11)
[2019-02-12] MEDS: Magnesium Oxide 400 MG Tablet PO (10:12)
[2019-02-12] MEDS: Lisinopril 20 MG Tablet PO (10:12)
[2019-02-12] MEDS: Multivitamins,Therapeutic Tablet 1 TABLET PO (10:12)
[2019-02-12] MEDS: Thiamine Hydrochloride 100 MG Tablet PO (10:12)
[2019-02-12] MEDS: Folic Acid 1 MG Tablet PO (10:12)
[2019-02-12] MEDS: Ibuprofen 600 MG Tablet PO ×2 (10:22→21:25)
[2019-02-12 10:25] VITALS: BP 139/86; PULSE 114; RESP 18; TEMP 36.8; O2SAT 98
--- NOTE | 2019-02-12 10:32 | CASEMGMT ---
KIKO spoke w/Savi in financial services. She states pt had [employer] insurance, a [employer] product, but it termed in November. KIKO met w/pt in room to speak about prior level of function, self pay status, alcohol use, and discharge plan. PCP: Pt does not have a PCP but states has an appt w/Gerald on the . Specialists: None Preferred Pharmacy: [facility] in [place] Insurance/Prescription coverage: At present, none. Pt states he should have [employer] coverage, it is an insurance he has through the exchange, he is paying for it. KIKO encouraged pt to call the insurance company to find out what is going on w/his insurance. KIKO also gave pt many resources, including [employer], Rosa Johnson, [facility] assist, [facility] Resources, prescription assistance programs, Food pantry information, 211, Medicaid application, and taxi voucher program. LNOK: Pt states family is all in [place]. Pt has a supportive neighbor, Peg, and AA members Living arrangements/prior level of function: Pt lives alone, independent w/ADL's. Pt does not drive, his neighbor Kathi assists w/transportation. DME: Pt has just started using a cane in the last week and a half, prior to this pt never needed DME. Substance Abuse: Pt reports to be drinking [place], stopped drinking hard liquor. Pt has not been through inpt treatment in the past, has been to outpt and attends AA, has a sponsor. Pt has not followed up w/[facility] recently, does want to follow up w/them after this hospitalization. KIKO explained that without insurance, choices are limited in regard to treatment options. KIKO explained that [facility] does have a sliding scale until his insurance is activated. Pt is fine with going to [facility]. Mental Health: Pt denies any history of mental health other than some anxiety. Pt did state that he had a relationship that recently ended and he lost his job. Pt thinks this led to his going back to drinking. Pt states he does want to get back to working. Plan: Pt anticipates returning home at discharge. Pt would like to follow up w/[facility], and agreeable to call to make an appt tomorrow. SW will meet again w/pt tomorrow to check in w/him, and make an appt with [facility] as able. HOSEA Lam
[2019-02-12 10:49] VITALS: PULSE 114
[2019-02-12 15:23] LABS: Pathologist Review Reviewed
[2019-02-12 17:18] VITALS: BP 160/108; PULSE 98; RESP 18; TEMP 36.7; O2SAT 98
[2019-02-12 20:55] VITALS: BP 137/85; PULSE 79; RESP 20; TEMP 37.1; O2SAT 97
[2019-02-12] MEDS: traZODone 50 MG Tablet PO (21:06)
[2019-02-12] MEDS: 0.9% Saline Lock 10 ML Syringe IV (21:06)
[2019-02-13 03:18] VITALS: BP 141/90; PULSE 76; RESP 18; TEMP 36.5; O2SAT 100
[2019-02-13] MEDS: LORazepam 1 MG Tablet PO ×3 (03:20→18:02)
[2019-02-13 09:06] VITALS: BP 144/93; PULSE 88; RESP 18; TEMP 36.5; O2SAT 99
[2019-02-13] MEDS: Lisinopril 20 MG Tablet PO (09:09)
[2019-02-13] MEDS: Pantoprazole Sodium 40 MG Tablet PO (09:09)
[2019-02-13] MEDS: Folic Acid 1 MG Tablet PO (09:09)
[2019-02-13] MEDS: Magnesium Oxide 400 MG Tablet PO (09:09)
[2019-02-13] MEDS: Multivitamins,Therapeutic Tablet 1 TABLET PO (09:09)
[2019-02-13] MEDS: Thiamine Hydrochloride 100 MG Tablet PO (09:10)
[2019-02-13] MEDS: Ibuprofen 600 MG Tablet PO ×2 (09:14→18:01)
--- NOTE | 2019-02-13 10:03 | CASEMGMT ---
SW met w/pt in room, discussed making an appointment at [facility]. Pt is agreeable to this, states he can set up transportation to get there. Pt signed a release for medical information. SW called [facility] and faxed release. SW set up appt w/Durga at [facility] on SundayFebruary 17 at 9:45am. SW gave pt the information, pt is agreeable to go. No further needs though SW remains available for any additional support. HOSEA Lam
[2019-02-13 14:00] VITALS: BP 133/93; PULSE 87; RESP 18; TEMP 36.9; O2SAT 100
--- NOTE | 2019-02-13 15:18 | PCM.PN.HOSP ---
Patient Problems: Active and Suspected Problems (Last Reviewed 02/11/19 @ 13:45 by Pineda Albert DO) Alcohol withdrawal (Acute) Reason for Visit: alcohol withdrawal Subjective: Feeling better. Still with tremors, diaphoresis and mild headache. Vitals/I&O's: Vital Signs Temp Pulse Resp BP Pulse Ox 36.9 C 87 18 133/93 H 100 02/13/19 14:00 02/13/19 14:00 02/13/19 14:00 02/13/19 14:00 02/13/19 14:00 Oxygen Delivery Method Room Air Weight: 67.041 kg Body Mass Index (BMI) 22.4 Intake and Output for Last 24 Hours 02/11/19 02/12/19 02/13/19 23:59 23:59 23:59 Intake Total 360 / 360 780 / 780 1740 / 1740 Balance 360 / 360 780 / 780 1740 / 1740 General: Alert, Cooperative, No apparent distress HEENT: Atraumatic, Normocephalic Oral: Moist Mucosa, No Gingival or Mucosal Lesions/ Ulcerations Neck: No Nodes, Trachea Midline Lungs: Clear to auscultation, Normal air movement, No rhonchi, No wheeze Cardiovascular: Regular rate, Regular Rhythm, Normal S1, Normal S2 Abdomen: Bowel Sounds Present, Soft, Non Tender, Non-Distended Extremities: No edema, No Calf Tenderness Skin: No rashes, No breakdown Psych/Mental Status: Normal Affect, Appropriate Laboratory Results 02/11/19 10:35: Diff Path Review Reviewed Current Medications Acetaminophen (Tylenol) 500 mg PO Q4H PRN PRN PRN Reason: Temp > 100.4 F Folic Acid (Folic Acid) 1 mg PO DAILY@0800 [facility] Last Admin: 02/13/19 09:09 Dose: 1 mg Documented by: Sodium Chloride () 250 mls @ 15 mls/hr IV .[id number] PRN PRN Reason: Saline Flush Ibuprofen (Motrin) 600 mg PO Q8H PRN PRN PRN Reason: Pain Score 1-5/10 Last Admin: 02/13/19 09:14 Dose: 600 mg Documented by: Lisinopril (Zestril) 20 mg PO DAILY [facility] Last Admin: 02/13/19 09:09 Dose: 20 mg Documented by: Lorazepam (Ativan) 1 mg IV Q4H PRN PRN PRN Reason: Severe Anxiety Last Admin: 02/11/19 20:00 Dose: 1 mg Documented by: Lorazepam (Ativan) 2 mg IV X1 PRN PRN Reason: Seizure Lorazepam (Ativan) 1 mg PO Q8H [facility]; Taper Stop: 02/14/19 17:59 Last Admin: 02/13/19 10:00 Dose: 1 mg Documented by: Magn[facility] ([facility]Ox 400) [facility] Last Admin: 02/13/19 09:09 Dose: 400 mg Documented by: Multivitamins (Multivitamin) 1 tablet PO DAILY@0800 [facility] Last Admin: 02/13/19 09:09 Dose: 1 tablet Documented by: Nicotine (Nicoderm Cq (Pbkc)) 21 mg TRANSDERM. DAILY [facility] Last Admin: 02/13/19 09:09 Dose: 21 mg Documented by: Ondansetron HCl (Zofran Odt) 4 mg PO Q6H PRN PRN PRN Reason: NAUSEA Pantoprazole Sodium (Protonix) 40 mg PO DAILY [facility] Last Admin: 02/13/19 09:09 Dose: 40 mg Documented by: Potassium Chloride (K-Dur) 20 meq [facility] Last Admin: 02/13/19 09:10 Dose: 20 meq Documented by: Sodium Chloride () 10 - 40 ml IV UD PRN PRN Reason: SALINE FLUSH Last Admin: 02/12/19 21:06 Dose: 10 ml Documented by: Thiamine HCl (Vitamin B1) [facility] Last Admin: 02/13/19 09:10 Dose: 100 mg Documented by: Trazodone HCl (Desyrel) 50 mg PO QHS [facility] Last Admin: 02/12/19 21:06 Dose: 50 mg Documented by: STROKE Vital Signs/Narrative: Vital Signs Temp Pulse Resp BP Pulse Ox 02/13/19 14:00 36.9 C 87 18 133/93 H 100 Medical Necessity - Tobacco Use Smoking Status: Current every day smoker Assessment/Plan All Active Problems (Last Reviewed 02/11/19 @ 13:45 by Pineda Albert DO) Alcohol withdrawal (Acute) 1. acute alcohol wd improving, but still ongoing lorazepam taper continue folic acid and thiamine CM to assist with outpt programs. Patient to followup with program on 02/17 2. Pancytopenia stable probably from alcohol follow up with hematology 3. VTE proph: low risk and therefore not indicated. Code Visit Inpatient E&M: 91835 Subs Hosp L2
[2019-02-13 18:00] VITALS: BP 148/95; PULSE 83; RESP 16; TEMP 37.3; O2SAT 100
[2019-02-13 21:20] VITALS: BP 151/85; PULSE 70; RESP 18; TEMP 37.1; O2SAT 99
[2019-02-13] MEDS: traZODone 50 MG Tablet PO (22:04)
[2019-02-14 02:05] VITALS: BP 136/75; PULSE 84; RESP 18; TEMP 37.2; O2SAT 94
[2019-02-14] MEDS: LORazepam 1 MG Tablet PO ×2 (02:07→09:04)
[2019-02-14] MEDS: Multivitamins,Therapeutic Tablet 1 TABLET PO (08:29)
[2019-02-14] MEDS: Lisinopril 20 MG Tablet PO (08:29)
[2019-02-14] MEDS: Thiamine Hydrochloride 100 MG Tablet PO (08:29)
[2019-02-14] MEDS: Pantoprazole Sodium 40 MG Tablet PO (08:29)
[2019-02-14] MEDS: Folic Acid 1 MG Tablet PO (08:29)
[2019-02-14 08:30] VITALS: BP 140/99; PULSE 85; RESP 16; TEMP 36.3; O2SAT 98
[2019-02-14] MEDS: Magnesium Oxide 400 MG Tablet PO (08:30)
--- NOTE | 2019-02-14 08:31 | DCINST_ITS ---
- Discharge Diagnoses Current Active Problems: Current Active and Chronic Problems (Last Reviewed 02/11/19 @ 13:45 by Pineda Albert DO) Alcohol withdrawal (Acute) You will use the following diet at home:: No restrictions Your food should be the consistency of: Regular Discharge Activity: Return to Normal Activity Allergies/Adverse Reactions: Allergies seasonal Allergy (Uncoded 02/11/19 10:03) Other Medications to take at Discharge Magnesium Oxide 400 mg PO DAILY 01/20/19 Folic Acid 1 mg PO DAILY@0800 02/11/19 Lisinopril [Zestril] 20 mg PO DAILY 02/11/19 Multivitamin [One-Daily Multi-Vitamin] 1 ea PO DAILY 02/11/19 Omeprazole 40 mg PO DAILY 02/11/19 Potassium Chloride [K-Dur] 20 meq PO DAILY 02/11/19 Thiamine Hydrochloride [Vitamin B1] 100 mg PO DAILY 02/11/19 Acetaminophen [Tylenol] 500 mg PO Q4H PRN PRN tablet 02/14/19 Ibuprofen [Motrin] 600 mg PO Q8H PRN PRN tablet 02/14/19 Primary Care Physician: Care Physician,No Primary [Primary Care Provider] - Test Results: Test results from this visit will be discussed in further detail at your follow- up appointment, if applicable. Please Follow Up With: Durga When: Sunday Please Follow Up With: Dillan Angulo MD When: 03/03/19 Please Follow Up With: Taylor Patel MD When: , 02/20/19 Proposed Discharge Date: 02/14/19
--- NOTE | 2019-02-14 08:33 | DS.PCM_ITS ---
Discharge Date and Diagnosis - Problem List Patient Problems: Active and Suspected Problems (Last Reviewed 02/11/19 @ 13:45 by Pineda Albert DO) Alcohol withdrawal (Acute) Date of Admission: 02/11/19 Date of Discharge: 02/14/19 - Primary Discharge Diagnosis Active and Suspected Problems (Last Reviewed 02/11/19 @ 13:45 by Pineda Albert DO) Alcohol withdrawal (Acute) - Secondary Discharge Diagnosis Chronic Problems (Last Reviewed 02/11/19 @ 13:45 by Pineda Albert DO) Alcoholism (Chronic) Hypomagnesemia (Chronic) Hypokalemia (Chronic) Pancytopenia (Chronic) Alcohol abuse (Chronic) Hospital Course and Treatment Operations: None Procedures: None Summary of Care Provided: The patient is a 58 year old M presents seeking treatment for alcohol withdrawal. Patient was started on lorazepam taper and did better overall. Patient did not develop any delirium tremens during the course of his admission. Patient will be discharged today. Patient is to follow-up with the [facility] on the . Patient has been in contact with his sponsor with [employer] and will be contacting him this evening. Patient advised long-term risk of addiction and that he is always at risk for falling back into excessive drinking again advised complete cessation. Made patient aware that there may be a step that he may look up on on the Internet that may give quick fixes and state that he may be able to drink again I told him to avoid alcohol completely permanently. Patient also has a pancytopenia. Likely related with alcohol but patient is to follow-up with Dr. Angulo of hematology on the . [] Patient Problems: Active and Suspected Problems (Last Reviewed 02/11/19 @ 13:45 by Pineda Albert DO) Alcohol withdrawal (Acute) - Physical Exam Vitals/I&O's: Vital Signs Temp Pulse Resp BP Pulse Ox 37.2 C 84 18 136/75 H 94 02/14/19 02:05 02/14/19 02:05 02/14/19 02:05 02/14/19 02:05 02/14/19 02:05 Oxygen Delivery Method Room Air Weight: 67.041 kg Body Mass Index (BMI) 22.4 Intake and Output for Last 24 Hours 02/12/19 02/13/19 02/14/19 23:59 23:59 23:59 Intake Total 780 / 780 2340 / 2340 Balance 780 / 780 2340 / 2340 General: Alert, Cooperative, No apparent distress HEENT: Atraumatic, Normocephalic Oral: Moist Mucosa, No Gingival or Mucosal Lesions/ Ulcerations Neurological: Coordination normal, Gait narrow based and stable Current Medications Acetaminophen (Tylenol) 500 mg PO Q4H PRN PRN PRN Reason: Temp > 100.4 F Folic Acid (Folic Acid) 1 mg PO DAILY@0800 [facility] Last Admin: 02/14/19 08:29 Dose: 1 mg Documented by: Sodium Chloride () 250 mls @ 15 mls/hr IV .[id number] PRN PRN Reason: Saline Flush Ibuprofen (Motrin) 600 mg PO Q8H PRN PRN PRN Reason: Pain Score 1-5/10 Last Admin: 02/13/19 18:01 Dose: 600 mg Documented by: Lisinopril (Zestril) 20 mg PO DAILY [facility] Last Admin: 02/14/19 08:29 Dose: 20 mg Documented by: Lorazepam (Ativan) 1 mg IV Q4H PRN PRN PRN Reason: Severe Anxiety Last Admin: 02/11/19 20:00 Dose: 1 mg Documented by: Lorazepam (Ativan) 2 mg IV X1 PRN PRN Reason: Seizure Lorazepam (Ativan) 1 mg PO Q8H [facility]; Taper Stop: 02/14/19 17:59 Last Admin: 02/14/19 02:07 Dose: 1 mg Documented by: Magnesium Oxide (Mag-Ox 400) [facility] Last Admin: 02/14/19 08:30 Dose: 400 mg Documented by: Multivitamins (Multivitamin) 1 tablet PO DAILY@0800 [facility] Last Admin: 02/14/19 08:29 Dose: 1 tablet Documented by: Nicotine (Nicoderm Cq (Pbkc)) 21 mg TRANSDERM. DAILY [facility] Last Admin: 02/14/19 08:29 Dose: 21 mg Documented by: Ondansetron HCl (Zofran Odt) 4 mg PO Q6H PRN PRN PRN Reason: NAUSEA Pantoprazole Sodium (Protonix) 40 mg PO DAILY [facility] Last Admin: 02/14/19 08:29 Dose: 40 mg Documented by: Potassium Chloride (K-Dur) [facility] Last Admin: 02/14/19 08:29 Dose: 20 meq Documented by: Sodium Chloride () 10 - 40 ml IV UD PRN PRN Reason: SALINE FLUSH Last Admin: 02/12/19 21:06 Dose: 10 ml Documented by: Thiamine HCl (Vitamin B1) [facility] Last Admin: 02/14/19 08:29 Dose: 100 mg Documented by: Trazodone HCl (Desyrel) 50 mg PO QHS [facility] Last Admin: 02/13/19 22:04 Dose: 50 mg Documented by: Discharge Diet: No Restrictions Discharge Activity: Return to Normal Activity Home Medications: Medications to take at Discharge Magnesium Oxide 400 mg PO DAILY 01/20/19 Folic Acid 1 mg PO DAILY@0800 02/11/19 Lisinopril [Zestril] 20 mg PO DAILY 02/11/19 Multivitamin [One-Daily Multi-Vitamin] 1 ea PO DAILY 02/11/19 Omeprazole 40 mg PO DAILY 02/11/19 Potassium Chloride [K-Dur] 20 meq PO DAILY 02/11/19 Thiamine Hydrochloride [Vitamin B1] 100 mg PO DAILY 02/11/19 Acetaminophen [Tylenol] 500 mg PO Q4H PRN PRN tablet 02/14/19 Ibuprofen [Motrin] 600 mg PO Q8H PRN PRN tablet 02/14/19 Primary Care Physician: Care Physician,No Primary [Primary Care Provider] - Please Follow Up With: Durga When: Sunday Please Follow Up With: Dillan Angulo MD When: 03/03/19 Please Follow Up With: Taylor Patel MD When: , 02/20/19 Disposition: Home Minutes spent on discharge:: 28 Patient Condition:: Good Medical Necessity - Tobacco Use Smoking Status: Current every day smoker Meaningful Use Info Meaningful Use Diagnoses (Choose all that apply): None applicable Code Visit Inpatient E&M: 01834 Disch Hosp
== END 2019-02-14 09:45 | disposition home or self-care (01) | DRG 897 ==
LOC: ED 12:06 → MS2 13:46 → MS3 02-13 14:26
PROVIDERS: Emergency Provider Emergency Medicine
DX: F10.239 Alcohol dependence with withdrawal, unspecified (principal); D61.818 Other pancytopenia; E87.1 Hypo-osmolality and hyponatremia; R03.0 Elevated blood-pressure reading, without diagnosis of hypertension; Z23 Encounter for immunization; F17.200 Nicotine dependence, unspecified, uncomplicated
CPT/HCPCS: 80048; 80076; 82962; 85025; 97161; 97166; 97530; 97802; 99284; 99406; 90686; A4216

== ENCOUNTER 2019-03-12 03:04 | Inpatient (IN) | payer MEDICAID, SELFPAY ==
[2019-02-11 12:40] VITALS: BMI 22.4
[2019-03-12] VITALS (11 sets, daily range): BP systolic 122–157; BP diastolic 61–112; PULSE 74–103; RESP 14–20; TEMP 36.4–37.1; O2SAT 98–100; BMI 20.1
--- NOTE | 2019-03-12 03:42 | RAD_ITS ---
STUDY: X-RAY CHEST REASON FOR EXAM: Male, 58 years old. TIGHTNESS IN CHEST TECHNIQUE: Frontal and lateral views of the chest. COMPARISON: 01/19/2019. FINDINGS: There is hyperinflation of the lungs consistent with chronic obstructive lung disease (COPD). There is no demonstrated pleural abnormality. Normal size heart. Normal mediastinum and elizaebth. Normal visualized pulmonary arteries. Normal visualized aortic arch and descending thoracic aorta. There are multilevel degenerative changes of the visualized thoracic spine. There is an old healed right clavicular fracture. There is no demonstrated abnormality of the visualized soft tissue structures of the upper abdomen. RAD/Chest PA and Lateral IMPRESSION: COPD. No evidence for acute cardiopulmonary pathology. Electronically Signed: Piter Mcknight MD at 4:22 EST , Service support ,
--- NOTE | 2019-03-12 04:30 | ED.RN ---
UNABLE TO OBTAIN IV. I TRIED TWICE. TODD DAMON TRIED TWICE. BLOOD SAMPLES OBTAINED AND SENT. DR. MORRIS AWARE. HE IS CHANGING ORDERS TO IM MEDS.
[2019-03-12] MEDS: Ondansetron ODT 4 MG Tablet PO (04:49)
[2019-03-12 04:54] LABS: Anion Gap 21 (5-15); BUN 23 mg/dL (7-18); BUN/Creat Ratio 18.9 RATIO (10-20); Calcium,Total 10.6 mg/dL (8.5-10.1); Chloride 86 mmol/L (98-107); Creatinine, Serum 1.22 mg/dL (0.70-1.30); EST Glomerular Filtration Rate 65 mL/min (>60); Est Glom Filt Rate - Afr Amer 79 mL/min (>60); Estimated Creatinine Clearance 57.19 ml/min; Glucose 116 mg/dL (74-106); Potassium 4.9 mmol/L (3.5-5.1); Sodium Level 119 mmol/L (136-145)
--- NOTE | 2019-03-12 04:59 | ED.DCSUM_ITS ---
History of Present Illness Chief Complaint: Cold Sx Narrative: Patient is presenting to the emergency department with literally a list of complaints. Patient states that over the course of the last couple of days he has been having issues with nausea, vomiting, diarrhea, cough, sore throat, difficulty with swallowing, headaches, fevers, and multiple other symptoms. Patient states that it has gotten to the point where he is having some difficulty with swallowing liquids or even his home medications. Patient denies that there is any exacerbating relieving factors. He denies any sick contacts. Patient does have a recent history of admission to the hospital for alcohol withdrawal, but reports that he has not been drinking. Past Medical History - Allergies and Home Meds Allergies/Adverse Reactions: Allergies seasonal Allergy (Uncoded 02/11/19 10:03) Other Past Medical History: - - Alcoholism, GERD Surgical History: appendectomy, herniorrhaphy Smoking Status: Current every day smoker - Family History Maternal Family History: Family History (Last Reviewed 02/11/19 @ 13:45 by Pineda Albert DO) Other Alcoholism Anxiety Colon cancer Diabetes Hypertension Kidney disease Myocardial infarction Skin cancer ulcer disease Family History: Reports: Hypertension Paternal Family History: Family History (Last Reviewed 02/11/19 @ 13:45 by Pineda Albert DO) Other Alcoholism Anxiety Colon cancer Diabetes Hypertension Kidney disease Myocardial infarction Skin cancer ulcer disease Family History: Reports: Heart Disease - Father because of heart attack at age of 50. Sibling Family History: Family History (Last Reviewed 02/11/19 @ 13:45 by Pineda Albert DO) Other Alcoholism Anxiety Colon cancer Diabetes Hypertension Kidney disease Myocardial infarction Skin cancer ulcer disease Family History: Reports: Heart Disease, - - He has 3 brothers who had heart attacks at younger age. One brother had a heart attack at 39 years old, second brother had heart attack at age of 41 and another brother who had heart attack at age 46. Review of Systems General: Reports: Chills, Fever, Malaise Eyes: Denies: Visual changes - bilaterally, Diplopia ENT: Reports: Rhinorrhea, Sore throat Cardiovascular: Denies: Chest pain, Palpitations Respiratory: Reports: Dyspnea, Cough, Sputum Gastrointestinal: Reports: Nausea, Vomiting, Diarrhea Genitourinary: Denies: Dysuria, Hematuria, Frequency Musculoskeletal: Reports: Myalgias Skin: Denies: Rash Neurological: Reports: Headache. Denies: Weakness, Parasthesia Physical Exam Vital Signs/Narrative: Vital Signs Temp Pulse Resp BP Pulse Ox 03/12/19 03:05 97.6 F L 103 H 20 H 157/112 H 100 Inital Vital Signs reviewed: Yes General: Well nourished, Well developed, No Acute Distress Head: Normocephalic, Atraumatic Eyes: Perrl, EOMI ENT: Moist mucous membranes, No rhinorrhea Neck: Supple, Nontender Cardiovascular: Regular rhythm, Tachycardia - Mild, - - 2+ radial pulses bilaterally symmetric. Negative for: Murmur Respiratory: No distress, CTA bilaterally, Chest nontender Abdomen: Soft, Nontender, Nondistended, Normal bowel sounds Back: Nontender, Normal Inspection Extremities: Nontender, No edema Skin: Normal color, No rash Neurological: Alert, Oriented x3, Cranial nerves II-XII grossly intact, Normal Strength, Normal Sensation Psychological: Normal affect, Normal Mood Diagnostic/Tx/Re-eval Chest X-Ray - ED: - - PA and lateral chest x-ray by my personal review as well as radiology shows hyperinflation no evidence of acute cardiopulmonary pathology - Medical Decision Making Patient presented for evaluation secondary to multiple symptoms. To rule out underlying etiology laboratory studies and chest x-ray were obtained. Patient was found to be profoundly hyponatremic at 119 with acidosis and an elevated anion gap. Chest x-ray is negative by my personal review as well as radiology. Patient was started on fluid rehydration. Ultrasound-guided IV line was placed as noted in the procedure note. Patient will be admitted under the hospitalist. Procedures Procedure(s): There is difficulty with obtaining IV access in this patient. He was verbally consented for an ultrasound-guided peripheral IV line. Patient's left arm was placed under a tourniquet, and suitable sites were evaluated. Patient has a good basilic vein, a total of 3 attempts via direct ultrasound guidance were utilized and ultimately a 20-gauge IV was placed in the basilic vein with good return and good flush. Patient tolerated this well. ED Disposition - Plan for ED Patient: Disposition: Acute Care [facility] Diagnosis: Hyponatremia
[2019-03-12] MEDS: Pantoprazole Sodium 40 MG Tablet PO (05:37)
[2019-03-12] MEDS: 0.9% Normal Saline 1,000 ML 150 ML IV (05:38)
[2019-03-12 05:56] LABS: Alcohol, Blood (Medical)-Serum < 3.0 mg/dL
--- NOTE | 2019-03-12 06:04 | CPS ---
Venous blood gas drawn by Dr. Bruner and ran by Lori, [facility].
[2019-03-12 06:06] LABS: Absolute Lymphocyte Count 0.41 X10^3/uL (0.83-4.51); Absolute Neutrophil Count 2.6 X10^3/uL (2.0-7.7); Basophil# 0.01 X10^3/uL; Basophil% 0.3 % (0-1); Eosinophil# 0.02 X10^3/uL; Eosinophils% 0.6 % (0-5); Hemoglobin 11.6 g/dL (13.0-16.5); Lymphocyte # 0.41 X10^3/ul (4.0); Lymphocyte % 11.8 % (19-41); Mean Corp Hgb Conc 36.3 g/dL (32-36); Mean Corpuscular Hgb 32.5 pg (27.0-32.0); Mean Corpuscular Volume 89.6 fL (80-94); Mean Platelet Vol. 12.2 fl (6.2-12.0); Monocyte# 0.38 X10^3/uL; NRBC Flagged by Analyzer 0 % (0-5); Neutrophil # 2.62 X10^3/uL (2.7-7.7); Neutrophil % 75.4 % (47-70); POSITIVE COUNT YES; POSITIVE DIFFERENTIAL YES; RBC Distribution Width CV 13.7 % (11.6-14.6); RBC Distribution Width SD 43.9 fl (35.1-43.9); Red Blood Count 3.57 M/mm3 (4.6-6.2); White Blood Count 3.5 K/mm3 (4.4-11.0)
[2019-03-12 06:06] LABS: Blood Gas Specimen Type VEN; O2 Delivery Device Room Air; SITE OTHER; Time Given 545; VBG BASE EXCESS -4 mmol/L (-1.0-3.5); VBG Bicarbonate 20 mmol/L (22-26); VBG Oxygen Content 21 mmol/L (23-33); VBG PO2 40 mmHg (25-40); VBG SO2 78 % (50-70); VBG pCO2 28.8 mmHg (41-51); VBG pH 7.45 (7.32-7.42)
[2019-03-12 06:29] LABS: Differential Indicated SCAN CRITERIA MET
[2019-03-12 06:30] LABS: Platelet Count 30 K/mm3 (150-450)
--- NOTE | 2019-03-12 06:41 | ED.RN ---
REPORT CALLED TO ICU.
[2019-03-12 07:06] LABS: Differential Comment SCANNED; Platelet Estimate MKD DEC (ADEQ)
[2019-03-12] MEDS: Folic Acid 1 MG Tablet PO (10:30)
--- NOTE | 2019-03-12 12:13 | PCM.CONS.R ---
Problem List (1) Hyponatremia Status: Acute Consultation - Renal 03/12/19 PCP/ Referring MD: Requesting physician: Dr Valenzuela Primary care physician: No Primary Care Phys Reason for Consultation:: Hyponatremia - History of Present Illness History of Present Illness: The patient is a 58 year old M presented to the hospital with complaints of generalized weakness for the last 1 week or so. No sick contacts, no travel. Some chills. No fever. No cough or cold GI symptoms. Currently does not have a primary care physician. Was supposed to see if [facility] physician soon. History of alcohol abuse but he says he quit 3 weeks ago and has not taken anything since then. Review of systems negative except above - Allergies Allergies: Allergies seasonal Allergy (Uncoded 02/11/19 10:03) Other - Current Medications Current Medications: Current Medications Acetaminophen (Tylenol) 650 mg PO Q6H PRN PRN PRN Reason: Pain Score 1-3/Temp > 100.7 F Folic Acid (Folic Acid) 1 mg PO DAILY@0800 [facility] Last Admin: 03/12/19 10:30 Dose: 1 mg Documented by: Glucagon () 1 mg IM .X1 PRN PRN Reason: Hypoglycemia Heparin Sodium (Porcine) (Heparin Na) 5,000 unit SC Q8 KATE Sodium Chloride () 1,000 mls @ 150 mls/hr IV .Q6H40M [facility] Last Infusion: 03/12/19 08:14 Dose: 0 mls/hr Documented by: Sodium Chloride () 250 mls @ 15 mls/hr IV .[id number] PRN PRN Reason: Saline Flush Sodium Chloride () 250 mls @ 15 mls/hr IV .[id number] PRN PRN Reason: Additional IVPB Infusion Dextrose (Dextrose 10%-Water) 250 mls @ 999 mls/hr IV .Q16M PRN; Protocol PRN Reason: HYPOGLYCEMIA Nutritional Formula (Lactose Free) (Ensure Enlive) 120 ml PO 4X/DAY [facility] Ondansetron HCl (Zofran) 4 mg IV Q8H PRN PRN PRN Reason: NAUSEA/VOMITING Sodium Chloride () 10 - 40 ml IV UD PRN PRN Reason: SALINE FLUSH - Past Medical History Past Medical History (Chronic Problems): Chronic Problems (Last Reviewed 02/11/19 @ 13:45 by Pineda Albert DO) Alcoholism (Chronic) Hypomagnesemia (Chronic) Hypokalemia (Chronic) Pancytopenia (Chronic) Alcohol abuse (Chronic) - Past Surgical History Surgical History: appendectomy, herniorrhaphy - Social History Smoking Status: Current every day smoker - Family History Maternal Family History: Family History (Last Reviewed 02/11/19 @ 13:45 by Pineda Albert DO) Other Alcoholism Anxiety Colon cancer Diabetes Hypertension Kidney disease Myocardial infarction Skin cancer ulcer disease History Items: Hypertension Paternal Family History: Family History (Last Reviewed 02/11/19 @ 13:45 by Pineda Albert DO) Other Alcoholism Anxiety Colon cancer Diabetes Hypertension Kidney disease Myocardial infarction Skin cancer ulcer disease History Items: Heart Disease - Father because of heart attack at age of 50. Sibling Family History: Family History (Last Reviewed 02/11/19 @ 13:45 by Pineda Albert DO) Other Alcoholism Anxiety Colon cancer Diabetes Hypertension Kidney disease Myocardial infarction Skin cancer ulcer disease History Items: Heart Disease, - - He has 3 brothers who had heart attacks at younger age. One brother had a heart attack at 39 years old, second brother had heart attack at age of 41 and another brother who had heart attack at age 46. Review of Systems Constitutional: Reports: Anorexia. Denies: Chills, Fever, Weight Change HEENT: Denies: Head Aches, Sinus Congestion, Sinus Drainage Cardiovascular: Denies: Chest Pain, Palpitations Respiratory: Denies: Cough, Shortness of breath at rest, Sputum production Gastrointestinal: Reports: Nausea, Vomiting. Denies: Abdominal Pain Genitourinary: Denies: Dysuria Musculoskeletal: Denies: Joint Pain, Joint Tenderness Skin: Denies: Rash, Wounds Neurological: Denies: Numbness, Tingling, Focal weakness Psychiatric: Denies: Anxiety, Depression, Homicidal Ideations, Suicidal Ideations Hematologic/ Lymphatic: Denies: Easy Bruising, Easy Bleeding Patient Problems: Active and Suspected Problems (Last Reviewed 02/11/19 @ 13:45 by Pineda Albert DO) Hyponatremia (Acute) - Physical Exam Vitals/I&O's: Vital Signs Temp Pulse Resp BP Pulse Ox 98.5 F 86 14 122/93 H 100 03/12/19 08:15 03/12/19 08:15 03/12/19 08:15 03/12/19 08:15 03/12/19 08:15 Oxygen Delivery Method Room Air Weight: 60.1 kg Body Mass Index (BMI) 20.1 Intake and Output for Last 24 Hours 03/10/19 03/11/19 03/12/19 23:59 23:59 23:59 Intake Total 390 / 390 Balance 390 / 390 General: Alert, Oriented x3, Cooperative HEENT: Atraumatic, PERRLA, EOMI, Normocephalic Neck: Supple, No JVD, Negative Carotid Bruits Lungs: Clear to auscultation, Normal air movement Cardiovascular: Regular rate, No murmurs Abdomen: Bowel Sounds Present, Soft, Non Tender Extremities: No edema, Capillary Refill Less than 3 Seconds Skin: No rashes, No breakdown Musculoskeletal: No Tenderness to Palpation of Joints or Extremities Neurological: Cranial nerves II-XII grossly intact Psych/Mental Status: Normal Affect, Appropriate Microbiology Past 72 Hours 03/12/19 05:15 Mucosa - Nasopharyngeal Influenza Types A,B Direct FA ([facility]) - Final Laboratory Results 03/12/19 04:25: WBC Cancelled, Corrected WBC Cancelled, RBC Cancelled, Hgb Cancelled, Hct Cancelled, MCV Cancelled, MCH Cancelled, MCHC Cancelled, RDW Std Deviation Cancelled, RDW Coeff of Reece Cancelled, Plt Count Cancelled, MPV Cancelled, Immature Gran % (Auto) Cancelled, Neut % (Auto) Cancelled, Lymph % (Auto) Cancelled, Emanuel % (Auto) Cancelled, Eos % (Auto) Cancelled, Baso % (Auto) Cancelled, Absolute Neuts (auto) Cancelled, Absolute Lymphs (auto) Cancelled, Total Counted Cancelled, Neutrophils % (Manual) Cancelled, Band Neutrophils % Cancelled, Lymphocytes % (Manual) Cancelled, Monocytes % (Manual) Cancelled, Eosinophils % (Manual) Cancelled, Basophils % (Manual) Cancelled, Metamyelocytes % Cancelled, Myelocytes % Cancelled, Promyelocytes % Cancelled, Blast Cells % Cancelled, Plasma Cell % (Manual) Cancelled, Other Cells % Cancelled, Nucleated RBC % Cancelled, Nucleated RBCs/100 WBC Cancelled, Differential Comment Cancelled, Diff Path Review Cancelled, Hypersegmented Neuts Cancelled, Atypical Lymphocytes Cancelled, Reactive Lymphocytes Cancelled, Smudge Cells Cancelled, Toxic Granulation Cancelled, Toxic Vacuolation Cancelled, Dohle Bodies Cancelled, Марина Rods Cancelled, Platelet Estimate Cancelled, Plt Morphology Comment Cancelled, RBC Morphology Cancelled, Polychromasia Cancelled, Hypochromasia Cancelled, Poikilocytosis Cancelled, Basophilic Stippling Cancelled, Anisocytosis Cancelled, Microcytosis Cancelled, Macrocytosis Cancelled, Spherocytes Cancelled, Sickle Cells Cancelled, Target Cells Cancelled, Tear Drop Cells Cancelled, Ovalocytes Cancelled, Stomatocytes Cancelled, Vasques-Garnet Bodies Cancelled, [place] Cells Cancelled, Bite Cells Cancelled, Crenated Cell Cancelled, Acanthocytes (Spur) Cancelled, Rouleaux Cancelled, Schistocytes Cancelled 03/12/19 04:25: Sodium 119 L*, Potassium 4.9, Chloride 86 L, Carbon Dioxide 12.0 L, Anion Gap 21 H, BUN 23 H, Creatinine 1.22, Estim Creat Clear Calc 57.19, Est GFR (MDRD) Af Amer 79, Est GFR (MDRD) Non-Af 65, BUN/Creatinine Ratio 18.9, Glucose 116 H, Calcium 10.6 H 03/12/19 05:30: Ethyl Alcohol < 3.0 03/12/19 05:30: WBC Cancelled, Corrected WBC Cancelled, RBC Cancelled, Hgb Cancelled, Hct Cancelled, MCV Cancelled, MCH Cancelled, MCHC Cancelled, RDW Std Deviation Cancelled, RDW Coeff of Reece Cancelled, Plt Count Cancelled, MPV Cancelled, Immature Gran % (Auto) Cancelled, Neut % (Auto) Cancelled, Lymph % (Auto) Cancelled, Emanuel % (Auto) Cancelled, Eos % (Auto) Cancelled, Baso % (Auto) Cancelled, Absolute Neuts (auto) Cancelled, Absolute Lymphs (auto) Cancelled, Total Counted Cancelled, Neutrophils % (Manual) Cancelled, Band Neutrophils % Cancelled, Lymphocytes % (Manual) Cancelled, Monocytes % (Manual) Cancelled, Eosinophils % (Manual) Cancelled, Basophils % (Manual) Cancelled, Metamyelocytes % Cancelled, Myelocytes % Cancelled, Promyelocytes % Cancelled, Blast Cells % Cancelled, Plasma Cell % (Manual) Cancelled, Other Cells % Cancelled, Nucleated RBC % Cancelled, Nucleated RBCs/100 WBC Cancelled, Differential Comment Cancelled, Diff Path Review Cancelled, Hypersegmented Neuts Cancelled, Atypical Lymphocytes Cancelled, Reactive Lymphocytes Cancelled, Smudge Cells Cancelled, Toxic Granulation Cancelled, Toxic Vacuolation Cancelled, Dohle Bodies Cancelled, Марина Rods Cancelled, Platelet Estimate Cancelled, Plt Morphology Comment Cancelled, RBC Morphology Cancelled, Polychromasia Cancelled, Hypochromasia Cancelled, Poikilocytosis Cancelled, Basophilic Stippling Cancelled, Anisocytosis Cancelled, Microcytosis Cancelled, Macrocytosis Cancelled, Spherocytes Cancelled, Sickle Cells Cancelled, Target Cells Cancelled, Tear Drop Cells Cancelled, Ovalocytes Cancelled, Stomatocytes Cancelled, Vasques-Garnet Bodies Cancelled, [place] Cells Cancelled, Bite Cells Cancelled, Crenated Cell Cancelled, Acanthocytes (Spur) Cancelled, Rouleaux Cancelled, Schistocytes Cancelled 03/12/19 05:47: WBC 3.5 L, RBC 3.57 L, Hgb 11.6 L, Hct 32.0 L, MCV 89.6, MCH 32.5 H, MCHC 36.3 H, RDW Std Deviation 43.9, RDW Coeff of Reece 13.7, Plt Count 30 L*, MPV 12.2 H, Immature Gran % (Auto) 0.900, Neut % (Auto) 75.4 H, Lymph % (Auto) 11.8 L, Emanuel % (Auto) 11.0 H, Eos % (Auto) 0.6, Baso % (Auto) 0.3, Absolute Neuts (auto) 2.6, Absolute Lymphs (auto) 0.41 L, Nucleated RBC % 0, Differential Comment SCANNED, Diff Path Review July foll, Platelet Estimate MKD 03/12/19 05:58: Specimen Type LATOYA, Sample Site OTHER, VBG pH 7.45 H, VBG pO2 40, VBG O2 Sat (Calc) 78 H, VBG O2 Content 21 L, VBG Base Excess -4 L, POC Mix VBG pCO2 Pt Tmp 28.8 L, O2 Delivery Device Room Air, Blood Gas Notified Whom ED MD, Blood Gas Notified Time 545 Current Medications Acetaminophen (Tylenol) 650 mg PO Q6H PRN PRN PRN Reason: Pain Score 1-3/Temp > 100.7 F Folic Acid (Folic Acid) 1 mg PO DAILY@0800 [facility] Last Admin: 03/12/19 10:30 Dose: 1 mg Documented by: Glucagon () 1 mg IM .X1 PRN PRN Reason: Hypoglycemia Heparin Sodium (Porcine) (Heparin Na) 5,000 unit SC Q8 KATE Sodium Chloride () 1,000 mls @ 150 mls/hr IV .Q6H40M [facility] Last Infusion: 03/12/19 08:14 Dose: 0 mls/hr Documented by: Sodium Chloride () 250 mls @ 15 mls/hr IV .[id number] PRN PRN Reason: Saline Flush Sodium Chloride () 250 mls @ 15 mls/hr IV .[id number] PRN PRN Reason: Additional IVPB Infusion Dextrose (Dextrose 10%-Water) 250 mls @ 999 mls/hr IV .Q16M PRN; Protocol PRN Reason: HYPOGLYCEMIA Nutritional Formula (Lactose Free) (Ensure Enlive) 120 ml PO 4X/DAY [facility] Ondansetron HCl (Zofran) 4 mg IV Q8H PRN PRN PRN Reason: NAUSEA/VOMITING Sodium Chloride () 10 - 40 ml IV UD PRN PRN Reason: SALINE FLUSH Assessment/Plan All Active Problems (Last Reviewed 02/11/19 @ 13:45 by Pineda Albert DO) Hyponatremia (Acute) Alcohol withdrawal (Acute) Hyponatremia. Known history of alcohol abuse. On review of his lab data he did have low sodium values before. Last sodium that I see in the system is 125. Today has a sodium of 119. Currently does not have any neurological symptoms. At least from history it seems he may have hypovolemic hyponatremia. Continue IV fluids for now. Repeat BMP right now to make sure the sodium is not increasing too fast. Acidosis. Patient has significantly elevated anion gap at 21 with a low albumin. Send serum osmolality, lactic acid level. Patient is adamant that he did not drink any alcohol within the last 3 weeks. Serum alcohol level is negative. Further management depending on above work-up.
[2019-03-12 13:32] LABS: Urine Sodium 8 mmol/L (Not Establ.)
[2019-03-12 13:38] LABS: Anion Gap 11 (5-15); BUN 23 mg/dL (7-18); Calcium,Total 10.3 mg/dL (8.5-10.1); Chloride 92 mmol/L (98-107); Creatinine, Serum 1.21 mg/dL (0.70-1.30); EST Glomerular Filtration Rate 66 mL/min (>60); Est Glom Filt Rate - Afr Amer 80 mL/min (>60); Estimated Creatinine Clearance 57.95 ml/min; Glucose 116 mg/dL (74-106); Potassium 3.1 mmol/L (3.5-5.1); Sodium Level 127 mmol/L (136-145)
[2019-03-12 13:43] LABS: Osmolality, Serum 277 mOsm/KG (275-295)
[2019-03-12 13:46] LABS: Osmolality, Urine 647 mOsm/KG
[2019-03-12 13:54] LABS: Pathologist Review Reviewed
[2019-03-12 13:59] LABS: Lactic Acid 1.3 mmol/L (0.4-1.9)
--- NOTE | 2019-03-12 14:26 | HP.PCM_ITS ---
History of Present Illness Date of Admission: 03/12/19 Chief Complaint: nausea and vomiting The patient is a 58 year old M with a past medical history of alcohol abuse and GERD. He was admitted through the ED on 03/22/19 with a complaint of nausea vomiting diarrhea for the past few days. Prior to that he had had some upper respiratory symptoms which he said had improved but he kept on having the nausea and vomiting as well as diarrhea. He says he remembers he ate passed on the day of the diarrhea started. He has vomiting and diarrhea about 7 times daily. Symptoms were persisting so he decided to come into the ED. He denies any fever or chills or abdominal pain. Patient does have a history of chronic alcohol abuse but states he has not drank for a few weeks now. Review of systems otherwise negative. On admission, vitals were essentially stable. Blood work showed sodium of 119 with bicarb of 12 and anion gap of 21. Creatinine was 1.22 and calcium was 10.6. CBC showed WBC of 3.5 and hemoglobin of 11.6 as well as a platelet count of 30. Chest x-ray showed no evidence of acute cardiopulmonary pathology and showed COPD. He has been admitted to be managed for acute on chronic hyponatremia and anion gap acidosis as well as gastroenteritis. [] Past Medical History Past Medical History (Chronic Problems): Chronic Problems (Last Reviewed 02/11/19 @ 13:45 by Pineda Albert DO) Alcoholism (Chronic) Hypomagnesemia (Chronic) Hypokalemia (Chronic) Pancytopenia (Chronic) Alcohol abuse (Chronic) Medical History: Medical History (Last Reviewed 02/11/19 @ 13:45 by Pineda Albert DO) Pancreatitis K85.90 Vitamin deficiency E56.9 Back problem M53.9 High blood pressure I10 Allergies seasonal Allergy (Uncoded 02/11/19 10:03) Other Home Medications: Ambulatory Orders Medication Instructions Recorded Magnesium Oxide 400 mg PO DAILY 01/20/19 Folic Acid 1 mg PO DAILY@0800 02/11/19 Lisinopril [Zestril] 5 mg PO DAILY 02/11/19 Multivitamin [One-Daily 1 ea PO DAILY 02/11/19 Multi-Vitamin] Potassium Chloride [K-Dur] 20 meq PO DAILY 02/11/19 Acetaminophen [Tylenol] 500 mg PO Q4H PRN PRN tab 02/14/19 Surgical History: Surgical History (Last Reviewed 02/11/19 @ 13:45 by Pineda Albert DO) History of appendectomy Z90.49 History of hernia surgery Z98.890, Z87.19 Surgical History: appendectomy, herniorrhaphy Psychiatric History: No pertinent psych hx Lives: Alone Smoking Status: Current every day smoker Tobacco Use: Cigarettes Alcohol: Heavy - He has not drank in about 2 weeks. - *Family History Maternal Family History: Family History (Last Reviewed 02/11/19 @ 13:45 by Pineda Albert DO) Other Alcoholism Anxiety Colon cancer Diabetes Hypertension Kidney disease Myocardial infarction Skin cancer ulcer disease History Items: Hypertension Paternal Family History: Family History (Last Reviewed 02/11/19 @ 13:45 by Pineda Albert DO) Other Alcoholism Anxiety Colon cancer Diabetes Hypertension Kidney disease Myocardial infarction Skin cancer ulcer disease History Items: Heart Disease - Father because of heart attack at age of 50. Sibling Family History: Family History (Last Reviewed 02/11/19 @ 13:45 by Pineda Albert DO) Other Alcoholism Anxiety Colon cancer Diabetes Hypertension Kidney disease Myocardial infarction Skin cancer ulcer disease History Items: Heart Disease, - - He has 3 brothers who had heart attacks at younger age. One brother had a heart attack at 39 years old, second brother had heart attack at age of 41 and another brother who had heart attack at age 46. Review of Systems Constitutional: Reports: Malaise, Weakness, Fatigue. Denies: Anorexia, Chills, Fever Eyes: Denies: Blurred vision HEENT: Denies: Head Aches, Sinus Congestion, Sinus Drainage Cardiovascular: Denies: Chest Pain, Palpitations Respiratory: Denies: Cough, Shortness of Breath, Shortness of breath at rest, Shortness of breath upon exertion, Sputum production Gastrointestinal: Reports: Diarrhea, Nausea, Vomiting. Denies: Abdominal Pain Genitourinary: Denies: Dysuria Musculoskeletal: Denies: Joint Pain, Joint Tenderness Skin: Denies: Rash, Wounds Neurological: Denies: Numbness, Tingling, Focal weakness Psychiatric: Denies: Anxiety, Depression, Homicidal Ideations, Suicidal Ideations Hematologic/ Lymphatic: Denies: Easy Bruising, Easy Bleeding VTE Information - Inpt Only VTE Present on Admission: No VTE Pharm Prophylaxis ordered?: Yes Patient Problems: Active and Suspected Problems (Last Reviewed 02/11/19 @ 13:45 by Pineda Albert DO) Hyponatremia (Acute) - Physical Exam Vitals/I&O's: Vital Signs Temp Pulse Resp BP Pulse Ox 98.7 F 82 18 141/77 H 100 03/12/19 13:53 03/12/19 13:53 03/12/19 13:53 03/12/19 13:53 03/12/19 13:53 Oxygen Delivery Method Room Air Weight: 132 lb 7.965 oz Body Mass Index (BMI) 20.1 Intake and Output for Last 24 Hours 03/10/19 03/11/19 03/12/19 23:59 23:59 23:59 Intake Total 510 / 510 Output Total 300 / 300 Balance 210 / 210 General: Alert, Oriented x3, Cooperative, No apparent distress HEENT: Atraumatic, PERRLA, EOMI, Normocephalic Oral: Dry Mucosa Neck: Supple, No JVD, Negative Carotid Bruits Lungs: Clear to auscultation, Normal air movement, No rhonchi, No wheeze, No rales Cardiovascular: Regular rate, Regular Rhythm, Normal S1, Normal S2, No murmurs Abdomen: Bowel Sounds Present, Soft, Non Tender, Non-Distended, No Hepato- splenomegaly Extremities: No clubbing, No cyanosis, No edema, Capillary Refill Less than 3 Seconds Skin: No rashes, No breakdown Musculoskeletal: No Tenderness to Palpation of Joints or Extremities Lymphatic: No Cervical, Supraclavicular, or Inguinal Adenopathy Neurological: Cranial nerves II-XII grossly intact, Neuro grossly intact, Motor Exam 5/5 strength throughout Psych/Mental Status: Normal Affect, Appropriate, Alert and oriented to time, place, person, mood and affect Microbiology Past 72 Hours 03/12/19 05:15 Mucosa - Nasopharyngeal Influenza Types A,B Direct FA (MATILDE) - Final Laboratory Results 03/12/19 04:25: WBC Cancelled, Corrected WBC Cancelled, RBC Cancelled, Hgb Cancelled, Hct Cancelled, MCV Cancelled, MCH Cancelled, MCHC Cancelled, RDW Std Deviation Cancelled, RDW Coeff of Reece Cancelled, Plt Count Cancelled, MPV Cancelled, Immature Gran % (Auto) Cancelled, Neut % (Auto) Cancelled, Lymph % (Auto) Cancelled, Waldo % (Auto) Cancelled, Eos % (Auto) Cancelled, Baso % (Auto) Cancelled, Absolute Neuts (auto) Cancelled, Absolute Lymphs (auto) Cancelled, Total Counted Cancelled, Neutrophils % (Manual) Cancelled, Band Neutrophils % Cancelled, Lymphocytes % (Manual) Cancelled, Monocytes % (Manual) Cancelled, Eosinophils % (Manual) Cancelled, Basophils % (Manual) Cancelled, Metamyelocytes % Cancelled, Myelocytes % Cancelled, Promyelocytes % Cancelled, Blast Cells % Cancelled, Plasma Cell % (Manual) Cancelled, Other Cells % Cancelled, Nucleated RBC % Cancelled, Nucleated RBCs/100 WBC Cancelled, Differential Comment Cancelled, Diff Path Review Cancelled, Hypersegmented Neuts Cancelled, Atypical Lymphocytes Cancelled, Reactive Lymphocytes Cancelled, Smudge Cells Cancelled, Toxic Granulation Cancelled, Toxic Vacuolation Cancelled, Dohle Bodies Cancelled, Марина Rods Cancelled, Platelet Estimate Cancelled, Plt Morphology Comment Cancelled, RBC Morphology Cancelled, Polychromasia Cancelled, Hypochromasia Cancelled, Poikilocytosis Cancelled, Basophilic Stippling Cancelled, Anisocytosis Cancelled, Microcytosis Cancelled, Macrocytosis Cancelled, Spherocytes Cancelled, Sickle Cells Cancelled, Target Cells Cancelled, Tear Drop Cells Cancelled, Ovalocytes Cancelled, Stomatocytes Cancelled, Vas[place] Bodies Cancelled, [place] Cells Cancelled, Bite Cells Cancelled, Crenated Cell Cancelled, Acanthocytes (Spur) Cancelled, Rouleaux Cancelled, Schistocytes Cancelled 03/12/19 04:25: Sodium 119 L*, Potassium 4.9, Chloride 86 L, Carbon Dioxide 12.0 L, Anion Gap 21 H, BUN 23 H, Creatinine 1.22, Estim Creat Clear Calc 57.19, Est GFR (MDRD) Af Amer 79, Est GFR (MDRD) Non-Af 65, BUN/Creatinine Ratio 18.9, Glucose 116 H, Calcium 10.6 H 03/12/19 05:30: Ethyl Alcohol < 3.0 03/12/19 05:30: WBC Cancelled, Corrected WBC Cancelled, RBC Cancelled, Hgb Cancelled, Hct Cancelled, MCV Cancelled, MCH Cancelled, MCHC Cancelled, RDW Std Deviation Cancelled, RDW Coeff of Reece Cancelled, Plt Count Cancelled, MPV Cancelled, Immature Gran % (Auto) Cancelled, Neut % (Auto) Cancelled, Lymph % (Auto) Cancelled, Waldo % (Auto) Cancelled, Eos % (Auto) Cancelled, Baso % (Auto) Cancelled, Absolute Neuts (auto) Cancelled, Absolute Lymphs (auto) Cancelled, Total Counted Cancelled, Neutrophils % (Manual) Cancelled, Band Neutrophils % Cancelled, Lymphocytes % (Manual) Cancelled, Monocytes % (Manual) Cancelled, Eosinophils % (Manual) Cancelled, Basophils % (Manual) Cancelled, Metamyelocytes % Cancelled, Myelocytes % Cancelled, Promyelocytes % Cancelled, Blast Cells % Cancelled, Plasma Cell % (Manual) Cancelled, Other Cells % Cancelled, Nucleated RBC % Cancelled, Nucleated RBCs/100 WBC Cancelled, Differential Comment Cancelled, Diff Path Review Cancelled, Hypersegmented Neuts Cancelled, Atypical Lymphocytes Cancelled, Reactive Lymphocytes Cancelled, Smudge Cells Cancelled, Toxic Granulation Cancelled, Toxic Vacuolation Cancelled, Dohle Bodies Cancelled, Марина Rods Cancelled, Platelet Estimate Cancelled, Plt Morphology Comment Cancelled, RBC Morphology Cancelled, Polychromasia Cancelled, Hypochromasia Cancelled, Poikilocytosis Cancelled, Basophilic Stippling Cancelled, Anisocytosis Cancelled, Microcytosis Cancelled, Macrocytosis Cancelled, Spherocytes Cancelled, Sickle Cells Cancelled, Target Cells Cancelled, Tear Drop Cells Cancelled, Ovalocytes Cancelled, Stomatocytes Cancelled, Vas[place] Bodies Cancelled, Sullivan Cells Cancelled, Bite Cells Cancelled, Crenated Cell Cancelled, Acanthocytes (Spur) Cancelled, Rouleaux Cancelled, Schistocytes Cancelled 03/12/19 05:47: WBC 3.5 L, RBC 3.57 L, Hgb 11.6 L, Hct 32.0 L, MCV 89.6, MCH 32.5 H, MCHC 36.3 H, RDW Std Deviation 43.9, RDW Coeff of Reece 13.7, Plt Count 30 L*, MPV 12.2 H, Immature Gran % (Auto) 0.900, Neut % (Auto) 75.4 H, Lymph % (Auto) 11.8 L, Waldo % (Auto) 11.0 H, Eos % (Auto) 0.6, Baso % (Auto) 0.3, Absolute Neuts (auto) 2.6, Absolute Lymphs (auto) 0.41 L, Nucleated RBC % 0, Differential Comment SCANNED, Diff Path Review Reviewed, Platelet Estimate MKD 03/12/19 05:58: Specimen Type LATOYA, Sample Site OTHER, VBG pH 7.45 H, VBG pO2 40, VBG O2 Sat (Calc) 78 H, VBG O2 Content 21 L, VBG Base Excess -4 L, POC Mix VBG pCO2 Pt Tmp 28.8 L, O2 Delivery Device Room Air, Blood Gas Notified Whom ED MD, Blood Gas Notified Time 545 03/12/19 13:05: Acetone Level SMALL H 03/12/19 13:05: Sodium 127 L, Potassium 3.1 L, Chloride 92 L, Carbon Dioxide 24.0, Anion Gap 11, BUN 23 H, Creatinine 1.21, Estim Creat Clear Calc 57.95, Est GFR (MDRD) Af Amer 80, Est GFR (MDRD) Non-Af 66, BUN/Creatinine Ratio 19.0, Glucose 116 H, Calcium 10.3 H 03/12/19 13:05: Serum Osmolality 277 03/12/19 13:05: Lactic Acid 1.3 03/12/19 13:15: Urine Osmolality 647 03/12/19 13:15: Ur Random Sodium 8 Diagnostic Data Chest X-Ray 03/12/19 03:42 IMPRESSION: COPD. No evidence for acute cardiopulmonary pathology. Electronically Signed: Piter Mcknight MD at 4:22 EST , Service support , Current Medications Acetaminophen (Tylenol) 650 mg PO Q6H PRN PRN PRN Reason: Pain Score 1-3/Temp > 100.7 F Folic Acid (Folic Acid) 1 mg PO DAILY@0800 KATE Last Admin: 03/12/19 10:30 Dose: 1 mg Documented by: Glucagon () 1 mg IM .X1 PRN PRN Reason: Hypoglycemia Sodium Chloride () 250 mls @ 15 mls/hr IV .[id number] PRN PRN Reason: Saline Flush Sodium Chloride () 250 mls @ 15 mls/hr IV .[id number] PRN PRN Reason: Additional IVPB Infusion Dextrose (Dextrose 10%-Water) 250 mls @ 999 mls/hr IV .Q16M PRN; Protocol PRN Reason: HYPOGLYCEMIA Nutritional Formula (Lactose Free) (Ensure Enlive) 120 ml PO 4X/DAY KATE Last Admin: 03/12/19 13:50 Dose: Not Given Documented by: Ondansetron HCl (Zofran) 4 mg IV Q8H PRN PRN PRN Reason: NAUSEA/VOMITING Potassium Chloride (K-Dur) 20 meq PO X1 ONE Stop: 03/12/19 14:24 Sodium Chloride () 10 - 40 ml IV UD PRN PRN Reason: SALINE FLUSH Assessment/Plan All Active Problems (Last Reviewed 02/11/19 @ 13:45 by Pineda Albert DO) Hyponatremia (Acute) Alcohol withdrawal (Acute) 58-year-old admitted with a complaint of nausea and vomiting as well as diarrhea. 1. Acute gastroenteritis * Patient states he has nausea and vomiting as well as diarrhea about 7 times daily. Diarrhea is nonbloody. * Is any recent travels and does not think is due to the food he ate. * Admit to PCU. Hydrate with IV fluid normal saline. * stool for enteric pathogen. * 2. Acute on chronic hyponatremia * sodium is 119; has chronic episodic hyponatremia * likely hypovolemic, hypotonic natremia due to dehydration from nausea and vomiting as well as diarrhea. * Hydrate with IV fluid normal saline at 150 cc/h. Check BMP q. 4 hourly. Check serum osmolality. * consult nephrology * 3. Anion gap metabolic acidosis * Bicarb on admission was 12 with anion gap of 21. * VBG done showed pH of 7.45. * Cause is unclear but it may be due to starvation ketosis and possible alcoholic ketosis. Will check serum acetone level. * 4. Hypercalcemia: Calcium is 10.3 on admission. This is likely due to dehydration. Will hydrate and monitor. 5. Pancytopenia * WBC is 3.5 with hemoglobin of 11.6. Platelets are 30. Patient does have a history of chronic thrombocytopenia with platelets going as low as 25. * This is likely due to his history of chronic alcohol abuse. * Will monitor. * DVT prophylaxis: SCDs. No Lovenox on account of thrombo-cytopenia * Code Visit Inpatient E&M: 88871 Init Hosp L3
--- NOTE | 2019-03-12 15:30 | CASEMGMT ---
RN CM CAR PORTER CM to room to meet with patient for initial transition planning/care coordination assessment. RN MJ introduced self and role at [facility]. Pt voices understanding and consents to assessment at this time. Pt resting in bed in no distress at this time. Pt is A/O at this time and answers all questions appropriately. Care providers, pharmacy, and demographics verified/updated at this time. PCP: No PCP listed on demographics. Pt states he has an appt @ [facility] on Sunday @ 1:30 but doesn't remember the name of the physician, other than It starts with an O. Call placed to [facility]. They state pt has not had an appt for scheduled with Dr Ochoa with them since August 27 and he did not show up for the appt. Pt made aware. He states, Oh, well it must be the one right around the corner from there. Call placed to [facility] and they do not have pt scheduled there. Pt made aware. When listed off a few names of doctors, pt thought it may be Dr Patel. Call placed to Dr Patel's office. They state PCU scheduled an appt with her Feb 20, but pt did not show up for that appt. Pt made aware unable to locate what physcian he is scheduled with on Sunday and provided a list of local PCP's. Preferred Pharmacy: [facility] Insurance: Demographics show pt does not have insurance. Pt states to this RN MJ that he has [employer] through his employer. Call placed to [facility] and spoke to Octavia. She states pre-cert dept says pt's [employer] 11-05-18. Pt made aware. He states he will try and contact [employer], as he thought he still had insurance through them. Call placed back to [facility] and they were made aware. They stated [employer] was removed from pt's file in January during his last admission and that [facility] met with him at that time to assist with completing [facility] application. [facility] states they will reach out to pt at this time. Prescription Benefit: Undetermined at this time, as insurance coverage not able to be confirmed. Pt may need [facility] Rx assist program at discharge. Living Will/HPOA: States does not have LW or HCPOA . Interested in more information and with talking with [facility] to complete paperwork. [facility] Jones, made aware. Pt states he would like his sister, Jazz, from [place] to be his POA. LNOK: Has 3 adult children and 8 siblings. Pt did not want any of them listed on demographics. He only wanted his friend, Kathi Hamilton, listed. He states Kathi would know how to reach his sister, Jazz, if needed. Living Arrangements: Lives alone. States is independent and states he still works full-time. Transportation: Pt states drives self and states no transportation concerns at this time. States his GF, Ana Cristina, could help with transportation if needed. DME: Denies using any DME and denies needs. HHC/SNF: No history of either. No needs identified. Pt wishes to return home and states has no concerns with going home at time of discharge. Discussed ETOH use with pt. He states he drank hard liquor for approx 20 yrs. He stated he gave that up in November and then I started drinking beer. Pt stated he was drinking about 4-5 beers a day and then quit drinking 3 weeks ago. Pt agreeable to meeting with [facility] for resources. [facility] Jones, made aware. CM to follow for any further discharge planning/needs. Pt voices no further concerns/needs at this time. Advised pt to ask for CM if any further questions/concerns/needs arise. Voices understanding. PLAN: Home SW to see for Self Pay, AD, and ETOH use. Follow for meds @ discharge--may need [facility] Rx assist program Deshaun FIGUEROA RN, CM
[2019-03-12] MEDS: Morphine 2 MG/ML Syringe IV (16:04)
[2019-03-12] MEDS: 0.9% Saline Lock 10 ML Syringe IV (16:05)
[2019-03-12] MEDS: Acetaminophen 325 MG Tablet 650 MG PO (17:23)
[2019-03-13] VITALS (9 sets, daily range): BP systolic 110–135; BP diastolic 76–87; PULSE 71–104; RESP 16–18; TEMP 36.7–37.1; O2SAT 98–100
[2019-03-13 06:50] LABS: Absolute Lymphocyte Count 0.46 X10^3/uL (0.83-4.51); Basophil# 0.02 X10^3/uL; Basophil% 0.7 % (0-1); Eosinophil# 0.06 X10^3/uL; Eosinophils% 2.1 % (0-5); Hematocrit 29.1 % (40-54); Hemoglobin 10.3 g/dL (13.0-16.5); Lymphocyte # 0.46 X10^3/ul (4.0); Lymphocyte % 15.9 % (19-41); Mean Corp Hgb Conc 35.4 g/dL (32-36); Mean Corpuscular Hgb 31.7 pg (27.0-32.0); Mean Corpuscular Volume 89.5 fL (80-94); Monocyte# 0.32 X10^3/uL; Monocyte% 11.1 % (0-10); NRBC Flagged by Analyzer 0 % (0-5); Neutrophil % 69.2 % (47-70); POSITIVE COUNT YES; POSITIVE DIFFERENTIAL YES; RBC Distribution Width SD 44.5 fl (35.1-43.9); Red Blood Count 3.25 M/mm3 (4.6-6.2); White Blood Count 2.9 K/mm3 (4.4-11.0)
[2019-03-13 06:55] LABS: Differential Indicated SCAN CRITERIA MET; Platelet Count 34 K/mm3 (150-450)
[2019-03-13 07:32] LABS: Platelet Estimate MKD DEC (ADEQ)
[2019-03-13 07:40] LABS: ALB/GLOB Ratio 1.1 RATIO (0.9-2.4); AST(SGOT) 81 U/L (15-37); Alanine Aminotransfer ALT/SGPT 54 U/L (16-61); Albumin, Serum 3.9 g/dL (3.2-5.0); Alkaline Phosphatase 51 U/L (45-117); Anion Gap 10 (5-15); BUN 23 mg/dL (7-18); Calcium,Total 10.2 mg/dL (8.5-10.1); Chloride 92 mmol/L (98-107); Creatinine, Serum 0.82 mg/dL (0.70-1.30); EST Glomerular Filtration Rate 103 mL/min (>60); Est Glom Filt Rate - Afr Amer 124 mL/min (>60); Estimated Creatinine Clearance 97.32 ml/min; Globulin 3.7 g/dL (2.2-4.2); Glucose 115 mg/dL (74-106); Potassium 3.2 mmol/L (3.5-5.1); Protein, Total 7.6 g/dL (6.4-8.2); Sodium Level 127 mmol/L (136-145)
[2019-03-13] MEDS: Folic Acid 1 MG Tablet PO (07:56)
--- NOTE | 2019-03-13 12:40 | CASEMGMT ---
Social Work SW met with pt in room and introduced self and role of SW. Reviewed living will and health care POA with pt. Pt stating he does not want to complete documents at this time but possibly at a later time. SW provided written and verbal information on contacting a SW at [facility] to complete documents. SW spoke with pt about alcohol abuse. Pt stating that he stopped drinking three weeks ago and has had no relapses since. SW inquired if he wanted help to continue with sobriety and pt confirmed that he did and that he was thinking of 180. With pt permission appointment made at [facility] for at 9:45. Pt states he does have transportation. Patient financial services has seen pt for insurance issues and assisted with completing medicaid application. SW will remain available should further needs arise. ANDRIY Noland
--- NOTE | 2019-03-13 13:48 | PN_ITS ---
Patient Problems: Active and Suspected Problems (Last Reviewed 02/11/19 @ 13:45 by Pineda Albert DO) Hyponatremia (Acute) Subjective: Patient seen and examined. He still complains of feeling tired and weak. Review of systems otherwise negative. Room is 127 today and potassium is 3.2. Calcium is 10.2. Platelets are 34 today hemoglobin is 10.3 with WBC of 2.9. He has remained hemodynamically stable. Vitals/I&O's: Vital Signs Temp Pulse Resp BP Pulse Ox 98.8 F 104 H 18 126/87 H 100 03/13/19 10:00 03/13/19 13:41 03/13/19 10:00 03/13/19 10:00 03/13/19 10:00 Oxygen Delivery Method Room Air Weight: 175 lb 11.335 oz Body Mass Index (BMI) 20.1 Intake and Output for Last 24 Hours 03/11/19 03/12/19 03/13/19 23:59 23:59 23:59 Intake Total 1250 / 1250 600 / 600 Output Total 300 / 300 Balance 950 / 950 600 / 600 General: Alert, Oriented x3, Cooperative, No apparent distress HEENT: Atraumatic, PERRLA, EOMI, Normocephalic Oral: Dry Mucosa Neck: Supple, No JVD, Negative Carotid Bruits Lungs: Clear to auscultation, Normal air movement, No rhonchi, No wheeze, No rales Cardiovascular: Regular rate, Regular Rhythm, Normal S1, Normal S2, No murmurs Abdomen: Bowel Sounds Present, Soft, Non Tender, Non-Distended, No Hepato- splenomegaly Extremities: No clubbing, No cyanosis, No edema, Capillary Refill Less than 3 Seconds Skin: No rashes, No breakdown Musculoskeletal: No Tenderness to Palpation of Joints or Extremities Lymphatic: No Cervical, Supraclavicular, or Inguinal Adenopathy Neurological: Cranial nerves II-XII grossly intact, Neuro grossly intact, Motor Exam 5/5 strength throughout Psych/Mental Status: Normal Affect, Appropriate, Alert and oriented to time, place, person, mood and affect Microbiology Past 72 Hours 03/12/19 05:15 Mucosa - Nasopharyngeal Influenza Types A,B Direct FA (MATILDE) - Final Laboratory Results 03/12/19 05:47: Diff Path Review Reviewed 03/12/19 13:05: Lactic Acid 1.3 03/13/19 05:55: Sodium 127 L, Potassium 3.2 L, Chloride 92 L, Carbon Dioxide 25.0, Anion Gap 10, BUN 23 H, Creatinine 0.82, Estim Creat Clear Calc 97.32, Est GFR (MDRD) Af Amer 124, Est GFR (MDRD) Non-Af 103, BUN/Creatinine Ratio 28.0 H, Glucose 115 H, Calcium 10.2 H, Total Bilirubin 0.80, AST 81 H, ALT 54, Alkaline Phosphatase 51, Total Protein 7.6, Albumin 3.9, Globulin 3.7, Albumin/Globulin Ratio 1.1 03/13/19 05:55: WBC 2.9 L, RBC 3.25 L, Hgb 10.3 L, Hct 29.1 L, MCV 89.5, MCH 31.7, MCHC 35.4, RDW Std Deviation 44.5 H, RDW Coeff of Reece 14.0, Plt Count 34 L*, MPV 11.0, Immature Gran % (Auto) 1.000 H, Neut % (Auto) 69.2, Lymph % (Auto) 15.9 L, [place] % (Auto) 11.1 H, Eos % (Auto) 2.1, Baso % (Auto) 0.7, Absolute Neuts (auto) 2.0, Absolute Lymphs (auto) 0.46 L, Nucleated RBC % 0, Differential Comment COMMENT, Diff Path Review May foll, Platelet Estimate MKD DEC Current Medications Acetaminophen (Tylenol) 650 mg PO Q6H PRN PRN PRN Reason: Pain Score 1-3/Temp > 100.7 F Last Admin: 03/12/19 17:23 Dose: 650 mg Documented by: Folic Acid (Folic Acid) 1 mg PO DAILY@0800 KATE Last Admin: 03/13/19 07:56 Dose: 1 mg Documented by: Glucagon () 1 mg IM .X1 PRN PRN Reason: Hypoglycemia Sodium Chloride () 250 mls @ 15 mls/hr IV .[id number] PRN PRN Reason: Saline Flush Sodium Chloride () 250 mls @ 15 mls/hr IV .[id number] PRN PRN Reason: Additional IVPB Infusion Ondansetron HCl (Zofran) 4 mg IV Q8H PRN PRN PRN Reason: NAUSEA/VOMITING Sodium Chloride () 10 - 40 ml IV UD PRN PRN Reason: SALINE FLUSH Last Admin: 03/12/19 16:05 Dose: 10 ml Documented by: STROKE Vital Signs/Narrative: Vital Signs Temp Pulse Resp BP Pulse Ox 03/13/19 13:41 104 H 03/13/19 10:00 98.8 F 91 18 126/87 H 100 Medical Necessity - Tobacco Use Smoking Status: Current every day smoker Tobacco Use: Cigarettes Assessment/Plan All Active Problems (Last Reviewed 02/11/19 @ 13:45 by Pineda Albert DO) Hyponatremia (Acute) Alcohol withdrawal (Acute) 58-year-old admitted with a complaint of nausea and vomiting as well as diarrhea. 1. Acute gastroenteritis * says diarrhea is improving, and stool is now semiformed * will monitor * 2. Acute on chronic hyponatremia * Sodium is now 127. Does have chronic hyponatremia. * Off IV fluids her sodium corrected from 1 1 9-1 27 yesterday and has remained at 127. * Serum Osmolality was 277. * Will monitor. Nephrology on board. * 3. Anion gap metabolic acidosis * Resolved. Bicarb was 12 on admission but went up to 24 subsequently. It was likely due to starvation ketosis. Will monitor. * Serum acetone level was small * 4. Hypercalcemia: * Calcium is 10.3 on admission. is 10.2 today. Likely due to dehydration, as he has a history of low calcium levels * Encourage liberal oral hydration. * In light of his chronic smoking history, if elevated calcium persists on outpatient basis, will benefit from high-resolution CT scan work-up to assess for any lung pathology. * 5. Hyokalemia: K is 3.2. Will replace and monitor. 6. Pancytopenia * WBC is 3.9 today, with Hb of 10.3 and platelets of 34. This is chronic * This is likely due to his history of chronic alcohol abuse. * Will monitor. * DVT prophylaxis: SCDs. * Code Visit Inpatient E&M: 20052 Subs Hosp L2
[2019-03-13 14:35] LABS: Pathologist Review Reviewed
[2019-03-13] MEDS: Acetaminophen 325 MG Tablet 650 MG PO ×2 (15:06→20:58)
--- NOTE | 2019-03-13 15:22 | PN.RENAL_ITS ---
Patient Problems: Active and Suspected Problems (Last Reviewed 02/11/19 @ 13:45 by Pineda Albert DO) Hyponatremia (Acute) Subjective: still has dizziness - Physical Exam Vitals/I&O's: Vital Signs Temp Pulse Resp BP Pulse Ox 98.0 F 86 18 135/85 H 100 03/13/19 15:10 03/13/19 15:10 03/13/19 15:10 03/13/19 15:10 03/13/19 15:10 Oxygen Delivery Method Room Air Weight: 79.7 kg Body Mass Index (BMI) 20.1 Intake and Output for Last 24 Hours 03/11/19 03/12/19 03/13/19 23:59 23:59 23:59 Intake Total 1250 / 1250 600 / 600 Output Total 300 / 300 Balance 950 / 950 600 / 600 General: Alert, Oriented x3, Cooperative HEENT: Atraumatic, PERRLA, EOMI, Normocephalic Neck: Supple, No JVD, Negative Carotid Bruits Lungs: Clear to auscultation, Normal air movement Cardiovascular: Regular rate, No murmurs Abdomen: Bowel Sounds Present, Soft, Non Tender Extremities: No edema, Capillary Refill Less than 3 Seconds Skin: No rashes, No breakdown Musculoskeletal: No Tenderness to Palpation of Joints or Extremities Neurological: Cranial nerves II-XII grossly intact Psych/Mental Status: Normal Affect, Appropriate Microbiology Past 72 Hours 03/12/19 05:15 Mucosa - Nasopharyngeal Influenza Types A,B Direct FA (MATILDE) - Final Laboratory Results 03/13/19 05:55: Sodium 127 L, Potassium 3.2 L, Chloride 92 L, Carbon Dioxide 25.0, Anion Gap 10, BUN 23 H, Creatinine 0.82, Estim Creat Clear Calc 97.32, Est GFR (MDRD) Af Amer 124, Est GFR (MDRD) Non-Af 103, BUN/Creatinine Ratio 28.0 H, Glucose 115 H, Calcium 10.2 H, Total Bilirubin 0.80, AST 81 H, ALT 54, Alkaline Phosphatase 51, Total Protein 7.6, Albumin 3.9, Globulin 3.7, Albumin/Globulin Ratio 1.1 03/13/19 05:55: WBC 2.9 L, RBC 3.25 L, Hgb 10.3 L, Hct 29.1 L, MCV 89.5, MCH 31.7, MCHC 35.4, RDW Std Deviation 44.5 H, RDW Coeff of Reece 14.0, Plt Count 34 L*, MPV 11.0, Immature Gran % (Auto) 1.000 H, Neut % (Auto) 69.2, Lymph % (Auto) 15.9 L, [place] % (Auto) 11.1 H, Eos % (Auto) 2.1, Baso % (Auto) 0.7, Absolute Neuts (auto) 2.0, Absolute Lymphs (auto) 0.46 L, Nucleated RBC % 0, Differential Comment COMMENT, Diff Path Review Reviewed, Platelet Estimate MKD DEC Current Medications Acetaminophen (Tylenol) 650 mg PO Q6H PRN PRN PRN Reason: Pain Score 1-3/Temp > 100.7 F Last Admin: 03/13/19 15:06 Dose: 650 mg Documented by: Folic Acid (Folic Acid) 1 mg PO DAILY@0800 KATE Last Admin: 03/13/19 07:56 Dose: 1 mg Documented by: Glucagon () 1 mg IM .X1 PRN PRN Reason: Hypoglycemia Sodium Chloride () 250 mls @ 15 mls/hr IV .[id number] PRN PRN Reason: Saline Flush Sodium Chloride () 250 mls @ 15 mls/hr IV .[id number] PRN PRN Reason: Additional IVPB Infusion Ondansetron HCl (Zofran) 4 mg IV Q8H PRN PRN PRN Reason: NAUSEA/VOMITING Sodium Chloride () 10 - 40 ml IV UD PRN PRN Reason: SALINE FLUSH Last Admin: 03/12/19 16:05 Dose: 10 ml Documented by: Medical Necessity - Tobacco Use Smoking Status: Current every day smoker Tobacco Use: Cigarettes Assessment/Plan All Active Problems (Last Reviewed 02/11/19 @ 13:45 by Pineda Albert DO) Hyponatremia (Acute) Alcohol withdrawal (Acute) Hyponatremia. Known history of alcohol abuse. On review of his lab data he did have low sodium values before. Last sodium that I see in the system is 125. admitted with sodium of 119. with fluids increased to 128 yesterday. held fluids. now sodium remains stable. still has dizziness. resume fluids again. Acidosis. likely starvation related. resolved. hypokalemia. repleted
[2019-03-13] MEDS: 0.9% Normal Saline 1,000 ML 100 ML IV (15:49)
[2019-03-14] VITALS (13 sets, daily range): BP systolic 136–176; BP diastolic 80–115; PULSE 73–106; RESP 16–18; TEMP 36.4–37.1; O2SAT 95–100
[2019-03-14] MEDS: 0.9% Normal Saline 1,000 ML 100 ML IV ×2 (01:00→11:49)
[2019-03-14 03:50] LABS: Absolute Lymphocyte Count 0.87 X10^3/uL (0.83-4.51); Absolute Neutrophil Count 1.7 X10^3/uL (2.0-7.7); Basophil# 0.03 X10^3/uL; Eosinophil# 0.08 X10^3/uL; Eosinophils% 2.7 % (0-5); Hematocrit 29.2 % (40-54); Hemoglobin 10.1 g/dL (13.0-16.5); Lymphocyte # 0.87 X10^3/ul (4.0); Mean Corp Hgb Conc 34.6 g/dL (32-36); Mean Corpuscular Volume 92.4 fL (80-94); Mean Platelet Vol. 10.9 fl (6.2-12.0); Monocyte# 0.36 X10^3/uL; NRBC Flagged by Analyzer 0 % (0-5); Neutrophil # 1.65 X10^3/uL (2.7-7.7); POSITIVE COUNT YES; Platelet Count 51 K/mm3 (150-450); RBC Distribution Width CV 14.6 % (11.6-14.6); RBC Distribution Width SD 48.7 fl (35.1-43.9); Red Blood Count 3.16 M/mm3 (4.6-6.2)
[2019-03-14 03:57] LABS: Anion Gap 5 (5-15); BUN 21 mg/dL (7-18); BUN/Creat Ratio 24.5 RATIO (10-20); Calcium,Total 9.8 mg/dL (8.5-10.1); Chloride 97 mmol/L (98-107); Creatinine, Serum 0.86 mg/dL (0.70-1.30); EST Glomerular Filtration Rate 98 mL/min (>60); Est Glom Filt Rate - Afr Amer 119 mL/min (>60); Estimated Creatinine Clearance 92.79 ml/min; Glucose 92 mg/dL (74-106); Potassium 3.7 mmol/L (3.5-5.1); Sodium Level 130 mmol/L (136-145)
[2019-03-14] MEDS: Acetaminophen 325 MG Tablet 650 MG PO (04:45)
[2019-03-14] MEDS: Folic Acid 1 MG Tablet PO (08:15)
--- NOTE | 2019-03-14 10:06 | DCINST_ITS ---
- Discharge Diagnoses Current Active Problems: Current Active and Chronic Problems (Last Reviewed 02/11/19 @ 13:45 by Pineda Albert DO) Hyponatremia (Acute) You will use the following diet at home:: Cardiac Your food should be the consistency of: Regular Your liquids should be the consistency of: Regular/Thin Discharge Activity: Return to Normal Activity Call your doctor if you observe: Fever of 101 or Higher, Shortness of breath Instructions: Hypokalemia, Hyponatremia Allergies/Adverse Reactions: Allergies seasonal Allergy (Uncoded 02/11/19 10:03) Other Medications to take at Discharge Magnesium Oxide 400 mg PO DAILY 01/20/19 Folic Acid 1 mg PO DAILY@0800 02/11/19 Lisinopril [Zestril] 5 mg PO DAILY 02/11/19 Multivitamin [One-Daily Multi-Vitamin] 1 ea PO DAILY 02/11/19 Potassium Chloride [K-Dur] 20 meq PO DAILY 02/11/19 Acetaminophen [Tylenol] 500 mg PO Q4H PRN PRN tab 02/14/19 Primary Care Physician: Care Physician,No Primary [Primary Care Provider] - Test Results: Test results from this visit will be discussed in further detail at your follow- up appointment, if applicable. Please Follow Up With: Taylor Patel MD When: 1-2weeks; call office to set up PCP appointment Proposed Discharge Date: 03/14/19
[2019-03-14] MEDS: 0.9% Normal Saline 1,000 ML 999 ML IV ×2 (10:43→14:03)
--- NOTE | 2019-03-14 10:49 | PHA.DC.MR ---
Pharmacy Service has performed discharge medication reconciliation for this patient. Home Medications Magnesium Oxide 400 mg PO DAILY 01/20/19 Folic Acid 1 mg PO DAILY@0800 02/11/19 Lisinopril [Zestril] 5 mg PO DAILY 02/11/19 Multivitamin [One-Daily Multi-Vitamin] 1 ea PO DAILY 02/11/19 Potassium Chloride [K-Dur] 20 meq PO DAILY 02/11/19 Acetaminophen [Tylenol] 500 mg PO Q4H PRN PRN tab 02/14/19 The patient's discharge medication list was reviewed for discrepancies and discrepancies were resolved.
--- NOTE | 2019-03-14 15:00 | PN_ITS ---
Patient Problems: Active and Suspected Problems (Last Reviewed 02/11/19 @ 13:45 by Pineda Albert DO) Hyponatremia (Acute) Subjective: Patient seen and examined this morning. He complained of some diarrhea and vomiting but said the diarrhea was scant and the vomiting was mainly water that he had drank. He complained of tremors in his upper extremities. Plan was for patient to be discharged today. However orthostatics were positive so decision was to give him a bolus of 1 L. After 1 L he was still slightly orthostatic positive so he was given a second bolus of fluid. However patient became more agitated and tremulous and I suspect that he is going into alcohol withdrawal. Per discussion with nurse, CIWA score this afternoon was 9 and patient was getting increasingly agitated. Given the patient stated that he wanted to go home, I do not think that he is fit to go home in his current state as he is going into alcohol withdrawal protocol. Discharge is therefore canceled and patient will be started on alcohol withdrawal protocol with Ativan. Labs and vitals reviewed. Sodium is up to 130 today. WBC is 3 and hemoglobin is 10.1. Platelets are 51 today. Vitals/I&O's: Vital Signs Temp Pulse Resp BP Pulse Ox 98.1 F 88 16 175/97 H 100 03/14/19 10:09 03/14/19 11:50 03/14/19 10:09 03/14/19 11:50 03/14/19 10:09 Oxygen Delivery Method Room Air Weight: 140 lb 14.006 oz Body Mass Index (BMI) 20.1 Orthostatic Vital Signs Start: 03/14/19 09:59 Freq: q24h Status: Active Protocol: Activity Type Activity Date Activity User E-Sign Co-Sign Detail Recorded Client Recorded Date Recorded By Document 03/14/19 11:50 [facility] [id number] 03/14/19 11:57 [facility] 03/14/19 11:50 Orthostatic Vitals Standing -Blood Pressure (90/60-120/80) 154/108 H -Extremity Use Right Arm -Pulse Rate (60-100) 106 H Sitting -Blood Pressure (90/60-120/80) 171/93 H -Extremity Use Right Arm -Pulse Rate (60-100) 90 Lying -Blood Pressure (90/60-120/80) 175/97 H -Extremity Use Right Arm -Pulse Rate (60-100) 88 Intake and Output for Last 24 Hours 03/12/19 03/13/19 03/14/19 23:59 23:59 23:59 Intake Total 1250 / 1250 1219 4488.33 / 4488.33 Output Total 300 / 300 Balance 950 / 950 1219 4488.33 / 4488.33 General: Alert, Oriented x3, Cooperative,agitated. HEENT: Atraumatic, PERRLA, EOMI, Normocephalic Oral: Dry Mucosa Neck: Supple, No JVD, Negative Carotid Bruits Lungs: Clear to auscultation, Normal air movement, No rhonchi, No wheeze, No rales Cardiovascular: Regular rate, Regular Rhythm, Normal S1, Normal S2, No murmurs Abdomen: Bowel Sounds Present, Soft, Non Tender, Non-Distended, No Hepato- splenomegaly Extremities: No clubbing, No cyanosis, No edema, Capillary Refill Less than 3 Seconds Skin: No rashes, No breakdown Musculoskeletal: No Tenderness to Palpation of Joints or Extremities Lymphatic: No Cervical, Supraclavicular, or Inguinal Adenopathy Neurological: Cranial nerves II-XII grossly intact, Neuro grossly intact, Motor Exam 5/5 strength throughout Psych/Mental Status: agitated. CIWA score is 9 Microbiology Past 72 Hours 03/12/19 05:15 Mucosa - Nasopharyngeal Influenza Types A,B Direct FA (MATILDE) - Final Laboratory Results 03/14/19 03:24: WBC 3.0 L, RBC 3.16 L, Hgb 10.1 L, Hct 29.2 L, MCV 92.4, MCH 32.0, MCHC 34.6, RDW Std Deviation 48.7 H, RDW Coeff of Reece 14.6, Plt Count 51 L , MPV 10.9, Immature Gran % (Auto) 0.300, Neut % (Auto) 55.0, Lymph % (Auto) 29.0, [place] % (Auto) 12.0 H, Eos % (Auto) 2.7, Baso % (Auto) 1.0, Absolute Neuts (auto) 1.7 L, Absolute Lymphs (auto) 0.87, Nucleated RBC % 0 03/14/19 03:24: Sodium 130 L, Potassium 3.7, Chloride 97 L, Carbon Dioxide 28.0, Anion Gap 5, BUN 21 H, Creatinine 0.86, Estim Creat Clear Calc 92.79, Est GFR (MDRD) Af Amer 119, Est GFR (MDRD) Non-Af 98, BUN/Creatinine Ratio 24.5 H, Glucose 92, Calcium 9.8 Current Medications Acetaminophen (Tylenol) 650 mg PO Q6H PRN PRN PRN Reason: Pain Score 1-3/Temp > 100.7 F Last Admin: 03/14/19 04:45 Dose: 650 mg Documented by: Dicyclomine HCl (Bentyl) 20 mg PO Q6H PRN PRN PRN Reason: abdominal discomfort Folic Acid (Folic Acid) 1 mg PO DAILY@0800 [facility] Last Admin: 03/14/19 08:15 Dose: 1 mg Documented by: Glucagon () 1 mg IM .X1 PRN PRN Reason: Hypoglycemia Hydroxyzine Pamoate (Vistaril Pamoate Capsule) 50 mg PO Q6H PRN PRN PRN Reason: Mild Anxiety (score 1/3) Sodium Chloride () 250 mls @ 15 mls/hr IV .[id number] PRN PRN Reason: Saline Flush Sodium Chloride () 250 mls @ 15 mls/hr IV .[id number] PRN PRN Reason: Additional IVPB Infusion Sodium Chloride () 1,000 mls @ 100 mls/hr IV .Q10H [facility] Last Admin: 03/14/19 11:49 Dose: 100 mls/hr Documented by: Sodium Chloride () 1,000 mls @ 999 mls/hr IV .Q1H1M ONE Stop: 03/14/19 15:03 Last Admin: 03/14/19 14:03 Dose: 999 mls/hr Documented by: Lorazepam (Ativan) 2 mg PO Q2H PRN PRN; Protocol PRN Reason: CIWA score > 8 but <15 Lorazepam (Ativan) 2 mg PO UD PRN; Protocol PRN Reason: CIWA score >/=15. Lorazepam (Ativan) 2 mg IV Q2H PRN PRN; Protocol PRN Reason: CIWA score > 8 but <15 Lorazepam (Ativan) 2 mg IV UD PRN; Protocol PRN Reason: CIWA score >/=15. Lorazepam (Ativan) 0 mg PO UD KATE; Taper Stop: 03/17/19 18:44 Methocarbamol (Methocarbamol) 750 mg PO Q6H PRN PRN PRN Reason: Muscle Aches Multivit[facility] ([facility]) [facility] Ondansetron [facility] (Zofran) 4 mg IV Q8H PRN PRN PRN Reason: NAUSEA/VOMITING Sodium Chloride () 10 - 40 ml IV UD PRN PRN Reason: SALINE FLUSH Last Admin: 03/12/19 16:05 Dose: 10 ml Documented by: Thiamine HCl (Vitamin B1) 100 mg PO DAILYCM [facility] Stop: 03/17/19 08:01 STROKE Vital Signs/Narrative: Vital Signs Pulse Pulse Pulse Pulse BP BP BP 03/14/19 11:50 88 90 106 H 175/97 H 171/93 H 154/108 H 03/14/19 11:01 74 Medical Necessity - Tobacco Use Smoking Status: Current every day smoker Tobacco Use: Cigarettes Assessment/Plan All Active Problems (Last Reviewed 02/11/19 @ 13:45 by Pineda Albert DO) Hyponatremia (Acute) Alcohol withdrawal (Acute) 58-year-old admitted with a complaint of nausea and vomiting as well as diarrhea. 1. Acute viral gastroenteritis * still complaining of vomiting and diarrhea, but is getting better. * hydrate with IVF and monitor * 2. Orthostatic hypotension * patient is orthostatic positive. likely due to dehydration, and diarrhea and vomiting. * will hydrate with IVF and monitor * 3. Alcohol withdrawal * patient became more agitated today, and CIWA score today is 9 * patient started on alcohol withdrawal protocol with ativan * will monitor CIWA 4. Acute on chronic hyponatremia * sodium is 130 * IVF continued o/a of orthostatic hypotension * Will monitor. Nephrology on board. * 5. Anion gap metabolic acidosis * Resolved. * 6. Hypercalcemia: calcium is 9.8 7. Hyokalemia: K is 3.7. 8. Pancytopenia * WBC is 3.0 today, with Hb of 10.1 and platelets of 51. This is chronic * This is likely due to his history of chronic alcohol abuse. * Will monitor. * DVT prophylaxis: SCDs. * Code Visit Inpatient E&M: 27020 Subs Hosp L2
--- NOTE | 2019-03-14 15:21 | PN.RENAL_ITS ---
Patient Problems: Active and Suspected Problems (Last Reviewed 02/11/19 @ 13:45 by Pineda Albert DO) Hyponatremia (Acute) Subjective: No new complaints - Physical Exam Vitals/I&O's: Vital Signs Temp Pulse Resp BP Pulse Ox 98.1 F 84 16 175/97 H 100 03/14/19 10:09 03/14/19 15:05 03/14/19 10:09 03/14/19 11:50 03/14/19 10:09 Oxygen Delivery Method Room Air Weight: 63.9 kg Body Mass Index (BMI) 20.1 Orthostatic Vital Signs Start: 03/14/19 09:59 Freq: q24h Status: Active Protocol: Activity Type Activity Date Activity User E-Sign Co-Sign Detail Recorded Client Recorded Date Recorded By Document 03/14/19 11:50 [facility] [id number] 03/14/19 11:57 [facility] 03/14/19 11:50 Orthostatic Vitals Standing -Blood Pressure (90/60-120/80) 154/108 H -Extremity Use Right Arm -Pulse Rate (60-100) 106 H Sitting -Blood Pressure (90/60-120/80) 171/93 H -Extremity Use Right Arm -Pulse Rate (60-100) 90 Lying -Blood Pressure (90/60-120/80) 175/97 H -Extremity Use Right Arm -Pulse Rate (60-100) 88 Intake and Output for Last 24 Hours 03/12/19 03/13/19 03/14/19 23:59 23:59 23:59 Intake Total 1250 / 1250 1219 4488.33 / 4488.33 Output Total 300 / 300 Balance 950 / 950 1219 4488.33 / 4488.33 General: Alert, Oriented x3, Cooperative HEENT: Atraumatic, PERRLA, EOMI, Normocephalic Neck: Supple, No JVD, Negative Carotid Bruits Lungs: Clear to auscultation, Normal air movement Cardiovascular: Regular rate, No murmurs Abdomen: Bowel Sounds Present, Soft, Non Tender Extremities: No edema, Capillary Refill Less than 3 Seconds Skin: No rashes, No breakdown Musculoskeletal: No Tenderness to Palpation of Joints or Extremities Neurological: Cranial nerves II-XII grossly intact Psych/Mental Status: Normal Affect, Appropriate Microbiology Past 72 Hours 03/12/19 05:15 Mucosa - Nasopharyngeal Influenza Types A,B Direct FA (MATILDE) - Final Laboratory Results 03/14/19 03:24: WBC 3.0 L, RBC 3.16 L, Hgb 10.1 L, Hct 29.2 L, MCV 92.4, MCH 32.0, MCHC 34.6, RDW Std Deviation 48.7 H, RDW Coeff of Reece 14.6, Plt Count 51 L , MPV 10.9, Immature Gran % (Auto) 0.300, Neut % (Auto) 55.0, Lymph % (Auto) 29.0, [place] % (Auto) 12.0 H, Eos % (Auto) 2.7, Baso % (Auto) 1.0, Absolute Neuts (auto) 1.7 L, Absolute Lymphs (auto) 0.87, Nucleated RBC % 0 03/14/19 03:24: Sodium 130 L, Potassium 3.7, Chloride 97 L, Carbon Dioxide 28.0, Anion Gap 5, BUN 21 H, Creatinine 0.86, Estim Creat Clear Calc 92.79, Est GFR (MDRD) Af Amer 119, Est GFR (MDRD) Non-Af 98, BUN/Creatinine Ratio 24.5 H, Glucose 92, Calcium 9.8 Current Medications Acetaminophen (Tylenol) 650 mg PO Q6H PRN PRN PRN Reason: Pain Score 1-3/Temp > 100.7 F Last Admin: 03/14/19 04:45 Dose: 650 mg Documented by: Dicyclomine HCl (Bentyl) 20 mg PO Q6H PRN PRN PRN Reason: abdominal discomfort Folic Acid (Folic Acid) 1 mg PO DAILY@0800 [facility] Last Admin: 03/14/19 08:15 Dose: 1 mg Documented by: Glucagon () 1 mg IM .X1 PRN PRN Reason: Hypoglycemia Hydroxyzine Pamoate (Vistaril Pamoate Capsule) 50 mg PO Q6H PRN PRN PRN Reason: Mild Anxiety (score 1/3) Sodium Chloride () 250 mls @ 15 mls/hr IV .[id number] PRN PRN Reason: Saline Flush Sodium Chloride () 250 mls @ 15 mls/hr IV .[id number] PRN PRN Reason: Additional IVPB Infusion Sodium Chloride () 1,000 mls @ 100 mls/hr IV .Q10H [facility] Last Admin: 03/14/19 11:49 Dose: 100 mls/hr Documented by: Lorazepam (Ativan) 2 mg PO Q2H PRN PRN; Protocol PRN Reason: CIWA score > 8 but <15 Lorazepam (Ativan) 2 mg PO UD PRN; Protocol PRN Reason: CIWA score >/=15. Lorazepam (Ativan) 2 mg IV Q2H PRN PRN; Protocol PRN Reason: CIWA score > 8 but <15 Lorazepam (Ativan) 2 mg IV UD PRN; Protocol PRN Reason: CIWA score >/=15. Lorazepam (Ativan) 0 mg PO UD [facility]; Taper Stop: 03/17/19 18:44 Methocarbamol (Methocarbamol) 750 mg PO Q6H PRN PRN PRN Reason: Muscle Aches Multivit[facility] ([facility]) [facility] Ondansetron HCl (Zofran) 4 mg IV Q8H PRN PRN PRN Reason: NAUSEA/VOMITING Sodium Chloride () 10 - 40 ml IV UD PRN PRN Reason: SALINE FLUSH Last Admin: 03/12/19 16:05 Dose: 10 ml Documented by: Thiamine HCl (Vitamin B1) 100 mg PO DAILYCM [facility] Stop: 03/17/19 08:01 Medical Necessity - Tobacco Use Smoking Status: Current every day smoker Tobacco Use: Cigarettes Assessment/Plan All Active Problems (Last Reviewed 02/11/19 @ 13:45 by Pineda Albert DO) Hyponatremia (Acute) Alcohol withdrawal (Acute) Hyponatremia. Known history of alcohol abuse. On review of his lab data he did have low sodium values before. Last sodium that I see in the system is 125. admitted with sodium of 119. urine sodium low, consistent with hypovolemia. improved with fluids Acidosis. likely starvation related. resolved. hypokalemia. repleted ok to dc
[2019-03-14] MEDS: Multivitamins,Therapeutic Tablet 1 TABLET PO (15:39)
[2019-03-14] MEDS: LORazepam 1 MG Tablet PO ×3 (15:39→22:49)
[2019-03-14] MEDS: Thiamine Hydrochloride 100 MG Tablet PO (17:17)
[2019-03-15] VITALS (17 sets, daily range): BP systolic 128–188; BP diastolic 81–112; PULSE 71–115; RESP 14–25; TEMP 36.4–37.2; O2SAT 95–100
[2019-03-15] MEDS: LORazepam 1 MG Tablet PO ×4 (02:14→16:19)
[2019-03-15 06:17] LABS: Absolute Lymphocyte Count 0.92 X10^3/uL (0.83-4.51); Absolute Neutrophil Count 2.1 X10^3/uL (2.0-7.7); Basophil# 0.05 X10^3/uL; Basophil% 1.3 % (0-1); Eosinophil# 0.06 X10^3/uL; Eosinophils% 1.6 % (0-5); Hematocrit 28.8 % (40-54); Hemoglobin 9.8 g/dL (13.0-16.5); Lymphocyte # 0.92 X10^3/ul (4.0); Lymphocyte % 24.5 % (19-41); Mean Corpuscular Hgb 32.1 pg (27.0-32.0); Mean Corpuscular Volume 94.4 fL (80-94); Mean Platelet Vol. 10.3 fl (6.2-12.0); Monocyte# 0.58 X10^3/uL; Monocyte% 15.4 % (0-10); NRBC Flagged by Analyzer 0 % (0-5); Neutrophil # 2.13 X10^3/uL (2.7-7.7); Neutrophil % 56.7 % (47-70); POSITIVE COUNT YES; Platelet Count 86 K/mm3 (150-450); RBC Distribution Width CV 14.8 % (11.6-14.6); RBC Distribution Width SD 50.5 fl (35.1-43.9); Red Blood Count 3.05 M/mm3 (4.6-6.2); White Blood Count 3.8 K/mm3 (4.4-11.0)
[2019-03-15 06:20] LABS: Differential Indicated SCAN CRITERIA MET
[2019-03-15 06:45] LABS: Anion Gap 7 (5-15); BUN 11 mg/dL (7-18); Calcium,Total 9.3 mg/dL (8.5-10.1); Chloride 99 mmol/L (98-107); Creatinine, Serum 0.84 mg/dL (0.70-1.30); EST Glomerular Filtration Rate 100 mL/min (>60); Est Glom Filt Rate - Afr Amer 121 mL/min (>60); Estimated Creatinine Clearance 86.81 ml/min; Glucose 97 mg/dL (74-106); Potassium 3.1 mmol/L (3.5-5.1); Sodium Level 135 mmol/L (136-145)
[2019-03-15 06:46] LABS: Anisocytosis RARE; Macrocytosis RARE; Platelet Estimate MOD DEC (ADEQ)
[2019-03-15] MEDS: Thiamine Hydrochloride 100 MG Tablet PO (09:20)
[2019-03-15] MEDS: Multivitamins,Therapeutic Tablet 1 TABLET PO (09:20)
[2019-03-15] MEDS: Folic Acid 1 MG Tablet PO (09:20)
[2019-03-15] MEDS: LORazepam 1 MG Tablet 2 MG PO (13:40)
--- NOTE | 2019-03-15 14:50 | PN_ITS ---
Patient Problems: Active and Suspected Problems (Last Reviewed 02/11/19 @ 13:45 by Pineda Albert DO) Hyponatremia (Acute) Subjective: Patient seen and examined this morning. He was quite agitated and insisted on being discharged. Patient was very tremulous and confused initially thought he was in [facility]. His CIWA score today is 24. Patient still denies that he is taking any alcohol for the past 5 weeks and states he wants to discharge because he is going to work tomorrow. Patient states his occupation as a [employer] and states he has work lined up tomorrow. When counseled that he was very tremulous and so may not be able to work well, he said he would be able to at this on the first time he has been tremulous. Patient required a sitter overnight as he was agitated and walking around walking into patient's bedrooms and hallucinating. Informed patient that I was not comfortable with him being discharged and thought he should complete the acute detox process as his CIWA score was 24 and he was at risk of going into DTs. Patient initially refused so his sister in [place] was called at [phone] convince him further. Patient still insisted on leaving. Mental health crisis team was called to evaluate patient and the team stated that they did not think there was any acute reason for patient to be admitted to a psych facility and [facility]. However they did not think he was medically stable to even be considered to go to an inpatient facility. Patient also expresses no interest in going to an inpatient facility. After his to start Depakote again from [place] at above-mentioned number, patient finally agreed to stay in the hospital to undergo the detox process. Vitals/I&O's: Vital Signs Temp Pulse Resp BP Pulse Ox 99.0 F 97 14 138/81 H 100 03/15/19 13:38 03/15/19 13:38 03/15/19 13:38 03/15/19 13:38 03/15/19 13:38 Oxygen Delivery Method Room Air Weight: 137 lb 12.623 oz Body Mass Index (BMI) 20.1 Orthostatic Vital Signs Start: 03/14/19 09:59 Freq: q24h Status: Active Protocol: Activity Type Activity Date Activity User E-Sign Co-Sign Detail Recorded Client Recorded Date Recorded By Document 03/14/19 15:29 [facility] [id number] 03/14/19 15:38 [facility] 03/14/19 15:29 Orthostatic Vitals Standing -Blood Pressure (90/60-120/80) 163/108 H -Extremity Use Right Arm -Pulse Rate (60-100) 106 H Sitting -Blood Pressure (90/60-120/80) 152/104 H -Extremity Use Right Arm -Pulse Rate (60-100) 99 Lying -Blood Pressure (90/60-120/80) 144/80 H -Extremity Use Right Arm -Pulse Rate (60-100) 90 Intake and Output for Last 24 Hours 03/13/19 03/14/19 03/15/19 23:59 23:59 23:59 Intake Total 1219 6636.66 / 7236.66 960 / 960 Balance 1219 6636.66 / 7236.66 960 / 960 General: Alert, No apparent distress, Confused, Disoriented HEENT: Atraumatic, PERRLA, EOMI, Normocephalic Oral: Moist Mucosa Neck: Supple, No JVD, Negative Carotid Bruits Lungs: Clear to auscultation, Normal air movement Cardiovascular: Regular rate, Regular Rhythm, Normal S1, Normal S2, No murmurs Abdomen: Bowel Sounds Present, Soft, Non Tender Extremities: No edema, Capillary Refill Less than 3 Seconds Skin: No rashes, No breakdown Musculoskeletal: No Tenderness to Palpation of Joints or Extremities Lymphatic: No Cervical, Supraclavicular, or Inguinal Adenopathy Neurological: Cranial nerves II-XII grossly intact, Neuro grossly intact, Motor Exam 5/5 strength throughout Psych/Mental Status: Agitated, Hallucinations, Irrational Behavior, Restless Laboratory Results 03/15/19 06:00: WBC 3.8 L, RBC 3.05 L, Hgb 9.8 L, Hct 28.8 L, MCV 94.4 H, MCH 32.1 H, MCHC 34.0, RDW Std Deviation 50.5 H, RDW Coeff of Reece 14.8 H, Plt Count 86 L, MPV 10.3, Immature Gran % (Auto) 0.500, Neut % (Auto) 56.7, Lymph % (Auto) 24.5, [place] % (Auto) 15.4 H, Eos % (Auto) 1.6, Baso % (Auto) 1.3 H, Absolute Neuts (auto) 2.1, Absolute Lymphs (auto) 0.92, Nucleated RBC % 0, Platelet Estimate MOD DEC, Anisocytosis RARE, Macrocytosis RARE 03/15/19 06:00: Sodium 135 L, Potassium 3.1 L, Chloride 99, Carbon Dioxide 29.0, Anion Gap 7, BUN 11, Creatinine 0.84, Estim Creat Clear Calc 86.81, Est GFR (MDRD) Af Amer 121, Est GFR (MDRD) Non-Af 100, BUN/Creatinine Ratio 13.0, Glucose 97, Calcium 9.3 Current Medications Acetaminophen (Tylenol) 650 mg PO Q6H PRN PRN PRN Reason: Pain Score 1-3/Temp > 100.7 F Last Admin: 03/14/19 04:45 Dose: 650 mg Documented by: Dicyclomine HCl (Bentyl) 20 mg PO Q6H PRN PRN PRN Reason: abdominal discomfort Folic Acid (Folic Acid) 1 mg PO DAILY@0800 [facility] Last Admin: 03/15/19 09:20 Dose: 1 mg Documented by: Glucagon () 1 mg IM .X1 PRN PRN Reason: Hypoglycemia Hydroxyzine Pamoate (Vistaril Pamoate Capsule) 50 mg PO Q6H PRN PRN PRN Reason: Mild Anxiety (score 1/3) Sodium Chloride () 250 mls @ 15 mls/hr IV .[id number] PRN PRN Reason: Saline Flush Sodium Chloride () 250 mls @ 15 mls/hr IV .[id number] PRN PRN Reason: Additional IVPB Infusion Lorazepam (Ativan) 2 mg PO Q2H PRN PRN; Protocol PRN Reason: CIWA score > 8 but <15 Last Admin: 03/15/19 13:40 Dose: 2 mg Documented by: Lorazepam (Ativan) 2 mg PO UD PRN; Protocol PRN Reason: CIWA score >/=15. Lorazepam (Ativan) 2 mg IV Q2H PRN PRN; Protocol PRN Reason: CIWA score > 8 but <15 Lorazepam (Ativan) 2 mg IV UD PRN; Protocol PRN Reason: CIWA score >/=15. Lorazepam (Ativan) 1 mg PO Q6H KATE; Taper Stop: 03/17/19 18:44 Last Admin: 03/15/19 09:27 Dose: 1 mg Documented by: Methocarbamol (Methocarbamol) 750 mg PO Q6H PRN PRN PRN Reason: Muscle Aches Multivitamins (Multivitamin) 1 tablet PO DAILY[facility] Last Admin: 03/15/19 09:20 Dose: 1 tablet Documented by: Nicotine (Nicoderm Cq ([facility])) 21 mg TRANSDERM. DAILY [facility] Last Admin: 03/15/19 09:21 Dose: 21 mg Documented by: Nicotine Polacrilex (Rugby Nicotine ([facility])) 4 mg PO Q2H PRN PRN PRN Reason: Nicotine Craving Last Admin: 03/14/19 22:06 Dose: 4 mg Documented by: Ondansetron HCl (Zofran) 4 mg IV Q8H PRN PRN PRN Reason: NAUSEA/VOMITING Sodium Chloride () 10 - 40 ml IV UD PRN PRN Reason: SALINE FLUSH Last Admin: 03/12/19 16:05 Dose: 10 ml Documented by: Thiamine HCl (Vitamin B1) 100 mg PO DAILY[facility] Stop: 03/16/19 08:01 Last Admin: 03/15/19 09:20 Dose: 100 mg Documented by: STROKE Vital Signs/Narrative: Vital Signs Temp Pulse Resp BP Pulse Ox 03/15/19 13:38 99.0 F 97 14 138/81 H 100 03/15/19 12:28 87 Medical Necessity - Tobacco Use Smoking Status: Current every day smoker Tobacco Use: Cigarettes Assessment/Plan All Active Problems (Last Reviewed 02/11/19 @ 13:45 by Pineda Albert DO) Hyponatremia (Acute) Alcohol withdrawal (Acute) 58-year-old admitted with a complaint of nausea and vomiting as well as diarrhea. 1. Acute viral gastroenteritis * resolved * 2. Orthostatic hypotension * resolved. * 3. Alcohol withdrawal * Patient very agitated and hallucinating today. CIWA score is 24. Patient was initially insistent on being discharged and I informed him that he would have to sign out AMA as I was not comfortable with him going. Patient finally agreed to stay after his sister Dean from [place]. According to her sister, patient has not quit drinking and drinks about 1/5 of tequila every day. * Continue alcohol withdrawal protocol with Ativan. * Will need case management on board to help with discharge planning. Patient does say he follows with [facility]. * * 4. Acute on chronic hyponatremia * sodium is 135 * stable. Nephrology on board. * * 6. Hypercalcemia: calcium is 9.8 7. Hyokalemia: K is 3.1. Will replace and monitor 8. Pancytopenia * WBC is 3.8 today, with Hb of 9.8 and platelets of 86. This is chronic * This is likely due to his history of chronic alcohol abuse. * Will monitor. * DVT prophylaxis: SCDs. * Code Visit Inpatient E&M: 33500 Subs Hosp L2
[2019-03-15] MEDS: LORazepam 2 MG/ML Syringe IV ×2 (17:47→20:13)
--- NOTE | 2019-03-15 19:30 | PCM.PN.REN ---
Patient Problems: Active and Suspected Problems (Last Reviewed 02/11/19 @ 13:45 by Pineda Albert DO) Hyponatremia (Acute) Subjective: Following fro hyponatremia, hypokalemia. Pt denies headache, nausea or confusion. - Physical Exam Vitals/I&O's: Vital Signs Temp Pulse Resp BP Pulse Ox 99.0 F 90 14 138/81 H 100 03/15/19 13:38 03/15/19 15:00 03/15/19 13:38 03/15/19 13:38 03/15/19 13:38 Oxygen Delivery Method Room Air Weight: 62.5 kg Body Mass Index (BMI) 20.1 Orthostatic Vital Signs Start: 03/14/19 09:59 Freq: q24h Status: Active Protocol: Activity Type Activity Date Activity User E-Sign Co-Sign Detail Recorded Client Recorded Date Recorded By Document 03/14/19 15:29 [facility] [id number] 03/14/19 15:38 [facility] 03/14/19 15:29 Orthostatic Vitals Standing -Blood Pressure (90/60-120/80) 163/108 H -Extremity Use Right Arm -Pulse Rate (60-100) 106 H Sitting -Blood Pressure (90/60-120/80) 152/104 H -Extremity Use Right Arm -Pulse Rate (60-100) 99 Lying -Blood Pressure (90/60-120/80) 144/80 H -Extremity Use Right Arm -Pulse Rate (60-100) 90 Intake and Output for Last 24 Hours 03/13/19 03/14/19 03/15/19 23:59 23:59 23:59 Intake Total 1219 6636.66 / 7236.66 960 / 960 Balance 1219 6636.66 / 7236.66 960 / 960 General: Alert, Oriented x3 HEENT: Atraumatic Oral: Moist Mucosa Neck: Supple Lungs: Clear to auscultation Cardiovascular: Normal S1, Normal S2, No murmurs Abdomen: Bowel Sounds Present, Soft, Non Tender Extremities: No edema Laboratory Results 03/15/19 06:00: WBC 3.8 L, RBC 3.05 L, Hgb 9.8 L, Hct 28.8 L, MCV 94.4 H, MCH 32.1 H, MCHC 34.0, RDW Std Deviation 50.5 H, RDW Coeff of Reece 14.8 H, Plt Count 86 L, MPV 10.3, Immature Gran % (Auto) 0.500, Neut % (Auto) 56.7, Lymph % (Auto) 24.5, [place] % (Auto) 15.4 H, Eos % (Auto) 1.6, Baso % (Auto) 1.3 H, Absolute Neuts (auto) 2.1, Absolute Lymphs (auto) 0.92, Nucleated RBC % 0, Platelet Estimate MOD DEC, Anisocytosis RARE, Macrocytosis RARE 03/15/19 06:00: Sodium 135 L, Potassium 3.1 L, Chloride 99, Carbon Dioxide 29.0, Anion Gap 7, BUN 11, Creatinine 0.84, Estim Creat Clear Calc 86.81, Est GFR (MDRD) Af Amer 121, Est GFR (MDRD) Non-Af 100, BUN/Creatinine Ratio 13.0, Glucose 97, Calcium 9.3 Current Medications Acetaminophen (Tylenol) 650 mg PO Q6H PRN PRN PRN Reason: Pain Score 1-3/Temp > 100.7 F Last Admin: 03/14/19 04:45 Dose: 650 mg Documented by: Dicyclomine HCl (Bentyl) 20 mg PO Q6H PRN PRN PRN Reason: abdominal discomfort Folic Acid (Folic Acid) 1 mg PO DAILY@0800 [facility] Last Admin: 03/15/19 09:20 Dose: 1 mg Documented by: Glucagon () 1 mg IM .X1 PRN PRN Reason: Hypoglycemia Hydroxyzine Pamoate (Vistaril Pamoate Capsule) 50 mg PO Q6H PRN PRN PRN Reason: Mild Anxiety (score 1/3) Sodium Chloride () 250 mls @ 15 mls/hr IV .[id number] PRN PRN Reason: Saline Flush Sodium Chloride () 250 mls @ 15 mls/hr IV .[id number] PRN PRN Reason: Additional IVPB Infusion Lorazepam (Ativan) 2 mg PO Q2H PRN PRN; Protocol PRN Reason: CIWA score > 8 but <15 Last Admin: 03/15/19 13:40 Dose: 2 mg Documented by: Lorazepam (Ativan) 2 mg PO UD PRN; Protocol PRN Reason: CIWA score >/=15. Lorazepam (Ativan) 2 mg IV Q2H PRN PRN; Protocol PRN Reason: CIWA score > 8 but <15 Last Admin: 03/15/19 17:47 Dose: 2 mg Documented by: Lorazepam (Ativan) 2 mg IV UD PRN; Protocol PRN Reason: CIWA score >/=15. Lorazepam (Ativan) 1 mg PO Q6H KATE; Taper Stop: 03/17/19 18:44 Last Admin: 03/15/19 16:19 Dose: 1 mg Documented by: Methocarbamol (Methocarbamol) 750 mg PO Q6H PRN PRN PRN Reason: Muscle Aches Multivit[facility] ([facility]) [facility] Last Admin: 03/15/19 09:20 Dose: 1 tablet Documented by: Nicotine (Nicoderm Cq ([facility])) 21 mg TRANSDERM. DAILY [facility] Last Admin: 03/15/19 09:21 Dose: 21 mg Documented by: Nicotine Polacrilex (Rugby Nicotine ([facility])) 4 mg PO Q2H PRN PRN PRN Reason: Nicotine Craving Last Admin: 03/14/19 22:06 Dose: 4 mg Documented by: Ondansetron HCl (Zofran) 4 mg IV Q8H PRN PRN PRN Reason: NAUSEA/VOMITING Sodium Chloride () 10 - 40 ml IV UD PRN PRN Reason: SALINE FLUSH Last Admin: 03/12/19 16:05 Dose: 10 ml Documented by: Thiamine HCl (Vitamin B1) [facility] Stop: 03/16/19 08:01 Last Admin: 03/15/19 09:20 Dose: 100 mg Documented by: Medical Necessity - Tobacco Use Smoking Status: Current every day smoker Tobacco Use: Cigarettes Assessment/Plan All Active Problems (Last Reviewed 02/11/19 @ 13:45 by Pineda Albert DO) Hyponatremia (Acute) Alcohol withdrawal (Acute) 1. Hyponatremia. Known history of alcohol abuse. On review of his lab data he did have low sodium values before. Last sodium that I see in the system is 125. Admitted with sodium of 119. Urine sodium was low, consistent with hypovolemic hyponatremia. Na has improved at a safe rate with volume repletion. Na is stable last 24 hrs. Encourage oral solute (protein) intake. Will monitor. 2. Acidosis. likely starvation related. resolved. 3. Hypokalemia. Received KCl. Check Mg to make sure it is not low. Recheck K in am.
--- NOTE | 2019-03-15 20:03 | NURSING ---
Patient found in room wandering aimlessly, having conversations with people who are not in the room. Patient has removed his clothing. Patient is able to give me the correct date but get the day of the week wrong. Patient is unable to recall my name immediately after introducing myself. Patient still ahumada snot know where he is even immediately after being reoriented. Patient is complaining of a mild headache but denies ay nausea. Patient has visible tremors at rest. Vital signs obtained and documented in [facility] flow record.
[2019-03-15] MEDS: 0.9% Saline Lock 10 ML Syringe IV (20:13)
--- NOTE | 2019-03-15 20:19 | PCM.HOSP.N ---
Hospitalist Note Notified by nursing that the patient has been very agitated with a CIWA score of 24. Is hallucinating and despite lorazepam. Went to see the patient and noted the patient is just very agitated. Presently alert and oriented x3 but is hallucinating talk about helping some people with some loading some wood and time with the person that is behind him he wants just toward his bathroom. So my calculated CIWA score was 29. Patient is going through delirium tremens. Patient is not combative at this point in time the plan is to with patient over to the intensive care unit for level care to start him on a Precedex drip and to continue with the lorazepam. Consult via coretext was placed to Dr. Hamilton.
--- NOTE | 2019-03-15 20:55 | NURSING ---
Report called to [facility] at this time. Patient ot be transported to ICU via wheelchair by this RN.
[2019-03-15] MEDS: TITRATION PARAMETER CHANGE 1 EACH IV (21:46)
[2019-03-16] VITALS (28 sets, daily range): BP systolic 94–152; BP diastolic 68–102; PULSE 58–121; RESP 11–26; TEMP 36.2–36.8; O2SAT 20–98
[2019-03-16 04:48] LABS: Absolute Lymphocyte Count 1.02 X10^3/uL (0.83-4.51); Absolute Neutrophil Count 1.2 X10^3/uL (2.0-7.7); Basophil# 0.04 X10^3/uL; Basophil% 1.4 % (0-1); Eosinophil# 0.08 X10^3/uL; Eosinophils% 2.9 % (0-5); Hematocrit 28.2 % (40-54); Hemoglobin 9.4 g/dL (13.0-16.5); Lymphocyte # 1.02 X10^3/ul (4.0); Lymphocyte % 36.4 % (19-41); Mean Corp Hgb Conc 33.3 g/dL (32-36); Mean Corpuscular Hgb 32.1 pg (27.0-32.0); Mean Corpuscular Volume 96.2 fL (80-94); Monocyte# 0.44 X10^3/uL; Monocyte% 15.7 % (0-10); NRBC Flagged by Analyzer 0 % (0-5); Neutrophil # 1.21 X10^3/uL (2.7-7.7); Neutrophil % 43.2 % (47-70); POSITIVE COUNT YES; Platelet Count 97 K/mm3 (150-450); RBC Distribution Width SD 51.1 fl (35.1-43.9); Red Blood Count 2.93 M/mm3 (4.6-6.2); White Blood Count 2.8 K/mm3 (4.4-11.0)
[2019-03-16 05:00] LABS: AST(SGOT) 89 U/L (15-37); Alanine Aminotransfer ALT/SGPT 82 U/L (16-61); Albumin, Serum 3.5 g/dL (3.2-5.0); Alkaline Phosphatase 46 U/L (45-117); Anion Gap 8 (5-15); BUN 17 mg/dL (7-18); Calcium,Total 9.5 mg/dL (8.5-10.1); Chloride 103 mmol/L (98-107); Creatinine, Serum 0.66 mg/dL (0.70-1.30); EST Glomerular Filtration Rate 134 mL/min (>60); Est Glom Filt Rate - Afr Amer 162 mL/min (>60); Estimated Creatinine Clearance 109.77 ml/min; Globulin 3.6 g/dL (2.2-4.2); Glucose 110 mg/dL (74-106); Phosphorus 4.3 mg/dL (2.5-4.9); Potassium 3.4 mmol/L (3.5-5.1); Protein, Total 7.1 g/dL (6.4-8.2); Sodium Level 138 mmol/L (136-145)
[2019-03-16] MEDS: Magnesium Sulfate 4gm/100mL 4 GM/100 ML IV.SOLN. IV (06:26)
[2019-03-16] MEDS: Potassium Chloride 10mEq/100mL 10 MEQ/100 ML IV.SOLN. 100 MEQ IV BOLUS ×4 (06:26→09:17)
--- NOTE | 2019-03-16 07:13 | PCM.CON.CC ---
Problem List (1) Hyponatremia Status: Acute (2) Alcohol withdrawal Status: Acute Qualifiers: Complication of substance-induced condition: with unspecified complication Qualified Code(s): F10.239 - Alcohol dependence with withdrawal, unspecified (3) Hypomagnesemia Status: Chronic (4) Hypokalemia Status: Chronic (5) Pancytopenia Status: Chronic (6) Alcohol abuse Status: Chronic Reason for Consult Date of Consultation: 03/16/19 Reason for Consultation: Precedex rescue History of Present Illness: The patient is a 58 year old M, with past medical history listed below, who presented to [facility] on 03/12/2019 secondary to multiple complaints of nausea, vomiting, diarrhea, cough, sore throat, dysphasia, headaches and fevers. Patient reportedly had had difficulty even swallowing liquids. Patient does have a history of alcohol withdrawal in the past, but stated that he had not been drinking. In the ER, patient had an extensive work-up obtained showing a chest x-ray that was unremarkable. Patient was given fluid resuscitation, but labs showed hyponatremia at 119. Patient did have difficult IV access, so peripheral IV had to be placed under ultrasound guidance. Patient was admitted to the floor for treatment of his hyponatremia and was seen by nephrology. Over the course of patient's hospitalization he started to develop signs and symptoms of alcohol withdrawal. Patient's CIWA score was 9 and he was getting increasingly agitated. Patient was initiated on the withdrawal protocol with an Ativan taper. No basal medications such as phenobarbital or Librium were ordered. Over the course of the evening, patient became more agitated with higher CIWA scores, so was transferred to the intensive care unit for Precedex drip. Since being in the intensive care unit, patient has been well controlled. Precedex was as high as 1, but is now down to 0.4. Patient has been hemodynamically stable on room air otherwise. Patient did have some hypokalemia and hypomagnesemia this morning that was repleted. Patient is not very cooperative with providing any review of systems or history otherwise. Patient does have some tremor associated with waking up. Past Medical History Past Medical History (Chronic Problems): Chronic Problems (Last Reviewed 02/11/19 @ 13:45 by Pineda Albert DO) Alcoholism (Chronic) Hypomagnesemia (Chronic) Hypokalemia (Chronic) Pancytopenia (Chronic) Alcohol abuse (Chronic) Medical History: Medical History (Last Reviewed 02/11/19 @ 13:45 by Pineda Albert DO) Pancreatitis K85.90 Vitamin deficiency E56.9 Back problem M53.9 High blood pressure I10 Allergies seasonal Allergy (Uncoded 02/11/19 10:03) Other Home Medications: Ambulatory Orders Medication Instructions Recorded Magnesium Oxide 400 mg PO DAILY 01/20/19 Folic Acid 1 mg PO DAILY@0800 02/11/19 Lisinopril [Zestril] 5 mg PO DAILY 02/11/19 Multivitamin [One-Daily 1 ea PO DAILY 02/11/19 Multi-Vitamin] Potassium Chloride [K-Dur] 20 meq PO DAILY 02/11/19 Acetaminophen [Tylenol] 500 mg PO Q4H PRN PRN tab 02/14/19 Surgical History: Surgical History (Last Reviewed 02/11/19 @ 13:45 by Pineda Albert DO) History of appendectomy Z90.49 History of hernia surgery Z98.890, Z87.19 Surgical History: appendectomy, herniorrhaphy Psychiatric History: No pertinent psych hx Lives: Alone Smoking Status: Current every day smoker Tobacco Use: Cigarettes Alcohol: Heavy - He has not drank in about 2 weeks. - *Family History Maternal Family History: Family History (Last Reviewed 02/11/19 @ 13:45 by Pineda Albert DO) Other Alcoholism Anxiety Colon cancer Diabetes Hypertension Kidney disease Myocardial infarction Skin cancer ulcer disease History Items: Hypertension Paternal Family History: Family History (Last Reviewed 02/11/19 @ 13:45 by Pineda Albert DO) Other Alcoholism Anxiety Colon cancer Diabetes Hypertension Kidney disease Myocardial infarction Skin cancer ulcer disease History Items: Heart Disease - Father because of heart attack at age of 50. Sibling Family History: Family History (Last Reviewed 02/11/19 @ 13:45 by Pineda Albert DO) Other Alcoholism Anxiety Colon cancer Diabetes Hypertension Kidney disease Myocardial infarction Skin cancer ulcer disease History Items: Heart Disease, - - He has 3 brothers who had heart attacks at younger age. One brother had a heart attack at 39 years old, second brother had heart attack at age of 41 and another brother who had heart attack at age 46. Patient Problems: Active and Suspected Problems (Last Reviewed 02/11/19 @ 13:45 by Pineda Albert DO) Hyponatremia (Acute) Objective: Chest x-ray was personally reviewed and does show some hyperinflation, but no acute infiltrate. - Physical Exam Vitals/I&O's: Vital Signs Temp Pulse Resp BP Pulse Ox 36.2 C L 59 L 15 128/87 H 95 03/16/19 00:00 03/16/19 06:00 03/16/19 06:00 03/16/19 06:00 03/16/19 06:00 Oxygen Delivery Method Room Air Weight: 62.1 kg Body Mass Index (BMI) 20.1 Orthostatic Vital Signs Start: 03/14/19 09:59 Freq: q24h Status: Active Protocol: Activity Type Activity Date Activity User E-Sign Co-Sign Detail Recorded Client Recorded Date Recorded By Document 03/14/19 15:29 [facility] [id number] 03/14/19 15:38 [facility] 03/14/19 15:29 Orthostatic Vitals Standing -Blood Pressure (90/60-120/80) 163/108 H -Extremity Use Right Arm -Pulse Rate (60-100) 106 H Sitting -Blood Pressure (90/60-120/80) 152/104 H -Extremity Use Right Arm -Pulse Rate (60-100) 99 Lying -Blood Pressure (90/60-120/80) 144/80 H -Extremity Use Right Arm -Pulse Rate (60-100) 90 Intake and Output for Last 24 Hours 03/14/19 03/15/19 03/16/19 23:59 23:59 23:59 Intake Total 6636.66 / 7236.66 989.41 / 997.16 76.39 / 76.39 Output Total 0 / 0 500 / 500 Balance 6636.66 / 7236.66 989.41 / 997.16 -423.61 / -423.61 General: Confused, Disoriented, Lethargic, Non-Cooperative HEENT: Atraumatic, PERRLA, EOMI, Normocephalic, - - No scleral icterus or injection noted Oral: Moist Mucosa, No Gingival or Mucosal Lesions/ Ulcerations Neck: Supple, No JVD, No Nodes, Trachea Midline Lungs: Clear to auscultation, Normal air movement, No rhonchi, No wheeze, No rales Cardiovascular: Regular rate, Regular Rhythm, Normal S1, Normal S2, No murmurs, No rub noted, No Gallop Abdomen: Bowel Sounds Present, Soft, Non Tender, Non-Distended Extremities: No cyanosis, No edema, Capillary Refill Less than 3 Seconds, Clubbing Skin: No rashes, No breakdown, - - No caput medusa or petechiae appreciated Musculoskeletal: No Tenderness to Palpation of Joints or Extremities Lymphatic: No Cervical, Supraclavicular, or Inguinal Adenopathy Neurological: - - Moves all extremities appropriately. Some tremor appreciated. Sensation is intact. Follows simple commands for brief periods of time. Psych/Mental Status: Flat Affect Laboratory Results 03/16/19 04:35: Sodium 138, Potassium 3.4 L, Chloride 103, Carbon Dioxide 27.0, Anion Gap 8, BUN 17, Creatinine 0.66 L, Estim Creat Clear Calc 109.77, Est GFR (MDRD) Af Amer 162, Est GFR (MDRD) Non-Af 134, BUN/Creatinine Ratio 26.0 H, Glucose 110 H, Calcium 9.5, Phosphorus 4.3, Magnesium 1.0 L, Total Bilirubin 0.40, AST 89 H, ALT 82 H, Alkaline Phosphatase 46, Total Protein 7.1, Albumin 3.5, Globulin 3.6, Albumin/Globulin Ratio 1.0 03/16/19 04:35: WBC 2.8 L, RBC 2.93 L, Hgb 9.4 L, Hct 28.2 L, MCV 96.2 H, MCH 32.1 H, MCHC 33.3, RDW Std Deviation 51.1 H, RDW Coeff of Reece 15.0 H, Plt Count 97 L, MPV 10.0, Immature Gran % (Auto) 0.400, Neut % (Auto) 43.2 L, Lymph % (Auto) 36.4, [place] % (Auto) 15.7 H, Eos % (Auto) 2.9, Baso % (Auto) 1.4 H, Absolute Neuts (auto) 1.2 L, Absolute Lymphs (auto) 1.02, Nucleated RBC % 0 Current Medications Acetaminophen (Tylenol) 650 mg PO Q6H PRN PRN PRN Reason: Pain Score 1-3/Temp > 100.7 F Last Admin: 03/14/19 04:45 Dose: 650 mg Documented by: Dicyclomine HCl (Bentyl) 20 mg PO Q6H PRN PRN PRN Reason: abdominal discomfort Folic Acid (Folic Acid) 1 mg PO DAILY@0800 [facility] Last Admin: 03/15/19 09:20 Dose: 1 mg Documented by: Glucagon () 1 mg IM .X1 PRN PRN Reason: Hypoglycemia Hydroxyzine Pamoate (Vistaril Pamoate Capsule) 50 mg PO Q6H PRN PRN PRN Reason: Mild Anxiety (score 1/3) Sodium Chloride () 250 mls @ 15 mls/hr IV .[id number] PRN PRN Reason: Saline Flush Sodium Chloride () 250 mls @ 15 mls/hr IV .[id number] PRN PRN Reason: Additional IVPB Infusion Dexmedetomidine HCl 400 mcg/ (Sodium Chloride) 100 mls @ 7.763 mls/hr CONT INF .[id number] [facility]; Protocol Last Titration: 03/16/19 06:00 Dose: 0.4 mcg/kg/hr, 6.2 mls/hr Documented by: Dextrose (Dextrose 10%-Water) 250 mls @ 999 mls/hr IV .Q16M PRN; Protocol PRN Reason: HYPOGLYCEMIA Magnesium Sulfate () 4 gm in 100 mls @ 25 mls/hr IV X1 ONE Stop: 03/16/19 09:59 Last Admin: 03/16/19 06:26 Dose: 25 mls/hr Documented by: Potassium Chloride () 10 meq in 100 mls @ 100 mls/hr IV BOLUS Q1H [facility] Stop: 03/16/19 09:59 Last Admin: 03/16/19 06:26 Dose: 100 mls/hr Documented by: Lorazepam (Ativan) 2 mg PO Q2H PRN PRN; Protocol PRN Reason: CIWA score > 8 but <15 Last Admin: 03/15/19 13:40 Dose: 2 mg Documented by: Lorazepam (Ativan) 2 mg PO UD PRN; Protocol PRN Reason: CIWA score >/=15. Lorazepam (Ativan) 2 mg IV Q2H PRN PRN; Protocol PRN Reason: CIWA score > 8 but <15 Last Admin: 03/15/19 20:13 Dose: 2 mg Documented by: Lorazepam (Ativan) 2 mg IV UD PRN; Protocol PRN Reason: CIWA score >/=15. Lorazepam (Ativan) 1 mg PO Q6H [facility]; Taper Stop: 03/17/19 18:44 Last Admin: 03/16/19 04:42 Dose: Not Given Documented by: Methocarbamol (Methocarbamol) 750 mg PO Q6H PRN PRN PRN Reason: Muscle Aches [facility] Last Admin: 03/15/19 09:20 Dose: 1 tablet Documented by: Nicotine (Nicoderm Cq ([facility])) 21 mg TRANSDERM. DAILY [facility] Last Admin: 03/15/19 09:21 Dose: 21 mg Documented by: Nicotine Polacrilex (Rugby Nicotine ([facility])) 4 mg PO Q2H PRN PRN PRN Reason: Nicotine Craving Last Admin: 03/14/19 22:06 Dose: 4 mg Documented by: Ondansetron HCl (Zofran) 4 mg IV Q8H PRN PRN PRN Reason: NAUSEA/VOMITING Sodium Chloride () 10 - 40 ml IV UD PRN PRN Reason: SALINE FLUSH Last Admin: 03/15/19 20:13 Dose: 10 ml Documented by: Thiamine HCl ([facility]itamin B1) [facility] Stop: 03/16/19 08:01 Last Admin: 03/15/19 09:20 Dose: 100 mg Documented by: Clinical Impression(s) from Imaging Studies Chest X-Ray 03/12/19 03:42 IMPRESSION: COPD. No evidence for acute cardiopulmonary pathology. Electronically Signed: Piter Mcknight MD at 4:22 EST , Service support , Assessment/Plan Active and Suspected Problems (Last Reviewed 02/11/19 @ 13:45 by Pineda Albert DO) Hyponatremia (Acute) RECOMMENDATIONS: 1. Consider addition of basal medication such as phenobarb or Librium 2. Wean Precedex as tolerated 3. Magnesium and potassium repletion as ordered IMPRESSIONS: 1. Alcohol withdrawal Patient with significant CIWA score yesterday. Patient appears to be will defer to primary service, but patient may benefit from addition of phenobarbital Librium to help with improvements. Continue with as needed Ativan. Case management to follow. 2. Acute on chronic hyponatremia/hypokalemia/hyponatremia Sodium level is back to normal. Patient does have significant hyponatremia and hypomagnesemia noted on today's labs. These repletion's have been ordered. Patient does not appear to have any complications from hyponatremia at this time. 3. Pancytopenia Medical suspicion for sequela of alcohol abuse. Patient does not have any signs or symptoms of complications of thrombocytopenia that I can tell. Patient does not appear to be septic at this time. Will attempt to avoid restraints as he will be at increased risk for complications. Code Visit Inpatient E&M: 75247 Init Hosp L3
[2019-03-16] MEDS: Folic Acid 1 MG Tablet PO (09:12)
[2019-03-16] MEDS: Thiamine Hydrochloride 100 MG Tablet PO (09:12)
[2019-03-16] MEDS: Multivitamins,Therapeutic Tablet 1 TABLET PO (09:12)
[2019-03-16] MEDS: chlordiazePOXIDE 25 MG Capsule 50 MG PO ×3 (10:04→21:27)
[2019-03-16] MEDS: LORazepam 1 MG Tablet PO ×2 (10:04→17:46)
--- NOTE | 2019-03-16 11:07 | PN_ITS ---
Patient Problems: Active and Suspected Problems (Last Reviewed 02/11/19 @ 13:45 by Pineda Albert DO) Hyponatremia (Acute) Subjective: Patient seen and examined. Patient required transfer to the ICU yesterday on account of worsening agitation and increasing CIWA score. He had been started on alcohol withdrawal protocol with Ativan after he started going into withdrawal a couple of days ago. Of note, patient was insistent on being discharged yesterday and medical team had to spend a lot of time convincing patient to stay and also to get his family involved to convince patient to stay. He was started on Precedex in the ICU. Patient seen this morning. He was calm and on low-dose of Precedex. He was not agitated and had no complaints this morning. His girlfriend was by his bedside and said patient usually drinks a lot even though he usually states that he has been drinking a while. Review of systems otherwise negative. CIWA score this morning is 5. Potassium is 3.4 this morning and has been replaced. Magnesium was also 1 and has been replaced. Vitals/I&O's: Vital Signs Temp Pulse Resp BP Pulse Ox 97.2 F L 82 21 H 109/83 H 98 03/16/19 00:00 03/16/19 11:00 03/16/19 11:00 03/16/19 11:00 03/16/19 11:00 Oxygen Delivery Method Room Air Weight: 136 lb 14.513 oz Body Mass Index (BMI) 20.1 Orthostatic Vital Signs Start: 03/14/19 09:59 Freq: q24h Status: Active Protocol: Activity Type Activity Date Activity User E-Sign Co-Sign Detail Recorded Client Recorded Date Recorded By Document 03/14/19 15:29 [facility] [id number] 03/14/19 15:38 [facility] 03/14/19 15:29 Orthostatic Vitals Standing -Blood Pressure (90/60-120/80) 163/108 H -Extremity Use Right Arm -Pulse Rate (60-100) 106 H Sitting -Blood Pressure (90/60-120/80) 152/104 H -Extremity Use Right Arm -Pulse Rate (60-100) 99 Lying -Blood Pressure (90/60-120/80) 144/80 H -Extremity Use Right Arm -Pulse Rate (60-100) 90 Intake and Output for Last 24 Hours 03/14/19 03/15/19 03/16/19 23:59 23:59 23:59 Intake Total 6636.66 / 7236.66 989.41 / 997.16 586.19 / 586.19 Output Total 0 / 0 500 / 500 Balance 6636.66 / 7236.66 989.41 / 997.16 86.19 / 86.19 General: Alert, Cooperative, Confused, Lethargic HEENT: Atraumatic, PERRLA, EOMI, Normocephalic Oral: Dry Mucosa Neck: Supple, No JVD, Negative Carotid Bruits Lungs: Clear to auscultation, Normal air movement, No rhonchi, No wheeze, No rales Cardiovascular: Regular rate, Normal S1, Normal S2, No murmurs Abdomen: Bowel Sounds Present, Soft, Non Tender, Non-Distended, No Hepato- splenomegaly Extremities: No clubbing, No cyanosis, No edema, Capillary Refill Less than 3 Seconds Skin: No rashes, No breakdown Musculoskeletal: No Tenderness to Palpation of Joints or Extremities Lymphatic: No Cervical, Supraclavicular, or Inguinal Adenopathy Neurological: Cranial nerves II-XII grossly intact, - - has tremors of UEs, flat affect, slow speech Psych/Mental Status: Flat Affect Laboratory Results 03/16/19 04:35: Sodium 138, Potassium 3.4 L, Chloride 103, Carbon Dioxide 27.0, Anion Gap 8, BUN 17, Creatinine 0.66 L, Estim Creat Clear Calc 109.77, Est GFR (MDRD) Af Amer 162, Est GFR (MDRD) Non-Af 134, BUN/Creatinine Ratio 26.0 H, Glucose 110 H, Calcium 9.5, Phosphorus 4.3, Magnesium 1.0 L, Total Bilirubin 0.40, AST 89 H, ALT 82 H, Alkaline Phosphatase 46, Total Protein 7.1, Albumin 3.5, Globulin 3.6, Albumin/Globulin Ratio 1.0 03/16/19 04:35: WBC 2.8 L, RBC 2.93 L, Hgb 9.4 L, Hct 28.2 L, MCV 96.2 H, MCH 32.1 H, MCHC 33.3, RDW Std Deviation 51.1 H, RDW Coeff of Reece 15.0 H, Plt Count 97 L, MPV 10.0, Immature Gran % (Auto) 0.400, Neut % (Auto) 43.2 L, Lymph % (Auto) 36.4, [place] % (Auto) 15.7 H, Eos % (Auto) 2.9, Baso % (Auto) 1.4 H, Absolute Neuts (auto) 1.2 L, Absolute Lymphs (auto) 1.02, Nucleated RBC % 0 Current Medications Acetaminophen (Tylenol) 650 mg PO Q6H PRN PRN PRN Reason: Pain Score 1-3/Temp > 100.7 F Last Admin: 03/14/19 04:45 Dose: 650 mg Documented by: Chlordiazepoxide (Librium) 50 mg PO Q6H [facility]; Taper Stop: 03/19/19 11:59 Last Admin: 03/16/19 10:04 Dose: 50 mg Documented by: Dicyclomine HCl (Bentyl) 20 mg PO Q6H PRN PRN PRN Reason: abdominal discomfort Folic Acid (Folic Acid) 1 mg PO DAILY@0800 [facility] Last Admin: 03/16/19 09:12 Dose: 1 mg Documented by: Glucagon () 1 mg IM .X1 PRN PRN Reason: Hypoglycemia Hydroxyzine Pamoate (Vistaril Pamoate Capsule) 50 mg PO Q6H PRN PRN PRN Reason: Mild Anxiety (score 1/3) Sodium Chloride () 250 mls @ 15 mls/hr IV .[id number] PRN PRN Reason: Saline Flush Sodium Chloride () 250 mls @ 15 mls/hr IV .[id number] PRN PRN Reason: Additional IVPB Infusion Dexmedetomidine HCl 400 mcg/ (Sodium Chloride) 100 mls @ 7.763 mls/hr CONT INF .[id number] [facility]; Protocol Last Admin: 03/16/19 10:01 Dose: Not Given Documented by: Dextrose (Dextrose 10%-Water) 250 mls @ 999 mls/hr IV .Q16M PRN; Protocol PRN Reason: HYPOGLYCEMIA Lorazepam (Ativan) 2 mg PO Q2H PRN PRN; Protocol PRN Reason: CIWA score > 8 but <15 Last Admin: 03/15/19 13:40 Dose: 2 mg Documented by: Lorazepam (Ativan) 2 mg PO UD PRN; Protocol PRN Reason: CIWA score >/=15. Lorazepam (Ativan) 2 mg IV Q2H PRN PRN; Protocol PRN Reason: CIWA score > 8 but <15 Last Admin: 03/15/19 20:13 Dose: 2 mg Documented by: Lorazepam (Ativan) 2 mg IV UD PRN; Protocol PRN Reason: CIWA score >/=15. Lorazepam (Ativan) 1 mg PO Q8H [facility]; Taper Stop: 03/17/19 18:44 Last Admin: 03/16/19 10:04 Dose: 1 mg Documented by: Methocarbamol (Methocarbamol) 750 mg PO Q6H PRN PRN PRN Reason: Muscle Aches Multivitamins (Multivitamin) 1 tablet PO DAILYCM [facility] Last Admin: 03/16/19 09:12 Dose: 1 tablet Documented by: Nicotine (Nicoderm Cq ([facility])) 21 mg TRANSDERM. DAILY [facility] Last Admin: 03/16/19 09:17 Dose: 21 mg Documented by: Nicotine Polacrilex (Rugby Nicotine ([facility])) 4 mg PO Q2H PRN PRN PRN Reason: Nicotine Craving Last Admin: 03/14/19 22:06 Dose: 4 mg Documented by: Ondansetron HCl (Zofran) 4 mg IV Q8H PRN PRN PRN Reason: NAUSEA/VOMITING Sodium Chloride () 10 - 40 ml IV UD PRN PRN Reason: SALINE FLUSH Last Admin: 03/15/19 20:13 Dose: 10 ml Documented by: STROKE Vital Signs/Narrative: Vital Signs Pulse Resp BP BP Pulse Ox 03/16/19 11:00 82 21 H 109/83 H 98 03/16/19 10:00 73 17 114/99 H 114/99 H 97 03/16/19 09:00 60 11 L 130/90 H 95 03/16/19 08:00 58 L 13 128/86 H 97 03/16/19 07:35 58 L Medical Necessity - Tobacco Use Smoking Status: Current every day smoker Tobacco Use: Cigarettes Assessment/Plan All Active Problems (Last Reviewed 02/11/19 @ 13:45 by Pineda Albert DO) Hyponatremia (Acute) Alcohol withdrawal (Acute) 58-year-old admitted with a complaint of nausea and vomiting as well as diarrhea. 1. Acute alcohol withdrawal with delirium tremens * CIWA score was 24 yesterday. Was on alcohol withdrawal protocl with ativan; became even more agitated and had to be transferred to ICU for start of precedex drip * currently on low dose of precedex * CIWA score this morning is 5 * will start patient on librium, to be able to wean off precedex completely * on thiamine, folic acid and multivite supplement * 2. hypomagenesemia and hypokalemia * magnesium is 1. being replaced. potassium is 3.4. * replacement given 3. Acute on chronic hyponatremia: resolved. 4. Pancytopenia: wbc is 2.8 today, with Hb of 9.4 and platelets of 97. Likely due to chronic alcohol abuse. Will monitor DVT prophylaxis; SCDs, o/a of significant thrombocytopenia Code Visit Inpatient E&M: 26586 Subs Hosp L3
[2019-03-16] MEDS: Acetaminophen 325 MG Tablet 650 MG PO ×2 (13:41→21:27)
[2019-03-16] MEDS: LORazepam 1 MG Tablet 2 MG PO (13:43)
[2019-03-16 16:35] LABS: Magnesium 1.7 mg/dL (1.6-2.6)
--- NOTE | 2019-03-16 19:05 | PCM.PN.REN ---
Patient Problems: Active and Suspected Problems (Last Reviewed 02/11/19 @ 13:45 by Pineda Albert DO) Hyponatremia (Acute) Subjective: following for hyponatremia, hypokalemia. Moved to ICU last night because of agitation requiring Precedex. He denies headache or nausea. - Physical Exam Vitals/I&O's: Vital Signs Temp Pulse Resp BP Pulse Ox 98.1 F 89 24 H 130/87 H 98 03/16/19 12:00 03/16/19 18:00 03/16/19 18:00 03/16/19 18:00 03/16/19 18:00 Oxygen Delivery Method Room Air Weight: 62.1 kg Body Mass Index (BMI) 20.1 Intake and Output for Last 24 Hours 03/14/19 03/15/19 03/16/19 23:59 23:59 23:59 Intake Total 6636.66 / 7236.66 989.41 / 997.16 1394.74 / 1394.74 Output Total 0 / 0 1425 / 1425 Balance 6636.66 / 7236.66 989.41 / 997.16 -30.26 / -30.26 General: Alert, Oriented x3 Oral: Moist Mucosa Neck: Supple Lungs: Clear to auscultation Cardiovascular: Normal S1, Normal S2 Abdomen: Bowel Sounds Present, Soft, Non Tender Extremities: No edema Laboratory Results 03/16/19 04:35: Sodium 138, Potassium 3.4 L, Chloride 103, Carbon Dioxide 27.0, Anion Gap 8, BUN 17, Creatinine 0.66 L, Estim Creat Clear Calc 109.77, Est GFR (MDRD) Af Amer 162, Est GFR (MDRD) Non-Af 134, BUN/Creatinine Ratio 26.0 H, Glucose 110 H, Calcium 9.5, Phosphorus 4.3, Magnesium 1.0 L, Total Bilirubin 0.40, AST 89 H, ALT 82 H, Alkaline Phosphatase 46, Total Protein 7.1, Albumin 3.5, Globulin 3.6, Albumin/Globulin Ratio 1.0 03/16/19 04:35: WBC 2.8 L, RBC 2.93 L, Hgb 9.4 L, Hct 28.2 L, MCV 96.2 H, MCH 32.1 H, MCHC 33.3, RDW Std Deviation 51.1 H, RDW Coeff of Reece 15.0 H, Plt Count 97 L, MPV 10.0, Immature Gran % (Auto) 0.400, Neut % (Auto) 43.2 L, Lymph % (Auto) 36.4, Shasta % (Auto) 15.7 H, Eos % (Auto) 2.9, Baso % (Auto) 1.4 H, Absolute Neuts (auto) 1.2 L, Absolute Lymphs (auto) 1.02, Nucleated RBC % 0 03/16/19 15:00: Magnesium 1.7 Current Medications Acetaminophen (Tylenol) 650 mg PO Q6H PRN PRN PRN Reason: Pain Score 1-3/Temp > 100.7 F Last Admin: 03/16/19 13:41 Dose: 650 mg Documented by: Chlordiazepoxide (Librium) 50 mg PO Q6H COUNTS INCLUDE 234 BEDS AT THE [facility]; Taper Stop: 03/19/19 11:59 Last Admin: 03/16/19 15:40 Dose: 50 mg Documented by: Dicyclomine HCl (Bentyl) 20 mg PO Q6H PRN PRN PRN Reason: abdominal discomfort Folic Acid (Folic Acid) 1 mg PO DAILY@0800 COUNTS INCLUDE 234 BEDS AT THE [facility] Last Admin: 03/16/19 09:12 Dose: 1 mg Documented by: Glucagon () 1 mg IM .X1 PRN PRN Reason: Hypoglycemia Hydroxyzine Pamoate (Vistaril Pamoate Capsule) 50 mg PO Q6H PRN PRN PRN Reason: Mild Anxiety (score 1/3) Sodium Chloride () 250 mls @ 15 mls/hr IV .[id number] PRN PRN Reason: Saline Flush Sodium Chloride () 250 mls @ 15 mls/hr IV .[id number] PRN PRN Reason: Additional IVPB Infusion Dexmedetomidine HCl 400 mcg/ (Sodium Chloride) 100 mls @ 7.763 mls/hr CONT INF .[id number] COUNTS INCLUDE 234 BEDS AT THE [facility]; Protocol Last Titration: 03/16/19 16:47 Dose: Infused Documented by: Dextrose (Dextrose 10%-Water) 250 mls @ 999 mls/hr IV .Q16M PRN; Protocol PRN Reason: HYPOGLYCEMIA Lorazepam (Ativan) 2 mg PO Q2H PRN PRN; Protocol PRN Reason: CIWA score > 8 but <15 Last Admin: 03/16/19 13:43 Dose: 2 mg Documented by: Lorazepam (Ativan) 2 mg PO UD PRN; Protocol PRN Reason: CIWA score >/=15. Lorazepam (Ativan) 2 mg IV Q2H PRN PRN; Protocol PRN Reason: CIWA score > 8 but <15 Last Admin: 03/15/19 20:13 Dose: 2 mg Documented by: Lorazepam (Ativan) 2 mg IV UD PRN; Protocol PRN Reason: CIWA score >/=15. Lorazepam (Ativan) 1 mg PO Q8H KATE; Taper Stop: 03/17/19 18:44 Last Admin: 03/16/19 17:46 Dose: 1 mg Documented by: Methocarbamol (Methocarbamol) 750 mg PO Q6H PRN PRN PRN Reason: Muscle Aches Multivitamins (Multivitamin) 1 tablet PO DAILYCM KATE Last Admin: 03/16/19 09:12 Dose: 1 tablet Documented by: Nicotine (Nicoderm Cq (kc)) 21 mg TRANSDERM. DAILY COUNTS INCLUDE 234 BEDS AT THE [facility] Last Admin: 03/16/19 09:17 Dose: 21 mg Documented by: Nicotine Polacrilex (Rugby Nicotine (Pb[facility])) 4 mg PO Q2H PRN PRN PRN Reason: Nicotine Craving Last Admin: 03/14/19 22:06 Dose: 4 mg Documented by: Ondansetron HCl (Zofran) 4 mg IV Q8H PRN PRN PRN Reason: NAUSEA/VOMITING Sodium Chloride () 10 - 40 ml IV UD PRN PRN Reason: SALINE FLUSH Last Admin: 03/15/19 20:13 Dose: 10 ml Documented by: Medical Necessity - Tobacco Use Smoking Status: Current every day smoker Tobacco Use: Cigarettes Assessment/Plan All Active Problems (Last Reviewed 02/11/19 @ 13:45 by Pineda Albert DO) Hyponatremia (Acute) Alcohol withdrawal (Acute) 1. Hyponatremia. RESOLVED for now. Known history of alcohol abuse. On review of his lab data he did have low sodium values before. Last sodium that I see in the system is 125. Admitted with sodium of 119. Urine sodium was low, consistent with hypovolemic hyponatremia. Na has improved at a safe rate with volume repletion. Na is stable last 48 hrs. Encourage oral solute (protein) intake. Will monitor. 2. Acidosis. RESOLVED. likely starvation related. 3. Hypokalemia. Received KCl on 03/15/19. Better today. Mg was also low which likely explained prior difficulty in correcting low K. Follow K and Mg. 4. Hypomagnesemia. Replaced Mg deficit. Recheck tomorrow as Mg can decrease after boluses quickly. Phos is OK so far, but would recheck as phos level can decrease in alcoholic when refeeds.
[2019-03-16] MEDS: Psyllium 1 PACKET PO (21:27)
[2019-03-17] VITALS (11 sets, daily range): BP systolic 92–129; BP diastolic 63–95; PULSE 65–88; RESP 15–19; TEMP 36.6–36.8; O2SAT 92–100
[2019-03-17] MEDS: LORazepam 1 MG Tablet PO ×2 (02:02→10:19)
[2019-03-17 04:09] LABS: Absolute Lymphocyte Count 1.02 X10^3/uL (0.83-4.51); Absolute Neutrophil Count 1.6 X10^3/uL (2.0-7.7); Basophil# 0.05 X10^3/uL; Basophil% 1.5 % (0-1); Eosinophil# 0.07 X10^3/uL; Eosinophils% 2.1 % (0-5); Hematocrit 27.6 % (40-54); Hemoglobin 9.3 g/dL (13.0-16.5); Lymphocyte # 1.02 X10^3/ul (4.0); Lymphocyte % 29.9 % (19-41); Mean Corp Hgb Conc 33.7 g/dL (32-36); Mean Corpuscular Hgb 32.5 pg (27.0-32.0); Mean Corpuscular Volume 96.5 fL (80-94); Mean Platelet Vol. 9.6 fl (6.2-12.0); Monocyte% 20.5 % (0-10); NRBC Flagged by Analyzer 0 % (0-5); Neutrophil # 1.55 X10^3/uL (2.7-7.7); Neutrophil % 45.4 % (47-70); Platelet Count 123 K/mm3 (150-450); RBC Distribution Width CV 15.1 % (11.6-14.6); RBC Distribution Width SD 52.4 fl (35.1-43.9); Red Blood Count 2.86 M/mm3 (4.6-6.2); White Blood Count 3.4 K/mm3 (4.4-11.0)
[2019-03-17 04:38] LABS: Anion Gap 8 (5-15); BUN 22 mg/dL (7-18); BUN/Creat Ratio 27.2 RATIO (10-20); Calcium,Total 9.3 mg/dL (8.5-10.1); Chloride 100 mmol/L (98-107); Creatinine, Serum 0.81 mg/dL (0.70-1.30); EST Glomerular Filtration Rate 105 mL/min (>60); Est Glom Filt Rate - Afr Amer 127 mL/min (>60); Estimated Creatinine Clearance 91.89 ml/min; Glucose 95 mg/dL (74-106); Magnesium 1.3 mg/dL (1.6-2.6); Phosphorus 5.6 mg/dL (2.5-4.9); Potassium 3.7 mmol/L (3.5-5.1); Sodium Level 135 mmol/L (136-145)
[2019-03-17] MEDS: chlordiazePOXIDE 25 MG Capsule 50 MG PO ×2 (04:46→12:52)
--- NOTE | 2019-03-17 06:46 | PCM.PN.INT ---
Subjective: The patient was seen and examined at the bedside this morning. Events from the last 24 hours have been reviewed. The patient is currently afebrile, hemodynamically stable and maintaining appropriate oxygen saturations on room air. The patient has been off of the continuous Precedex infusion since yesterday. He is currently on a Librium taper. Magnesium was low this morning at 1.3. Objective: The patient's most recent lab work, culture data and imaging studies have all been personally reviewed. General: Alert, No apparent distress HEENT: Atraumatic, Normocephalic Oral: No Gingival or Mucosal Lesions/ Ulcerations Neck: Supple, No Nodes, Trachea Midline Lungs: No rhonchi, No wheeze, No rales Cardiovascular: Regular rate, Regular Rhythm, Normal S1, Normal S2, No murmurs Abdomen: Bowel Sounds Present, Soft, Non Tender Extremities: No clubbing, No cyanosis, No edema Skin: No breakdown Musculoskeletal: No Tenderness to Palpation of Joints or Extremities, No Muscle Wasting Lymphatic: No Cervical, Supraclavicular, or Inguinal Adenopathy Neurological: Cranial nerves II-XII grossly intact, Neuro grossly intact Psych/Mental Status: Flat Affect Vital Signs Temp Pulse Resp BP Pulse Ox 98.2 F 65 15 118/95 H 92 03/17/19 05:00 03/17/19 05:58 03/17/19 05:58 03/17/19 05:58 03/17/19 05:58 Oxygen Delivery Method Room Air Weight: 140 lb 10.479 oz Body Mass Index (BMI) 20.1 Intake and Output for Last 24 Hours 03/15/19 03/16/19 03/17/19 23:59 23:59 23:59 Intake Total 989.41 / 997.16 1714.74 / 1714.74 220 / 220 Output Total 0 / 0 1825 / 1825 500 / 500 Balance 989.41 / 997.16 -110.26 / -110.26 -280 / -280 Labs (Last 48 Hours) 03/15/19 03/16/19 03/16/19 06:00 04:35 04:35 WBC 2.8 L RBC 2.93 L Hgb 9.4 L Hct 28.2 L MCV 96.2 H MCH 32.1 H MCHC 33.3 RDW Std Deviation 51.1 H RDW Coeff of Reece 15.0 H Plt Count 97 L MPV 10.0 Immature Gran % (Auto) 0.400 Neut % (Auto) 43.2 L Lymph % (Auto) 36.4 Nolan % (Auto) 15.7 H Eos % (Auto) 2.9 Baso % (Auto) 1.4 H Absolute Neuts (auto) 1.2 L Absolute Lymphs (auto) 1.02 Nucleated RBC % 0 Platelet Estimate MOD DEC Anisocytosis RARE Macrocytosis RARE Sodium 138 Potassium 3.4 L Chloride 103 Carbon Dioxide 27.0 Anion Gap 8 BUN 17 Creatinine 0.66 L Estim Creat Clear Calc 109.77 Est GFR (MDRD) Af Amer 162 Est GFR (MDRD) Non-Af 134 BUN/Creatinine Ratio 26.0 H Glucose 110 H Calcium 9.5 Phosphorus 4.3 Magnesium 1.0 L Total Bilirubin 0.40 AST 89 H ALT 82 H Alkaline Phosphatase 46 Total Protein 7.1 Albumin 3.5 Globulin 3.6 Albumin/Globulin Ratio 1.0 03/16/19 03/17/19 03/17/19 15:00 04:00 04:00 WBC 3.4 L RBC 2.86 L Hgb 9.3 L Hct 27.6 L MCV 96.5 H MCH 32.5 H MCHC 33.7 RDW Std Deviation 52.4 H RDW Coeff of Reece 15.1 H Plt Count 123 L MPV 9.6 Immature Gran % (Auto) 0.600 Neut % (Auto) 45.4 L Lymph % (Auto) 29.9 Nolan % (Auto) 20.5 H Eos % (Auto) 2.1 Baso % (Auto) 1.5 H Absolute Neuts (auto) 1.6 L Absolute Lymphs (auto) 1.02 Nucleated RBC % 0 Platelet Estimate Anisocytosis Macrocytosis Sodium 135 L Potassium 3.7 Chloride 100 Carbon Dioxide 27.0 Anion Gap 8 BUN 22 H Creatinine 0.81 Estim Creat Clear Calc 91.89 Est GFR (MDRD) Af Amer 127 Est GFR (MDRD) Non-Af 105 BUN/Creatinine Ratio 27.2 H Glucose 95 Calcium 9.3 Phosphorus 5.6 H Magnesium 1.7 1.3 L Total Bilirubin AST ALT Alkaline Phosphatase Total Protein Albumin Globulin Albumin/Globulin Ratio Clinical Impression(s) from Imaging Studies Chest X-Ray 03/12/19 03:42 IMPRESSION: COPD. No evidence for acute cardiopulmonary pathology. Electronically Signed: Piter Mcknight MD at 4:22 EST , Service support , Medical Necessity - Tobacco Use Smoking Status: Current every day smoker Tobacco Use: Cigarettes Assessment/Plan All Active Problems (Last Reviewed 02/11/19 @ 13:45 by Pineda Albert DO) Hyponatremia (Acute) Alcohol withdrawal (Acute) RECOMMENDATIONS: 1. Discontinue Precedex. 2. Continue Librium taper and as needed Ativan. 3. Continue thiamine and folate repletion. 4. Magnesium repletion as ordered. 5. The patient is medically stable for transfer out of the intensive care unit. Will sign off from a critical care perspective. IMPRESSIONS: 1. Acute alcohol withdrawal Although the patient did initially required the utilization of Precedex, upon being started on a Librium taper, he was able to be weaned off of the continuous infusion of Precedex. The patient is medically stable at this time. Recommend continuing current supportive measures with Librium taper and as needed Ativan. Continue thiamine and folate repletion. 2. Hypomagnesemia Electrolyte repletion as ordered. Recheck levels in the morning. 3. Pancytopenia Likely the sequelae of underlying chronic alcoholism. Counts are stable at this time. This note was generated with [employer] software. It may contain incorrect words, spelling, and punctuation that were not noted in checking the note before signing. Code Visit Inpatient E&M: 91189 Subs Hosp L2
[2019-03-17] MEDS: Magnesium Sulfate 4gm/100mL 4 GM/100 ML IV.SOLN. IV (07:47)
[2019-03-17] MEDS: Multivitamins,Therapeutic Tablet 1 TABLET PO (07:48)
[2019-03-17] MEDS: Folic Acid 1 MG Tablet PO (07:48)
--- NOTE | 2019-03-17 08:03 | DCINST_ITS ---
- Discharge Diagnoses Current Active Problems: Current Active and Chronic Problems (Last Reviewed 02/11/19 @ 13:45 by Pineda Albert DO) Hyponatremia (Acute) You will use the following diet at home:: No restrictions Discharge Activity: Return to Normal Activity, May Not Drive - Whilst intoxicat ed Call your doctor if you observe: Fever of 101 or Higher, Shortness of breath Instructions: Hypokalemia, Hyponatremia Allergies/Adverse Reactions: Allergies seasonal Allergy (Uncoded 02/11/19 10:03) Other Medications to take at Discharge Magnesium Oxide 400 mg PO DAILY 01/20/19 Folic Acid 1 mg PO DAILY@0800 02/11/19 Lisinopril [Zestril] 5 mg PO DAILY 02/11/19 Multivitamin [One-Daily Multi-Vitamin] 1 ea PO DAILY 02/11/19 Potassium Chloride [K-Dur] 20 meq PO DAILY 02/11/19 Acetaminophen [Tylenol] 500 mg PO Q4H PRN PRN tab 02/14/19 Primary Care Physician: Care Physician,No Primary [Primary Care Provider] - Test Results: Test results from this visit will be discussed in further detail at your follow- up appointment, if applicable. Please Follow Up With: Taylor Patel MD When: 1-2weeks; call office to set up PCP appointment Please Follow Up With: [facility] When: 03/17/2019 at 1:30 PM Proposed Discharge Date: 03/17/19
--- NOTE | 2019-03-17 08:06 | DS.PCM_ITS ---
Discharge Date and Diagnosis - Problem List Patient Problems: Active and Suspected Problems (Last Reviewed 02/11/19 @ 13:45 by Pineda Albert DO) Hyponatremia (Acute) Date of Admission: 03/12/19 Date of Discharge: 03/17/19 - Primary Discharge Diagnosis Active and Suspected Problems (Last Reviewed 02/11/19 @ 13:45 by Pineda Albert DO) Hyponatremia (Acute) - Secondary Discharge Diagnosis Chronic Problems (Last Reviewed 02/11/19 @ 13:45 by Pineda Albert DO) Alcoholism (Chronic) Hypomagnesemia (Chronic) Hypokalemia (Chronic) Pancytopenia (Chronic) Alcohol abuse (Chronic) Hospital Course and Treatment Consultations 03/15/19 08:10 Consult: Mental Health/Crisis Routine Reason for consult?: To determine if patient is able to make decision to leave AMA for himself or if he needs pink-slipped Date Notified:: 03/15/19 Time notified:: 08:10 Operations: None Summary of Care Provided: The patient is a 58 year old M with a history of chronic alcohol use presented with nausea vomiting as well as diarrhea and assessment of acute alcohol withdrawal made 1. Acute alcohol withdrawal with DTs Patient was initially managed with Ativan however his condition worsened resulting in patient being transferred to the intensive care unit where he was managed with Precedex drip. Patient condition did stabilize after 5 days of hospitalization he did request to be discharged home. He has an appointment at [facility] counseling services on the day of his discharge status 03/17/2019 at 1:30 PM 2. Hypomagnesemia corrected per protocol 3. Hypokalemia corrected per protocol 4. Hyponatremia chronic 5. Pancytopenia chronic Patient Problems: Active and Suspected Problems (Last Reviewed 02/11/19 @ 13:45 by Pineda Albert DO) Hyponatremia (Acute) - Physical Exam Vitals/I&O's: Vital Signs Temp Pulse Resp BP Pulse Ox 98.1 F 88 15 114/86 H 98 03/17/19 07:57 03/17/19 07:57 03/17/19 07:57 03/17/19 07:57 03/17/19 07:57 Oxygen Delivery Method Room Air Weight: 63.8 kg Body Mass Index (BMI) 20.1 Intake and Output for Last 24 Hours 03/15/19 03/16/1903/17/20 23:59 23:59 23:59 Intake Total 989.41 / 997.16 1714.74 / 1714.74 220 / 220 Output Total 0 / 0 1825 / 1825 500 / 500 Balance 989.41 / 997.16 -110.26 / -110.26 -280 / -280 General: Alert HEENT: Atraumatic Oral: Moist Mucosa Neck: Supple Lungs: Diminished Cardiovascular: Regular rate, Regular Rhythm Neurological: Neuro grossly intact Psych/Mental Status: Normal Affect Laboratory Results 03/16/19 15:00: Magnesium 1.7 03/17/19 04:00: WBC 3.4 L, RBC 2.86 L, Hgb 9.3 L, Hct 27.6 L, MCV 96.5 H, MCH 32.5 H, MCHC 33.7, RDW Std Deviation 52.4 H, RDW Coeff of Reece 15.1 H, Plt Count 123 L, MPV 9.6, Immature Gran % (Auto) 0.600, Neut % (Auto) 45.4 L, Lymph % (Auto) 29.9, Bowman % (Auto) 20.5 H, Eos % (Auto) 2.1, Baso % (Auto) 1.5 H, Absolute Neuts (auto) 1.6 L, Absolute Lymphs (auto) 1.02, Nucleated RBC % 0 03/17/19 04:00: Sodium 135 L, Potassium 3.7, Chloride 100, Carbon Dioxide 27.0, Anion Gap 8, BUN 22 H, Creatinine 0.81, Estim Creat Clear Calc 91.89, Est GFR (MDRD) Af Amer 127, Est GFR (MDRD) Non-Af 105, BUN/Creatinine Ratio 27.2 H, Glucose 95, Calcium 9.3, Phosphorus 5.6 H, Magnesium 1.3 L Current Medications Acetaminophen (Tylenol) 650 mg PO Q6H PRN PRN PRN Reason: Pain Score 1-3/Temp > 100.7 F Last Admin: 03/16/19 21:27 Dose: 650 mg Documented by: Chlordiazepoxide (Librium) 50 mg PO Q8H KATE; Taper Stop: 03/19/19 11:59 Last Admin: 03/17/19 04:46 Dose: 50 mg Documented by: Dicyclomine HCl (Bentyl) 20 mg PO Q6H PRN PRN PRN Reason: abdominal discomfort Folic Acid (Folic Acid) 1 mg PO DAILY@0800 [facility] Last Admin: 03/17/19 07:48 Dose: 1 mg Documented by: Glucagon () 1 mg IM .X1 PRN PRN Reason: Hypoglycemia Hydroxyzine Pamoate (Vistaril Pamoate Capsule) 50 mg PO Q6H PRN PRN PRN Reason: Mild Anxiety (score 1/3) Sodium Chloride () 250 mls @ 15 mls/hr IV .[id number] PRN PRN Reason: Saline Flush Sodium Chloride () 250 mls @ 15 mls/hr IV .[id number] PRN PRN Reason: Additional IVPB Infusion Dexmedetomidine HCl 400 mcg/ (Sodium Chloride) 100 mls @ 7.763 mls/hr CONT INF .[id number] KATE; Protocol Last Admin: 03/16/19 21:36 Dose: Not Given Documented by: Dextrose (Dextrose 10%-Water) 250 mls @ 999 mls/hr IV .Q16M PRN; Protocol PRN Reason: HYPOGLYCEMIA Magnesium Sulfate () 4 gm in 100 mls @ 25 mls/hr IV X1 ONE Stop: 03/17/19 11:29 Last Admin: 03/17/19 07:47 Dose: 25 mls/hr Documented by: Lorazepam (Ativan) 2 mg PO Q2H PRN PRN; Protocol PRN Reason: CIWA score > 8 but <15 Last Admin: 03/16/19 13:43 Dose: 2 mg Documented by: Lorazepam (Ativan) 2 mg PO UD PRN; Protocol PRN Reason: CIWA score >/=15. Lorazepam (Ativan) 2 mg IV Q2H PRN PRN; Protocol PRN Reason: CIWA score > 8 but <15 Last Admin: 03/15/19 20:13 Dose: 2 mg Documented by: Lorazepam (Ativan) 2 mg IV UD PRN; Protocol PRN Reason: CIWA score >/=15. Lorazepam (Ativan) 1 mg PO Q8H KATE; Taper Stop: 03/17/19 18:44 Last Admin: 03/17/19 02:02 Dose: 1 mg Documented by: Magnesium Hydroxide (Milk Of Magnesia) 30 ml PO BID PRN PRN PRN Reason: Constipation Methocarbamol (Methocarbamol) 750 mg PO Q6H PRN PRN PRN Reason: Muscle Aches Multivitamins (Multivitamin) 1 tablet PO DAILYCM [facility] Last Admin: 03/17/19 07:48 Dose: 1 tablet Documented by: Nicotine (Nicoderm Cq ([facility])) 21 mg TRANSDERM. DAILY [facility] Last Admin: 03/16/19 09:17 Dose: 21 mg Documented by: Nicotine Polacrilex (Rugby Nicotine ([facility])) 4 mg PO Q2H PRN PRN PRN Reason: Nicotine Craving Last Admin: 03/14/19 22:06 Dose: 4 mg Documented by: Ondansetron HCl (Zofran) 4 mg IV Q8H PRN PRN PRN Reason: NAUSEA/VOMITING Psyllium Hydrophilic Mucilloid (Metamucil) 1 packet PO BID PRN PRN PRN Reason: Constipation Last Admin: 03/16/19 21:27 Dose: 1 packet Documented by: Senna/Docusate Sodium (Senokot-S, Nisa-Colace) 2 tablet PO BID PRN PRN PRN Reason: Constipation Sodium Chloride () 10 - 40 ml IV UD PRN PRN Reason: SALINE FLUSH Last Admin: 03/15/19 20:13 Dose: 10 ml Documented by: Discharge Diet: No Restrictions Discharge Activity: Return to Normal Activity, May Not Drive - Whilst intoxicated Call your doctor if you observe: Fever of 101 or Higher, Shortness of breath Home Medications: Medications to take at Discharge Magnesium Oxide 400 mg PO DAILY 01/20/19 Folic Acid 1 mg PO DAILY@0800 02/11/19 Lisinopril [Zestril] 5 mg PO DAILY 02/11/19 Multivitamin [One-Daily Multi-Vitamin] 1 ea PO DAILY 02/11/19 Potassium Chloride [K-Dur] 20 meq PO DAILY 02/11/19 Acetaminophen [Tylenol] 500 mg PO Q4H PRN PRN tab 02/14/19 Primary Care Physician: Care Physician,No Primary [Primary Care Provider] - Please Follow Up With: Taylor Patel MD When: 1-2weeks; call office to set up PCP appointment Please Follow Up With: [facility] When: 03/17/2019 at 1:30 PM Patient Instructions: Hypokalemia, Hyponatremia Disposition: Home Minutes spent on discharge:: 35 Patient Condition:: Stable Medical Necessity - Tobacco Use Smoking Status: Current every day smoker Tobacco Use: Cigarettes Meaningful Use Info Meaningful Use Diagnoses (Choose all that apply): None applicable Code Visit Inpatient E&M: 37142 Disch Hosp
[2019-03-17] MEDS: Senna/Docusate Sodium 1 Tablet 2 TABLET PO (10:19)
--- NOTE | 2019-03-17 10:39 | CASEMGMT ---
Social Work Pt reporting to nursing he had an appointment with [facility] today at 1:30. Phone call to [facility] and they state appointment was today at 1000. New appointment scheduled for tomorrow 03/18 at 0800. Appointment written and given to pt. ANDRIY Noland
== END 2019-03-17 13:20 | disposition home or self-care (01) | DRG 392 ==
LOC: ED 03:42 → ICU 05:20 → PCU 18:18 → ICU 03-15 20:59
PROVIDERS: Internal Medicine; Internal Medicine Nephrology; Admitting Provider Student in an Organized Health Care Education/Training Program; Emergency Provider Emergency Medicine; Visit Provider Internal Medicine
DX: A08.4 Viral intestinal infection, unspecified (principal); E87.1 Hypo-osmolality and hyponatremia; D61.818 Other pancytopenia; F10.231 Alcohol dependence with withdrawal delirium; E87.2 Acidosis; E83.52 Hypercalcemia; I95.1 Orthostatic hypotension; F17.210 Nicotine dependence, cigarettes, uncomplicated; E87.6 Hypokalemia; E83.42 Hypomagnesemia
CPT/HCPCS: 36415; 71046; 80048; 80053; 80320; 82009; 82803; 83605; 83735; 83930; 83935; 84100; 84300; 85025; 87804; 97110; 97161; 97165; 97802; 99251; 99285; 99406; J7030; A4216; G0463; G0480; J2405

== ENCOUNTER 2019-03-23 23:34 | Inpatient (IN) | payer MEDICAID, SELFPAY ==
[2019-03-14 10:18] VITALS: BMI 20.1
[2019-03-23 23:36] VITALS: BP 127/91; PULSE 81; RESP 18; TEMP 36.6; O2SAT 98; BMI 22.7
--- NOTE | 2019-03-23 23:44 | EKG12_ITS ---
Test Reason : DYSRHYTHMIA Blood Pressure : / mmHG Vent. Rate : 079 BPM Atrial Rate : 079 BPM P-R Int : 172 ms QRS Dur : 096 ms QT Int : 398 ms P-R-T Axes : 069 059 066 degrees QTc Int : 456 ms Normal sinus rhythm Normal ECG Confirmed by ODILON BARNES, CASPER ([id number]), editorial specialist MANDY FERREIRA ([id number]) on 03/25/2019 11:30:50 AM Referred By: FILI Confirmed By:CASPER DONALD MD
[2019-03-24] VITALS (11 sets, daily range): BP systolic 136–165; BP diastolic 80–94; PULSE 69–99; RESP 15–18; TEMP 36.3–37.3; O2SAT 92–99; BMI 22.1
[2019-03-24] MEDS: 0.9% Normal Saline 1,000 ML 1000 ML IV (00:12)
[2019-03-24] MEDS: proMETHazine 25 MG/ML Syringe 12.5 MG IV (00:12)
[2019-03-24 00:21] LABS: Absolute Lymphocyte Count 1.67 X10^3/uL (0.83-4.51); Basophil# 0.06 X10^3/uL; Basophil% 1.9 % (0-1); Eosinophil# 0.07 X10^3/uL; Eosinophils% 2.2 % (0-5); Hematocrit 30.5 % (40-54); Hemoglobin 10.4 g/dL (13.0-16.5); Lymphocyte # 1.67 X10^3/ul (4.0); Lymphocyte % 51.7 % (19-41); Mean Corp Hgb Conc 34.1 g/dL (32-36); Mean Corpuscular Hgb 32.9 pg (27.0-32.0); Mean Corpuscular Volume 96.5 fL (80-94); Mean Platelet Vol. 9.1 fl (6.2-12.0); Monocyte# 0.42 X10^3/uL; NRBC Flagged by Analyzer 0 % (0-5); Neutrophil # 0.98 X10^3/uL (2.7-7.7); Neutrophil % 30.3 % (47-70); POSITIVE DIFFERENTIAL YES; Platelet Count 213 K/mm3 (150-450); RBC Distribution Width CV 15.1 % (11.6-14.6); RBC Distribution Width SD 53.1 fl (35.1-43.9); Red Blood Count 3.16 M/mm3 (4.6-6.2); White Blood Count 3.2 K/mm3 (4.4-11.0)
[2019-03-24 00:22] LABS: Differential Indicated SCAN CRITERIA MET
[2019-03-24] MEDS: chlordiazePOXIDE 25 MG Capsule PO ×5 (00:28→20:00)
[2019-03-24 00:38] LABS: ALB/GLOB Ratio 0.8 RATIO (0.9-2.4); AST(SGOT) 50 U/L (15-37); Alanine Aminotransfer ALT/SGPT 56 U/L (16-61); Albumin, Serum 3.3 g/dL (3.2-5.0); Alkaline Phosphatase 63 U/L (45-117); Anion Gap 10 (5-15); BUN 9 mg/dL (7-18); BUN/Creat Ratio 11.9 RATIO (10-20); Calcium,Total 8.3 mg/dL (8.5-10.1); Chloride 106 mmol/L (98-107); Creatinine, Serum 0.76 mg/dL (0.70-1.30); EST Glomerular Filtration Rate 113 mL/min (>60); Est Glom Filt Rate - Afr Amer 137 mL/min (>60); Estimated Creatinine Clearance 104.23 ml/min; Globulin 3.9 g/dL (2.2-4.2); Glucose 81 mg/dL (74-106); Lipase 309 U/L (73-393); Potassium 3.5 mmol/L (3.5-5.1); Protein, Total 7.2 g/dL (6.4-8.2); Sodium Level 143 mmol/L (136-145)
[2019-03-24 00:52] LABS: Differential Comment SCANNED
--- NOTE | 2019-03-24 01:17 | ED.DCSUM_ITS ---
- ER Visit Summary Date of Service: 03/24/19 Chief Complaint: [Request for alcohol detox] History of Present Illness: The patient is a 58 M [presents to the emergency department stating that he wants to quit drinking. Patient states that his last drink was around 4 PM and he drank a bottle of tequila. Patient is an alcoholic. Patient complains of intermittent vomiting and some mild abdominal discomfort. He denies any fevers. He denies recent illness. Patient has history of hypertension as well as history of hyponatremia and alcohol abuse. Has had prior appendectomy and hernia repair. Denies feeling suicidal or homicidal.] Physical Examination: [HEENT-PERRLA, EOMI. Cranial nerves II through XII grossly intact. TMs clear. Mucous membranes moist. No adenopathy. Cardiovascular-regular rate and rhythm without murmur or ectopy Lungs-clear to auscultation, chest wall stable without crepitus or subcu emphysema Abdomen-normoactive bowel sounds, soft. Patient has some mild tenderness over the epigastric region. There is no rebound, rigidity, or pedal signs. Extremities-intact ?4, normal range of motion, normal pulses, atraumatic] Test Results: [EKG obtained arrival shows sinus rhythm with a ventricular rate of 79 bpm with no acute ST segment changes. Troponin is less than 0.015. CBC with patient awakened at 3.2, hemoglobin 10.4, hematocrit 30, platelets 213. Chemistries unremarkable. Lipase was 309. LFTs unremarkable. Alcohol was 355.] Emergency Department Course and Treatment: [Patient had an IV line established. He was given Phenergan 12.5 mg IV. Patient given Librium 25 mg p.o. Was given normal saline.] Treatment Plan: Admit [] Disposition: [Admit] Impression: [Alcohol intoxication Request for detox from alcohol] This note was generated with [employer] dictation software. It may contain incorrect words, spelling, and punctuation that were not noted in review of the chart prior to signing ED Disposition - Plan for ED Patient: Referrals: Taylor Patel MD [Primary Care Provider] -
--- NOTE | 2019-03-24 01:47 | PCM.HP.STD ---
Problem List (1) Alcohol abuse Status: Chronic (2) HTN (hypertension) Status: Chronic Qualifiers: Hypertension type: essential hypertension Qualified Code(s): I10 - Essential (primary) hypertension (3) Tobacco use Status: Chronic (4) COPD (chronic obstructive pulmonary disease) Status: Chronic Qualifiers: COPD type: unspecified COPD Qualified Code(s): J44.9 - Chronic obstructive pulmonary disease, unspecified (5) Malnutrition Status: Chronic Qualifiers: Malnutrition type: protein-calorie malnutrition Protein-calorie malnutrition severity: severe Qualified Code(s): E43 - Unspecified severe protein-calorie malnutrition (6) Pancytopenia Status: Chronic History of Present Illness Date of Admission: 03/24/19 Chief Complaint: Intoxicated, requesting detox program The patient is a 58 y/o M w/ PMHx: Chronic COPD, HTN, Tobacco use, Chronic macrocytic anemia, EtOH longstanding abuse history currently noting 1/5th tequila daily with history of prior DT who presents to the [facility] ED on 03/24/19 with history of intention to discontinue alcohol intake with request for detox program, presenting with last oral intake per his report with nearly 1/5 of tequila at approximately 4 PM the day prior noted to be coherent and answering questions fully with onset of nausea, tremors, agitation, tactile disturbances starting late evening on day prior. Patient interested in attaining sober status. Patient has been admitted previously with gastroenteritis and during that admission did go through significant alcohol withdrawal eventually requiring transition to the ICU with Precedex usage at that time. Discussed plan of care with patient and noted trial of Librium given current status with notable alcohol level with start of regimen now given coherent, able to stand, appropriate mental status but if worsened would necessitate alternate regimen including potentially return to ICU with Precedex versus IV phenobarbital. Work-up in the ED included T 97.9, heart rate 81, BP 127/91, respiratory rate 18, 98% on room air, CBC with WC 3.2, hemoglobin 10.4, platelet 213 without market shift, unremarkable CMP, troponin less than 0.015, ethyl alcohol level 355. In the ED patient administered normal saline, Phenergan, Librium. Past Medical History Past Medical History (Chronic Problems): Chronic Problems HTN (hypertension) (Chronic) Tobacco use (Chronic) COPD (chronic obstructive pulmonary disease) (Chronic) Malnutrition (Chronic) Alcoholism (Chronic) Hypomagnesemia (Chronic) Hypokalemia (Chronic) Pancytopenia (Chronic) Alcohol abuse (Chronic) Medical History: Medical History (Last Reviewed 02/11/19 @ 13:45 by Pineda Albert DO) Pancreatitis K85.90 Vitamin deficiency E56.9 Back problem M53.9 High blood pressure I10 Allergies seasonal Allergy (Uncoded 03/23/19 23:36) Other Home Medications: Ambulatory Orders Medication Instructions Recorded Magnesium Oxide 400 mg PO DAILY 01/20/19 Folic Acid 1 mg PO DAILY@0800 02/11/19 Lisinopril [Zestril] 5 mg PO DAILY 02/11/19 Multivitamin [One-Daily 1 ea PO DAILY 02/11/19 Multi-Vitamin] Potassium Chloride [K-Dur] 20 meq PO DAILY 02/11/19 Surgical History: Surgical History (Last Reviewed 02/11/19 @ 13:45 by Pineda Albert DO) History of appendectomy Z90.49 History of hernia surgery Z98.890, Z87.19 Surgical History: appendectomy, herniorrhaphy, - - Right inguinal hernia repair, appendectomy. Psychiatric History: No pertinent psych hx Lives: Alone Smoking Status: Current every day smoker - Patient currently smoking 1/2 pack/day cigarette tobacco usage. Tobacco Use: Cigarettes Alcohol: Heavy - Patient notes currently drinking approximately 1/5 of tequila daily Drugs: None - *Family History Maternal Family History: Family History (Last Reviewed 02/11/19 @ 13:45 by Pineda Albert DO) Other Alcoholism Anxiety Colon cancer Diabetes Hypertension Kidney disease Myocardial infarction Skin cancer ulcer disease History Items: Hypertension, Renal Disease Paternal Family History: Family History (Last Reviewed 02/11/19 @ 13:45 by Pineda Albert DO) Other Alcoholism Anxiety Colon cancer Diabetes Hypertension Kidney disease Myocardial infarction Skin cancer ulcer disease History Items: Heart Disease - Father because of heart attack at age of 50. Sibling Family History: Family History (Last Reviewed 02/11/19 @ 13:45 by Pineda Albert DO) Other Alcoholism Anxiety Colon cancer Diabetes Hypertension Kidney disease Myocardial infarction Skin cancer ulcer disease History Items: Heart Disease, - - He has 3 brothers who had heart attacks at younger age. One brother had a heart attack at 39 years old, second brother had heart attack at age of 41 and another brother who had heart attack at age 46. Review of Systems Constitutional: Reports: Malaise, Weakness, Fatigue. Denies: Chills, Fever, Weight Change HEENT: Denies: Head Aches, Sinus Congestion, Sinus Drainage Cardiovascular: Denies: Chest Pain, Palpitations Respiratory: Denies: Cough, Shortness of breath at rest, Sputum production Gastrointestinal: Reports: Nausea. Denies: Abdominal Pain, Vomiting Genitourinary: Denies: Dysuria Musculoskeletal: Denies: Joint Pain, Joint Tenderness Skin: Denies: Rash, Wounds Neurological: Reports: Tremor. Denies: Focal weakness, Numbness, Tingling Psychiatric: Denies: Anxiety, Depression, Homicidal Ideations, Suicidal Ideations Hematologic/ Lymphatic: Reports: Anemia. Denies: Easy Bruising, Easy Bleeding VTE Information - Inpt Only VTE Present on Admission: No VTE Mechan Device Prophylaxis: SCD's VTE Pharm Prophylaxis ordered?: No Subjective: Seated upright in ED bed, fatigued appearance, no acute distress but does have tremors and tactile disturbances ongoing, recent Librium per ED physician. Objective: Physical Examination: General: awake, alert, oriented x 3 including month, year, president and cooperative, seated upright in the ED bed, fatigued appearance, tremors evident, admitting to tactile disturbances, emesis bag nearby. Skin: normal color, turgor, no icterus, cyanosis. HEENT: AT/NC, EOMI, PERRLA, dry MM, no carotid bruits or JVD noted. Lungs: Diminished breath sounds bilaterally, greater bilateral bases, moderate effort, no rales, ronchi or wheezing. Heart: Mildly tachycardic with regular rhythm; no gallop, rub audible. Abdomen: soft, thin habitus, NTTP, ND, normal BS, + HM. Extremities: no cyanosis, clubbing, or edema. Neurological: patient awake, alert, oriented x 3; cognitive function intact; pupils equally reactive to light and accomodation; cranial nerves II-XII grossly normal, moving all 4 extremities, no focal deficits, strength moderately to severely global decrease secondary to acute presentation. Psychiatric: affect appears fatigued, uncomfortable, tremors evident, no acute evidence of depressive or anxiety feelings. - Physical Exam Vitals/I&O's: Vital Signs Temp Pulse Resp BP Pulse Ox 97.9 F 81 18 127/91 H 98 03/23/19 23:36 03/23/19 23:36 03/23/19 23:36 03/23/19 23:36 03/23/19 23:36 Oxygen Delivery Method Room Air Weight: 149 lb 11.102 oz Body Mass Index (BMI) 22.7 Laboratory Results 03/24/19 00:10: WBC 3.2 L, RBC 3.16 L, Hgb 10.4 L, Hct 30.5 L, MCV 96.5 H, MCH 32.9 H, MCHC 34.1, RDW Std Deviation 53.1 H, RDW Coeff of Reece 15.1 H, Plt Count 213, MPV 9.1, Immature Gran % (Auto) 0.900, Neut % (Auto) 30.3 L, Lymph % (Auto) 51.7 H, [place] % (Auto) 13.0 H, Eos % (Auto) 2.2, Baso % (Auto) 1.9 H, Absolute Neuts (auto) 1.0 L, Absolute Lymphs (auto) 1.67, Nucleated RBC % 0, Differential Comment SCANNED 03/24/19 00:10: Sodium 143, Potassium 3.5, Chloride 106, Carbon Dioxide 27.0, Anion Gap 10, BUN 9, Creatinine 0.76, Estim Creat Clear Calc 104.23, Est GFR (MDRD) Af Amer 137, Est GFR (MDRD) Non-Af 113, BUN/Creatinine Ratio 11.9, Glucose 81, Calcium 8.3 L, Total Bilirubin 0.20, AST 50 H, ALT 56, Alkaline Phosphatase 63, Troponin I < 0.015, Total Protein 7.2, Albumin 3.3, Globulin 3.9, Albumin/Globulin Ratio 0.8 L, Lipase 309 03/24/19 00:10: Ethyl Alcohol 355.0 H* Current Medications Sodium Chloride () 1,000 mls @ 150 mls/hr IV .Q6H40M KATE Assessment/Plan All Active Problems (Last Reviewed 02/11/19 @ 13:45 by Pineda Albert DO) Hyponatremia (Acute) Alcohol withdrawal (Acute) The patient is a 58 y/o M w/ PMHx: HTN, Tobacco use, Chronic macrocytic anemia, EtOH longstanding abuse history currently noting 1/5th tequila daily with history of prior DT who presents to the [facility] ED on 03/24/19 with history of intention to discontinue alcohol intake with request for detox program, presenting with last oral intake per his report with nearly 1/5 of tequila at approximately 4 PM the day prior. 1. Acute EtOH Withdrawal: Will admit to [facility], routine labs obtained per the ED with stable appearing CBC, unremarkable CMP, ethyl alcohol level 355, troponin less than 0.015.Will admit to medical surgical floor given stable appearance currently and early presentation with initiation of Librium taper starting now however again if worsens status may consider transition to phenobarbital versus ICU with Librium in addition to as needed Catapres, Bentyl, Vistaril, IV fluids, IV antiemetics, Tylenol as needed for pain. Once patient clinically improved and completion of taper nearing will plan management assistance for transition to next level of rehabilitation care. Mag, phos pending. Maintain on CIWA protocol. We will continue patient on thiamine, folic acid and multivitamin. 2. Chronic Pancytopenia: Secondary to alcohol abuse, admission CBC with WC 3.2, similar to prior, hemoglobin 10.4, similar to prior, platelets 213 which is improved from prior baseline 80-120 range, stable. 3. Tobacco Abuse: Encouraged cessation, inpatient consultation per RT, NR if desired. 4. Hypertension: Continue home regimen including lisinopril, PRN hydralazine. 5. Chronic COPD: Not on any inhalers at home, will have PRN albuterol, encourage head of bed, I-S as well as encourage tobacco cessation with outpatient pulmonary function testing recommendation. 6. DVT prophylaxis: Encourage ambulation, TEDs. Code Visit Inpatient E&M: 92948 Init Hosp L3
[2019-03-24] MEDS: 0.9% Normal Saline 1,000 ML 150 ML IV (01:58)
[2019-03-24 02:53] LABS: Magnesium 1.3 mg/dL (1.6-2.6); Phosphorus 3.8 mg/dL (2.5-4.9)
[2019-03-24] MEDS: 0.9% Normal Saline 1,000 ML 125 ML IV (04:29)
[2019-03-24 04:46] LABS: Bedside Glucose 91 mg/dL (70-110)
[2019-03-24] MEDS: Magnesium Sulfate 4gm/100mL 4 GM/100 ML IV.SOLN. IV (04:55)
[2019-03-24] MEDS: Multivitamins,Therapeutic Tablet 1 TABLET PO (08:37)
[2019-03-24] MEDS: Folic Acid 1 MG Tablet PO (08:37)
[2019-03-24] MEDS: Thiamine Hydrochloride 100 MG Tablet PO (08:37)
[2019-03-24] MEDS: Lisinopril 5 MG Tablet PO (08:38)
[2019-03-24] MEDS: Famotidine 20 MG Tablet PO ×2 (08:38→20:00)
[2019-03-24] MEDS: LORazepam 2 MG/ML Syringe 1 MG IV ×3 (10:50→18:42)
[2019-03-24] MEDS: 0.9% Saline Lock 10 ML Syringe IV ×2 (10:53→15:00)
[2019-03-24] MEDS: Senna Tablet 1 TABLET PO (12:36)
--- NOTE | 2019-03-24 14:36 | CASEMGMT ---
SW will meet with patient regarding his alcohol abuse. SW has seen patient numerous times in the past for substance abuse. Last discharge an appt was made at [facility] day after his discharge. Patient has been sleeping all day. SW to follow up. Priya WOOD MSW
--- NOTE | 2019-03-24 15:26 | CASEMGMT ---
KIKO met with patient, introduced self and role at [facility]. Patient said he did go to his appt at [facility] on the . He plans on doing residential treatment, but there is a waiting list at [facility]. KIKO asked if he would like SW to follow up with [facility] to see if anything has changed. He said that would be fine and signed a release of information. KIKO called [facility] and left a voice mail requesting a return call. Priya WOOD MSW
[2019-03-24] MEDS: Bisacodyl 10 MG Suppository RECTAL (17:20)
[2019-03-24] MEDS: Acetaminophen 325 MG Tablet 650 MG PO (17:29)
[2019-03-24] MEDS: traZODone 50 MG Tablet PO (20:00)
[2019-03-24] MEDS: Methocarbamol 750 MG Tablet PO (20:17)
[2019-03-25] MEDS: hydrOXYzine PAM 25 MG Capsule 50 MG PO ×2 (01:32→08:48)
[2019-03-25] MEDS: Acetaminophen 325 MG Tablet 650 MG PO (01:32)
[2019-03-25] MEDS: traZODone 50 MG Tablet PO ×2 (01:32→21:10)
[2019-03-25 01:41] VITALS: BP 162/98; PULSE 85; RESP 18; TEMP 36.6; O2SAT 97
[2019-03-25] MEDS: chlordiazePOXIDE 25 MG Capsule PO ×3 (04:58→21:10)
[2019-03-25] MEDS: Methocarbamol 750 MG Tablet PO (04:59)
[2019-03-25] MEDS: 0.9% Saline Lock 10 ML Syringe IV ×2 (04:59→22:21)
--- NOTE | 2019-03-25 08:08 | PCM.PROGNOTE ---
Subjective: Chief complaint: Follow-up after admission for acute alcohol intoxication/withdrawal for medical stabilization. Patient seen and examined. No acute events overnight. This morning, he mentioned that he was able to sleep last night. Anxiety and tremors is getting better. Denied abdominal pain, nausea or vomiting. No chest pain or shortness of breath. His blood pressure has been slightly elevated, other vital signs are stable. - Physical Exam Vitals/I&O's: Vital Signs Temp Pulse Resp BP Pulse Ox 97.8 F 85 18 162/98 H 97 03/25/19 01:41 03/25/19 01:41 03/25/19 01:41 03/25/19 01:41 03/25/19 01:41 Oxygen Delivery Method Room Air Weight: 145 lb 4.554 oz Body Mass Index (BMI) 22.1 Intake and Output for Last 24 Hours 03/23/19 03/24/19 03/25/19 23:59 23:59 23:59 Intake Total 2797.08 / 2797.08 120 / 120 Output Total 900 / 900 Balance 1897.08 / 1897.08 120 / 120 General: Alert, Oriented x3, Cooperative, No apparent distress HEENT: Atraumatic, PERRLA, EOMI, Normocephalic Oral: Moist Mucosa, No Gingival or Mucosal Lesions/ Ulcerations Neck: Supple, No JVD, Negative Carotid Bruits, Trachea Midline, Thyroid Normal Size and Texture Lungs: Clear to auscultation, Normal air movement, No rhonchi, No wheeze, No rales Cardiovascular: Regular rate, Regular Rhythm, Normal S1, Normal S2, PMI Normal Abdomen: Bowel Sounds Present, Soft, Non Tender, Non-Distended, No Hepato-splenomegaly Extremities: No clubbing, No cyanosis, No edema Skin: No rashes, No breakdown Lymphatic: No Cervical, Supraclavicular, or Inguinal Adenopathy Neurological: Cranial nerves II-XII grossly intact, Motor Exam 5/5 strength throughout Psych/Mental Status: Normal Affect, Appropriate, Alert and oriented to time, place, person, mood and affect Current Medications Acetaminophen (Tylenol) 650 mg PO Q6H PRN PRN PRN Reason: Pain Score 1-3/Temp > 100.7 F Last Admin: 03/25/19 01:32 Dose: 650 mg Documented by: Al Hydroxide/Mg Hydroxide (Mylanta Ii) 30 ml PO Q6H PRN PRN PRN Reason: Gastric Burning Al Hydroxide/Mg Hydroxide (Mylanta Ii) 30 ml PO Q6H PRN PRN PRN Reason: dyspesia Albuterol Sulfate (Ventolin Aerosols) 2.5 mg INHALATION Q2H PRN PRN PRN Reason: Shortness of Breath/Wheezing Bisacodyl (Dulcolax) 10 mg RECTAL DAILY PRN PRN Reason: Constipation Last Admin: 03/24/19 17:20 Dose: 10 mg Documented by: Chlordiazepoxide (Librium) 50 mg PO Q8H [facility]; Taper Stop: 03/27/19 04:49 Last Admin: 03/25/19 04:58 Dose: 50 mg Documented by: Dicyclomine HCl (Bentyl) 20 mg PO Q6H PRN PRN PRN Reason: abdominal discomfort Famotidine (Pepcid) 20 mg PO BID [facility] Last Admin: 03/24/19 20:00 Dose: 20 mg Documented by: [facility] Acid) [facility] Stop: 03/26/19 08:01 Last Admin: 03/24/19 08:37 Dose: 1 mg Documented by: Glucagon () 1 mg IM .X1 PRN PRN Reason: Hypoglycemia Guaifenesin (Robitussin) 20 ml PO Q4H PRN PRN PRN Reason: COUGH Hydralazine HCl (Apresoline Iv) 10 mg IV Q4H PRN PRN PRN Reason: for SBP>160 Hydroxyzine Pamoate (Vistaril Pamoate Capsule) 50 mg PO Q6H PRN PRN PRN Reason: Mild Anxiety (score 1/3) Last Admin: 03/25/19 01:32 Dose: 50 mg Documented by: Dextrose (Dextrose 10%-Water) 250 mls @ 999 mls/hr IV .Q16M PRN; Protocol PRN Reason: HYPOGLYCEMIA Lisinopril (Zestril) 5 mg PO DAILY [facility] Last Admin: 03/24/19 08:38 Dose: 5 mg Documented by: Loperamide HCl (Imodium) 2 - 4 mg PO UD PRN PRN Reason: LOOSE STOOLS Lorazepam (Ativan) 1 mg IV Q4H PRN PRN PRN Reason: Severe Anxiety Last Admin: 03/24/19 18:42 Dose: 1 mg Documented by: Lorazepam (Ativan) 2 mg IV X1 PRN PRN Reason: Seizure Methocarbamol (Methocarbamol) 750 mg PO Q6H PRN PRN PRN Reason: Muscle Aches Last Admin: 03/25/19 04:59 Dose: 750 mg Documented by: Multivitamins ([facility]ivitamin) [facility] Last Admin: 03/24/19 08:37 Dose: 1 tablet Documented by: Nicotine (Nicoderm Cq (Pbkc)) 14 mg TRANSDERM. DAILY [facility] Last Admin: 03/24/19 08:38 Dose: 14 mg Documented by: Ondansetron HCl (Zofran) 4 mg IV Q8H PRN PRN PRN Reason: NAUSEA/VOMITING Potassium Chloride (K-Dur) 20 meq PO DAILY [facility] Last Admin: 03/24/19 08:38 Dose: 20 meq Documented by: Prochlorperazine Edisylate (Compazine Iv) 5 mg IV Q4H PRN PRN PRN Reason: Breakthrough nausea/vomiting Senna (Senokot) 1 tablet PO QHS PRN PRN Reason: Constipation Last Admin: 03/24/19 12:36 Dose: 1 tablet Documented by: Sodium Chloride () 10 - 40 ml IV UD PRN PRN Reason: SALINE FLUSH Last Admin: 03/25/19 04:59 Dose: 10 ml Documented by: Thiamine HCl (Vitamin B1) [facility] Stop: 03/26/19 08:01 Last Admin: 03/24/19 08:37 Dose: 100 mg Documented by: Throat Lozenges (Cepacol Sore Throat Lozenge) 1 lozenge MUCOUS MEM Q2H PRN PRN PRN Reason: Sore throat or cough Trazodone HCl (Desyrel) 50 mg PO QHS [facility] Last Admin: 03/25/19 01:32 Dose: 50 mg Documented by: Medical Necessity - Tobacco Use Smoking Status: Current every day smoker Tobacco Use: Cigarettes Assessment/Plan All Active Problems (Last Reviewed 02/11/19 @ 13:45 by Pineda Albert DO) Alcohol withdrawal (Acute) This is a 58 years old male patient presented to the emergency room requesting admission for alcohol detoxification and he was admitted for medical stabilization. #1 acute alcohol intoxication/withdrawal: He is on tapering Librium as well as Ativan as needed. He is on thiamine, folic acid and multivitamins. Routine blood work was remarkable for chronic leukopenia and chronic anemia, both platelets and WBC count are at baseline. Blood alcohol level on admission was 355. Patient reported improvement of his symptoms. Blood pressure slightly better, other vitals are stable. Plan to continue same treatment. #2 hypertension: Blood pressure is uncontrolled. Systolic has been in the 160s. Plan: Increase lisinopril to 20 mg p.o. daily, start IV hydralazine PRN. #3 COPD: Stable, pulse ox is maintained on room air. Plan to continue albuterol PRN. #4 chronic pancytopenia: Secondary to chronic liver disease. Patient is leukopenic and anemic. Platelet count is normal. Plan to monitor. #5 alcohol abuse: He is on acute withdrawal treatment as above. #6 DVT prophylaxis: SCDs. This note was generated with [employer] dictation software. It may contain incorrect words, spelling, and punctuation that were not noted in checking the note before signing. Code Visit Inpatient E&M: 00004 Subs Hosp L2
[2019-03-25 08:31] VITALS: BP 137/82; PULSE 81; RESP 18; TEMP 36.8; O2SAT 94
[2019-03-25] MEDS: Thiamine Hydrochloride 100 MG Tablet PO (08:48)
[2019-03-25] MEDS: Folic Acid 1 MG Tablet PO (08:48)
[2019-03-25] MEDS: Famotidine 20 MG Tablet PO ×2 (08:48→21:10)
[2019-03-25] MEDS: Multivitamins,Therapeutic Tablet 1 TABLET PO (08:48)
[2019-03-25] MEDS: Lisinopril 20 MG Tablet PO (08:48)
[2019-03-25 11:00] VITALS: O2SAT 93
[2019-03-25 13:14] VITALS: BP 120/84; PULSE 95; RESP 18; TEMP 36.9; O2SAT 96
--- NOTE | 2019-03-25 14:46 | NURSING ---
This RN taking over care of pt at this time.
--- NOTE | 2019-03-25 14:58 | CASEMGMT ---
KIKO called [facility] as KIKO has not received a return call yet. KIKO was sent to Saida's voice mail. KIKO left a message for Saida requesting a return call. Priya WODO MSW
[2019-03-25 16:36] VITALS: BP 121/83; PULSE 92; RESP 16; TEMP 36.8; O2SAT 96
--- NOTE | 2019-03-25 18:36 | NURSING ---
Reviewed and agreed on all charting with Arina Caba RN
[2019-03-25 21:00] VITALS: BP 123/88; PULSE 94; RESP 18; TEMP 36.9; O2SAT 97
[2019-03-25] MEDS: Senna Tablet 1 TABLET PO (21:10)
[2019-03-25] MEDS: LORazepam 2 MG/ML Syringe 1 MG IV (22:21)
--- NOTE | 2019-03-25 23:07 | NURSING ---
Verbal report given to Chaparrita DAMON
[2019-03-26 02:12] VITALS: BP 136/92; PULSE 76; RESP 18; TEMP 36.7; O2SAT 96
[2019-03-26] MEDS: Dicyclomine 10 MG Capsule 20 MG PO (02:20)
[2019-03-26] MEDS: hydrOXYzine PAM 25 MG Capsule 50 MG PO (02:20)
[2019-03-26] MEDS: Acetaminophen 325 MG Tablet 650 MG PO ×2 (02:20→08:20)
[2019-03-26] MEDS: chlordiazePOXIDE 25 MG Capsule PO ×2 (04:54→16:00)
[2019-03-26 06:20] VITALS: BP 132/77; PULSE 84; RESP 18; TEMP 36.8; O2SAT 95
[2019-03-26] MEDS: 0.9% Saline Lock 10 ML Syringe IV ×2 (06:29→08:19)
[2019-03-26] MEDS: LORazepam 2 MG/ML Syringe 1 MG IV (06:29)
[2019-03-26 08:02] VITALS: O2SAT 92
--- NOTE | 2019-03-26 08:05 | DCINST_ITS ---
- Discharge Diagnoses Current Active Problems: Current Active and Chronic Problems (Last Reviewed 02/11/19 @ 13:45 by Pineda Albert DO) HTN (hypertension) (Chronic) Tobacco use (Chronic) COPD (chronic obstructive pulmonary disease) (Chronic) Malnutrition (Chronic) You will use the following diet at home:: Cardiac Your food should be the consistency of: Regular Discharge Activity: Return to Normal Activity Weight Bearing Status: Weight bearing as tolerated Call your doctor if you observe: Fever of 101 or Higher, Shortness of breath, Dizziness, Fainting spells, Chest pain, Increased palpitations (irregular heartbeat), Uncontrolled pain Instructions: [facility] [employer]: Coping with Alcohol Abuse, Recovering from Addiction: Continuing with Counseling, Recovering from Addiction: Coping with Relapse Additional Instructions: Please follow-up with [facility] program as instructed. Allergies/Adverse Reactions: Allergies seasonal Allergy (Uncoded 03/23/19 23:36) Other Medications to take at Discharge Magnesium Oxide 400 mg PO DAILY 01/20/19 Multivitamin [One-Daily Multi-Vitamin] 1 ea PO DAILY 02/11/19 Folic Acid 1 mg PO DAILY@0800 #30 tab 03/26/19 Lisinopril [Zestril] 20 mg PO DAILY #30 tab 03/26/19 Thiamine HCl 100 mg PO DAILY #30 tab 03/26/19 The following prescriptions were given: Folic Acid 1 mg PO DAILY@0800 #30 tab [facility]: [facility] Thiamine HCl 100 mg PO DAILY #30 tab Transmission Status[facility] Lisinopril [Zestril] 20 mg PO DAILY #30 tab Transmission Status: P[facility] to [facility] Primary Care Physician: Taylor Patel MD [Primary Care Provider] - Please follow up with your Primary Care Physician in: 1-2 weeks. Test Results: Test results from this visit will be discussed in further detail at your follow- up appointment, if applicable.
[2019-03-26] MEDS: Famotidine 20 MG Tablet PO (08:12)
[2019-03-26] MEDS: Multivitamins,Therapeutic Tablet 1 TABLET PO (08:12)
[2019-03-26] MEDS: Thiamine Hydrochloride 100 MG Tablet PO (08:12)
[2019-03-26] MEDS: Folic Acid 1 MG Tablet PO (08:12)
[2019-03-26] MEDS: Lisinopril 20 MG Tablet PO (08:19)
--- NOTE | 2019-03-26 09:06 | CASEMGMT ---
KIKO left a message for Saida at [facility] again. KIKO explained patient is being discharged today and KIKO is wondering if there is still a waiting list and patient has to wait it out or if there is something else that can be done. Priya WOOD MSW
--- NOTE | 2019-03-26 10:18 | CASEMGMT ---
KIKO received a call from Saida at [facility]. She said there is still a waiting list. She is not aware patient is self pay. She thought he had [employer]. KIKO told her the hospital has run his insurance and it termed in November. KIKO explained we have talked with him about the several times, but he has not followed through. KIKO told her a Medicaid application was also completed during one of his visits, but he has not followed through with that. She said he needs to follow up with his counselor. He can also go to [facility] and they can complete a Medicaid application with him. She asked if KIKO could fax patient's H&P and d/c instructions since he signed a release of information. KIKO told her SW will pass along the information to patient and thanked her for returning KIKO's call. Priya WHITE
[2019-03-26 10:30] VITALS: BP 131/90; PULSE 74; RESP 16; TEMP 36.8; O2SAT 96
--- NOTE | 2019-03-26 11:57 | DS.PCM_ITS ---
Discharge Date and Diagnosis Date of Admission: 03/24/19 Date of Discharge: 03/26/19 - Primary Discharge Diagnosis #1 acute alcohol intoxication/withdrawal, admitted for medical stabilization. #2 hypertension. - Secondary Discharge Diagnosis Chronic Problems HTN (hypertension) (Chronic) Tobacco use (Chronic) COPD (chronic obstructive pulmonary disease) (Chronic) Malnutrition (Chronic) Alcoholism (Chronic) Hypomagnesemia (Chronic) Hypokalemia (Chronic) Pancytopenia (Chronic) Alcohol abuse (Chronic) Hospital Course and Treatment Operations: None Procedures: None Summary of Care Provided: Patient seen and examined on the day of discharge and appeared to be stable to be discharged home. Symptoms of anxiety, restlessness and tremors significantly improved on Librium taper and Ativan as needed. He has been sleeping very well. His vitals are stable, blood pressure improved. The patient is a 58 year old M patient presented to the emergency room requesting admission for acute alcohol intoxication/withdrawal and asking for medical stabilization. On admission, blood alcohol level was 355. His routine blood work was remarkable for chronic leukopenia and chronic anemia and his blood counts were stable with his baseline. Patient was started on tapering course of Librium, Ativan as needed, thiamine, folic acid and multivitamins as well as Vistaril, Imodium, methocarbamol, Zofran and Compazine. With treatment, his symptoms with anxiety and tremors significantly improved. He was able to sleep for couple of nights. He did mention that his symptoms are significantly improved. Patient was counseled about the importance of follow-up with the [facility] to avoid relapse. His blood pressure during this hospital stay was slightly elevated. Lisinopril was increased to 20 mg p.o. daily and his blood pressure improved. Patient discharged home in a stable medical condition, discharged on folic acid, thiamine, multivitamins, lisinopril 20 mg p.o. daily, highly commended to follow-up with [facility] as outpatient to avoid relapse, recommended follow-up with PCP in 1 to 2 weeks. - Physical Exam Vitals/I&O's: Vital Signs Temp Pulse Resp BP Pulse Ox 98.2 F 74 16 131/90 H 96 03/26/19 10:30 03/26/19 10:30 03/26/19 10:30 03/26/19 10:30 03/26/19 10:30 Oxygen Delivery Method Room Air Weight: 145 lb 4.554 oz Body Mass Index (BMI) 22.1 Intake and Output for Last 24 Hours 03/24/19 03/25/19 03/26/19 23:59 23:59 23:59 Intake Total 2797.08 / 2797.08 1959 / 1959 360 / 360 Output Total 900 / 900 300 / 300 Balance 1897.08 / 1897.08 1660 / 1660 360 / 360 General: Alert, Oriented x3, Cooperative, No apparent distress HEENT: Atraumatic, PERRLA, EOMI, Normocephalic Oral: Moist Mucosa, No Gingival or Mucosal Lesions/ Ulcerations Neck: Supple, No JVD, Negative Carotid Bruits, Trachea Midline, Thyroid Normal Size and Texture Lungs: Clear to auscultation, Normal air movement, No rhonchi, No wheeze, No rales Cardiovascular: Regular rate, Regular Rhythm, Normal S1, Normal S2, PMI Normal Abdomen: Bowel Sounds Present, Soft, Non Tender, Non-Distended, No Hepato- splenomegaly Extremities: No clubbing, No cyanosis, No edema Skin: No rashes, No breakdown Neurological: Cranial nerves II-XII grossly intact, Neuro grossly intact Psych/Mental Status: Normal Affect, Appropriate Current Medications Acetaminophen (Tylenol) 650 mg PO Q6H PRN PRN PRN Reason: Pain or Fever Last Admin: 03/26/19 08:20 Dose: 650 mg Documented by: Al Hydroxide/Mg Hydroxide (Mylanta Ii) 30 ml PO Q6H PRN PRN PRN Reason: Gastric Burning Al Hydroxide/Mg Hydroxide (Mylanta Ii) 30 ml PO Q6H PRN PRN PRN Reason: dyspesia Albuterol Sulfate (Ventolin Aerosols) 2.5 mg INHALATION Q2H PRN PRN PRN Reason: Shortness of Breath/Wheezing Bisacodyl (Dulcolax) 10 mg RECTAL DAILY PRN PRN Reason: Constipation Last Admin: 03/24/19 17:20 Dose: 10 mg Documented by: Chlordiazepoxide (Librium) 25 mg PO Q12H KATE; Taper Stop: 03/27/19 04:49 Last Admin: 03/26/19 04:54 Dose: 25 mg Documented by: Dicyclomine HCl (Bentyl) 20 mg PO Q6H PRN PRN PRN Reason: abdominal discomfort Last Admin: 03/26/19 02:20 Dose: 20 mg Documented by: Famotidine (Pepcid) 20 mg PO BID [facility] Last Admin: 03/26/19 08:12 Dose: 20 mg Documented by: Glucagon () 1 mg IM .X1 PRN PRN Reason: Hypoglycemia Guaifenesin (Robitussin) 20 ml PO Q4H PRN PRN PRN Reason: COUGH Hydralazine HCl (Apresoline Iv) 10 mg IV Q4H PRN PRN PRN Reason: for SBP>160 Hydroxyzine Pamoate (Vistaril Pamoate Capsule) 50 mg PO Q6H PRN PRN PRN Reason: Mild Anxiety (score 1/3) Last Admin: 03/26/19 02:20 Dose: 50 mg Documented by: Dextrose (Dextrose 10%-Water) 250 mls @ 999 mls/hr IV .Q16M PRN; Protocol PRN Reason: HYPOGLYCEMIA Lisinopril (Zestril) 20 mg PO DAILY [facility] Last Admin: 03/26/19 08:19 Dose: 20 mg Documented by: Loperamide HCl (Imodium) 2 - 4 mg PO UD PRN PRN Reason: LOOSE STOOLS Lorazepam (Ativan) 1 mg IV Q4H PRN PRN PRN Reason: Severe Anxiety Last Admin: 03/26/19 06:29 Dose: 1 mg Documented by: Lorazepam (Ativan) 2 mg IV X1 PRN PRN Reason: Seizure Methocarbamol (Methocarbamol) 750 mg PO Q6H PRN PRN PRN Reason: Muscle Aches Last Admin: 03/25/19 04:59 Dose: 750 mg Documented by: [facility]) [facility] Last Admin: 03/26/19 08:12 Dose: 1 tablet Documented by: Nicotine (Nicoderm Cq (Pbkc)) 14 mg TRANSDERM. DAILY [facility] Last Admin: 03/26/19 11:01 Dose: Not Given Documented by: Ondansetron HCl (Zofran) 4 mg IV Q8H PRN PRN PRN Reason: NAUSEA/VOMITING Potassium Chloride (K-Dur) 20 meq PO DAILY [facility] Last Admin: 03/26/19 08:12 Dose: 20 meq Documented by: Prochlorperazine Edisylate (Compazine Iv) 5 mg IV Q4H PRN PRN PRN Reason: Breakthrough nausea/vomiting Senna (Senokot) 1 tablet PO QHS PRN PRN Reason: Constipation Last Admin: 03/25/19 21:10 Dose: 1 tablet Documented by: Sodium Chloride () 10 - 40 ml IV UD PRN PRN Reason: SALINE FLUSH Last Admin: 03/26/19 08:19 Dose: 10 ml Documented by: Throat Lozenges (Cepacol Sore Throat Lozenge) 1 lozenge MUCOUS MEM Q2H PRN PRN PRN Reason: Sore throat or cough Trazodone HCl (Desyrel) 50 mg PO QHS KATE Last Admin: 03/25/19 21:10 Dose: 50 mg Documented by: Discharge Activity: Return to Normal Activity Weight Bearing Status: Weight bearing as tolerated Call your doctor if you observe: Fever of 101 or Higher, Shortness of breath, Dizziness, Fainting spells, Chest pain, Increased palpitations (irregular heartbeat), Uncontrolled pain Home Medications: Medications to take at Discharge Magnesium Oxide 400 mg PO DAILY 01/20/19 Multivitamin [One-Daily Multi-Vitamin] 1 ea PO DAILY 02/11/19 Folic Acid 1 mg PO DAILY@0800 #30 tab 03/26/19 Lisinopril [Zestril] 20 mg PO DAILY #30 tab 03/26/19 Thiamine HCl 100 mg PO DAILY #30 tab 03/26/19 Following Prescrptions Were Given to Patient: Folic Acid 1 mg PO DAILY@0800 #30 tab Transmission Status: Received by ERNIE SALAZAR [facility] Thiamine HCl 100 mg PO DAILY #30 tab Transmission Status: Received by ERNIE SALAZAR [facility] Lisinopril [Zestril] 20 mg PO DAILY #30 tab Transmission Status: Received by ERNIE SALAZAR [facility] Primary Care Physician: Taylor Patel MD [Primary Care Provider] - Please follow up with your Primary Care Physician in: 1-2 weeks. Please Follow Up With: Taylor Patel MD Patient Instructions: [facility] [employer]: Coping with Alcohol Abuse, Recovering from Addiction: Continuing with Counseling, Recovering from Addiction: Coping with Relapse Disposition: Home Minutes spent on discharge:: 25 Patient Condition:: Stable Medical Necessity - Tobacco Use Smoking Status: Current every day smoker Tobacco Use: Cigarettes Meaningful Use Info Meaningful Use Diagnoses (Choose all that apply): None applicable Code Visit Inpatient E&M: 59228 Disch Hosp
--- NOTE | 2019-03-26 12:12 | CASEMGMT ---
KIKO spoke with patient letting him know that there is still a waiting list for residential. SW told him that they suggest he with follow up with his counselor and also they can assist him in completing a Medicaid application. KIKO told him he will need this in order to get into residential treatment. KIKO also told him about prescriptions sent to [facility]. He said he already has Folic Acid, Thiamine, and Lisinopril. Priya [employer]
[2019-03-26 13:35] VITALS: BP 126/85; PULSE 85; RESP 16; TEMP 36.6; O2SAT 97
--- NOTE | 2019-03-26 15:10 | PHA.DC.MR ---
Pharmacy Service has performed discharge medication reconciliation for this patient. Home Medications Magnesium Oxide 400 mg PO DAILY 01/20/19 Multivitamin [One-Daily Multi-Vitamin] 1 ea PO DAILY 02/11/19 Folic Acid 1 mg PO DAILY@0800 #30 tab 03/26/19 Lisinopril [Zestril] 20 mg PO DAILY #30 tab 03/26/19 Thiamine HCl 100 mg PO DAILY #30 tab 03/26/19 The patient's discharge medication list was reviewed for discrepancies and discrepancies were resolved.
--- NOTE | 2019-03-26 16:08 | NURSING ---
Reviewed and agreed on all charting with Arina Caba RN
== END 2019-03-26 16:28 | disposition home or self-care (01) | DRG 896 ==
LOC: ED 23:56 → PCU 03-24 02:06
PROVIDERS: Admitting Provider Family Medicine; Emergency Provider Emergency Medicine; PCP Internal Medicine; Visit Provider Hospitalist
DX: F10.239 Alcohol dependence with withdrawal, unspecified (principal); E43 Unspecified severe protein-calorie malnutrition; D61.818 Other pancytopenia; F10.229 Alcohol dependence with intoxication, unspecified; I10 Essential (primary) hypertension; Y90.8 Blood alcohol level of 240 mg/100 ml or more; Z79.899 Other long term (current) drug therapy; F17.210 Nicotine dependence, cigarettes, uncomplicated; Z68.22 Body mass index [BMI] 22.0-22.9, adult; D53.9 Nutritional anemia, unspecified; J44.9 Chronic obstructive pulmonary disease, unspecified; K76.9 Liver disease, unspecified
CPT/HCPCS: 80053; 80320; 82962; 83690; 83735; 84100; 84484; 85025; 93005; 97802; 99251; 99285; J7030; A4216; G0463; G0480

== ENCOUNTER 2019-04-03 16:58 | Inpatient (IN) | payer MEDICAID, SELFPAY ==
[2019-03-24 02:36] VITALS: BMI 22.1
[2019-04-03] VITALS (7 sets, daily range): BP systolic 142–171; BP diastolic 92–107; PULSE 72–95; RESP 16–25; TEMP 36.8; O2SAT 97–99; BMI 22.8; BMI 22.4; BMI 22.5
[2019-04-03 17:58] LABS: Absolute Lymphocyte Count 0.78 X10^3/uL (0.83-4.51); Absolute Neutrophil Count 2.5 X10^3/uL (2.0-7.7); Basophil# 0.02 X10^3/uL; Basophil% 0.5 % (0-1); Eosinophil# 0.04 X10^3/uL; Eosinophils% 1.1 % (0-5); Hematocrit 30.4 % (40-54); Hemoglobin 10.2 g/dL (13.0-16.5); Lymphocyte # 0.78 X10^3/ul (4.0); Lymphocyte % 21.1 % (19-41); Mean Corp Hgb Conc 33.6 g/dL (32-36); Mean Corpuscular Hgb 32.4 pg (27.0-32.0); Mean Corpuscular Volume 96.5 fL (80-94); Monocyte% 10.8 % (0-10); NRBC Flagged by Analyzer 0 % (0-5); Neutrophil # 2.45 X10^3/uL (2.7-7.7); Neutrophil % 66.5 % (47-70); Platelet Count 126 K/mm3 (150-450); RBC Distribution Width CV 14.4 % (11.6-14.6); RBC Distribution Width SD 51.2 fl (35.1-43.9); Red Blood Count 3.15 M/mm3 (4.6-6.2); White Blood Count 3.7 K/mm3 (4.4-11.0)
[2019-04-03] MEDS: 0.9% Normal Saline 1,000 ML 1000 ML IV (18:06)
[2019-04-03] MEDS: Ondansetron 4 MG/2 ML Vial IV (18:06)
[2019-04-03 18:15] LABS: ALB/GLOB Ratio 0.9 RATIO (0.9-2.4); AST(SGOT) 90 U/L (15-37); Alanine Aminotransfer ALT/SGPT 68 U/L (16-61); Albumin, Serum 3.6 g/dL (3.2-5.0); Alkaline Phosphatase 71 U/L (45-117); Anion Gap 5 (5-15); BUN 11 mg/dL (7-18); BUN/Creat Ratio 13.4 RATIO (10-20); Calcium,Total 8.8 mg/dL (8.5-10.1); Chloride 105 mmol/L (98-107); Creatinine, Serum 0.82 mg/dL (0.70-1.30); EST Glomerular Filtration Rate 103 mL/min (>60); Est Glom Filt Rate - Afr Amer 125 mL/min (>60); Globulin 3.9 g/dL (2.2-4.2); Glucose 81 mg/dL (74-106); Potassium 4.3 mmol/L (3.5-5.1); Protein, Total 7.5 g/dL (6.4-8.2); Sodium Level 137 mmol/L (136-145)
[2019-04-03 18:17] LABS: Alcohol, Blood (Medical)-Serum < 3.0 mg/dL
[2019-04-03 18:43] LABS: Amphetamine Urine VISTA NEGATIVE (<1000 ng/mL); Barbiturate Urine VISTA NEGATIVE (< 200 ng/mL); Benzodiazepine Urine VISTA POSITIVE (< 200 ng/mL); Cocaine Urine VISTA NEGATIVE (< 300 ng/mL); Ecstacy Urine VISTA NEGATIVE (< 500 ng/mL); Methadone Urine VISTA NEGATIVE (< 300 ng/mL); PCP Urine VISTA NEGATIVE (< 25 ng/mL); THC Urine VISTA NEGATIVE (< 50 ng/mL); Vista UDS pH Range 6
--- NOTE | 2019-04-03 18:55 | ED.DCSUM_ITS ---
- ER Visit Summary Date of Service: 04/03/19 Chief Complaint: Alcohol withdrawal History of Present Illness: The patient is a 58 M presenting with alcohol withdrawal. He states his last drink was 3 PM yesterday. He has history of alcohol withdrawal and feels similar. He states he is shaking all over. He has nausea with dry heaving. He was admitted for detox within the last 2 weeks. He states he was sober for 5 days following detox. He then began drinking heavily again. He has no history of alcohol withdrawal seizures. Denies drug use. Physical Examination: Vitals are stable. Patient is afebrile. Alert no acute distress. HEENT exam is unremarkable. Neck is supple. Lungs are clear and equal bilaterally. Heart is regular rate and rhythm. Abdomen is soft nontender nondistended. Extremities are unremarkable. Skin is warm and dry. No focal neurologic deficit. Remainder of exam is unremarkable. Emergency Department Course and Treatment: CBC shows white count 3.7, hemoglobin 10.2, platelet 126. Liver enzymes show ALT 68, AST 90. Tox positive for benzos, alcohol negative. Discussed with the hospitalist for admission. Disposition: Admission Impression: Alcohol withdrawal This note was generated with [employer] dictation software. It may contain incorrect words, spelling, and punctuation that were not noted in review of the chart prior to signing ED Disposition - Plan for ED Patient: Referrals: Taylor Patel MD [Primary Care Provider] -
--- NOTE | 2019-04-03 19:54 | HP.PCM_ITS ---
Problem List (1) HTN (hypertension) Status: Chronic Qualifiers: (2) Tobacco use Status: Chronic (3) COPD (chronic obstructive pulmonary disease) Status: Chronic Qualifiers: (4) Alcohol withdrawal Status: Acute Qualifiers: (5) Pancytopenia Status: Chronic (6) Alcohol abuse Status: Chronic History of Present Illness Date of Admission: 04/03/19 Chief Complaint: Acute alcohol withdrawal. The patient is a 58 year old M patient with past medical history as mentioned above presented to the emergency room because of symptoms of acute alcohol withdrawal and requesting admission for medical stabilization. This patient was discharged from the hospital on March 26, 2019 after admission for acute alcohol withdrawal and he was sober for 5 days. He stated after he was discharged, he felt better and he had no more symptoms of withdrawal. He has been able to sleep and he has been doing okay. Few days later, he got back with his girlfriend and he started drinking again. He supposed to see his counselor at the [facility] but he missed his appointment. He mentioned that he tried to call the [facility] couple days ago and nobody called him back. His last drink was yesterday around 3 PM. Since yesterday, he has been having symptoms of increasing anxiety and shakiness, involving the whole body, has been increasing to the point where he is not able to walk or stand up. He complains of abdominal pain, crampy abdominal pain, mild, intermittent, associated with nausea and vomiting and without aggravating or relieving factors. He denied chest pain or shortness of breath. I spoke with the patient in length about what was the main reason for him to go back drinking. Patient mentioned that after he was discharged 8 days ago, he felt significantly better but he thinks that he started drinking again because he got back with his girlfriend. I informed patient that he was admitted to the hospital 4-5 times in the last 3 months for the same problem and he relapses back and started drinking again. I frankly informed the patient that if he is planning to get the treatment and then go back home and start drinking again, this program will not help him and it is not suitable for him. Apparently, patient understood that this program alone would not be sufficient to help him quit drinking unless he is determined to do it. In the emergency department, patient was shaky, restless and anxious. His blood pressure was elevated, other vital signs were stable. Routine blood work was remarkable for chronic pancytopenia, otherwise normal. LFT was unremarkable. Urine drug screen was positive for benzodiazepines. Blood alcohol level was less than 3. He is being admitted for acute alcohol withdrawal for medical stabilization. Past Medical History Past Medical History (Chronic Problems): Chronic Problems HTN (hypertension) (Chronic) Tobacco use (Chronic) COPD (chronic obstructive pulmonary disease) (Chronic) Malnutrition (Chronic) Hypomagnesemia (Chronic) Pancytopenia (Chronic) Alcohol abuse (Chronic) Medical History: Medical History (Last Reviewed 02/11/19 @ 13:45 by Pineda Albert DO) Pancreatitis K85.90 Vitamin deficiency E56.9 Back problem M53.9 High blood pressure I10 Allergies seasonal Allergy (Uncoded 03/23/19 23:36) Other Home Medications: Ambulatory Orders Medication Instructions Recorded Magnesium Oxide 400 mg PO DAILY 01/20/19 Multivitamin [One-Daily 1 ea PO DAILY 02/11/19 Multi-Vitamin] Folic Acid 1 mg PO DAILY@0800 #30 tab 03/26/19 Lisinopril [Zestril] 20 mg PO DAILY #30 tab 03/26/19 Thiamine HCl 100 mg PO DAILY #30 tab 03/26/19 Surgical History: Surgical History (Last Reviewed 02/11/19 @ 13:45 by Pineda Albert DO) History of appendectomy Z90.49 History of hernia surgery Z98.890, Z87.19 Surgical History: appendectomy, herniorrhaphy, - - Right inguinal hernia repair, appendectomy. Psychiatric History: No pertinent psych hx Smoking Status: Current every day smoker Tobacco Use: Cigarettes Alcohol: Heavy Drugs: None - *Family History Maternal Family History: Family History (Last Reviewed 04/03/19 @ 20:41 by Vania Rojas MD) Other Alcoholism Anxiety Colon cancer Diabetes Hypertension Kidney disease Myocardial infarction Skin cancer ulcer disease History Items: Hypertension, Renal Disease Paternal Family History: Family History (Last Reviewed 04/03/19 @ 20:41 by Vania Rojas MD) Other Alcoholism Anxiety Colon cancer Diabetes Hypertension Kidney disease Myocardial infarction Skin cancer ulcer disease History Items: Heart Disease - Father because of heart attack at age of 50. Sibling Family History: Family History (Last Reviewed 04/03/19 @ 20:41 by Vania Rojas MD) Other Alcoholism Anxiety Colon cancer Diabetes Hypertension Kidney disease Myocardial infarction Skin cancer ulcer disease History Items: Heart Disease, - - He has 3 brothers who had heart attacks at younger age. One brother had a heart attack at 39 years old, second brother had heart attack at age of 41 and another brother who had heart attack at age 46. Review of Systems Constitutional: Reports: Anorexia, Weakness. Denies: Chills, Fever Eyes: Denies: Blurred vision, Double vision, Drainage, Redness HEENT: Denies: Difficulty Hearing, Ear Pain, Eye Pain, Nasal Congestion, Sore Throat Cardiovascular: Denies: Chest Pain, Chest Pressure, Chest Tightness, Heaviness, Light Headedness, Palpitations, Syncope Respiratory: Denies: Cough, Shortness of Breath, Shortness of breath at rest, Sputum production, Wheezing Gastrointestinal: Reports: Abdominal Pain, Diarrhea, Nausea, Vomiting. Denies: Constipation, Hematochezia, Melena Genitourinary: Denies: Dysuria, Frequency, Hematuria Musculoskeletal: Denies: Arm Pain, Back Pain, Foot Pain Skin: Denies: Dryness, Rash Neurological: Denies: Balance problems, Double vision, Change in Speech, Slurred speech, Confusion, Headaches, Incoordination, Numbness Psychiatric: Reports: Anxiety. Denies: Depression Endocrine: Denies: Change in Body Habitus, Polydipsia, Polyuria VTE Information - Inpt Only VTE Present on Admission: No VTE Mechan Device Prophylaxis: None VTE Pharm Prophylaxis ordered?: No - Physical Exam Vitals/I&O's: Vital Signs Temp Pulse Resp BP Pulse Ox 98.2 F 84 20 H 152/94 H 97 04/03/19 16:59 04/03/19 19:34 04/03/19 19:34 04/03/19 19:34 04/03/19 19:34 Oxygen Delivery Method Room Air Weight: 150 lb Body Mass Index (BMI) 22.8 General: Alert, Oriented x3, Cooperative, - - Anxious, restless, shakiness. HEENT: Atraumatic, PERRLA, EOMI, Normocephalic Oral: Moist Mucosa, No Gingival or Mucosal Lesions/ Ulcerations Neck: Supple, No JVD, Negative Carotid Bruits, Trachea Midline, Thyroid Normal Size and Texture Lungs: Clear to auscultation, Normal air movement, No rhonchi, No wheeze, No rales, Diminished Cardiovascular: Regular rate, Regular Rhythm, Normal S1, Normal S2, PMI Normal, Tachycardic Abdomen: Bowel Sounds Present, Soft, Non Tender, Non-Distended, No Hepato- splenomegaly Extremities: No clubbing, No cyanosis, No edema Skin: No rashes, No breakdown Lymphatic: No Cervical, Supraclavicular, or Inguinal Adenopathy Neurological: Cranial nerves II-XII grossly intact, Motor Exam 5/5 strength throughout Psych/Mental Status: Normal Affect, Appropriate, Alert and oriented to time, place, person, mood and affect Laboratory Results 04/03/19 17:41: WBC 3.7 L, RBC 3.15 L, Hgb 10.2 L, Hct 30.4 L, MCV 96.5 H, MCH 32.4 H, MCHC 33.6, RDW Std Deviation 51.2 H, RDW Coeff of Reece 14.4, Plt Count 126 L, MPV 10.0, Immature Gran % (Auto) 0.000, Neut % (Auto) 66.5, Lymph % (Auto) 21.1, Lanier % (Auto) 10.8 H, Eos % (Auto) 1.1, Baso % (Auto) 0.5, Absolute Neuts (auto) 2.5, Absolute Lymphs (auto) 0.78 L, Nucleated RBC % 0 04/03/19 17:41: Sodium 137, Potassium 4.3, Chloride 105, Carbon Dioxide 27.0, Anion Gap 5, BUN 11, Creatinine 0.82, Estim Creat Clear Calc 96.80, Est GFR (MDRD) Af Amer 125, Est GFR (MDRD) Non-Af 103, BUN/Creatinine Ratio 13.4, Glucose 81, Calcium 8.8, Total Bilirubin 0.30, AST 90 H, ALT 68 H, Alkaline Phosphatase 71, Total Protein 7.5, Albumin 3.6, Globulin 3.9, Albumin/Globulin Ratio 0.9 04/03/19 17:41: Ethyl Alcohol < 3.0 04/03/19 18:10: Urine Opiates Screen NEGATIVE, Urine Methadone Screen NEGATIVE, Ur Barbiturates Screen NEGATIVE, Ur Phencyclidine Scrn NEGATIVE, Ur Amphetamines Screen NEGATIVE, U Methamphetamin-MDMA NEGATIVE, U Benzodiazepines Scrn POSITIVE H, Urine Cocaine Screen NEGATIVE, U Cannabinoids Screen NEGATIVE, Ur Drug Screen Comment Assessment/Plan All Active Problems (Last Reviewed 02/11/19 @ 13:45 by Pineda Albert DO) Alcohol withdrawal (Acute) This is a 58 years old male patient presented to the emergency room requesting admission for acute alcohol withdrawal for medical stabilization in context of multiple recent admissions for medical stabilization with relapse. #1 acute alcohol withdrawal: Patient was discharged from the hospital on March 26, 2019, remained sober for 5 days and relapsed because he got back with his girlfriend. He stated that he felt better after he was discharged, had no symptoms of withdrawal or craving for alcohol. I tried to explain to the patient that if he is not determined to quit drinking, this program alone will not be beneficial for him. He missed his appointment with [facility] and then he called them couple of days ago but nobody got back to him. His blood pressure slightly better, other vital signs are stable. Plan: Admit to PCU, cardiac monitoring, initiate alcohol withdrawal protocol with Ativan as needed, tapering Librium, CIWA, thiamine, folic acid, PRN Bentyl, methocarbamol, Imodium, Zofran, case management and social insurance administrator consult. #2 chronic pancytopenia: Secondary to chronic liver disease. He does have chronic leukopenia, neutropenia and anemia, blood counts are stable at baseline. Pro time and INR were normal. #3 hypertension: Blood pressure slightly well, plan to continue lisinopril, start IV hydralazine PRN. #4 COPD: Clinically stable, pulse ox is maintained on room air. Plan for albuterol PRN. #5 tobacco abuse: NicoDerm patch if desired. #6 DVT prophylaxis: Low risk patient, no prophylaxis indicated. This note was generated with [employer] dictation software. It may contain incorrect words, spelling, and punctuation that were not noted in checking the note before signing. Code Visit Inpatient E&M: 48890 Init Hosp L2
[2019-04-03 20:30] LABS: Prothrombin Time (Protime)PT. 13.1 SECONDS (11.7-14.9)
[2019-04-03 20:36] LABS: Lipase 303 U/L (73-393)
[2019-04-03] MEDS: LORazepam 1 MG Tablet 2 MG PO (21:19)
[2019-04-03] MEDS: chlordiazePOXIDE 25 MG Capsule 50 MG PO (21:34)
[2019-04-03] MEDS: Loperamide 2 MG Capsule PO (22:20)
[2019-04-03] MEDS: Acetaminophen 500 MG Tablet PO (22:24)
[2019-04-04] VITALS (11 sets, daily range): BP systolic 134–152; BP diastolic 77–93; PULSE 59–83; RESP 16–20; TEMP 36.8–37.3; O2SAT 94–100
[2019-04-04] MEDS: LORazepam 1 MG Tablet 2 MG PO ×5 (00:16→21:38)
[2019-04-04] MEDS: chlordiazePOXIDE 25 MG Capsule 50 MG PO (03:56)
--- NOTE | 2019-04-04 07:10 | PCM.PN.HOSP ---
Subjective: Patient overnight with ongoing alcohol withdrawal symptoms with tremors and tactile hallucinations, discussed current presentation and plan transition to phenobarbital taper to which patient is amenable. He notes also he slept very poorly and discussed addition of trazodone to which he was also amenable. Notes irritability with air sampling and monitoring therefore given stable otherwise plan transition to MedSurg status. Discussed at length with patient current re-presentation and the fact that recently he was only sober x5 days and the importance of having good follow-up to which he notes understanding. Patient denies fevers, chills, nausea, emesis, abdominal pain, chest pain or dyspnea. Objective: Physical Examination: General: awake, alert, oriented x 3, seated upright in the PCU bed, fatigued appearance, currently no tremors, notes not feeling well and terrible night. Skin: normal color, turgor, no icterus, cyanosis. HEENT: AT/NC, EOMI, PERRLA, dry MM. Lungs: Diminished breath sounds bilaterally, greater bilateral bases, moderate effort, no rales, ronchi or wheezing. Heart: Regular rate with regular rhythm; no gallop, rub audible. Abdomen: soft, thin habitus, NTTP, ND, normal BS. Extremities: no cyanosis, clubbing, or edema. Neurological: patient awake, alert, oriented x 3; cognitive function intact; pupils equally reactive to light and accomodation; cranial nerves II-XII grossly normal, moving all 4 extremities, no focal deficits, strength moderately to severely global decrease secondary to acute presentation. Psychiatric: affect appears fatigued, no acute evidence of depressive or anxiety feelings. Vitals/I&O's: Vital Signs Temp Pulse Resp BP Pulse Ox 98.8 F 71 20 H 144/93 H 95 04/04/19 06:00 04/04/19 06:00 04/04/19 06:00 04/04/19 06:00 04/04/19 06:00 Oxygen Delivery Method Room Air Weight: 147 lb 11.355 oz Body Mass Index (BMI) 22.4 Intake and Output for Last 24 Hours 04/02/19 04/03/19 04/04/19 23:59 23:59 23:59 Intake Total 1440 / 1440 60 / 60 Balance 1440 / 1440 60 / 60 Laboratory Results 04/03/19 17:41: WBC 3.7 L, RBC 3.15 L, Hgb 10.2 L, Hct 30.4 L, MCV 96.5 H, MCH 32.4 H, MCHC 33.6, RDW Std Deviation 51.2 H, RDW Coeff of Reece 14.4, Plt Count 126 L, MPV 10.0, Immature Gran % (Auto) 0.000, Neut % (Auto) 66.5, Lymph % (Auto) 21.1, Freestone % (Auto) 10.8 H, Eos % (Auto) 1.1, Baso % (Auto) 0.5, Absolute Neuts (auto) 2.5, Absolute Lymphs (auto) 0.78 L, Nucleated RBC % 0 04/03/19 17:41: Sodium 137, Potassium 4.3, Chloride 105, Carbon Dioxide 27.0, Anion Gap 5, BUN 11, Creatinine 0.82, Estim Creat Clear Calc 96.80, Est GFR (MDRD) Af Amer 125, Est GFR (MDRD) Non-Af 103, BUN/Creatinine Ratio 13.4, Glucose 81, Calcium 8.8, Total Bilirubin 0.30, AST 90 H, ALT 68 H, Alkaline Phosphatase 71, Total Protein 7.5, Albumin 3.6, Globulin 3.9, Albumin/Globulin Ratio 0.9 04/03/19 17:41: Ethyl Alcohol < 3.0 04/03/19 17:41: PT 13.1, INR 1.0 04/03/19 17:41: Lipase 303 04/03/19 18:10: Urine Opiates Screen NEGATIVE, Urine Methadone Screen NEGATIVE, Ur Barbiturates Screen NEGATIVE, Ur Phencyclidine Scrn NEGATIVE, Ur Amphetamines Screen NEGATIVE, U Methamphetamin-MDMA NEGATIVE, U Benzodiazepines Scrn POSITIVE H, Urine Cocaine Screen NEGATIVE, U Cannabinoids Screen NEGATIVE, Ur Drug Screen Comment Current Medications Acetaminophen (Tylenol) 500 mg PO Q4H PRN PRN PRN Reason: Pain Score 1-4/10 Fever >100.4 Last Admin: 04/03/19 22:24 Dose: 500 mg Documented by: Albuterol Sulfate (Ventolin Aerosols) 2.5 mg INHALATION Q4H PRN PRN PRN Reason: Shortness of breath, wheezing Albuterol/Ipratropium (Duoneb) 3 ml INHALATION Q6HWA.RT KATE Dicyclomine HCl (Bentyl) 20 mg PO Q6H PRN PRN PRN Reason: abdominal discomfort F[facility] ([facility]) [facility] Stop: 04/06/19 08:01 Hydralazine HCl (Apresoline Iv) 10 mg IV Q6H PRN PRN PRN Reason: for SBP>160 Hydroxyzine Pamoate (Vistaril Pamoate Capsule) 50 mg PO Q6H PRN PRN PRN Reason: Mild Anxiety (score 1/3) Lisinopril (Zestril) 20 mg PO DAILY [facility] Loperamide HCl (Imodium) 2 - 4 mg PO UD PRN PRN Reason: LOOSE STOOLS Last Admin: 04/03/19 22:20 Dose: 4 mg Documented by: Lorazepam (Ativan) 2 mg PO Q2H PRN PRN; Protocol PRN Reason: CIWA score > 8 but <15 Last Admin: 04/04/19 03:56 Dose: 2 mg Documented by: Lorazepam (Ativan) 2 mg PO UD PRN; Protocol PRN Reason: CIWA score >/=15. Lorazepam (Ativan) 2 mg IV Q2H PRN PRN; Protocol PRN Reason: CIWA score > 8 but <15 Lorazepam (Ativan) 2 mg IV UD PRN; Protocol PRN Reason: CIWA score >/=15. Magnesium Oxide (Mag-Ox 400) 400 mg PO DAILY [facility] Methocarbamol (Methocarbamol) 750 mg PO Q6H PRN PRN PRN Reason: Muscle Aches Multivitamins (Multivitamin) [facility] Ondansetron HCl (Zofran Odt) 4 mg PO Q6H PRN PRN PRN Reason: NAUSEA Phenobarbital (Phenobarbital) 60 mg PO Q8H [facility] Sodium Chloride () 10 - 40 ml IV UD PRN PRN Reason: SALINE FLUSH Thiamine HCl (Vitamin B1) [facility] Stop: 04/06/19 08:01 STROKE Vital Signs/Narrative: Vital Signs Temp Pulse Resp BP Pulse Ox 04/04/19 06:00 98.8 F 71 20 H 144/93 H 95 04/04/19 03:55 98.4 F 69 18 144/83 H 97 Medical Necessity - Tobacco Use Smoking Status: Current every day smoker Tobacco Use: Cigarettes Assessment/Plan All Active Problems (Last Reviewed 02/11/19 @ 13:45 by Pineda Albert DO) Alcohol withdrawal (Acute) The patient is a 58 y/o M w/ PMHx: Chronic COPD, HTN, Tobacco use, Chronic macrocytic anemia, EtOH longstanding abuse history currently noting 1/5th tequila daily with history of prior DT who was recently treated for EtOH withdrawal with admission on 03/24/19, who now re-presents to the [facility] ED on 04/03/19 secondary to reportedly only being sober x 5 days secondary to returning to his significant who is also an alcoholic but still very adamant about performing alcohol withdrawal program again. 1. Acute EtOH Withdrawal: Admitted to PCU, routine labs obtained in the ED, discussed frankly upon admission his recent admission and return immediately to EtOH abuse per admitting hospitalist and importance of active roll in his sobriety attempt, initiated initially on ativan, given history of significant difficulties overnight and prior DT history will transition to Phenobarbital taper, obtain mag and phos levels and replete as needed, use as needed Catapres, Bentyl, Vistaril, IV fluids, IV antiemetics, Tylenol as needed for pain. Once patient clinically improved and completion of taper nearing will plan management assistance for transition to next level of rehabilitation care as given current history would benefit from a more structured program, possibly residential. Maintain on CIWA protocol. We will continue patient on thiamine, folic acid and multivitamin. If clinically doing well over the next 24 hours will de-escalate to MS status. 2. Chronic Pancytopenia: Secondary to alcohol abuse, admission CBC with WBC 3.2, Hgb 10.4, plts 213 with 04/04/19 repeat CBC w/ WBC 3.7, Hgb 10.2, Plt 126, stable. 3. Tobacco Abuse: Encouraged cessation, inpatient consultation per RT, NR if desired. 4. Hypertension: Continue home regimen including lisinopril, PRN hydralazine. 5. Chronic COPD: Not on any inhalers at home, ATC duonebs, PRN albuterol, encourage head of bed, I-S as well as encourage tobacco cessation with outpatient pulmonary function testing recommendation. 6. DVT prophylaxis: Low risk determination upon admission, ambulation encouraged. Code Visit Inpatient E&M: 23649 Subs Hosp L2
[2019-04-04 07:44] LABS: Magnesium 1.2 mg/dL (1.6-2.6)
--- NOTE | 2019-04-04 09:26 | CASEMGMT ---
KIKO is aware of patient from past admissions. KIKO noted in chart that patient started drinking again with his girlfriend. He missed his appt with [facility], stated he tried to call them several times and no one returned his calls. KIKO met with patient he confirmed above information. He signed release so SW could speak with [facility] and share any necessary information to assist in his plan of care. KIKO called Saida at [facility] and left her a voice mail requesting a return call. Priya WOOD MSW
[2019-04-04] MEDS: Phenobarbital 32.4 MG Tablet 64.8 MG PO ×3 (09:30→21:38)
[2019-04-04] MEDS: Thiamine Hydrochloride 100 MG Tablet PO (09:31)
[2019-04-04] MEDS: Folic Acid 1 MG Tablet PO (09:31)
[2019-04-04] MEDS: Multivitamins,Therapeutic Tablet 1 TABLET PO (09:31)
[2019-04-04] MEDS: Magnesium Oxide 400 MG Tablet PO (09:31)
[2019-04-04] MEDS: Lisinopril 20 MG Tablet PO (09:31)
[2019-04-04] MEDS: 0.9% Saline Lock 10 ML Syringe IV (11:21)
[2019-04-04] MEDS: LORazepam 2 MG/ML Syringe IV (11:21)
[2019-04-04] MEDS: Ibuprofen 600 MG Tablet PO ×2 (12:51→21:38)
[2019-04-04] MEDS: Ipratropium/Albuterol Sulfate 3 ML AMPUL.NEB INHALATION ×2 (13:37→18:39)
--- NOTE | 2019-04-04 14:01 | CHAPLAIN ---
Type of Pastoral Visit _x__ Initial Visit ___ Follow-up Visit ___ On-call Visit ___ General Patient Visit ___ Spiritual Assessment ___ Family Conference ___ Bereavement ___ Rapid Response ___ Code Blue ___ Other (describe below) Pastoral Care Referral From _x__ Patient ___ Family ___ Nurse ___ Physician ___ Dietitian Research ___ Eviscerator ___ Other (describe below) Sacrament/Intervention _x__ Active listening ___ Anointing ___ Orthodoxy ___ Bereavement ___ Communion ___ April exploration ___ _x__ Life review _x__ Prayer ___ Reconciliation ___ Sacrament of Sick _x__ Supportive presence ___ Wedding ___ Other (describe below) Pastoral Comments this patient has been seen by this human resources benefits assistant in previous admissions; continued offer of support and encouragement for his goals of sobriety; prayer and presence welcomed
--- NOTE | 2019-04-04 15:22 | CASEMGMT ---
KIKO called the [facility] Treatment Navigator line and spoke with Dheeraj. He was not able to access patient's information on the computer as he was in his car. He suggested SW call [facility] Intake and they can help SW reschedule an appt. KIKO called [facility] and spoke with Alda in intake and an appt was schedule for Sunday04-07-19 at 8p with Avtar Thornton. KIKO wrote this down and gave it to patient as well as verbally let him know the information. He thanked KIKO for the assistance. Plan: Appt for assessment or assessment update with [facility] [place] 04-07 at 8p Priya WOOD MSW
[2019-04-04] MEDS: traZODone 50 MG Tablet PO (21:38)
[2019-04-05] VITALS (7 sets, daily range): BP systolic 135–161; BP diastolic 91–101; PULSE 65–100; RESP 18; TEMP 36.6–37; O2SAT 96–98
[2019-04-05] MEDS: Phenobarbital 32.4 MG Tablet 64.8 MG PO ×3 (03:55→20:18)
[2019-04-05] MEDS: LORazepam 1 MG Tablet 2 MG PO ×2 (03:55→21:38)
[2019-04-05] MEDS: Ipratropium/Albuterol Sulfate 3 ML AMPUL.NEB INHALATION ×2 (06:50→18:56)
--- NOTE | 2019-04-05 07:09 | PN_ITS ---
Subjective: Patient overnight noting increased withdrawal symptoms, difficulty sleeping, notes he was up walking the halls and very fatigued at the moment. Discussed plan of care which included increasing his nightly trazodone and encouraged him if able to be up more today in order to assure improved sleep tonight. Discussed usage of [place] protocol more overlapping his phenobarbital to which she was amenable. Patient denies fevers, chills, nausea, emesis, abdominal pain, chest pain or dyspnea. Objective: Physical Examination: General: awake, alert, oriented x 3, laying in the medical surgical bed, more fatigued than day prior, notes he was unfortunately up a lot during the night, still having withdrawal symptoms but lessened. Skin: normal color, turgor, no icterus, cyanosis. HEENT: AT/NC, EOMI, PERRLA, improved less dry MM. Lungs: Diminished breath sounds bilaterally, greater bilateral bases, moderate effort, no rales, ronchi or wheezing. Heart: Regular rate with regular rhythm; no gallop, rub audible. Abdomen: soft, thin habitus, NTTP, ND, normal BS. Extremities: no cyanosis, clubbing, or edema. Neurological: patient awake, alert, oriented x 3; cognitive function intact; pupils equally reactive to light and accomodation; cranial nerves II-XII grossly normal, moving all 4 extremities, no focal deficits, strength improving but remains moderately to severely global decrease secondary to acute presentation and poor sleep evening prior. Psychiatric: affect appears more fatigued, no acute evidence of depressive or anxiety feelings. Vitals/I&O's: Vital Signs Temp Pulse Resp BP Pulse Ox 97.8 F 65 18 152/101 H 96 04/05/19 03:58 04/05/19 03:58 04/05/19 03:58 04/05/19 03:58 04/05/19 03:58 Oxygen Delivery Method Room Air Weight: 147 lb 11.355 oz Body Mass Index (BMI) 22.4 Intake and Output for Last 24 Hours 04/03/19 04/04/19 04/05/19 23:59 23:59 23:59 Intake Total 1440 / 1440 460 / 460 Balance 1440 / 1440 460 / 460 Laboratory Results 04/03/19 17:50: Phosphorus 3.0, Magnesium 1.2 L Current Medications Acetaminophen (Tylenol) 500 mg PO Q4H PRN PRN PRN Reason: Pain Score 1-4/10 Fever >100.4 Last Admin: 04/03/19 22:24 Dose: 500 mg Documented by: Al Hydroxide/Mg Hydroxide (Mylanta Ii) 30 ml PO Q6H PRN PRN PRN Reason: dyspesia Albuterol Sulfate (Ventolin Aerosols) 2.5 mg INHALATION Q4H PRN PRN PRN Reason: Shortness of breath, wheezing Albuterol/Ipratropium (Duoneb) 3 ml INHALATION Q6HWA.[facility] Last Admin: 04/05/19 06:50 Dose: 3 ml Documented by: Bisacodyl (Dulcolax) 10 mg RECTAL DAILY PRN PRN Reason: Constipation Dicyclomine HCl (Bentyl) 20 mg PO Q6H PRN PRN PRN Reason: abdominal discomfort Folic Acid (Folic Acid) [facility] Stop: 04/06/19 08:01 Last Admin: 04/04/19 09:31 Dose: 1 mg Documented by: Hydralazine HCl (Apresoline Iv) 10 mg IV Q6H PRN PRN PRN Reason: for SBP>160 Hydroxyzine Pamoate (Vistaril Pamoate Capsule) 50 mg PO Q6H PRN PRN PRN Reason: Mild Anxiety (score 1/3) Ibuprofen (Motrin) 600 mg PO Q8H PRN PRN PRN Reason: Pain Score 1-5/10 Last Admin: 04/04/19 21:38 Dose: 600 mg Documented by: Lisinopril (Zestril) 20 mg PO DAILY [facility] Last Admin: 04/04/19 09:31 Dose: 20 mg Documented by: Loperamide HCl (Imodium) 2 - 4 mg PO UD PRN PRN Reason: LOOSE STOOLS Last Admin: 04/03/19 22:20 Dose: 4 mg Documented by: Lorazepam (Ativan) 2 mg PO Q2H PRN PRN; Protocol PRN Reason: CIWA score > 8 but <15 Last Admin: 04/05/19 03:55 Dose: 2 mg Documented by: Lorazepam (Ativan) 2 mg PO UD PRN; Protocol PRN Reason: CIWA score >/=15. Lorazepam (Ativan) 2 mg IV Q2H PRN PRN; Protocol PRN Reason: CIWA score > 8 but <15 Last Admin: 04/04/19 11:21 Dose: 2 mg Documented by: Lorazepam (Ativan) 2 mg IV UD PRN; Protocol PRN Reason: CIWA score >/=15. Lorazepam (Ativan) 1 mg IV Q4H PRN PRN PRN Reason: Severe Anxiety Magnesium Oxide (Mag-Ox 400) 400 mg PO DAILY [facility] Last Admin: 04/04/19 09:31 Dose: 400 mg Documented by: Methocarbamol (Methocarbamol) 750 mg PO Q6H PRN PRN PRN Reason: Muscle Aches Multivitamins (Multivitamin) 1 tablet PO [facility] Last Admin: 04/04/19 09:31 Dose: 1 tablet Documented by: Nicotine (Nicoderm Cq (Pbkc)) 21 mg TRANSDERM. DAILY [facility] Last Admin: 04/04/19 12:51 Dose: 21 mg Documented by: Ondansetron HCl (Zofran Odt) 4 mg PO Q6H PRN PRN PRN Reason: NAUSEA Phenobarbital (Phenobarbital) 64.8 mg PO Q8H [facility] Stop: 04/06/19 04:01 Phenobarbital (Phenobarbital) 64.8 mg PO Q12H [facility] Stop: 04/07/19 04:01 Senna (Senokot) 1 tablet PO QHS PRN PRN Reason: Constipation Sodium Chloride () 10 - 40 ml IV UD PRN PRN Reason: SALINE FLUSH Last Admin: 04/04/19 11:21 Dose: 10 ml Documented by: Thiamine HCl (Vitamin B1) 100 mg PO [facility] Stop: 04/06/19 08:01 Last Admin: 04/04/19 09:31 Dose: 100 mg Documented by: Trazodone HCl (Desyrel) 50 mg PO QHS [facility] Last Admin: 04/04/19 21:38 Dose: 50 mg Documented by: STROKE Vital Signs/Narrative: Vital Signs Temp Pulse Resp BP Pulse Ox 04/05/19 03:58 97.8 F 65 18 152/101 H 96 Medical Necessity - Tobacco Use Smoking Status: Current every day smoker Tobacco Use: Cigarettes Assessment/Plan All Active Problems (Last Reviewed 02/11/19 @ 13:45 by Pineda Albert DO) Alcohol withdrawal (Acute) The patient is a 58 y/o M w/ PMHx: Chronic COPD, HTN, Tobacco use, Chronic macrocytic anemia, EtOH longstanding abuse history currently noting 1/5th tequila daily with history of prior DT who was recently treated for EtOH withdrawal with admission on 03/24/19, who now re-presents to the [facility] ED on 04/03/19 secondary to reportedly only being sober x 5 days secondary to returning to his significant who is also an alcoholic but still very adamant about performing alcohol withdrawal program again. 1. Acute EtOH Withdrawal: Admitted to PCU, routine labs obtained in the ED, discussed frankly upon admission his recent admission and return immediately to EtOH abuse per admitting hospitalist and importance of active roll in his sobriety attempt, initiated initially on ativan, given history of significant difficulties overnight and prior DT history transitioned on hospital day #1 to Phenobarbital taper, mag 1.2 with repletion ordered with repeat level 04/06/19 AM, randal underwood. Continue PRN agents for breakthrough symptoms. Maintain on CIWA protocol. 04/04/19 transitioned med surg status. Given complaints with poor sleep will increase q HS trazodone regimen 04/05/19 evening. Once patient clinically improved and completion of taper nearing will plan management assistance for transition to next level of rehabilitation care as given current history would benefit from a more structured program, possibly residential. Continue thiamine, folic acid and multivitamin. 2. Chronic Pancytopenia: Secondary to alcohol abuse, admission CBC with WBC 3.2, Hgb 10.4, plts 213 with 04/04/19 repeat CBC w/ WBC 3.7, Hgb 10.2, Plt 126, stable. Will repeat CBC 04/06/19 AM. 3. Tobacco Abuse: Encouraged cessation, inpatient consultation per RT, NR if desired. 4. Hypertension: Continue home regimen including lisinopril, PRN hydralazine. 5. Chronic COPD: Not on any inhalers at home, ATC duonebs, PRN albuterol, encourage head of bed, I-S as well as encourage tobacco cessation with outpatient pulmonary function testing recommendation. 6. DVT prophylaxis: Encourage ambulation. Code Visit Inpatient E&M: 54756 Subs Hosp L2
[2019-04-05] MEDS: Folic Acid 1 MG Tablet PO (08:53)
[2019-04-05] MEDS: Multivitamins,Therapeutic Tablet 1 TABLET PO (08:53)
[2019-04-05] MEDS: Thiamine Hydrochloride 100 MG Tablet PO (08:53)
[2019-04-05] MEDS: Magnesium Oxide 400 MG Tablet PO (09:29)
[2019-04-05] MEDS: Lisinopril 20 MG Tablet PO (09:29)
[2019-04-05] MEDS: Acetaminophen 500 MG Tablet PO ×2 (09:29→23:14)
[2019-04-05] MEDS: Magnesium Sulfate 4gm/100mL 4 GM/100 ML IV.SOLN. IV (17:11)
[2019-04-05] MEDS: hydrALAZINE 20 MG/ML Vial 10 MG IV (20:17)
[2019-04-05] MEDS: Ibuprofen 600 MG Tablet PO (20:18)
[2019-04-05] MEDS: Methocarbamol 750 MG Tablet PO (20:18)
[2019-04-05] MEDS: traZODone 100 MG Tablet PO (21:38)
[2019-04-05] MEDS: hydrOXYzine PAM 25 MG Capsule 50 MG PO (23:14)
[2019-04-05] MEDS: Dicyclomine 10 MG Capsule 20 MG PO (23:14)
[2019-04-06 00:07] VITALS: BP 133/82; PULSE 78; RESP 18; TEMP 36.9; O2SAT 99
[2019-04-06] MEDS: LORazepam 1 MG Tablet 2 MG PO ×2 (00:10→06:57)
[2019-04-06] MEDS: Ibuprofen 600 MG Tablet PO (04:02)
[2019-04-06] MEDS: Phenobarbital 32.4 MG Tablet 64.8 MG PO ×2 (04:03→13:00)
[2019-04-06 04:05] VITALS: BP 133/80; PULSE 64; RESP 18; TEMP 36.6; O2SAT 99
[2019-04-06 06:48] LABS: Absolute Lymphocyte Count 1.34 X10^3/uL (0.83-4.51); Absolute Neutrophil Count 1.9 X10^3/uL (2.0-7.7); Basophil# 0.01 X10^3/uL; Basophil% 0.3 % (0-1); Eosinophil# 0.15 X10^3/uL; Eosinophils% 4.1 % (0-5); Hematocrit 28.1 % (40-54); Hemoglobin 9.4 g/dL (13.0-16.5); Lymphocyte # 1.34 X10^3/ul (4.0); Lymphocyte % 36.5 % (19-41); Mean Corp Hgb Conc 33.5 g/dL (32-36); Mean Corpuscular Hgb 32.1 pg (27.0-32.0); Mean Corpuscular Volume 95.9 fL (80-94); Monocyte% 8.2 % (0-10); NRBC Flagged by Analyzer 0 % (0-5); Neutrophil # 1.85 X10^3/uL (2.7-7.7); Neutrophil % 50.4 % (47-70); POSITIVE COUNT YES; Platelet Count 87 K/mm3 (150-450); RBC Distribution Width CV 14.1 % (11.6-14.6); RBC Distribution Width SD 50.2 fl (35.1-43.9); Red Blood Count 2.93 M/mm3 (4.6-6.2); White Blood Count 3.7 K/mm3 (4.4-11.0)
[2019-04-06 07:20] LABS: ALB/GLOB Ratio 0.9 RATIO (0.9-2.4); AST(SGOT) 46 U/L (15-37); Alanine Aminotransfer ALT/SGPT 55 U/L (16-61); Albumin, Serum 3.1 g/dL (3.2-5.0); Alkaline Phosphatase 67 U/L (45-117); Anion Gap 9 (5-15); BUN 18 mg/dL (7-18); BUN/Creat Ratio 25.7 RATIO (10-20); Calcium,Total 8.2 mg/dL (8.5-10.1); Chloride 103 mmol/L (98-107); EST Glomerular Filtration Rate 124 mL/min (>60); Est Glom Filt Rate - Afr Amer 150 mL/min (>60); Estimated Creatinine Clearance 111.67 ml/min; Globulin 3.6 g/dL (2.2-4.2); Glucose 107 mg/dL (74-106); Magnesium 1.7 mg/dL (1.6-2.6); Potassium 3.2 mmol/L (3.5-5.1); Protein, Total 6.7 g/dL (6.4-8.2); Sodium Level 134 mmol/L (136-145)
[2019-04-06] MEDS: Thiamine Hydrochloride 100 MG Tablet PO (08:38)
[2019-04-06] MEDS: Multivitamins,Therapeutic Tablet 1 TABLET PO (08:38)
[2019-04-06] MEDS: Folic Acid 1 MG Tablet PO (08:38)
--- NOTE | 2019-04-06 09:43 | DCINST_ITS ---
- Discharge Diagnoses Current Active Problems: 1. Acute EtOH Withdrawal 2. Chronic Pancytopenia, Secondary to alcohol abuse 3. Tobacco Abuse 4. Hypertension 5. Chronic COPD You will use the following diet at home:: Regular Your food should be the consistency of: Regular Your liquids should be the consistency of: Regular/Thin Discharge Activity: - - Advise continued routine activity, please continue strict sobriety and advance activity with continued cane usage as improving. May resume sexual activity in: No Restrictions Weight Bearing Status: Weight bearing as tolerated Call your doctor if you observe: Fever of 101 or Higher, Inability to urinate, Inability to have a bowel movement, Shortness of breath, Dizziness, Fainting spells, Chest pain, Uncontrolled pain Instructions: [facility] [employer]: Coping with Alcohol Abuse, Addiction: Your Treatment Options Additional Instructions: During the admission you were treated for acute alcohol withdrawal, initially with an ativan taper but given your history and symptoms you were transitioned to phenobarbital with improvement. You are being discharged with a low dose of trazodone as needed for insomnia. Please closely follow with [facility] and also with your primary care physician. If you feel the onset of alcohol intake need, consider evaluation immediately to avoid alcohol intake. Allergies/Adverse Reactions: Allergies seasonal Allergy (Uncoded 03/23/19 23:36) Other Medications to take at Discharge Magnesium Oxide 400 mg PO DAILY 01/20/19 Multivitamin [One-Daily Multi-Vitamin] 1 ea PO DAILY 02/11/19 Folic Acid 1 mg PO DAILY@0800 #30 tab 03/26/19 Lisinopril [Zestril] 20 mg PO DAILY #30 tab 03/26/19 Thiamine HCl 100 mg PO DAILY #30 tab 03/26/19 traZODone [Desyrel] 50 mg PO QHS PRN 5 Days #5 tab 04/06/19 The following prescriptions were given: traZODone [Desyrel] 50 mg PO QHS PRN 5 Days #5 tab PRN Reason: Insomnia Transmission Status: Pending to [facility] Primary Care Physician: Taylor Patel MD [Primary Care Provider] - Please follow up with your Primary Care Physician in: Follow-up with PCP within 1-2 days discharge to assist EtOH sobriety. Test Results: Test results from this visit will be discussed in further detail at your follow- up appointment, if applicable. Please Follow Up With: [facility] Program When: 04/07/19 8 pm follow-up with Avtar Thornton Proposed Discharge Date: 04/06/19
--- NOTE | 2019-04-06 09:51 | DS.PCM_ITS ---
Discharge Date and Diagnosis Date of Admission: 04/03/19 Date of Discharge: 04/06/19 - Primary Discharge Diagnosis 1. Acute EtOH Withdrawal 2. Chronic Pancytopenia, Secondary to alcohol abuse 3. Tobacco Abuse 4. Hypertension 5. Chronic COPD - Secondary Discharge Diagnosis Chronic Problems HTN (hypertension) (Chronic) Tobacco use (Chronic) COPD (chronic obstructive pulmonary disease) (Chronic) Malnutrition (Chronic) Hypomagnesemia (Chronic) Pancytopenia (Chronic) Alcohol abuse (Chronic) Hospital Course and Treatment Operations: None Procedures: EKG Summary of Care Provided: The patient is a 58 y/o M w/ PMHx: Chronic COPD, HTN, Tobacco use, Chronic macrocytic anemia, EtOH longstanding abuse history currently noting 1/5th tequila daily with history of prior DT who was recently treated for EtOH withdrawal with admission on 03/24/19, who now re-presented to the [facility] ED on 04/03/19 secondary to reportedly only being sober x 5 days secondary to returning to his significant who is also an alcoholic but still very adamant about performing alcohol withdrawal program again. Admitted to PCU initially, routine labs obtained in the ED, discussed frankly upon admission his recent admission and return immediately to EtOH abuse per admitting hospitalist and importance of active roll in his sobriety attempt, initiated initially on ativan, given history of significant difficulties overnight and prior DT history transitioned on hospital day #1 to Phenobarbital taper, mag 1.2 with repletion ordered with repeat level 04/06/19 AM, phos normal. Continued PRN agents for breakthrough symptoms. Maintained on CIWA protocol. 04/04/19 transitioned med surg status without issue. Given complaints with poor sleep will increase q HS trazodone regimen 04/05/19 evening. Given clinically stable, completed taper, initially ativan with then transition to phenobarbital, discharged to home with close 180 follow-up on 04/07/19 and also recommended early PCP follow-up. DAY OF DISCHARGE PROGRESS NOTE: Subjective: Patient without acute event overnight per self and nursing report except again difficulty sleeping even with increased trazodone regimen. Patient states that withdrawal symptoms have improved but he is anxious about discharge. Discussed that patient had been initially admitted on 04/03/2019 initially on Ativan with then transition to phenobarbital and since then has been appropriately detoxed with close plan will need to follow-up on 04/07/2019 and encouraged continued close follow-up with his primary care physician. Discussed frankly that although we could certainly help him this was something he certainly had to make a decision about completing. Recommended that he if any concerns contact 180 or contact his primary care earlier but that following his dosing today would be appropriate clinically for discharge to home and he noted understanding. Patient denies fever, chills, nausea, emesis, abdominal pain, chest pain or dyspnea. Patient will be discharged with follow-up with primary care physician within preferably 1 to 2 days to assist with continued sobriety and also with 180 on 04/07/2019 as already scheduled. Objective: T 98, heart rate 64, BP 133/80, respiratory rate 18, 99% on room air. Physical Examination: General: awake, alert, oriented x 3, improved appearance, laying in bed, notes slept poorly again but appears improved since day prior. Skin: normal color, turgor, no icterus, cyanosis. HEENT: AT/NC, EOMI, PERRLA, MMM. Lungs: Diminished breath sounds bilaterally, greater bilateral bases, moderate effort, no rales, ronchi or wheezing. Heart: Regular rate with regular rhythm; no gallop, rub audible. Abdomen: soft, thin habitus, NTTP, ND, normal BS. Extremities: no cyanosis, clubbing, or edema. Neurological: patient awake, alert, oriented x 3; cognitive function intact; pupils equally reactive to light and accomodation; cranial nerves II-XII grossly normal, moving all 4 extremities, no focal deficits, strength improving, less fatigued despite again complaints of not sleeping well. Psychiatric: affect appears improved, less fatigued despite noting his sleep patterns, no acute evidence of depressive or anxiety feelings. Assessment and Plan: Please see hospital summary above. - Physical Exam Vitals/I&O's: Vital Signs Temp Pulse Resp BP Pulse Ox 98 F 64 18 133/80 H 99 04/06/19 04:05 04/06/19 04:05 04/06/19 04:05 04/06/19 04:05 04/06/19 04:05 Oxygen Delivery Method Room Air Weight: 147 lb 11.355 oz Body Mass Index (BMI) 22.4 Intake and Output for Last 24 Hours 04/04/19 04/05/19 04/06/19 23:59 23:59 23:59 Intake Total 460 / 460 500 / 500 Balance 460 / 460 500 / 500 Laboratory Results 04/06/19 05:59: WBC 3.7 L, RBC 2.93 L, Hgb 9.4 L, Hct 28.1 L, MCV 95.9 H, MCH 32.1 H, MCHC 33.5, RDW Std Deviation 50.2 H, RDW Coeff of Reece 14.1, Plt Count 87 L, MPV 11.0, Immature Gran % (Auto) 0.500, Neut % (Auto) 50.4, Lymph % (Auto) 36.5, [place] % (Auto) 8.2, Eos % (Auto) 4.1, Baso % (Auto) 0.3, Absolute Neuts (auto) 1.9 L, Absolute Lymphs (auto) 1.34, Nucleated RBC % 0 04/06/19 05:59: Sodium 134 L, Potassium 3.2 L, Chloride 103, Carbon Dioxide 22.0, Anion Gap 9, BUN 18, Creatinine 0.70, Estim Creat Clear Calc 111.67, Est GFR (MDRD) Af Amer 150, Est GFR (MDRD) Non-Af 124, BUN/Creatinine Ratio 25.7 H, Glucose 107 H, Calcium 8.2 L, Magnesium 1.7, Total Bilirubin 0.10 L, AST 46 H, ALT 55, Alkaline Phosphatase 67, Total Protein 6.7, Albumin 3.1 L, Globulin 3.6, Albumin/Globulin Ratio 0.9 Current Medications Acetaminophen (Tylenol) 500 mg PO Q4H PRN PRN PRN Reason: Pain Score 1-4/10 Fever >100.4 Last Admin: 04/05/19 23:14 Dose: 500 mg Documented by: Al Hydroxide/Mg Hydroxide (Mylanta Ii) 30 ml PO Q6H PRN PRN PRN Reason: dyspesia Albuterol Sulfate (Ventolin Aerosols) 2.5 mg INHALATION Q4H PRN PRN PRN Reason: Shortness of breath, wheezing Bisacodyl (Dulcolax) 10 mg RECTAL DAILY PRN PRN Reason: Constipation Dicyclomine HCl (Bentyl) 20 mg PO Q6H PRN PRN PRN Reason: abdominal discomfort Last Admin: 04/05/19 23:14 Dose: 20 mg Documented by: Hydralazine HCl (Apresoline Iv) 10 mg IV Q6H PRN PRN PRN Reason: for SBP>160 Last Admin: 04/05/19 20:17 Dose: 10 mg Documented by: Hydroxyzine Pamoate (Vistaril Pamoate Capsule) 50 mg PO Q6H PRN PRN PRN Reason: Mild Anxiety (score 1/3) Last Admin: 04/05/19 23:14 Dose: 50 mg Documented by: Ibuprofen (Motrin) 600 mg PO Q8H PRN PRN PRN Reason: Pain Score 1-5/10 Last Admin: 04/06/19 04:02 Dose: 600 mg Documented by: Lisinopril (Zestril) 20 mg PO DAILY [facility] Last Admin: 04/05/19 09:29 Dose: 20 mg Documented by: Loperamide HCl (Imodium) 2 - 4 mg PO UD PRN PRN Reason: LOOSE STOOLS Last Admin: 04/03/19 22:20 Dose: 4 mg Documented by: Lorazepam (Ativan) 2 mg PO Q2H PRN PRN; Protocol PRN Reason: CIWA score > 8 but <15 Last Admin: 04/06/19 06:57 Dose: 2 mg Documented by: Lorazepam (Ativan) 2 mg PO UD PRN; Protocol PRN Reason: CIWA score >/=15. Lorazepam (Ativan) 2 mg IV Q2H PRN PRN; Protocol PRN Reason: CIWA score > 8 but <15 Last Admin: 04/04/19 11:21 Dose: 2 mg Documented by: Lorazepam (Ativan) 2 mg IV UD PRN; Protocol PRN Reason: CIWA score >/=15. Lorazepam (Ativan) 1 mg IV Q4H PRN PRN PRN Reason: Severe Anxiety Magnesium Oxide (Mag-Ox 400) 400 mg PO DAILY [facility] Last Admin: 04/05/19 09:29 Dose: 400 mg Documented by: Methocarbamol (Methocarbamol) 750 mg PO Q6H PRN PRN PRN Reason: Muscle Aches Last Admin: 04/05/19 20:18 Dose: 750 mg Documented by: [facility]ivit[facility] ([facility]itamin) [facility] Last Admin: 04/06/19 08:38 Dose: 1 tablet Documented by: Nicotine (Nicoderm Cq (Pbkc)) 21 mg TRANSDERM. DAILY [facility] Last Admin: 04/05/19 09:28 Dose: 21 mg Documented by: Nutritional Formula (Lactose Free) (Ensure Enlive) 120 ml PO 4X/DAY [facility] Ondansetron HCl (Zofran Odt) 4 mg PO Q6H PRN PRN PRN Reason: NAUSEA Phenobarbital (Phenobarbital) 64.8 mg PO Q10H [facility] Stop: 04/07/19 00:01 Senna (Senokot) 1 tablet PO QHS PRN PRN Reason: Constipation Sodium Chloride () 10 - 40 ml IV UD PRN PRN Reason: SALINE FLUSH Last Admin: 04/04/19 11:21 Dose: 10 ml Documented by: Trazodone HCl (Desyrel) 100 mg PO QHS [facility] Last Admin: 04/05/19 21:38 Dose: 100 mg Documented by: Discharge Activity: - - Advise continued routine activity, please continue strict sobriety and advance activity with continued cane usage as improving. May resume sexual activity in: No Restrictions Weight Bearing Status: Weight bearing as tolerated Call your doctor if you observe: Fever of 101 or Higher, Inability to urinate, Inability to have a bowel movement, Shortness of breath, Dizziness, Fainting spells, Chest pain, Uncontrolled pain Home Medications: Medications to take at Discharge Magnesium Oxide 400 mg PO DAILY 01/20/19 Multivitamin [One-Daily Multi-Vitamin] 1 ea PO DAILY 02/11/19 Folic Acid 1 mg PO DAILY@0800 #30 tab 03/26/19 Lisinopril [Zestril] 20 mg PO DAILY #30 tab 03/26/19 Thiamine HCl 100 mg PO DAILY #30 tab 03/26/19 traZODone [Desyrel] 50 mg PO QHS PRN 5 Days #5 tab 04/06/19 Following Prescrptions Were Given to Patient: traZODone [Desyrel] 50 mg PO QHS PRN 5 Days #5 tab PRN Reason: Insomnia Transmission Status: Pending to [facility] Primary Care Physician: Taylor Patel MD [Primary Care Provider] - Please follow up with your Primary Care Physician in: Follow-up with PCP within 1-2 days discharge to assist EtOH sobriety. Please Follow Up With: 180 Program When: 04/07/19 8 pm follow-up with Avtar Thornton Patient Instructions: [facility] [employer]: Coping with Alcohol Abuse, Addiction: Your Treatment Options Disposition: Home Minutes spent on discharge:: 35 Patient Condition:: Fair Medical Necessity - Tobacco Use Smoking Status: Current every day smoker Tobacco Use: Cigarettes Meaningful Use Info Meaningful Use Diagnoses (Choose all that apply): None applicable Code Visit Inpatient E&M: 22402 Disch Hosp
[2019-04-06 10:00] VITALS: BP 141/88; PULSE 67; RESP 18; TEMP 36.4; O2SAT 99
[2019-04-06] MEDS: Lisinopril 20 MG Tablet PO (10:42)
[2019-04-06] MEDS: Magnesium Oxide 400 MG Tablet PO (10:42)
[2019-04-06 13:07] VITALS: BP 138/77; PULSE 74; RESP 18; TEMP 37; O2SAT 98
== END 2019-04-06 13:10 | disposition home or self-care (01) | DRG 775 ==
LOC: ED 18:00 → PCU 19:56 → MS3 04-04 17:35
PROVIDERS: Admitting Provider Hospitalist; Emergency Provider Emergency Medicine; PCP Internal Medicine; Visit Provider Family Medicine
DX: F10.239 Alcohol dependence with withdrawal, unspecified (principal); J44.9 Chronic obstructive pulmonary disease, unspecified; I10 Essential (primary) hypertension; E46 Unspecified protein-calorie malnutrition; F17.210 Nicotine dependence, cigarettes, uncomplicated; D61.818 Other pancytopenia; E83.42 Hypomagnesemia; Z68.22 Body mass index [BMI] 22.0-22.9, adult
CPT/HCPCS: 36415; 80053; 80307; 80320; 83690; 83735; 84100; 85025; 85610; 94640; 97802; 99285; 99406; J7030; A4216; G0480; J2405